=== PATIENT | female | born 1995 | race Hispanic/Latino ===

== ENCOUNTER → 2017-12-05 | Outpatient (CLI) | payer OTHER ==
[~2017-12-05] MED LIST: ACET1TAB43 PO; AMOXI; CEPH250T PO; CEPH500C PO; CLIN300C11 PO; FAMOTIDINE; FERR-47 PO; FERR-84 PO; HYOS0.3710 PO; IBP800T PO; IBUP-1773 PO; OMEP20CA12 PO; ONDA4TAB8 PO; ONDAN4ODT PO; PEDI1TAB36 PO; PREN-148 PO; PRM25T PO; RANI150T15 PO; RANI300T4 PO; SCR1T1 PO; SUCR1TAB36 PO; SULF1TAB35 PO; amoxicillin
--- NOTE | 2017-12-05 15:57 | Diagnostic Imaging Report ---
INDICATION: Dysmenorrhea. Transabdominal and transvaginal ultrasonography of the pelvis is performed. FINDINGS: The uterus measures 9.7 x 5.4 x 5.1 cm with an approximately 1.2 x 1.0 x 0.9 cm echogenic structure along the fundal aspect of the endometrium. This does appear to contain internal blood flow. Right ovary is unremarkable. Left ovary measures 4.1 x 3.8 x 4.7 cm and contains an approximately 3.1 x 3.0 x 2.4 cm cyst. No free fluid was documented although parametrial vessels are prominent, bilaterally. IMPRESSION: 1. 1.2 cm solid nodular focus in the fundal endometrium. This could represent polyp although other developing endometrial mass cannot be excluded. Clinical correlation would be of use. Consideration could be given to biopsy for assessment. 2. 3 cm cyst in the left ovary has a generally simple appearance without evidence of complicating feature. Dictated by: Dictated on workstation # [id number]
== END ==
LOC: RAD 12:42
PROVIDERS: ATTEND Nurse Practitioner Family
DX: N85.8 Other specified noninflammatory disorders of uterus (principal); N83.292 Other ovarian cyst, left side
CPT/HCPCS: 76830; 76856

== ENCOUNTER 2017-12-26 09:48 | Outpatient (CLI) | payer OTHER ==
[~2017-12-26] VITALS: Ht 154.9 cm; Wt 79.4 kg
[2017-12-26] MEDS ORDERED: OMEP20TA7 PO (10:01)
[2017-12-26] MEDS ORDERED: BUTA1TAB9 PO (10:01)
[2017-12-26 10:07] VITALS: BP 124/73
== END 2017-12-26 10:15 | disposition home or self-care (01) ==
LOC: PREOP 09:48
PROVIDERS: ATTEND Obstetrics & Gynecology
DX: Z01.818 Encounter for other preprocedural examination (principal); Z11.2 Encounter for screening for other bacterial diseases; R10.2 Pelvic and perineal pain
CPT/HCPCS: 87081

== ENCOUNTER → 2018-03-27 | Outpatient (CLI) | payer OTHER ==
[~2018-03-27] MED LIST changes: +ACHD5005 PO; +BUTA1TAB9 PO; +OMEP20TA7 PO; -RANI150T15 PO; +RANI150T46 PO
--- NOTE | 2018-03-27 15:54 | Diagnostic Imaging Report ---
INDICATION: Left pelvic pain. TECHNIQUE: Multiple real-time grayscale images were obtained of the pelvis in various projections endovaginally. FINDINGS: Uterus measures 8.7 x 5.3 x 4.8 cm. The endometrium is 4 mm in thickness. No uterine mass is identified. The right ovary is not visualized. The left ovary measures 3.7 x 1.8 x 1.4 cm. There is prominent vascularity in the left adnexa, perhaps owing to varices. No free fluid is seen. IMPRESSION: Essentially unremarkable pelvic ultrasound apart from moderate vascularity to the left adnexa. No discrete adnexal mass is identified. Dictated by: Dictated on workstation # [id number]
== END ==
LOC: RAD 14:36
PROVIDERS: ATTEND Nurse Practitioner Family
DX: R10.2 Pelvic and perineal pain (principal); R10.32 Left lower quadrant pain
CPT/HCPCS: 76830; 76856

== ENCOUNTER → 2018-07-24 | Outpatient (CLI) | payer OTHER ==
--- NOTE | 2018-07-24 13:56 | Diagnostic Imaging Report ---
INDICATION: Pelvic pain. TECHNIQUE: Multiple real time laughlin scale sonographic images were obtained of the pelvis transabdominally and transvaginally. CORRELATION STUDY: 03/27/2018 FINDINGS: UTERUS/ENDOMETRIUM: Uterus measures 10.2 x 6.1 x 4.8 cm. Endometrial thickness is 1.1 mm. The uterus and endometrium appearing unremarkable. A previously noted nodular foci within the endometrium is not demonstrated currently. RIGHT OVARY: 3.5 x 2.2 x 2.5. Unremarkable. No mass. Normal blood flow. LEFT OVARY: 1.9 x 2.1 x 2.2. Unremarkable. No mass. Normal blood flow. No significant free pelvic fluid. IMPRESSION: 1. Unremarkable appearing pelvic ultrasound examination. Dictated by: Dictated on workstation # [id number]
== END ==
LOC: RAD 11:53
PROVIDERS: ATTEND Obstetrics & Gynecology
DX: R10.2 Pelvic and perineal pain (principal)
CPT/HCPCS: 76830; 76856

== ENCOUNTER → 2018-09-07 | Outpatient (CLI) | payer OTHER ==
[~2018-09-07] MED LIST changes: +IOHEXOL 350 MG/ML 100 ML (OMNIPAQUE 350) VIAL IV ONE; +NS 250 ML (IVPB) BAG IV ONE
--- NOTE | 2018-09-07 17:37 | Diagnostic Imaging Report ---
PROCEDURE: CT head with and without contrast. TECHNIQUE: Multiple contiguous axial images were obtained through the brain before and after the administration of intravenous contrast. INDICATION: Intractable migraine without aura. FINDINGS: The ventricles are normal in size, shape and position. There is no acute parenchymal hemorrhage, edema, mass or abnormal parenchymal enhancement. There is no extra-axial mass or hemorrhage. IMPRESSION: Normal CT of the head. Dictated by: Dictated on workstation # [id number]
== END ==
LOC: RAD 16:21
PROVIDERS: ATTEND Nurse Practitioner Family
DX: G43.011 Migraine without aura, intractable, with status migrainosus (principal)
CPT/HCPCS: 70470

== ENCOUNTER 2018-11-09 11:53 | Outpatient (CLI) | payer OTHER ==
[~2018-11-09] VITALS: Ht 154.9 cm; Wt 85.7 kg
[~2018-11-09 11:53] MED LIST changes: -IOHEXOL 350 MG/ML 100 ML (OMNIPAQUE 350) VIAL IV ONE; -NS 250 ML (IVPB) BAG IV ONE
[2018-11-09 12:02] VITALS: BP 127/75
[2018-11-09 12:35] LABS: BASOPHILS % (AUTO) 1 % (0-10); EOSINOPHILS # (AUTO) 0.4 10^3/uL (0.0-0.3); EOSINOPHILS % (AUTO) 5 % (0-10); HEMATOCRIT 38 % (35-52); HEMOGLOBIN 12.5 G/DL (11.5-16.0); LYMPHOCYTES # (AUTO) 2.6 X 10^3 (1.0-4.0); LYMPHOCYTES % (AUTO) 37 % (12-44); MEAN CORPUSCULAR HEMOGLOBIN 27 PG (25-34); MEAN CORPUSCULAR HGB CONC 33 G/DL (32-36); MEAN CORPUSCULAR VOLUME 81 FL (80-99); MEAN PLATELET VOLUME 10.6 FL (7.4-10.4); MONOCYTES # (AUTO) 0.4 X 10^3 (0.0-1.0); MONOCYTES % (AUTO) 5 % (0-12); NEUTROPHILS # (AUTO) 3.7 X 10^3 (1.8-7.8); NEUTROPHILS % (AUTO) 53 % (42-75); PLATELET COUNT 291 10^3/uL (130-400); RED BLOOD COUNT 4.62 10^6/uL (4.35-5.85); RED CELL DISTRIBUTION WIDTH 13.3 % (10.0-14.5); WHITE BLOOD COUNT 7.1 10^3/uL (4.3-11.0)
== END 2018-11-09 12:20 | disposition home or self-care (01) ==
LOC: PREOP 11:53
PROVIDERS: ATTEND Obstetrics & Gynecology
DX: Z01.812 Encounter for preprocedural laboratory examination (principal); Z11.2 Encounter for screening for other bacterial diseases; R10.2 Pelvic and perineal pain; D64.9 Anemia, unspecified
CPT/HCPCS: 36415; 85025; 86850; 86900; 86901; 87081

== ENCOUNTER 2018-11-13 10:23 | Day surgery (SDC) | payer OTHER ==
[~2018-11-13] VITALS: Ht 154.9 cm; Wt 85.7 kg
[2018-11-13] MEDS ORDERED: ceFAZolin INJECTION 1,000 MG in NS (IVPB) 50 ML IV ONE (10:30)
--- OUTSIDE RECORDS SUMMARY | 2018-11-13 10:32 | XMS REPORT ---
Author Author JOSEPHINE GOODWIN Organization [facility] Address [address] [place] [address] Care Team Providers Care Director Of Accreditation Name Role Phone IMKE GOODWINTA Unavailable PROBLEMS Type Condition ICD9-CM Code [id number] Code Onset Dates Condition Status SNOMED Code Problem GERD without esophagitis K21.9 Active 907934066 Problem Primary insomnia F51.01 Active 1337463 Problem Moderate episode of recurrent major depressive disorder F33.1 Active 334006838 Problem Intractable migraine without aura and with status migrainosus G43.011 Active 542608848 Problem GERD with esophagitis K21.0 Active 400097754 Problem Acute bilateral low back pain without sciatica M54.5 Active 742006564 Problem Anxiety F41.9 Active 87198311 Problem Mild persistent asthma without complication J45.30 Active 505811975 Problem Asthma due to seasonal allergies J45.909 Active 758185534 Problem Migraine without aura and without status migrainosus, not intractable G43.009 Active 074560890 Problem Obesity (BMI 30.0-34.9) E66.9 Active 738389023830889 Problem Myopia of both eyes H52.13 Active 40776238 Problem Acanthosis nigricans L83 Active 674691439 Problem Seasonal allergic rhinitis, unspecified allergic rhinitis trigger J30.2 Active 354338004 Problem Dysmenorrhea N94.6 Active 985100560 ALLERGIES Substance Reaction Event Type Date Status Topamax numbness and tingling Drug Allergy Oct, Active Augmentin nausea and vomiting Drug Allergy Oct, Active ENCOUNTERS Encounter Location Date Diagnosis [facility] [address] [facility] [id number] [address] Oct, Anxiety F41.9 [facility] [address] [facility] [id number] [address] Oct, Strain of right shoulder, initial encounter S46.911A [place] [address] [place] [id number] [place] [address] Oct, [facility] [place] [address] [id number] [place] [address]385 Oct, Wheezing R06.2 [facility] [place] [address] [address] Sep, Wheezing R06.2 [place] [address] 6[address]398 Aug, [place] [address] [address] 26 Jul, 2018 Encounter for immunization Z23 [place] [address] [address] 4964 17 Jul, 2018 Bacterial conjunctivitis of left eye H10.9 [place] [address] [address]- [address] 13 Jul, 2018 Oral pain K13.79 [facility] [place] [address] [id number] [place] [address] 03833 -280[address] 07 Jul, 2018 Seasonal allergic rhinitis, unspecified allergic rhinitis trigger J30.2 ; Sore throat J02.9 ; Cough R05 and Acute otitis media, unspecified otitis media type H66.90 [place] [address] [id number] [place] [address] 27787- 3886 Jun, Intractable migraine without aura and with status migrainosus G43.011 [place] [address] [id number] [place] [address] 32547- 9300 May, Intractable migraine without aura and with status migrainosus G43.011 [place] [address] [id number] [place] [address] 34886- 4993 May, Intractable migraine without aura and with status migrainosus G43.011 [facility] [place] [address] [id number] [place] [address]9728 May, Migraine without aura and without status migrainosus, not intractable G43.009 [facility] [address] [id number] [place] [address] 98640- 0383 Apr, Vertigo R42 and Epigastric abdominal pain R10.13 [facility] [address] [address] Apr, Vertigo R42 [facility] [address] [address] Apr, Vertigo R42 [facility] [address] 8[address]- [address]16 Apr, Epigastric abdominal pain R10.13 and GERD with esophagitis K21.0 [place] [address] [address] Apr, Wheezing R06.2 [place] [address] 9[address]13- 7014 Apr, Mild persistent asthma without complication J45.30 and Wheezing R06.2 [place] [address] 8[address]- 1420 Apr, Migraine without aura and without status migrainosus, not intractable G43.009 [place] [address] 7[address]81- 6140 Apr, [place] [address] [address]74- [address] Apr, Cough R05 and Wheezing R06.2 [place] [address] 81271- 4483 05 Apr, 2018 Persistent cough for 3 weeks or longer R05 [place] [address] 0[address]51- 3[address] March, Asthma due to seasonal allergies J45.909 ; Cough R05 and Wheezing R06.2 [place] [address] [address]- 1706 March, Seasonal allergic rhinitis, unspecified allergic rhinitis trigger J30.2 and Asthma due to seasonal allergies J45.909 [place] [address] [address]63- 30[address] March, Cough R05 ; Chest congestion R09.89 and Sore throat J02.9 [place] [address] 02426- 9287 March, Moderate episode of recurrent major depressive disorder F33.1 ; Migraine without aura and without status migrainosus, not intractable G43.009 ; Primary insomnia F51.01 and Anxiety F41.9 [facility] [address] [address] March, Acute non-recurrent frontal sinusitis J01.10 [place] [address] 47946- 30[address] March, [place] [address] 85368- 6595 March, Right otitis media with effusion H65.91 ; Acute non- recurrent frontal sinusitis J01.10 and Migraine without aura and without status migrainosus, not intractable G43.009 [place] [address] 13466- 5645 Feb, Left lower quadrant pain R10.32 ; Migraine without aura and without status migrainosus, not intractable G43.009 and Anxiety F41.9 [place] [address] [address] Feb, Oral contraceptive pill surveillance Z30.41 [place] [address] 93851- 5383 Feb, Acute bilateral low back pain without sciatica M54.5 [place] [address] 59905- 2419 Feb, [place] [address] [address]19[address] 2624 12 Feb, [address] [facility] [address] [id number] 10 Feb, 2018 Dental examination Z01.20 [place] [address] 78876- 7016 10 Feb, 2018 Anxiety F41.9 [place] [address] 30793- 2326 Feb, Primary insomnia F51.01 and Moderate episode of recurrent major depressive disorder F33.1 [place] [address] [place] [id number] Jan, Acute suppurative otitis media of left ear without spontaneous rupture of tympanic membrane, recurrence not specified H66.002 [place] [address] 28432- 9[address] Jan, Migraine without aura and without status migrainosus, not intractable G43.009 ; Seasonal allergic rhinitis, unspecified allergic rhinitis trigger J30.2 ; GERD without esophagitis K21.9 ; Current mild episode of major depressive disorder without prior episode F32.0 and Human bite, initial encounter W50.3XXA [place] [address] 97739- 8063 Dec, Migraine without aura and without status migrainosus, not intractable G43.009 [place] [address] 05836- 0761 Dec, Nausea and vomiting after administration of anesthetic agent T88.59XA [place] [address] 31717- 8478 Dec, [place] [address] 56710- 8[address] 05 Dec, 2017 Acute tonsillitis, unspecified etiology J03.90 [place] [address] [place] [id number]- [address]46 Nov, Dysmenorrhea N94.6 ; Acute midline low back pain without sciatica M54.5 ; Obesity (BMI 30.0-34.9) E66.9 and High ankle sprain of right lower extremity, initial encounter S93.431A [facility] [address] [id number] [place] [address] 41387- 3812 Nov, [facility] [address] 29735- 2867 Nov, Migraine without aura and without status migrainosus, not intractable G43.009 [place] [address] [place] [address] 4112 Oct, Migraine without aura and without status migrainosus, not intractable G43.009 [facility] [address] [place] [id number] [place] [address] 20630 -9600 Oct, Migraine without aura and without status migrainosus, not intractable G43.009 [facility] [address] [place] [id number] [place] [address] 23333- 4826 Oct, [facility] [address] 94711- 2141 Oct, [facility] [address] [place] [id number] [place] [address] 96132- 8366 Oct, Acute non-recurrent maxillary sinusitis J01.00 [facility] [address] [id number] [place] [address] 33920- 5117 Sep, Left elbow tendonitis M77.8 and Other fatigue R53.83 [facility] [address] [place] [id number] [place] [address] [id number] Sep, Dental examination Z01.20 [facility] [address] [place] [id number] [place] [address] 72045- 8237 10 Sep, 2017 Sore throat J02.9 ; Other viral agents as the cause of diseases classified elsewhere B97.89 and Acute upper respiratory infection, unspecified J06.9 [facility] [address] [place] [id number] [place] [address] 20343- 6229 Aug, Encounter for immunization Z23 [facility] [address] 79198- 7097 Aug, Encounter for immunization Z23 [facility] [address] 67066- 7290 Aug, Migraine without aura and without status migrainosus, not intractable G43.009 [facility] [address] 34450- 5840 Jul, Acute midline low back pain without sciatica M54.5 and Obesity (BMI 30.0-34.9) E66.9 [facility] [address] 61774- 9438 Jul, Chronic seasonal allergic rhinitis due to pollen J30.1 [facility] [address] [id number] Jun, Dental examination Z01.20 [facility] [address] 032[address] -[address] Jun, Jaw pain R68.84 [facility] [address] 48290- 0674 Jun, Dental examination Z01.20 [facility] [address] [id number] Jun, Dental examination Z01.20 [facility] [address] 52252- 6897 Jun, [facility] [address] 12033- 5728 Jun, Allergic reaction, initial encounter T78.40XA [facility] [address] 42215- 4853 Jun, [facility] [address] [place] [address]- 6445 Jun, Migraine without aura and without status migrainosus, not intractable G43.009 [place] [address] 33255- 8597 May, [place] [address] [id number] [place] [address] 08039- 9104 May, Helicobacter pylori (H. pylori) infection A04.8 [place] [address] 97033- 6081 11 May, 2017 Encounter for routine adult health examination with abnormal findings Z00.01 ; Obesity (BMI 30.0-34.9) E66.9 ; Acanthosis nigricans L83 and Dietary counseling Z71.3 [place] [address] 97677- 3834 13 Apr, 2017 Acute seasonal allergic rhinitis due to pollen J30.1 and Sore throat J02.9 [place] [address] [id number] [place] [address] 83940- 4604 Apr, [place] [address] 33654- 0070 Apr, Migraine without aura and without status migrainosus, not intractable G43.009 [place] [address] [id number] [place] [address] 89261- 6111 March, Dental examination Z01.20 [facility] [address] [place] [id number] [place] [address] 86818 -6865 Feb, Seasonal allergic rhinitis, unspecified allergic rhinitis trigger J30.[address] [place] [address] [id number] [id number] Nov, [facility] [address] [place] [address] [id number] Oct, Dental examination Z01.20 [facility] [address] [place] [address] [id number] Oct, Dental examination Z01.20 [facility] [address] [id number] [place] [id number] Oct, 2015 Dental examination Z01.20 and Encounter for dental examination Z01.20 [facility] [address] [id number] [place] [address] 14 Feb, 2015 [facility] [address] [id number] [place] [address]- 8618 13 Feb, 2015 [facility] [address] [id number] [place] [address]- [address] Sep, [facility] [address] [id number] [place] [address]- 3707 Sep, [facility] [address] [id number] [place] [address]- 8295 Jul, [facility] [address] [id number] [place] [address]- 2730 Jul, [facility] [address] [id number] [place] [address]- 7368 Jul, [facility] [address] [id number] [place] [address]- 1916 Jun, [facility] [address] [facility] [id number] [place] [address]- 0030 Jun, [facility] [address] [id number] [place] [address]- 6381 Jun, [facility] [address] [id number] [place] [address]- 0516 Jun, [facility] [address] [id number] [place] [address]- 8437 Jul, [facility] [address] [id number] [place] [address]- 0310 Jun, [facility] [address] [facility] [id number] [place] [address] 5490 Feb, [facility] [address] [facility] [id number] [place] [address]- 7539 Sep, [facility] [address] [facility] [id number] [place] [address]- 42[address] Sep, [facility] [address] [facility] [id number] [place] [address]- 58[address] Oct, [facility] [address] [facility] [id number] [place] [address] Oct, IMMUNIZATIONS No Known Immunizations SOCIAL HISTORY Never Assessed REASON FOR VISIT see TE, pt had a strange feeling while lifting her son last night, now has weakness in the right hand and pain when she breaths- Lala Masters RN PLAN OF CARE Activity Details Follow Up if not improving or with pcp for regular fu. if not improving with PCP or reg follow up Reason:recheck or next [facility] VITAL SIGNS Height 62 in 2018-10-29 Weight 189 lbs 2018-10-29 Temperature 98.0 degrees Fahrenheit 2018-10-29 Heart Rate 78 bpm 2018-10-29 Respiratory Rate 18 2018-10-29 BMI 34.56 kg/m2 2018-10-29 Blood pressure systolic 122 mmHg 2018-10-29 Blood pressure diastolic 80 mmHg 2018-10-29 MEDICATIONS Medication Instructions Dosage Frequency Start Date End Date Duration Status Baclofen 10 mg Orally Three times a day 1 tablet with food or milk 8h Oct, 14 days Active Qvar 40 MCG/ACT Inhalation Twice a day 1 puff 12h Apr, Apr, 12 months Active E-Z Spacer 1 Oct, 30 days Active Ipratropium-Albuterol 0.5-2.5 (3) MG/3ML Inhalation every 6 hrs 3 ml 6h March, Active Naproxen 500 mg Orally every 12 hrs 1 tablet with food or milk as needed 12h Oct, 14 days Active Fioricet 50-300-40 MG Orally every 4 hrs 1 capsule as needed 4h Active ProAir HFA 108 (90 Base) MCG/ACT Inhalation every 4-6 hrs PRN 2 puffs as needed Oct, 5 days Active RESULTS No Results PROCEDURES No Known procedures INSTRUCTIONS MEDICATIONS ADMINISTERED No Known Medications MEDICAL (GENERAL) HISTORY Type Description Date Medical History Seasonal Allergies Surgical History uterine polyp removal- 12/2017 Hospitalization History Childbirth only
--- OUTSIDE RECORDS SUMMARY | 2018-11-13 10:33 | XMS REPORT ---
Author Author CORINA SCHUMACHER Organization [facility] Address [address] [place] [address] Care Team Providers Care Undercover Operator Name Role Phone CORINA SCHUMACHER Unavailable PROBLEMS Type Condition ICD9-CM Code CEB75-MK Code Onset Dates Condition Status SNOMED Code Problem GERD without esophagitis K21.9 Active 733402154 Problem Primary insomnia F51.01 Active 0517448 Problem Moderate episode of recurrent major depressive disorder F33.1 Active 911312074 Problem Intractable migraine without aura and with status migrainosus G43.011 Active 147627103 Problem GERD with esophagitis K21.0 Active 133978274 Problem Acute bilateral low back pain without sciatica M54.5 Active 463268708 Problem Anxiety F41.9 Active 12770531 Problem Mild persistent asthma without complication J45.30 Active 306666264 Problem Asthma due to seasonal allergies J45.909 Active 141438948 Problem Migraine without aura and without status migrainosus, not intractable G43.009 Active 044467121 Problem Obesity (BMI 30.0-34.9) E66.9 Active 638926261449000 Problem Myopia of both eyes H52.13 Active 13186573 Problem Acanthosis nigricans L83 Active 514826121 Problem Seasonal allergic rhinitis, unspecified allergic rhinitis trigger J30.2 Active 602790082 Problem Dysmenorrhea N94.6 Active 290102854 ALLERGIES No Information ENCOUNTERS Encounter Location Date Diagnosis [facility] [address] [id number] [address] Oct, Anxiety F41.9 [facility] [address] [id number], [place] [address] Oct, Strain of right shoulder, initial encounter S46.911A [facility] [address] [id number] [address] Oct, [facility] [id number] [place] [address] Oct, Wheezing R06.2 [facility] [id number] [place] [address]5173 Sep, Wheezing R06.2 [place] [id number] [place] [address] 18478- 7204 Aug, [place] [address] [address] 26 Jul, 2018 Encounter for immunization Z23 [place] [address] [address]- [address]7 17 Jul, 2018 Bacterial conjunctivitis of left eye H10.9 [place] [id number] [place] [address] 26145- 0881 13 Jul, 2018 Oral pain K13.79 [facility] [place] [id number] [place] [address] 61671 -4687 07 Jul, 2018 Seasonal allergic rhinitis, unspecified allergic rhinitis trigger J30.2 ; Sore throat J02.9 ; Cough R05 and Acute otitis media, unspecified otitis media type H66.90 [place] [id number] [place] [address] 00199- 0588 Jun, Intractable migraine without aura and with status migrainosus G43.011 [place] [id number] [place] [address] 14048- 2892 May, Intractable migraine without aura and with status migrainosus G43.011 [place] [id number] [place] [address] 27750- 3768 May, Intractable migraine without aura and with status migrainosus G43.011 [facility] [place] [id number] [place] [address]14 -5878 May, Migraine without aura and without status migrainosus, not intractable G43.009 [place] [address] [address]83- 6543 28 Apr, 2018 Vertigo R42 and Epigastric abdominal pain R10.13 [place] [address] [address]46- [address] Apr, Vertigo R42 [facility] [address] [address] Apr, Vertigo R42 [place] [address] [address]- 1308 Apr, Epigastric abdominal pain R10.13 and GERD with esophagitis K21.0 [place] [address] 60715- 0092 13 Apr, 2018 Wheezing R06.2 [place] [address] 87013- 2634 12 Apr, 2018 Mild persistent asthma without complication J45.30 and Wheezing R06.2 [place] [address] 70604- 0716 Apr, Migraine without aura and without status migrainosus, not intractable G43.009 [place] [address] 13920- 8575 Apr, [place] [address] [address]17- 0732 Apr, Cough R05 and Wheezing R06.2 [place] [address] 15264- 7384 05 Apr, 2018 Persistent cough for 3 weeks or longer R05 [place] [address] 13684- [address]30 March, Asthma due to seasonal allergies J45.909 ; Cough R05 and Wheezing R06.2 [place] [id number] [place] [address] 83354- 9208 March, Seasonal allergic rhinitis, unspecified allergic rhinitis trigger J30.2 and Asthma due to seasonal allergies J45.909 [place] [address] [address] March, Cough R05 ; Chest congestion R09.89 and Sore throat J02.9 [facility] [address] [address]95 March, Moderate episode of recurrent major depressive disorder F33.1 ; Migraine without aura and without status migrainosus, not intractable G43.009 ; Primary insomnia F51.01 and Anxiety F41.9 [facility] [address] [address] March, Acute non-recurrent frontal sinusitis J01.10 [place] [address] 25248- 5361 March, [place] [address] 64344- 5260 March, Right otitis media with effusion H65.91 ; Acute non- recurrent frontal sinusitis J01.10 and Migraine without aura and without status migrainosus, not intractable G43.009 [place] [address] 05707- 6507 Feb, Left lower quadrant pain R10.32 ; Migraine without aura and without status migrainosus, not intractable G43.009 and Anxiety F41.9 [place] [id number] [place] [address] 73004- 0305 Feb, Oral contraceptive pill surveillance Z30.41 [place] [address] 14258- 9645 Feb, Acute bilateral low back pain without sciatica M54.5 [place] [address] 38329- 8874 Feb, [place] [address] 19363- 1003 12 Apr, [address] [facility] [address] [place] [id number] 10 Feb, 2018 Dental examination Z01.20 [place] [address] 84149- [address] 10 Feb, 2018 Anxiety F41.9 [place] [address] 18644- 1402 Feb, Primary insomnia F51.01 and Moderate episode of recurrent major depressive disorder F33.1 [place] [address] 05995- 5431 Jan, Acute suppurative otitis media of left ear without spontaneous rupture of tympanic membrane, recurrence not specified H66.002 [place] [address] 23196- 7322 Jan, Migraine without aura and without status migrainosus, not intractable G43.009 ; Seasonal allergic rhinitis, unspecified allergic rhinitis trigger J30.2 ; GERD without esophagitis K21.9 ; Current mild episode of major depressive disorder without prior episode F32.0 and Human bite, initial encounter W50.3XXA [place] [address] 62119- 65[address] Dec, Migraine without aura and without status migrainosus, not intractable G43.009 [place] [id number] [place] [address] 26882- 0312 Dec, Nausea and vomiting after administration of anesthetic agent T88.59XA [place] [id number] [place] [address] 97408- 5287 Dec, [place] [address] 53013- [address]67 Dec, Acute tonsillitis, unspecified etiology J03.90 [place] [address] 47173- 2552 Nov, Dysmenorrhea N94.6 ; Acute midline low back pain without sciatica M54.5 ; Obesity (BMI 30.0-34.9) E66.9 and High ankle sprain of right lower extremity, initial encounter S93.431A [facility] [address] 89927- 5887 Nov, [facility] [address] 91086- 8119 Nov, Migraine without aura and without status migrainosus, not intractable G43.009 [facility] [address] 81509- 5244 Oct, Migraine without aura and without status migrainosus, not intractable G43.009 [facility] [address] 6[address] Oct, Migraine without aura and without status migrainosus, not intractable G43.009 [facility] [address] 82256- 1518 Oct, [facility] [address] 24088- 7081 Oct, [facility] [address] 33440- 1077 Oct, Acute non-recurrent maxillary sinusitis J01.00 [place] [address] 51730- 1083 Sep, Left elbow tendonitis M77.8 and Other fatigue R53.83 [facility] [id number] [place] [address] [id number] 17 Sep, 2017 Dental examination Z01.20 [facility] [address] 03728- 9028 Sep, Sore throat J02.9 ; Other viral agents as the cause of diseases classified elsewhere B97.89 and Acute upper respiratory infection, unspecified J06.9 [facility] [address] 53337- 9834 Aug, Encounter for immunization Z23 [facility] [id number] [place] [address] 15951- 2854 Aug, Encounter for immunization Z23 [facility] [address] 766232- 4743 Aug, Migraine without aura and without status migrainosus, not intractable G43.009 [facility] [address] 37396- 5514 Jul, Acute midline low back pain without sciatica M54.5 and Obesity (BMI 30.0-34.9) E66.9 [facility] [address] 76720- 9381 Jul, Chronic seasonal allergic rhinitis due to pollen J30.1 [facility] [address] [id number] Jun, Dental examination Z01.20 [facility] [address] 50682 [address]88 Jun, Jaw pain R68.84 [facility] [address] 05835- 6925 Jun, Dental examination Z01.20 [facility] [address] [id number] Jun, Dental examination Z01.20 [facility] [id number] [place] [address] 63280- 1792 Jun, [facility] [address] 29659- 8563 Jun, Allergic reaction, initial encounter T78.40XA [facility] [address] 02286- 4650 Jun, [facility] [address] 17268- 9170 Jun, Migraine without aura and without status migrainosus, not intractable G43.009 [facility] [address] [place] [address] 25795- 9055 May, [facility] [id number] [place] [address] 76620- 4560 May, Helicobacter pylori (H. pylori) infection A04.8 [place] [id number] [place] [address] 49352- 8360 11 May, 2017 Encounter for routine adult health examination with abnormal findings Z00.01 ; Obesity (BMI 30.0-34.9) E66.9 ; Acanthosis nigricans L83 and Dietary counseling Z71.3 [place] [address] 03548- 0147 13 Apr, 2017 Acute seasonal allergic rhinitis due to pollen J30.1 and Sore throat J02.9 [place] [id number] [place] [address] 52444- 5832 08 Apr, 2017 [place] [id number] [place] [address] 74266- 7143 Apr, Migraine without aura and without status migrainosus, not intractable G43.009 [place] [id number] [place] [address] 51443- 0555 March, Dental examination Z01.20 [facility] [address] [place] [address] 66246 -8149 Feb, Seasonal allergic rhinitis, unspecified allergic rhinitis trigger J30.2 [facility] [address] [id number] [id number] Nov, [facility] [address] [place] [address] [id number] Oct, Dental examination Z01.20 [facility] [id number] [place] [address] [id number] Oct, Dental examination Z01.20 [facility] [id number] [place] [address] [id number] Oct, Dental examination Z01.20 and Encounter for dental examination Z01.20 [facility] [address] [id number] [place] [address]- [address] 14 Feb, 2015 [facility] [address] [id number] [place] [address]- 0725 13 Feb, 2015 [facility] [address] [id number] [address] 0948 Sep, [facility] [address] [id number] [place] [address]- 3769 Sep, [facility] [address] [id number] [place] [address]- 4689 Jul, [facility] [address] [id number] [place] [address]- 7639 Jul, [facility] [address] [facility] [id number] [place] [address]- 1199 Jul, [facility] [address] [id number], [place] [address]- 9610 Jun, [facility] [address] [id number] [place] [address] Jun, [facility] [address] [facility] [id number], [place] [address] Jun, [facility] [address] [id number], [place] [address]- 2147 Jun, [facility] [address] [id number], [place] [address]- 1437 Jul, [facility] [address] [id number], [place] [address]- 7511 Jun, [facility] [address] [facility] [id number], [place] [address]- 5158 Feb, [facility] [address] [id number], [place] [address]- 9777 Sep, [facility] [address] [facility] [id number] [place] [address]- 4677 Sep, [facility] [address] [facility] [id number], [place] [address]- 1236 Oct, [facility] [address] [facility] [id number] [address]- 5834 Oct, IMMUNIZATIONS No Known Immunizations SOCIAL HISTORY Never Assessed REASON FOR VISIT PLAN OF CARE Activity Details Follow Up w/ PCP Reason:routine f/u VITAL SIGNS Height 62 in 2018-11-04 Weight 189.0 lbs 2018-11-04 Temperature 98.7 degrees Fahrenheit 2018-11-04 Heart Rate 99 bpm 2018-11-04 Respiratory Rate 18 2018-11-04 BMI 34.56 kg/m2 2018-11-04 Blood pressure systolic 102 mmHg 2018-11-04 Blood pressure diastolic 68 mmHg 2018-11-04 MEDICATIONS Medication Instructions Dosage Frequency Start Date End Date Duration Status Qvar 40 MCG/ACT Inhalation Twice a day 1 puff 12h Apr, Apr, 12 months Active Naproxen 500 mg Orally every 12 hrs 1 tablet with food or milk as needed 12h Oct, 14 days Active Baclofen 10 mg Orally Three times a day 1 tablet with food or milk 8h Oct, 14 days Active ProAir HFA 108 (90 Base) MCG/ACT Inhalation every 4-6 hrs PRN 2 puffs as needed Oct, 5 days Active Ipratropium-Albuterol 0.5-2.5 (3) MG/3ML Inhalation every 6 hrs 3 ml 6h March, Active Clonazepam 0.25 MG Orally 2 times a day 1 tablet on the tongue and allow to dissolve before bedtime 12h Oct, 10 days Active Fioricet 50-300-40 MG Orally every 4 hrs 1 capsule as needed 4h Active E-Z Spacer 1 Oct, 30 days Active RESULTS No Results PROCEDURES No Known procedures INSTRUCTIONS MEDICATIONS ADMINISTERED No Known Medications MEDICAL (GENERAL) HISTORY Type Description Date Medical History Seasonal Allergies Surgical History uterine polyp removal- 12/2017 Hospitalization History Childbirth only
--- OUTSIDE RECORDS SUMMARY | 2018-11-13 10:33 | XMS REPORT ---
Author Author GIOVANY MATHIAS [facility] Address [address] [place] [address] Care Team Providers Care Group Manager Name Role Phone GIOVANY MATHIAS Unavailable PROBLEMS Type Condition ICD9-CM Code [id number] Code Onset Dates Condition Status SNOMED Code Problem GERD without esophagitis K21.9 Active 013687867 Problem Primary insomnia F51.01 Active 1707769 Problem Moderate episode of recurrent major depressive disorder F33.1 Active 931047335 Problem Intractable migraine without aura and with status migrainosus G43.011 Active 065090892 Problem GERD with esophagitis K21.0 Active 720495102 Problem Acute bilateral low back pain without sciatica M54.5 Active 084127362 Problem Anxiety F41.9 Active 61770313 Problem Mild persistent asthma without complication J45.30 Active 206755929 Problem Asthma due to seasonal allergies J45.909 Active 575896235 Problem Migraine without aura and without status migrainosus, not intractable G43.009 Active 184774068 Problem Obesity (BMI 30.0-34.9) E66.9 Active 069955735453273 Problem Myopia of both eyes H52.13 Active 36274362 Problem Acanthosis nigricans L83 Active 065654372 Problem Seasonal allergic rhinitis, unspecified allergic rhinitis trigger J30.2 Active 907231705 Problem Dysmenorrhea N94.6 Active 614043960 ALLERGIES No Information ENCOUNTERS Encounter Location Date Diagnosis [facility] [id number] [address] Oct, Wheezing R06.2 [facility] [id number] [address] Sep, Wheezing R06.2 [facility] [id number] [address] Aug, [place] [id number] [place] [address] 26 Jul, 2018 Encounter for immunization Z23 [place] [address] [address] 17 Jul, 2018 Bacterial conjunctivitis of left eye H10.9 [place] [address] [address] 13 Jul, 2018 Oral pain K13.79 [facility] [place] [address] [address] 07 Jul, 2018 Seasonal allergic rhinitis, unspecified allergic rhinitis trigger J30.2 ; Sore throat J02.9 ; Cough R05 and Acute otitis media, unspecified otitis media type H66.90 [place] [address] [address] Jun, Intractable migraine without aura and with status migrainosus G43.011 [place] [address] [address] May, Intractable migraine without aura and with status migrainosus G43.011 [place] [address] [address] May, Intractable migraine without aura and with status migrainosus G43.011 [facility] [place] [id number] [place] [address] May, Migraine without aura and without status migrainosus, not intractable G43.009 [place] [id number] [place] [address]- 9471 Apr, Vertigo R42 and Epigastric abdominal pain R10.13 [place] [id number] [place] [address]78- 85[address] Apr, Vertigo R42 [facility] [id number] [place] [address] Apr, Vertigo R42 [place] [address] [address] 26 Apr, 2018 Epigastric abdominal pain R10.13 and GERD with esophagitis K21.0 [place] [address] [address] 13 Apr, 2018 [address] R06.[address] [address] 12 Apr, 2018 Mild persistent asthma without complication J45.30 and Wheezing R06.[address] [address]- [address] 11 Apr, 2018 Migraine without aura and without status migrainosus, not intractable G43.[address] [address] Apr, [address] [address] 07 Apr, 2018 Cough R05 and Wheezing R06.[address] [address]- [address] 05 Apr, 2018 Persistent cough for 3 weeks or longer R05 [place] [address] [address] March, Asthma due to seasonal allergies J45.909 ; Cough R05 and Wheezing R06.[address] [address] March, Seasonal allergic rhinitis, unspecified allergic rhinitis trigger J30.2 and Asthma due to seasonal allergies J45.[address] [address] March, Cough R05 ; Chest congestion R09.89 and Sore throat J02.[address] [address] March, Moderate episode of recurrent major depressive disorder F33.1 ; Migraine without aura and without status migrainosus, not intractable G43.009 ; Primary insomnia F51.01 and Anxiety F41.9 [facility] [address] [id number] March, Acute non-recurrent frontal sinusitis J01.10 [facility] [address] [address] March, [facility] [address] [id number]- [address] March, Right otitis media with effusion H65.91 ; Acute non- recurrent frontal sinusitis J01.10 and Migraine without aura and without status migrainosus, not intractable G43.009 [facility] [address] [address] Feb, Left lower quadrant pain R10.32 ; Migraine without aura and without status migrainosus, not intractable G43.009 and Anxiety F41.9 [facility] [address] [address] Feb, Oral contraceptive pill surveillance Z30.41 [place] [address] [address] Feb, Acute bilateral low back pain without sciatica M54.5 [facility] [address] [address] Feb, [facility] [address] [address] Feb, Dental examination Z01.20 [facility] [address] [id number] Feb, Dental examination Z01.20 [facility] [address] [address] Feb, Anxiety F41.9 [facility] [address] [address] Feb, Primary insomnia F51.01 and Moderate episode of recurrent major depressive disorder F33.1 [place] [address] [address] Jan, Acute suppurative otitis media of left ear without spontaneous rupture of tympanic membrane, recurrence not specified H66.002 [place] [address] [address] 2388 Jan, Migraine without aura and without status migrainosus, not intractable G43.009 ; Seasonal allergic rhinitis, unspecified allergic rhinitis trigger J30.2 ; GERD without esophagitis K21.9 ; Current mild episode of major depressive disorder without prior episode F32.0 and Human bite, initial encounter W50.3XXA [place] [address] [address] Dec, Migraine without aura and without status migrainosus, not intractable G43.009 [place] [address] [address] 8529 Dec, Nausea and vomiting after administration of anesthetic agent T88.59XA [place] [address] [address] Dec, [place] [address] [address] Dec, Acute tonsillitis, unspecified etiology J03.90 [place] [address] [address] Nov, Dysmenorrhea N94.6 ; Acute midline low back pain without sciatica M54.5 ; Obesity (BMI 30.0-34.9) E66.9 and High ankle sprain of right lower extremity, initial encounter S93.431A [place] [address] [address] Nov, [place] [address] [address] Nov, Migraine without aura and without status migrainosus, not intractable G43.009 [facility] [address] [place] [address]40[address] Oct, Migraine without aura and without status migrainosus, not intractable G43.009 [facility] [address] [place] [address] Oct, Migraine without aura and without status migrainosus, not intractable G43.009 [facility] [id number] [place] [address]11- 9068 Oct, [facility] [id number] [place] [address] 19864- 1781 Oct, [facility] [id number] [place] [address] 21136- 4496 Oct, Acute non-recurrent maxillary sinusitis J01.00 [facility] [id number] [place] [address] 05242- 7452 Sep, Left elbow tendonitis M77.8 and Other fatigue R53.83 [facility] [id number] [place] [id number] Sep, Dental examination Z01.20 [facility] [id number] [place] [address] 27897- 97[address] 10 Sep, 2017 Sore throat J02.9 ; Other viral agents as the cause of diseases classified elsewhere B97.89 and Acute upper respiratory infection, unspecified J06.9 [facility] [address] [place] [address] 31488- 6565 Aug, Encounter for immunization Z23 [facility] [address] [address] Aug, Encounter for immunization Z23 [facility] [id number] [place] [address] 73714[address] Aug, Migraine without aura and without status migrainosus, not intractable G43.009 [facility] [id number] [place] [address] 9[address]43- 9421 Jul, Acute midline low back pain without sciatica M54.5 and Obesity (BMI 30.0-34.9) E66.9 [facility] [id number] [place] [address] 0[address]59- 9106 Jul, Chronic seasonal allergic rhinitis due to pollen J30.1 [facility] [address] [id number] Jun, Dental examination Z01.20 [facility] [id number] [place] [address] Jun, Jaw pain R68.84 [facility] [address] [address]- [address]87 Jun, Dental examination Z01.20 [facility] [address] [id number] Jun, Dental examination Z01.20 [facility] [address] [address]- [address] Jun, [facility] [address] 64733- 4620 Jun, Allergic reaction, initial encounter T78.40XA [facility] [id number] [place] [address] 45929- 7[address] Jun, [facility] [id number] [place] [address] 26112- 8563 Jun, Migraine without aura and without status migrainosus, not intractable G43.009 [place] [address] 6[address]91- 6556 May, [facility] [address] [address]- [address]44 May, Helicobacter pylori (H. pylori) infection A04.8 [facility] [address] [address]798- 5115 May, Encounter for routine adult health examination with abnormal findings Z00.01 ; Obesity (BMI 30.0-34.9) E66.9 ; Acanthosis nigricans L83 and Dietary counseling Z71.3 [facility] [id number] [place] [address] 83375- 9007 13 Apr, 2017 Acute seasonal allergic rhinitis due to pollen J30.1 and Sore throat J02.9 [facility] [address] 92276- 1395 08 Apr, 2017 [facility] [address] 46194- 5003 Apr, Migraine without aura and without status migrainosus, not intractable G43.009 [facility] [id number] [place] [address] 16770- 8783 March, Dental examination Z01.20 [facility] [id number] [place] [address]23 [address]10 Feb, Seasonal allergic rhinitis, unspecified allergic rhinitis trigger J30.[address] [id number] [id number] Nov, [facility] [id number] [place] [id number] Oct, Dental examination Z01.20 [facility] [id number] [place] [address] [id number] Oct, Dental examination Z01.20 [facility] [id number] [place] [address] [id number] Oct, Dental examination Z01.20 and Encounter for dental examination Z01.20 [facility] [address] [address]- [address]557 14 Feb, 2015 [facility] [address] 6[address]67- 9949 13 Feb, 2015 [facility] [address] [address]- [address] Sep, [facility] [address] [id number] [place] [address] Sep, [facility] [address] [facility] [id number] [place] [address] Jul, [facility] [address] [facility] [id number] [place] [address] Jul, [facility] [address] [id number] [place] Jul, [facility] [address] [id number] [place] [address] 15[address] Jun, [facility] [address] [facility] [id number] [place] [address] 37[address] Jun, [facility] [address] [facility] [id number] [place] [address]- 0948 Jun, [facility] [address] [facility] [id number] [address] Jun, [facility] [address] [facility] [id number], [place] [address] Jul, [facility] [address] [facility] [id number] [address] Jun, [facility] [address] [facility] [id number], [place] [address] Feb, [facility] [address] [facility] [id number], [place] [address] Sep, [facility] [address] [facility] [id number], [place] [address] Sep, [facility] [address] [facility] [id number] Oct, [facility] [address] [facility] [id number], [place] [address] Oct, IMMUNIZATIONS No Known Immunizations SOCIAL HISTORY Never Assessed REASON FOR VISIT PLAN OF CARE VITAL SIGNS MEDICATIONS Medication Instructions Dosage Frequency Start Date End Date Duration Status E-Z Spacer 1 Oct, 30 days Active ProAir HFA 108 (90 Base) MCG/ACT Inhalation every 4-6 hrs PRN 2 puffs as needed Oct, 5 days Active RESULTS No Results PROCEDURES No Known procedures INSTRUCTIONS MEDICATIONS ADMINISTERED No Known Medications MEDICAL (GENERAL) HISTORY Type Description Date Medical History Seasonal Allergies Surgical History uterine polyp removal- 12/2017 Hospitalization History Childbirth only
--- OUTSIDE RECORDS SUMMARY | 2018-11-13 10:33 | XMS REPORT ---
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 Name Role Phone GIOVANY MATHIAS Unavailable PROBLEMS Type Condition ICD9-CM Code NWZ97-DL Code Onset Dates Condition Status SNOMED Code Problem GERD without esophagitis K21.9 Active 986604660 Problem Primary insomnia F51.01 Active 3297060 Problem Moderate episode of recurrent major depressive disorder F33.1 Active 523483219 Problem Intractable migraine without aura and with status migrainosus G43.011 Active 886297489 Problem GERD with esophagitis K21.0 Active 133362869 Problem Acute bilateral low back pain without sciatica M54.5 Active 681888326 Problem Anxiety F41.9 Active 63218464 Problem Mild persistent asthma without complication J45.30 Active 980119680 Problem Asthma due to seasonal allergies J45.909 Active 843868933 Problem Migraine without aura and without status migrainosus, not intractable G43.009 Active 648963828 Problem Obesity (BMI 30.0-34.9) E66.9 Active 814617432284540 Problem Myopia of both eyes H52.13 Active 18516373 Problem Acanthosis nigricans L83 Active 657665366 Problem Seasonal allergic rhinitis, unspecified allergic rhinitis trigger J30.2 Active 354854325 Problem Dysmenorrhea N94.6 Active 895173221 ALLERGIES No Information ENCOUNTERS Encounter Location Date Diagnosis [facility] [address] [id number], [place] [address] Sep, Wheezing R06.2 [facility], [place] [id number], [place] [address] Aug, [facility] [place] [address] [id number] [address] Jul, Encounter for immunization Z23 [place] [address] [address] 17 Jul, 2018 Bacterial conjunctivitis of left eye H10.9 [place] [address] [address] 13 Jul, 2018 Oral pain K13.79 [facility] [place] [address] [address] 07 Jul, 2018 Seasonal allergic rhinitis, unspecified allergic rhinitis trigger J30.2 ; Sore throat J02.9 ; Cough R05 and Acute otitis media, unspecified otitis media type H66.90 [place] [address] [address] Jun, Intractable migraine without aura and with status migrainosus G43.011 [place] [address] [address] May, Intractable migraine without aura and with status migrainosus G43.011 [place] [address] [address] May, Intractable migraine without aura and with status migrainosus G43.011 [facility] [place] [id number] [place] [address] May, Migraine without aura and without status migrainosus, not intractable G43.009 [place] [address] [address] Apr, Vertigo R42 and Epigastric abdominal pain R10.13 [place] [address] [address] Apr, Vertigo R42 [facility] [place] [address] [address] Apr, Vertigo R42 [place] [address] [address]- [address] 26 Terry, 2018 Epigastric abdominal pain R10.13 and GERD with esophagitis K21.0 [place] [address] [address] 13 Apr, 2018 Wheezing R06.2 [place] [address] [address] 12 Apr, 2018 Mild persistent asthma without complication J45.30 and Wheezing R06.2 [place] [address] [address] Apr, Migraine without aura and without status migrainosus, not intractable G43.009 [place] [address] [address] Apr, [place] [address] [address] 07 Apr, 2018 Cough R05 and Wheezing R06.2 [place] [address] [address] 05 Apr, 2018 Persistent cough for 3 weeks or longer R05 [place] [address] [address] March, Asthma due to seasonal allergies J45.909 ; Cough R05 and Wheezing R06.2 [place] [address] [address] March, Seasonal allergic rhinitis, unspecified allergic rhinitis trigger J30.2 and Asthma due to seasonal allergies J45.909 [place] [id number] [place] [address] March, Cough R05 ; Chest congestion R09.89 and Sore throat J02.9 [place] [address] [address] March, Moderate episode of recurrent major depressive disorder F33.1 ; Migraine without aura and without status migrainosus, not intractable G43.009 ; Primary insomnia F51.01 and Anxiety F41.9 [facility] [id number] [place] [address] March, Acute non-recurrent frontal sinusitis J01.10 [facility] [place] [id number] [place] [address]51[address] March, [facility] [place] [id number] [place] [address] 9[address] March, Right otitis media with effusion H65.91 ; Acute non- recurrent frontal sinusitis J01.10 and Migraine without aura and without status migrainosus, not intractable G43.009 [facility], [place] [id number] [place] [address] Feb, Left lower quadrant pain R10.32 ; Migraine without aura and without status migrainosus, not intractable G43.009 and Anxiety F41.9 [facility] [place] [address] 7[address] Feb, Oral contraceptive pill surveillance Z30.41 [facility] [place] [id number] [place] [address] 81165- 6865 Feb, Acute bilateral low back pain without sciatica M54.5 [facility] [place] [id number] [place] [address]36- 7955 Feb, [facility] [place] [id number] [place] [address]32- 9297 Feb, Dental examination Z01.20 [facility] [id number] [place] [id number] Feb, Dental examination Z01.20 [facility] [place] [id number] [place] [address] 16023[address] 8317 Feb, Anxiety F41.9 [facility] [place] [address] 06[address] 6368 Feb, Primary insomnia F51.01 and Moderate episode of recurrent major depressive disorder F33.1 [facility] [place] [address] [address] Jan, Acute suppurative otitis media of left ear without spontaneous rupture of tympanic membrane, recurrence not specified H66.002 [place] [address] [address] Jan, Migraine without aura and without status migrainosus, not intractable G43.009 ; Seasonal allergic rhinitis, unspecified allergic rhinitis trigger J30.2 ; GERD without esophagitis K21.9 ; Current mild episode of major depressive disorder without prior episode F32.0 and Human bite, initial encounter W50.3XXA [place] [address] [address] Dec, Migraine without aura and without status migrainosus, not intractable G43.009 [place] [address] [address] Dec, Nausea and vomiting after administration of anesthetic agent T88.59XA [place] [address] [address]- [address]3 Dec, [place] [address] [address] Dec, Acute tonsillitis, unspecified etiology J03.90 [place] [address] [address]- [address] Nov, Dysmenorrhea N94.6 ; Acute midline low back pain without sciatica M54.5 ; Obesity (BMI 30.0-34.9) E66.9 and High ankle sprain of right lower extremity, initial encounter S93.431A [place] [address] [address]- 8662 Nov, [place] [address] [address]80[address] Nov, Migraine without aura and without status migrainosus, not intractable G43.009 [place] [address] [address]51- [address] Oct, Migraine without aura and without status migrainosus, not intractable G43.009 [facility] [id number] [place] [address] Oct, Migraine without aura and without status migrainosus, not intractable G43.009 [facility] [place] [id number] [place] [address] 17884- 9318 Oct, [facility] [place] [id number] [place] [address] 83626- 4789 Oct, [facility] [place] [id number] [place] [address] 24592- 2246 Oct, Acute non-recurrent maxillary sinusitis J01.00 [facility] [place] [address] [address] Sep, Left elbow tendonitis M77.8 and Other fatigue R53.83 [facility] [address] [id number] Sep, Dental examination Z01.20 [place] [id number] [place] [address] 54943- [address]77 Sep, Sore throat J02.9 ; Other viral agents as the cause of diseases classified elsewhere B97.89 and Acute upper respiratory infection, unspecified J06.9 [facility] [place] [id number] [place] [address]2674- 7015 Aug, Encounter for immunization Z23 [facility] [place] [id number] [place] [address] 25808- 2267 Aug, Encounter for immunization Z23 [place] [address] 68[address]- [address] Aug, Migraine without aura and without status migrainosus, not intractable G43.009 [facility] [place] [id number] [place] [address] 97732- 8091 Jul, Acute midline low back pain without sciatica M54.5 and Obesity (BMI 30.0-34.9) E66.9 [facility] [place] [id number] [place] [address] 72224- 4584 Jul, Chronic seasonal allergic rhinitis due to pollen J30.1 [facility] [id number] [place] [address] [id number] Jun, Dental examination Z01.20 [facility] [address] [address] Jun, Jaw pain R68.84 [facility] [place] [id number] [place] [address] 72004- 0202 Jun, Dental examination Z01.20 [facility] [address] [id number] Jun, Dental examination Z01.20 [facility] [place] [id number] [place] [address] 39148- 3695 Jun, [facility] [place] [address] 35579- 8148 Jun, Allergic reaction, initial encounter T78.40XA [place] [address] 42265- 0196 Jun, [place] [address] 39535- 6089 Jun, Migraine without aura and without status migrainosus, not intractable G43.009 [place] [address] 24[address]- [address]00 May, [place] [id number] [place] [address] 07172- 2921 May, Helicobacter pylori (H. pylori) infection A04.8 [place] [id number] [place] [address] 52067- 7449 May, Encounter for routine adult health examination with abnormal findings Z00.01 ; Obesity (BMI 30.0-34.9) E66.9 ; Acanthosis nigricans L83 and Dietary counseling Z71.3 [facility], [place] [id number] [place] [address] 01457- 4911 Apr, Acute seasonal allergic rhinitis due to pollen J30.1 and Sore throat J02.9 [facility], [place] [id number] [place] [address] 86726- 4686 Apr, [facility] [place] [id number] [place] [address] 26871- 5346 Apr, Migraine without aura and without status migrainosus, not intractable G43.009 [facility] [place] [id number] [place] [address] 53274- 4893 March, Dental examination Z01.20 [facility] [id number] [place] [address] 41247 -0186 Feb, Seasonal allergic rhinitis, unspecified allergic rhinitis trigger J30.[address] [id number] [id number] Nov, [facility] [id number] [place] [id number] Oct, Dental examination Z01.20 [facility] [id number] [place] [address] [id number] Oct, Dental examination Z01.20 [facility] [id number] [place] [address] [id number] Oct, Dental examination Z01.20 and Encounter for dental examination Z01.20 [facility] [place] [id number] [place] [address] 28786- 4947 Feb, [facility] [place] [id number] [place] [address] 04994- 8677 Feb, [facility] [place] [id number] [place] [address] 07865- 0950 Sep, [facility] [place] [id number] [place] [address] 60654- 3634 Sep, [facility] [place] [id number], [place] [address] Jul, [facility] [place] [address] [facility] [id number] Jul, [facility] [place] [address] [facility] [id number] Jul, [facility] [place] [address] [facility] [id number] [address] Jun, [facility] [place] [address] [facility] [id number] [address] Jun, [facility] [place] [address] [facility] [id number] [address] Jun, [facility] [place] [address], [place] [address]266 Jun, [facility] [place] [address] [place] [address] Jul, [facility] [place] [address], [place] [address] Jun, [facility] [place] [address] [place] [address]605 Feb, [facility] [place] [address] [place] [address] 8081 Sep, [facility] [place] [id number] Sep, [facility] [place] [id number] Oct, [facility], [place] [id number] Oct, IMMUNIZATIONS No Known Immunizations SOCIAL HISTORY Never Assessed REASON FOR VISIT PLAN OF CARE VITAL SIGNS MEDICATIONS Medication Instructions Dosage Frequency Start Date End Date Duration Status Omeprazole 20 mg Orally twice a day 1 capsule 12h 14 May, 2017 90 days Active Albuterol Sulfate 108 (90 Base) MCG/ACT Inhalation every 6 hrs 2 puffs as needed 6h March, 30 days Active Amitriptyline HCl 25 MG Orally Once a day 1 tablet 24h May, 30 day(s) Active Fioricet 50-300-40 MG Orally every 4 hrs 1 capsule as needed 4h Active Qvar 40 MCG/ACT Inhalation Twice a day 1 puff 12h Apr, Apr, 12 months Active PredniSONE 20 MG Orally Once a day 3 tablets 24h Sep, 3 days Active Fluticasone Propionate 50 MCG/ACT Nasally twice a day 1 spray in each nostril 12h Jul, 30 day(s) Active Ipratropium-Albuterol 0.5-2.5 (3) MG/3ML Inhalation every 6 hrs 3 ml 6h March, Active Sertraline HCl 50 mg Orally Once a day 1 tablet 24h March, 30 day (s) Active Imitrex 100 mg Orally Once a day 1 tablet as needed 24h May, Active RESULTS No Results PROCEDURES No Known procedures INSTRUCTIONS MEDICATIONS ADMINISTERED No Known Medications MEDICAL (GENERAL) HISTORY Type Description Date Medical History Seasonal Allergies Surgical History uterine polyp removal- 12/2017 Hospitalization History Childbirth only
--- OUTSIDE RECORDS SUMMARY | 2018-11-13 10:33 | XMS REPORT ---
Author Author JOSEPHINE GOODWIN Organization [facility] Address [address] [place] [address] Care Team Providers Care Customer Sales Specialist Name Role Phone MIKE GOODWINTA Unavailable PROBLEMS Type Condition ICD9-CM Code SCI22-HC Code Onset Dates Condition Status SNOMED Code Problem GERD without esophagitis K21.9 Active 609247032 Problem Primary insomnia F51.01 Active 6283919 Problem Moderate episode of recurrent major depressive disorder F33.1 Active 958278627 Problem Intractable migraine without aura and with status migrainosus G43.011 Active 015308856 Problem GERD with esophagitis K21.0 Active 713326211 Problem Acute bilateral low back pain without sciatica M54.5 Active 346343044 Problem Anxiety F41.9 Active 04041027 Problem Mild persistent asthma without complication J45.30 Active 984058745 Problem Asthma due to seasonal allergies J45.909 Active 107469436 Problem Migraine without aura and without status migrainosus, not intractable G43.009 Active 357153601 Problem Obesity (BMI 30.0-34.9) E66.9 Active 406076196998100 Problem Myopia of both eyes H52.13 Active 81859905 Problem Acanthosis nigricans L83 Active 052156464 Problem Seasonal allergic rhinitis, unspecified allergic rhinitis trigger J30.2 Active 831968234 Problem Dysmenorrhea N94.6 Active 083191340 ALLERGIES No Information ENCOUNTERS Encounter Location Date Diagnosis [facility] [address] [id number] [address] Oct, Strain of right shoulder, initial encounter S46.911A [facility] [address] [id number] [address] Oct, [facility] [address] [id number] [address] Oct, Wheezing R06.2 [facility] [id number] [place] [address] Sep, Wheezing R06.2 [place] [address] [address] Aug, [place] [address] [address] 26 Jul, 2018 Encounter for immunization Z23 [place] [address] [address] 17 Jul, 2018 Bacterial conjunctivitis of left eye H10.9 [place] [address] [address] 13 Jul, 2018 Oral pain K13.79 [facility] [place] [address] [address] 07 Jul, 2018 Seasonal allergic rhinitis, unspecified allergic rhinitis trigger J30.2 ; Sore throat J02.9 ; Cough R05 and Acute otitis media, unspecified otitis media type H66.90 [place] [address] [address] Jun, Intractable migraine without aura and with status migrainosus G43.011 [place] [id number] [place] [address] May, Intractable migraine without aura and with status migrainosus G43.011 [place] [address] [address] May, Intractable migraine without aura and with status migrainosus G43.011 [facility] [id number] [place] [address] May, Migraine without aura and without status migrainosus, not intractable G43.009 [place] [address] [address] Apr, Vertigo R42 and Epigastric abdominal pain R10.13 [place] [id number] [place] [address] 28 Apr, 2018 Vertigo R42 [facility] [address] [address] 27 Apr, 2018 Vertigo R42 [facility] [address] [address] 26 Apr, 2018 Epigastric abdominal pain R10.13 and GERD with esophagitis K21.0 [place] [address] [address] 13 Apr, 2018 Wheezing R06.2 [place] [address] [address] 12 Apr, 2018 Mild persistent asthma without complication J45.30 and Wheezing R06.2 [place] [address] [address] 11 Apr, 2018 Migraine without aura and without status migrainosus, not intractable G43.009 [place] [address] [address] Apr, [place] [address] [address] 07 Apr, 2018 Cough R05 and Wheezing R06.2 [place] [address] [address] 05 Apr, 2018 Persistent cough for 3 weeks or longer R05 [place] [address] [address] March, Asthma due to seasonal allergies J45.909 ; Cough R05 and Wheezing R06.2 [place] [address] [address] March, Seasonal allergic rhinitis, unspecified allergic rhinitis trigger J30.2 and Asthma due to seasonal allergies J45.909 [place] [address] [address] March, Cough R05 ; Chest congestion R09.89 and Sore throat J02.9 [facility] [address] [address] March, Moderate episode of recurrent major depressive disorder F33.1 ; Migraine without aura and without status migrainosus, not intractable G43.009 ; Primary insomnia F51.01 and Anxiety F41.9 [facility] [address] [address] March, Acute non-recurrent frontal sinusitis J01.10 [facility] [address] [address] March, [facility] [address] [address] March, Right otitis media with effusion H65.91 ; Acute non- recurrent frontal sinusitis J01.10 and Migraine without aura and without status migrainosus, not intractable G43.009 [facility] [address] [address] Feb, Left lower quadrant pain R10.32 ; Migraine without aura and without status migrainosus, not intractable G43.009 and Anxiety F41.9 [facility] [address] [address] Feb, Oral contraceptive pill surveillance Z30.41 [facility] [address] [address] Feb, Acute bilateral low back pain without sciatica M54.5 [facility] [address] [address] Feb, [facility] [address] [address] Feb, Dental examination Z01.20 [facility] [address] [id number] Feb, Dental examination Z01.20 [place] [address] [address] 10 Feb, 2018 Anxiety F41.9 [place] [id number] Feb, Primary insomnia F51.01 and Moderate episode of recurrent major depressive disorder F33.[address] [address] Jan, Acute suppurative otitis media of left ear without spontaneous rupture of tympanic membrane, recurrence not specified H66.[address] [address] Jan, Migraine without aura and without status migrainosus, not intractable G43.009 ; Seasonal allergic rhinitis, unspecified allergic rhinitis trigger J30.2 ; GERD without esophagitis K21.9 ; Current mild episode of major depressive disorder without prior episode F32.0 and Human bite, initial encounter W50.3XXA [place] [address] [address] Dec, Migraine without aura and without status migrainosus, not intractable G43.[address] [address] Dec, Nausea and vomiting after administration of anesthetic agent T88.59XA [address] [address] Dec, [address] [address] Dec, Acute tonsillitis, unspecified etiology J03.90 [place] [id number] Nov, Dysmenorrhea N94.6 ; Acute midline low back pain without sciatica M54.5 ; Obesity (BMI 30.0-34.9) E66.9 and High ankle sprain of right lower extremity, initial encounter S93.431A [facility] [address] [place] [address] Nov, [facility] [address] [address] Nov, Migraine without aura and without status migrainosus, not intractable G43.009 [facility] [id number] [place] [address] Oct, Migraine without aura and without status migrainosus, not intractable G43.009 [facility] [id number] [place] [address] Oct, Migraine without aura and without status migrainosus, not intractable G43.009 [facility] [id number] [place] [address] Oct, [place] [address] [address] Oct, [place] [id number] [place] [address] Oct, Acute non-recurrent maxillary sinusitis J01.00 [place] [id number] [place] [address] Sep, Left elbow tendonitis M77.8 and Other fatigue R53.83 [facility] [id number] [place] [id number] Sep, Dental examination Z01.20 [place] [id number] [place] [address] Sep, Sore throat J02.9 ; Other viral agents as the cause of diseases classified elsewhere B97.89 and Acute upper respiratory infection, unspecified J06.9 [place] [address] [place] [address] Aug, Encounter for immunization Z23 [place] [address] [address] Aug, Encounter for immunization Z23 [facility] [id number] [place] [address] Aug, Migraine without aura and without status migrainosus, not intractable G43.009 [facility] [address] [address] Jul, Acute midline low back pain without sciatica M54.5 and Obesity (BMI 30.0-34.9) E66.9 [facility] [address] [address]- [address] Jul, Chronic seasonal allergic rhinitis due to pollen J30.1 [facility] [address] [id number] Jun, Dental examination Z01.20 [facility] [address] [address] Jun, Jaw pain R68.84 [facility] [address] [address]- [address]238 Jun, Dental examination Z01.20 [facility] [address] [id number] Jun, Dental examination Z01.20 [facility] [address] [address]- [address] Jun, [facility] [address] [address] Jun, Allergic reaction, initial encounter T78.40XA [facility] [address] [address] Jun, [facility] [address] [address] Jun, Migraine without aura and without status migrainosus, not intractable G43.009 [facility] [address] [address] May, [place] [id number] [place] [id number] [place] [address]- 7[address] 14 May, 2017 Helicobacter pylori (H. pylori) infection A04.8 [place] [id number] [place] [address]- 80[address] 11 May, 2017 Encounter for routine adult health examination with abnormal findings Z00.01 ; Obesity (BMI 30.0-34.9) E66.9 ; Acanthosis nigricans L83 and Dietary counseling Z71.3 [place] [id number] [place] [address]- 7870 13 Apr, 2017 Acute seasonal allergic rhinitis due to pollen J30.1 and Sore throat J02.9 [address] [place] [id number] [place] [address] 42187- 8[address] 08 Apr, 2017 [address] [place] [id number] [place] [address]- 8436 Apr, Migraine without aura and without status migrainosus, not intractable G43.009 [address] [place] [address]- 290[address] March, Dental examination Z01.20 [facility] [id number] [place] [address] Feb, Seasonal allergic rhinitis, unspecified allergic rhinitis trigger J30.[address] [id number] [id number] Nov, [facility] [address] [place] [id number] Oct, Dental examination Z01.20 [facility] [id number] [place] [id number] Oct, Dental examination Z01.20 [facility] [id number] [place] [address] [id number] Oct, Dental examination Z01.20 and Encounter for dental examination Z01.20 [facility] [id number] [place] [address]254- 9122 14 Feb, 2015 [facility] [place] [facility] [address] [id number] [place] [address] Feb, [facility] [place] [facility] [address] [id number] [place] [address]- [address] Sep, [facility] [place] [facility] [address] [id number] [place] [address] Sep, [facility] [place] [facility] [address] [id number] [place] [address] 05 Jul, 2014 [facility] [place] [facility] [address] [id number] [place] [address] Jul, [facility] [place] [facility] [address] [id number] [place] [address] Jul, [facility] [place] [facility] [address] [id number] [place] [address]- [address] Jun, [facility] [place] [facility] [address] [id number] [place] [address]- [address] Jun, [facility] [place] [facility] [address] [id number] [place] [address]- [address] Jun, [facility] [place] [facility] [address] [id number] [place] [address]- [address] Jun, [facility] [place] [facility] [address] [id number] [place] [address]- [address] Jul, [facility] [place] [facility] [address] [id number] [place] [address] Jun, [facility] [place] [facility] [address] [id number] [place] [address]- [address] Feb, [facility] [place] [facility] [address] [id number] [place] [address]- [address] Sep, [facility] [place] [facility] [address] [id number] [place] [address]- [address] Sep, [facility] [place] [facility] [address] [facility] [id number] [place] [address] Oct, [facility] [address] [facility] [id number] [place] [address] Oct, IMMUNIZATIONS No Known Immunizations SOCIAL HISTORY Never Assessed REASON FOR VISIT PLAN OF CARE VITAL SIGNS MEDICATIONS No Known Medications RESULTS No Results PROCEDURES No Known procedures INSTRUCTIONS MEDICATIONS ADMINISTERED No Known Medications MEDICAL (GENERAL) HISTORY Type Description Date Medical History Seasonal Allergies Surgical History uterine polyp removal- 12/2017 Hospitalization History Childbirth only
--- OUTSIDE RECORDS SUMMARY | 2018-11-13 10:34 | XMS REPORT ---
Author Author LAURA Baum [facility] Address [address] [place] [address] Care Team Providers Care Road Commissioner Name Role Phone LAURA Baum Unavailable PROBLEMS ALLERGIES No Information ENCOUNTERS IMMUNIZATIONS SOCIAL HISTORY No smoking Hx information available REASON FOR VISIT PLAN OF CARE VITAL SIGNS MEDICATIONS Unknown Medications RESULTS No Results PROCEDURES INSTRUCTIONS MEDICATIONS ADMINISTERED No Known Medications MEDICAL (GENERAL) HISTORY
--- OUTSIDE RECORDS SUMMARY | 2018-11-13 10:34 | XMS REPORT ---
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 Name Role Phone LAURA Baum Unavailable PROBLEMS Type Condition ICD9-CM Code YHL80-VD Code Onset Dates Condition Status SNOMED Code Problem GERD without esophagitis K21.9 Active 956274155 Problem Primary insomnia F51.01 Active 9044585 Problem Moderate episode of recurrent major depressive disorder F33.1 Active 467260798 Problem Intractable migraine without aura and with status migrainosus G43.011 Active 827047562 Problem GERD with esophagitis K21.0 Active 402492639 Problem Acute bilateral low back pain without sciatica M54.5 Active 994062115 Problem Anxiety F41.9 Active 72218453 Problem Mild persistent asthma without complication J45.30 Active 947725526 Problem Asthma due to seasonal allergies J45.909 Active 662909581 Problem Migraine without aura and without status migrainosus, not intractable G43.009 Active 783830068 Problem Obesity (BMI 30.0-34.9) E66.9 Active 952934230324471 Problem Myopia of both eyes H52.13 Active 85135459 Problem Acanthosis nigricans L83 Active 743831775 Problem Seasonal allergic rhinitis, unspecified allergic rhinitis trigger J30.2 Active 442695764 Problem Dysmenorrhea N94.6 Active 975608272 ALLERGIES No Information ENCOUNTERS Encounter Location Date Diagnosis [facility] [address] [facility] [id number] [address] Aug, [facility] [address], [place] [address] Jul, Encounter for immunization Z23 [facility] [address] [id number] [address] 17 Jul, 2018 Bacterial conjunctivitis of left eye H10.9 [place] [address] [place] [id number] [place] [address] 13 Jul, 2018 Oral pain K13.79 [facility] [place] [address] [address] 07 Jul, 2018 Seasonal allergic rhinitis, unspecified allergic rhinitis trigger J30.2 ; Sore throat J02.9 ; Cough R05 and Acute otitis media, unspecified otitis media type H66.90 [place] [address] [address] Jun, Intractable migraine without aura and with status migrainosus G43.011 [place] [address] [address] May, Intractable migraine without aura and with status migrainosus G43.011 [place] [address] [address] May, Intractable migraine without aura and with status migrainosus G43.011 [facility] [place] [address] [place] [id number] [place] [address] May, Migraine without aura and without status migrainosus, not intractable G43.009 [place] [address] [place] [id number] [place] [address]1833- 7095 Apr, Vertigo R42 and Epigastric abdominal pain R10.13 [place] [address] [place] [id number] [place] [address]- 7585 Apr, Vertigo R42 [facility] IN [facility] [address] [address] Apr, Vertigo R42 [place] [address] [address] Apr, Epigastric abdominal pain R10.13 and GERD with esophagitis K21.0 [place] [address] [address]- [address] Apr, Wheezing R06.2 [place] [address] [place] [id number] [place] [address]- [address] 12 Apr, 2018 Mild persistent asthma without complication J45.30 and Wheezing R06.2 [place] [address] [address] 11 Apr, 2018 Migraine without aura and without status migrainosus, not intractable G43.009 [place] [address] [address] Apr, [place] [address] [address] Apr, Cough R05 and Wheezing R06.2 [place] [address] [address] Apr, Persistent cough for 3 weeks or longer R05 [place] [address] [address] March, Asthma due to seasonal allergies J45.909 ; Cough R05 and Wheezing R06.2 [place] [address] [address] March, Seasonal allergic rhinitis, unspecified allergic rhinitis trigger J30.2 and Asthma due to seasonal allergies J45.909 [place] [address] [place] [id number] [place] [address]48- 54[address] March, Cough R05 ; Chest congestion R09.89 and Sore throat J02.9 [place] [address] [place] [id number] [place] [address] 61925- 4784 March, Moderate episode of recurrent major depressive disorder F33.1 ; Migraine without aura and without status migrainosus, not intractable G43.009 ; Primary insomnia F51.01 and Anxiety F41.9 [facility] IN [facility] [id number] [place] [address] March, Acute non-recurrent frontal sinusitis J01.10 [place] [address] [address] March, [facility] [address] [place] [id number] March, Right otitis media with effusion H65.91 ; Acute non- recurrent frontal sinusitis J01.10 and Migraine without aura and without status migrainosus, not intractable G43.009 [place] [address] [address] Feb, Left lower quadrant pain R10.32 ; Migraine without aura and without status migrainosus, not intractable G43.009 and Anxiety F41.9 [place] [address] [address]- 10[address] Feb, Oral contraceptive pill surveillance Z30.41 [place] [address] [address] Feb, Acute bilateral low back pain without sciatica M54.5 [place] [address] [address]- [address] Feb, [place] [address] [address] Feb, Dental examination Z01.20 [facility] [address] [id number] Feb, Dental examination Z01.20 [place] [address] [id number] [place] [address] 00397- 1765 Feb, Anxiety F41.9 [place] [address] [address]- 2656 Feb, Primary insomnia F51.01 and Moderate episode of recurrent major depressive disorder F33.1 [place] [address] [place] [id number] [place] [address] 71826- 74[address] Jan, Acute suppurative otitis media of left ear without spontaneous rupture of tympanic membrane, recurrence not specified H66.002 [place] [address] [address]- [address] Jan, Migraine without aura and without status migrainosus, not intractable G43.009 ; Seasonal allergic rhinitis, unspecified allergic rhinitis trigger J30.2 ; GERD without esophagitis K21.9 ; Current mild episode of major depressive disorder without prior episode F32.0 and Human bite, initial encounter W50.3XXA [place] [address] [address] Dec, Migraine without aura and without status migrainosus, not intractable G43.009 [place] [address] [address]- [address] Dec, Nausea and vomiting after administration of anesthetic agent T88.59XA [place] [address] [address]- 4344 Dec, [place] [address] [address] Dec, Acute tonsillitis, unspecified etiology J03.90 [place] [address] [address]- [address] Nov, Dysmenorrhea N94.6 ; Acute midline low back pain without sciatica M54.5 ; Obesity (BMI 30.0-34.9) E66.9 and High ankle sprain of right lower extremity, initial encounter S93.431A [place] [address] [address] Nov, [place] [address] [address]- 7[address] Nov, Migraine without aura and without status migrainosus, not intractable G43.009 [place] [address] [address]- [address] Oct, Migraine without aura and without status migrainosus, not intractable G43.009 [facility] [address] [address] Oct, Migraine without aura and without status migrainosus, not intractable G43.009 [facility] [address] [address] Oct, [facility] [address] [place] [id number] [place] [address]959- [address]62 Oct, [facility] [address] [address]696 Oct, Acute non-recurrent maxillary sinusitis J01.00 [place] [address] [address]- 4921 Sep, Left elbow tendonitis M77.8 and Other fatigue R53.83 [facility] [address] [id number] Sep, Dental examination Z01.20 [place] [address] [place] [id number] [place] [address]88- 8028 Sep, Sore throat J02.9 ; Other viral agents as the cause of diseases classified elsewhere B97.89 and Acute upper respiratory infection, unspecified J06.9 [place] [address] [place] [id number] [place] [address] 14242- 9790 Aug, Encounter for immunization Z23 [place] [address] [place] [id number] [place] [address]39- 4147 Aug, Encounter for immunization Z23 [place] [address] [address]- [address] Aug, Migraine without aura and without status migrainosus, not intractable G43.009 [place] [address] [place] [id number] [place] [address] 53227- 3498 Jul, Acute midline low back pain without sciatica M54.5 and Obesity (BMI 30.0-34.9) E66.9 [place] [address] 39[address]- 7341 Jul, Chronic seasonal allergic rhinitis due to pollen J30.1 [facility] [address] [place] [id number] Jun, Dental examination Z01.20 [facility] [address] [place] [address]99 Jun, Jaw pain R68.84 [facility] [id number] [place] [address] 15587- 8922 Jun, Dental examination Z01.20 [facility] [address] [place] [id number] [place] [address] [id number] Jun, Dental examination Z01.20 [facility] [address] [address]- [address] Jun, [facility] [address] 38360- 1408 Jun, Allergic reaction, initial encounter T78.40XA [facility] [address] [address] [id number] [place] [address] 89834- 9672 Jun, [facility] [address] 18557- 1732 Jun, Migraine without aura and without status migrainosus, not intractable G43.009 [place] [address] [place] [id number] [place] [address] 89394- 8207 May, [facility] [address] [place] [id number] [place] [address] 44888- 8239 May, Helicobacter pylori (H. pylori) infection A04.8 [facility] [address] [place] [id number] [place] [address] 48588- 9776 May, Encounter for routine adult health examination with abnormal findings Z00.01 ; Obesity (BMI 30.0-34.9) E66.9 ; Acanthosis nigricans L83 and Dietary counseling Z71.3 [facility] [address] [address]- 5923 Apr, Acute seasonal allergic rhinitis due to pollen J30.1 and Sore throat J02.9 [facility] [address] [address] Apr, [facility] [address] Apr, Migraine without aura and without status migrainosus, not intractable G43.009 [facility] [address], [place] [address] March, Dental examination Z01.20 [facility] IN [facility] [address], [place] [address] Feb, Seasonal allergic rhinitis, unspecified allergic rhinitis trigger J30.2 [facility] [address] [facility] [id number] [id number] Nov, [facility] [address] [place] [address] [id number] [place] [address] [id number] Oct, Dental examination Z01.20 [facility] [address] [place] [address] [id number] [place] [address] [id number] Oct, Dental examination Z01.20 [facility] [address] [place] [address] [id number] [place] [address] [id number] Oct, Dental examination Z01.20 and Encounter for dental examination Z01.20 [facility] [address], [place] [address]- [address] Feb, [facility] [address] [address]- [address] Feb, [facility] [address] [place] [address] 13582- 7036 Sep, [facility] [address] [place] [address] 48976- 1700 Sep, [facility] [address] [address] Jul, [facility] [address] [facility] [id number] [address] Jul, [facility] [id number] [address] Jul, [facility] [address] [facility] [id number], [place] [address] Jun, [facility] [address], [place] [address]- 3961 Jun, [facility] [address] [facility] [id number] [address] Jun, [facility] [address] [address] Jun, [facility] [address], [place] [address]- 0048 Jul, [facility] [address], [place] [address]- 5647 Jun, [facility] [address], [place] [address]- 2955 Feb, [facility] [address] [address]- 12[address] Sep, [facility] [id number] [address]- 74[address] Sep, [facility] [id number] [address]- [address] Oct, [facility] [id number] [address] Oct, IMMUNIZATIONS No Known Immunizations SOCIAL HISTORY Never Assessed REASON FOR VISIT eye exam PLAN OF CARE VITAL SIGNS MEDICATIONS Unknown Medications RESULTS No Results PROCEDURES No Known procedures INSTRUCTIONS MEDICATIONS ADMINISTERED No Known Medications MEDICAL (GENERAL) HISTORY Type Description Date Medical History Seasonal Allergies Surgical History uterine polyp removal- 12/2017 Hospitalization History Childbirth only
--- OUTSIDE RECORDS SUMMARY | 2018-11-13 10:34 | XMS REPORT ---
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 Name Role Phone CORINA SCHUMACHER Unavailable PROBLEMS Type Condition ICD9-CM Code CSH80-PN Code Onset Dates Condition Status SNOMED Code Problem GERD without esophagitis K21.9 Active 712088083 Problem Primary insomnia F51.01 Active 1586156 Problem Moderate episode of recurrent major depressive disorder F33.1 Active 080993396 Problem Intractable migraine without aura and with status migrainosus G43.011 Active 227635826 Problem GERD with esophagitis K21.0 Active 214961238 Problem Acute bilateral low back pain without sciatica M54.5 Active 371335720 Problem Anxiety F41.9 Active 97850880 Problem Mild persistent asthma without complication J45.30 Active 015791779 Problem Asthma due to seasonal allergies J45.909 Active 056981976 Problem Migraine without aura and without status migrainosus, not intractable G43.009 Active 958776633 Problem Obesity (BMI 30.0-34.9) E66.9 Active 529282872846630 Problem Myopia of both eyes H52.13 Active 36378515 Problem Acanthosis nigricans L83 Active 909965890 Problem Seasonal allergic rhinitis, unspecified allergic rhinitis trigger J30.2 Active 610872331 Problem Dysmenorrhea N94.6 Active 012385390 ALLERGIES No Information ENCOUNTERS Encounter Location Date Diagnosis [facility] [address] [facility] [id number] [address] Aug, [facility] [id number] [place] [address] Jul, Encounter for immunization Z23 [facility] [address] [place] [id number], [place] [address] 17 Jul, 2018 Bacterial conjunctivitis of left eye H10.9 [place] [address] [address] 13 Jul, 2018 Oral pain K13.79 [facility] [address] [address] 07 Jul, 2018 Seasonal allergic rhinitis, unspecified allergic rhinitis trigger J30.2 ; Sore throat J02.9 ; Cough R05 and Acute otitis media, unspecified otitis media type H66.90 [place] [address] [address] Jun, Intractable migraine without aura and with status migrainosus G43.011 [place] [address] [address] May, Intractable migraine without aura and with status migrainosus G43.011 [place] [address] [address] May, Intractable migraine without aura and with status migrainosus G43.011 [facility] [address] [address] May, Migraine without aura and without status migrainosus, not intractable G43.009 [place] [address] [address] Apr, Vertigo R42 and Epigastric abdominal pain R10.13 [place] [address] [address] Apr, Vertigo R42 [facility] [address] [address] Apr, Vertigo R42 [place] [address] [address] Apr, Epigastric abdominal pain R10.13 and GERD with esophagitis K21.0 [place] [address] [address] Apr, Wheezing R06.2 [place] [address] [place] [id number] [place] [address] 12 Apr, 2018 Mild persistent asthma without complication J45.30 and Wheezing R06.2 [place] [address] [id number] [place] [address] 65[address] 11 Apr, 2018 Migraine without aura and without status migrainosus, not intractable G43.009 [place] [address] [address]- [address] Apr, [place] [address] [address] Apr, Cough R05 and Wheezing R06.2 [place] [address] [address] Apr, Persistent cough for 3 weeks or longer R05 [place] [address] [address] March, Asthma due to seasonal allergies J45.909 ; Cough R05 and Wheezing R06.2 [place] [address] [address] March, Seasonal allergic rhinitis, unspecified allergic rhinitis trigger J30.2 and Asthma due to seasonal allergies J45.909 [place] [address] [place] [id number] [place] [address] March, Cough R05 ; Chest congestion R09.89 and Sore throat J02.9 [place] [address] [place] [id number] [place] [address]01[address] 3469 March, Moderate episode of recurrent major depressive disorder F33.1 ; Migraine without aura and without status migrainosus, not intractable G43.009 ; Primary insomnia F51.01 and Anxiety F41.9 [facility] [id number] [place] [address] March, Acute non-recurrent frontal sinusitis J01.10 [facility] [address] [id number] [place] [address] March, [place] [address] [address] March, Right otitis media with effusion H65.91 ; Acute non- recurrent frontal sinusitis J01.10 and Migraine without aura and without status migrainosus, not intractable G43.009 [place] [address] [address] Feb, Left lower quadrant pain R10.32 ; Migraine without aura and without status migrainosus, not intractable G43.009 and Anxiety F41.9 [place] [address] [address] Feb, Oral contraceptive pill surveillance Z30.41 [place] [address] 00[address]- 7820 Feb, Acute bilateral low back pain without sciatica M54.5 [place] [address] [place] [id number] [place] [address]- 8681 Feb, [place] [address] [address]47 Feb, Dental examination Z01.20 [facility] [id number] [place] [id number] Feb, Dental examination Z01.20 [place] [address] [place] [id number] [place] [address] 27174- 7810 Feb, Anxiety F41.9 [place] [address] [place] [address] [id number] [place] [address] 74[address]- 1490 Feb, Primary insomnia F51.01 and Moderate episode of recurrent major depressive disorder F33.1 [place] [address] [place] [id number] [place] [address] 15996- 5873 Jan, Acute suppurative otitis media of left ear without spontaneous rupture of tympanic membrane, recurrence not specified H66.002 [place] [address] [address] Jan, Migraine without aura and without status migrainosus, not intractable G43.009 ; Seasonal allergic rhinitis, unspecified allergic rhinitis trigger J30.2 ; GERD without esophagitis K21.9 ; Current mild episode of major depressive disorder without prior episode F32.0 and Human bite, initial encounter W50.3XXA [place] [address] [address]- [address] Dec, Migraine without aura and without status migrainosus, not intractable G43.009 [place] [address] [address]69- 7325 Dec, Nausea and vomiting after administration of anesthetic agent T88.59XA [place] [address] 48084- [address] Dec, [place] [address] 312[address]- [address]99 Dec, Acute tonsillitis, unspecified etiology J03.90 [place] [address] [address] Nov, Dysmenorrhea N94.6 ; Acute midline low back pain without sciatica M54.5 ; Obesity (BMI 30.0-34.9) E66.9 and High ankle sprain of right lower extremity, initial encounter S93.431A [place] [address] [address]- 1682 Nov, [place] [address] [address]- 9990 Nov, Migraine without aura and without status migrainosus, not intractable G43.009 [place] [address] [address]47- [address] Oct, Migraine without aura and without status migrainosus, not intractable G43.009 [facility] [address] [address] Oct, Migraine without aura and without status migrainosus, not intractable G43.009 [facility] [address] [place] [address] [id number] [place] [address] 20013[address] Oct, [facility] [address] [place] [id number] [place] [address]10- 6334 Oct, [facility] [address] 236[address]- [address] Oct, Acute non-recurrent maxillary sinusitis J01.00 [place] [address] [address]31- 0807 Sep, Left elbow tendonitis M77.8 and Other fatigue R53.83 [facility] [id number] [place] [phone] Sep, Dental examination Z01.20 [place] [address] 7[address]- 3608 Sep, Sore throat J02.9 ; Other viral agents as the cause of diseases classified elsewhere B97.89 and Acute upper respiratory infection, unspecified J06.9 [place] [address] [place] [address] [id number] [place] [address]66- 6366 Aug, Encounter for immunization Z23 [place] [address] [place] [address] [id number] [place] [address]80- 0723 Aug, Encounter for immunization Z23 [place] [address] [address]80 Aug, Migraine without aura and without status migrainosus, not intractable G43.009 [place] [address] [place] [address] [id number] [place] [address] 96437- 6761 Jul, Acute midline low back pain without sciatica M54.5 and Obesity (BMI 30.0-34.9) E66.9 [place] [address] 0[address]- 7162 Jul, Chronic seasonal allergic rhinitis due to pollen J30.1 [facility] [address] [place] [address] [id number] Jun, Dental examination Z01.20 [facility] [id number] [place] [address] 745[address] -9824 Jun, Jaw pain R68.84 [facility] [address] [id number] [place] [address]17- 6921 Jun, Dental examination Z01.20 [facility] [id number] [place] [address] [id number] Jun, Dental examination Z01.20 [facility] [address] [address] Jun, [facility] [address] [place] [address] [id number] [place] [address] 19086- 2735 Jun, Allergic reaction, initial encounter T78.40XA [facility] [id number] [place] [address] 08799- [address]110 Jun, [facility] [address] [id number] [place] [address] 12865- 3785 Jun, Migraine without aura and without status migrainosus, not intractable G43.009 [facility] [id number] [place] [address] 19887- 7239 May, [facility] [id number] [place] [address] 65524- 9120 May, Helicobacter pylori (H. pylori) infection A04.8 [facility] [id number] [place] [address] 52437- 5947 May, Encounter for routine adult health examination with abnormal findings Z00.01 ; Obesity (BMI 30.0-34.9) E66.9 ; Acanthosis nigricans L83 and Dietary counseling Z71.3 [facility] [address] [place] [id number] [place] [address] 78663- 7314 13 Apr, 2017 Acute seasonal allergic rhinitis due to pollen J30.1 [address]9 [facility] [address], [place] [address] Apr, [facility] [address] [address]- [address] Apr, Migraine without aura and without status migrainosus, not intractable G43.009 [facility] [address] [address] 79[address] March, Dental examination Z01.20 [facility] [address] [address] Feb, Seasonal allergic rhinitis, unspecified allergic rhinitis trigger J30.2 [place] [id number] [facility] [id number] [id number] Nov, [facility] [id number] [place] [address] [id number] Oct, Dental examination Z01.20 [facility] [id number] [place] [address] [id number] Oct, Dental examination Z01.20 [facility] [id number] [place] [address] [id number] Oct, Dental examination Z01.20 and Encounter for dental examination Z01.20 [facility] [address], [place] [address] Feb, [facility] [address] [address] Feb, [facility] [address] [address] Sep, [facility] [address] [address] Sep, [facility] [address] [address] Jul, [facility] [address] [address] Jul, [facility] [address] [address] Jul, [facility] [address] [address] Jun, [facility] [address] [address] Jun, [facility] [address] [address] Jun, [facility] [address] [place] [address] 07190- 3378 Jun, [facility] [address] [address] Jul, [facility] [address] [address]908 Jun, [facility] [address] [address] Feb, [facility] [address] [address] Sep, [facility] [address] [address] Sep, [facility] [id number] [address] Oct, [facility] [id number] [address] Oct, IMMUNIZATIONS No Known Immunizations SOCIAL HISTORY Never Assessed REASON FOR VISIT PLAN OF CARE VITAL SIGNS MEDICATIONS Medication Instructions Dosage Frequency Start Date End Date Duration Status Amoxicillin 875 MG Orally every 12 hrs 1 tablet 12h 30 Aug, 2018 6 Sep, 2018 7 days Active RESULTS No Results PROCEDURES No Known procedures INSTRUCTIONS MEDICATIONS ADMINISTERED No Known Medications MEDICAL (GENERAL) HISTORY Type Description Date Medical History Seasonal Allergies Surgical History uterine polyp removal- 12/2017 Hospitalization History Childbirth only
--- OUTSIDE RECORDS SUMMARY | 2018-11-13 10:35 | XMS REPORT ---
Author Author CORINA SCHUMACHER [facility] Address [address] [place] [address] Care Team Providers [facility] Attendant Name Role Phone CORINA SCHUMACHER Unavailable PROBLEMS Type Condition ICD9-CM Code LSB06-GS Code Onset Dates Condition Status SNOMED Code Problem GERD without esophagitis K21.9 Active 821797666 Problem Primary insomnia F51.01 Active 2929745 Problem Moderate episode of recurrent major depressive disorder F33.1 Active 980097726 Problem Intractable migraine without aura and with status migrainosus G43.011 Active 316439524 Problem GERD with esophagitis K21.0 Active 349067097 Problem Acute bilateral low back pain without sciatica M54.5 Active 878980463 Problem Anxiety F41.9 Active 93695263 Problem Mild persistent asthma without complication J45.30 Active 024061675 Problem Asthma due to seasonal allergies J45.909 Active 418594256 Problem Migraine without aura and without status migrainosus, not intractable G43.009 Active 935000883 Problem Obesity (BMI 30.0-34.9) E66.9 Active 258278325676034 Problem Acanthosis nigricans L83 Active 500147787 Problem Seasonal allergic rhinitis, unspecified allergic rhinitis trigger J30.2 Active 540332504 Problem Dysmenorrhea N94.6 Active 729527599 ALLERGIES Substance Reaction Event Type Date Status Topamax numbness and tingling Drug Allergy Jul, Active Augmentin nausea and vomiting Drug Allergy Jul, Active ENCOUNTERS Encounter Location Date Diagnosis [facility] [address] [address] Jul, Encounter for immunization Z23 [facility] [id number] [address] 17 Jul, 2018 Bacterial conjunctivitis of left eye H10.9 [facility] [address] [address] 13 Jul, 2018 Oral pain K13.79 [facility] [address] [address] 07 Jul, 2018 Seasonal allergic rhinitis, unspecified allergic rhinitis trigger J30.2 ; Sore throat J02.9 ; Cough R05 and Acute otitis media, unspecified otitis media type H66.90 [place] [address] [address] Jun, Intractable migraine without aura and with status migrainosus G43.011 [place] [address] [address] May, Intractable migraine without aura and with status migrainosus G43.011 [place] [address] [address] May, Intractable migraine without aura and with status migrainosus G43.011 [facility] [address] [address] May, Migraine without aura and without status migrainosus, not intractable G43.009 [place] [address] [address] Apr, Vertigo R42 and Epigastric abdominal pain R10.13 [place] [address] [address] Apr, Vertigo R42 [facility] [address] [address] Apr, Vertigo R42 [place] [address] [address] Apr, Epigastric abdominal pain R10.13 and GERD with esophagitis K21.0 [place] [address] [address] Apr, Wheezing R06.2 [place] [id number] [place] [address] 12 Apr, 2018 Mild persistent asthma without complication J45.30 and Wheezing R06.2 [place] [address] [address] Apr, Migraine without aura and without status migrainosus, not intractable G43.009 [place] [address] [address] Apr, [place] [address] [address] Apr, Cough R05 and Wheezing R06.2 [place] [address] [address] Apr, Persistent cough for 3 weeks or longer R05 [place] [address] [address] March, Asthma due to seasonal allergies J45.909 ; Cough R05 and Wheezing R06.2 [place] [address] [address] March, Seasonal allergic rhinitis, unspecified allergic rhinitis trigger J30.2 and Asthma due to seasonal allergies J45.909 [place] [id number] [place] [address] March, Cough R05 ; Chest congestion R09.89 and Sore throat J02.9 [place] [id number] [place] [address] March, Moderate episode of recurrent major depressive disorder F33.1 ; Migraine without aura and without status migrainosus, not intractable G43.009 ; Primary insomnia F51.01 and Anxiety F41.9 [facility] [id number] [place] [address] March, Acute non-recurrent frontal sinusitis J01.10 [place] [address] [address] March, [facility] [id number] [place] [address] March, Right otitis media with effusion H65.91 ; Acute non- recurrent frontal sinusitis J01.10 and Migraine without aura and without status migrainosus, not intractable G43.009 [facility] [address] [address] Feb, Left lower quadrant pain R10.32 ; Migraine without aura and without status migrainosus, not intractable G43.009 and Anxiety F41.9 [place] [address] [address] Feb, Oral contraceptive pill surveillance Z30.41 [place] [address] [address] Feb, Acute bilateral low back pain without sciatica M54.5 [facility] [address] [address] Feb, [facility] [address] [address] Feb, Dental examination Z01.20 [facility] [address] [id number] Feb, Dental examination Z01.20 [facility] [address] [address] Feb, Anxiety F41.9 [facility] [address] [address] Feb, Primary insomnia F51.01 and Moderate episode of recurrent major depressive disorder F33.1 [facility] [address] [address] Jan, Acute suppurative otitis media of left ear without spontaneous rupture of tympanic membrane, recurrence not specified H66.002 [facility] [address] [address] Jan, Migraine without aura and without status migrainosus, not intractable G43.009 ; Seasonal allergic rhinitis, unspecified allergic rhinitis trigger J30.2 ; GERD without esophagitis K21.9 ; Current mild episode of major depressive disorder without prior episode F32.0 and Human bite, initial encounter W50.3XXA [place] [address] [address] Dec, Migraine without aura and without status migrainosus, not intractable G43.009 [place] [address] [address] Dec, Nausea and vomiting after administration of anesthetic agent T88.59XA [place] [address] [address] Dec, [place] [address] [address] Dec, Acute tonsillitis, unspecified etiology J03.90 [place] [address] [address] Nov, Dysmenorrhea N94.6 ; Acute midline low back pain without sciatica M54.5 ; Obesity (BMI 30.0-34.9) E66.9 and High ankle sprain of right lower extremity, initial encounter S93.431A [place] [address] [address] Nov, [facility] [address] [address] Nov, Migraine without aura and without status migrainosus, not intractable G43.009 [place] [address] [address] Oct, Migraine without aura and without status migrainosus, not intractable G43.009 [facility] [address] [address] Oct, Migraine without aura and without status migrainosus, not intractable G43.009 [facility] [id number] [place] [address] Oct, [facility] [address] [address] Oct, [facility] [id number] [place] [address] Oct, Acute non-recurrent maxillary sinusitis J01.00 [facility] [id number] [place] [address] Sep, Left elbow tendonitis M77.8 and Other fatigue R53.83 [facility] [address] [id number] Sep, Dental examination Z01.20 [place] [address] [address] Sep, Sore throat J02.9 ; Other viral agents as the cause of diseases classified elsewhere B97.89 and Acute upper respiratory infection, unspecified J06.9 [place] [id number] [place] [address] Aug, Encounter for immunization Z23 [place] [address] [address] Aug, Encounter for immunization Z23 [place] [address] [address] Aug, Migraine without aura and without status migrainosus, not intractable G43.009 [facility] [id number] [place] [address] Jul, Acute midline low back pain without sciatica M54.5 and Obesity (BMI 30.0-34.9) E66.9 [facility] [address] [address] Jul, Chronic seasonal allergic rhinitis due to pollen J30.1 [facility] [address] [id number] Jun, Dental examination Z01.20 [facility] [id number] [place] [address] Jun, Jaw pain R68.84 [facility] [id number] [place] [address] Jun, Dental examination Z01.20 [facility] [id number] [place] [id number] Jun, Dental examination Z01.20 [facility] [address] [address] Jun, [facility] [id number] [place] [address] Jun, Allergic reaction, initial encounter T78.40XA [facility] [address] [address] Jun, [facility] [id number] [place] [address] Jun, Migraine without aura and without status migrainosus, not intractable G43.009 [facility] [id number] [place] [address]10- 9[address] May, [facility] [id number] [place] [address]- [address] May, Helicobacter pylori (H. pylori) infection A04.8 [facility] [id number] [place] [address] 11 May, 2017 Encounter for routine adult health examination with abnormal findings Z00.01 ; Obesity (BMI 30.0-34.9) E66.9 ; Acanthosis nigricans L83 and Dietary counseling Z71.3 [facility] [id number] [place] [address]- 23[address] 13 Apr, 2017 Acute seasonal allergic rhinitis due to pollen J30.1 and Sore throat J02.9 [facility] [address] [address] Apr, [facility] [id number] [place] [address] Apr, Migraine without aura and without status migrainosus, not intractable G43.009 [facility] [address] [address] March, Dental examination Z01.20 [facility] [address] [address] Feb, Seasonal allergic rhinitis, unspecified allergic rhinitis trigger J30.2 [address] [id number] [id number] Nov, [facility] [id number] [place] [id number] Oct, Dental examination Z01.20 [facility] [id number] [place] [id number] Oct, Dental examination Z01.20 [facility] [id number] [place] [id number] Oct, Dental examination Z01.20 and Encounter for dental examination Z01.20 [facility] [address] [place] [address] Feb, [facility] [address] [place] [address]- 1007 Feb, [facility] [address] [place] [address] 23866- 2[address] Sep, [facility] [id number] [place] [address] 39024- 1132 Sep, [facility] [address] [place] [address] Jul, [facility] [id number] [place] [address] 13433- 1136 Jul, [facility] [id number] [address] Jul, [facility] [address] [address] Jun, [facility] [address] [address] Jun, [facility] [address] [address] Jun, [facility] [id number] [address] Jun, [facility] [address] [address] Jul, [facility] [address] [address] Jun, [facility] [address] [address] Feb, [facility] [address] [address] Sep, [facility] [address] [address] Sep, [facility] [id number] [address] Oct, [facility] [id number] [address] Oct, IMMUNIZATIONS No Known Immunizations SOCIAL HISTORY Never Assessed REASON FOR VISIT Congestion, cough, left earache. started last noc. [email or web address] PLAN OF CARE Activity Details Follow Up prn Reason:if symptoms worsen VITAL SIGNS Height 62 in 2018-07-31 Weight 187.0 lbs 2018-07-31 Temperature 97.3 degrees Fahrenheit 2018-07-31 Heart Rate 80 bpm 2018-07-31 Respiratory Rate 20 2018-07-31 BMI 34.20 kg/m2 2018-07-31 Blood pressure systolic 126 mmHg 2018-07-31 Blood pressure diastolic 76 mmHg 2018-07-31 MEDICATIONS Medication Instructions Dosage Frequency Start Date End Date Duration Status Albuterol Sulfate 108 (90 Base) MCG/ACT Inhalation every 6 hrs 2 puffs as needed 6h March, 30 days Active Ipratropium-Albuterol 0.5-2.5 (3) MG/3ML Inhalation every 6 hrs 3 ml 6h March, Active Omeprazole 20 mg Orally twice a day 1 capsule 12h May, 90 days Active PredniSONE 20 mg Orally Once a day 2 tablets 24h Jul, Jul, 5 days Active Amoxicillin 875 MG Orally every 12 hrs 1 tablet 12h Jul, Jul, 10 day(s) Active Amitriptyline HCl 25 MG Orally Once a day 1 tablet 24h May, 30 day(s) Active Sertraline HCl 50 mg Orally Once a day 1 tablet 24h March, 30 day (s) Active Fluticasone Propionate 50 MCG/ACT Nasally twice a day 1 spray in each nostril 12h Jul, 30 day(s) Active Qvar 40 MCG/ACT Inhalation Twice a day 1 puff 12h Apr, Apr, 12 months Active Imitrex 100 mg Orally Once a day 1 tablet as needed 24h May, Active Fioricet 50-300-40 MG Orally every 4 hrs 1 capsule as needed 4h Active RESULTS Name Result Date Reference Range STREP A (IN HOUSE) 2018-07-31 STREP A Negativve Control + Lot # [id number] Exp date 2018-10-23 PROCEDURES Procedure Date Ordered Result Body Site STREP A ASSAY W/OPTIC Jul 31, 2018 INSTRUCTIONS MEDICATIONS ADMINISTERED No Known Medications MEDICAL (GENERAL) HISTORY Type Description Date Medical History Seasonal Allergies Surgical History uterine polyp removal- 12/2017 Hospitalization History Childbirth only
--- OUTSIDE RECORDS SUMMARY | 2018-11-13 10:35 | XMS REPORT ---
Author Author CUELLOLAURA Cunha Organization [facility] Address [address] [place] [address] Care Team Providers Care Front Desk Name Role Phone LAURA CUELLO Unavailable PROBLEMS Type Condition ICD9-CM Code ESP83-VZ Code Onset Dates Condition Status SNOMED Code Problem GERD without esophagitis K21.9 Active 213434606 Problem Primary insomnia F51.01 Active 4486076 Problem Moderate episode of recurrent major depressive disorder F33.1 Active 640668524 Problem Intractable migraine without aura and with status migrainosus G43.011 Active 000817429 Problem GERD with esophagitis K21.0 Active 203036033 Problem Acute bilateral low back pain without sciatica M54.5 Active 663247435 Problem Anxiety F41.9 Active 08319311 Problem Mild persistent asthma without complication J45.30 Active 027800861 Problem Asthma due to seasonal allergies J45.909 Active 096659836 Problem Migraine without aura and without status migrainosus, not intractable G43.009 Active 954428049 Problem Obesity (BMI 30.0-34.9) E66.9 Active 205023196980118 Problem Acanthosis nigricans L83 Active 917869024 Problem Seasonal allergic rhinitis, unspecified allergic rhinitis trigger J30.2 Active 791626790 Problem Dysmenorrhea N94.6 Active 229914836 ALLERGIES No Information ENCOUNTERS Encounter Location Date Diagnosis [facility] [address] [address] Aug, [facility] [id number] [place] [address] 26 Jul, 2018 Encounter for immunization Z23 [facility] [address] [address] 17 Jul, 2018 Bacterial conjunctivitis of left eye H10.9 [facility] [address] [address] 13 Jul, 2018 Oral pain K13.79 [facility] [address] [address] 07 Jul, 2018 Seasonal allergic rhinitis, unspecified allergic rhinitis trigger J30.2 ; Sore throat J02.9 ; Cough R05 and Acute otitis media, unspecified otitis media type H66.90 [place] [address] [address] Jun, Intractable migraine without aura and with status migrainosus G43.011 [place] [address] [address] May, Intractable migraine without aura and with status migrainosus G43.011 [place] [address] [address] May, Intractable migraine without aura and with status migrainosus G43.011 [facility] [address] [address] May, Migraine without aura and without status migrainosus, not intractable G43.009 [place] [address] [address] Apr, Vertigo R42 and Epigastric abdominal pain R10.13 [place] [address] [address] Apr, Vertigo R42 [facility] [address] [address] Apr, Vertigo R42 [place] [address] [address] Apr, Epigastric abdominal pain R10.13 and GERD with esophagitis K21.0 [place] [address] [address] Apr, Wheezing R06.2 [place] [id number] [place] [address] 12 Apr, 2018 Mild persistent asthma without complication J45.30 and Wheezing R06.2 [place] [address] [address] Apr, Migraine without aura and without status migrainosus, not intractable G43.009 [place] [address] [address] Apr, [place] [address] [address] Apr, Cough R05 and Wheezing R06.2 [place] [address] [address] Apr, Persistent cough for 3 weeks or longer R05 [place] [address] [address] March, Asthma due to seasonal allergies J45.909 ; Cough R05 and Wheezing R06.2 [place] [address] [address] March, Seasonal allergic rhinitis, unspecified allergic rhinitis trigger J30.2 and Asthma due to seasonal allergies J45.909 [place] [id number] [place] [address] March, Cough R05 ; Chest congestion R09.89 and Sore throat J02.9 [place] [id number] [place] [address]- [address] March, Moderate episode of recurrent major depressive disorder F33.1 ; Migraine without aura and without status migrainosus, not intractable G43.009 ; Primary insomnia F51.01 and Anxiety F41.9 [facility] [id number] [place] [address] March, Acute non-recurrent frontal sinusitis J01.10 [place] [address] [address] March, [facility] [address] [address] March, Right otitis media with effusion H65.91 ; Acute non- recurrent frontal sinusitis J01.10 and Migraine without aura and without status migrainosus, not intractable G43.009 [facility] [address] [address] Feb, Left lower quadrant pain R10.32 ; Migraine without aura and without status migrainosus, not intractable G43.009 and Anxiety F41.9 [place] [address] [address] Feb, Oral contraceptive pill surveillance Z30.41 [place] [address] [address] Feb, Acute bilateral low back pain without sciatica M54.5 [facility] [address] [address] Feb, [facility] [address] [address] Feb, Dental examination Z01.20 [facility] [address] [id number] Feb, Dental examination Z01.20 [facility] [address] [address] Feb, Anxiety F41.9 [facility] [address] [address] Feb, Primary insomnia F51.01 and Moderate episode of recurrent major depressive disorder F33.1 [place] [address] [place] [id number] Jan, Acute suppurative otitis media of left ear without spontaneous rupture of tympanic membrane, recurrence not specified H66.002 [facility] [address] [address] Jan, Migraine without aura and without status migrainosus, not intractable G43.009 ; Seasonal allergic rhinitis, unspecified allergic rhinitis trigger J30.2 ; GERD without esophagitis K21.9 ; Current mild episode of major depressive disorder without prior episode F32.0 and Human bite, initial encounter W50.3XXA [place] [address] [address] Dec, Migraine without aura and without status migrainosus, not intractable G43.009 [place] [address] [address] Dec, Nausea and vomiting after administration of anesthetic agent T88.59XA [place] [address] [address]- [address] Dec, [place] [address] [address] Dec, Acute tonsillitis, unspecified etiology J03.90 [place] [address] [address] Nov, Dysmenorrhea N94.6 ; Acute midline low back pain without sciatica M54.5 ; Obesity (BMI 30.0-34.9) E66.9 and High ankle sprain of right lower extremity, initial encounter S93.431A [place] [address] [address] Nov, [facility] [address] [address] Nov, Migraine without aura and without status migrainosus, not intractable G43.009 [place] [address] [address] Oct, Migraine without aura and without status migrainosus, not intractable G43.009 [facility] [id number] [place] [address] Oct, Migraine without aura and without status migrainosus, not intractable G43.009 [facility] [id number] [place] [address]- [address] 14 Oct, 2017 [facility] [address] [address] Oct, [facility] [address] [address] Oct, Acute non-recurrent maxillary sinusitis J01.00 [place] [address] [address] Sep, Left elbow tendonitis M77.8 and Other fatigue R53.83 [facility] [address] [id number] Sep, Dental examination Z01.20 [place] [address] [address] Sep, Sore throat J02.9 ; Other viral agents as the cause of diseases classified elsewhere B97.89 and Acute upper respiratory infection, unspecified J06.9 [place] [address] [address] Aug, Encounter for immunization Z23 [place] [address] [id number] [place] [address] Aug, Encounter for immunization Z23 [place] [address] [address] Aug, Migraine without aura and without status migrainosus, not intractable G43.009 [place] [id number] [place] [address]- 1723 Jul, Acute midline low back pain without sciatica M54.5 and Obesity (BMI 30.0-34.9) E66.9 [facility] [address] [address] Jul, Chronic seasonal allergic rhinitis due to pollen J30.1 [facility] [address] [id number] Jun, Dental examination Z01.20 [facility] [id number] [place] [address] Jun, Jaw pain R68.84 [facility] [id number] [place] [address]114- 0607 Jun, Dental examination Z01.20 [facility] [address] [id number] [place] [id number] Jun, Dental examination Z01.20 [facility] [id number] [place] [address]- 9527 Jun, [facility] [id number] [place] [address] 11566- 4463 Jun, Allergic reaction, initial encounter T78.40XA [facility] [id number] [place] [address] 60205- 8120 Jun, [facility] [id number] [place] [address]60- 1760 Jun, Migraine without aura and without status migrainosus, not intractable G43.009 [facility] [id number] [place] [address]375- 4135 May, [facility] [id number] [place] [address]- 4877 May, Helicobacter pylori (H. pylori) infection A04.8 [facility] [id number] [place] [address]- 9612 11 May, 2017 Encounter for routine adult health examination with abnormal findings Z00.01 ; Obesity (BMI 30.0-34.9) E66.9 ; Acanthosis nigricans L83 and Dietary counseling Z71.3 [facility] [id number] [place] [address]120- 8588 13 Apr, 2017 Acute seasonal allergic rhinitis due to pollen J30.1 and Sore throat J02.9 [facility] [address] [address] Apr, [facility] [address] [place] [address] 560131- 7287 Apr, Migraine without aura and without status migrainosus, not intractable G43.009 [facility] [address] [address] March, Dental examination Z01.20 [facility] [address] [address] Feb, Seasonal allergic rhinitis, unspecified allergic rhinitis trigger J30.[address] [id number] [id number] Nov, [facility] [id number] [place] [id number] Oct, Dental examination Z01.20 [facility] [id number] [place] [address] [phone] Oct, Dental examination Z01.20 [facility] [id number] [place] [address] [id number] Oct, Dental examination Z01.20 and Encounter for dental examination Z01.20 [facility] [address] [address] 6[address] Feb, [facility] [address] [address]- 9[address] Feb, [facility] [address] [place] [address]69- 2386 Sep, [facility] [id number] [place] [address] 13080- 5666 Sep, [facility] [address] [address]- [address] 05 Jul, 2014 [facility] [address] [place] [address] 24789- 3960 Jul, [facility] [id number] [address] Jul, [facility] [address] [address]- 3[address] Jun, [facility] [address] [address]- 6649 Jun, [facility] [address] [address]- 2672 Jun, [facility] [address] [address]- 5763 Jun, [facility] [id number] [place] [address]57- 1400 Jul, [facility] [address] [address]- 4[address] Jun, [facility] [address] [address]- 4801 Feb, [facility] [address] [address]- 0938 Sep, [facility] [address] [address]- 8973 Sep, [facility] [id number] [address] Oct, [facility] [id number] [address] Oct, IMMUNIZATIONS No Known Immunizations SOCIAL HISTORY Never Assessed REASON FOR VISIT PLAN OF CARE VITAL SIGNS MEDICATIONS Medication Instructions Dosage Frequency Start Date End Date Duration Status Erythromycin 5 MG/GM Ophthalmic 3 times a day apply 1/2 inch ribbon to left lower lid 8h Jul, Jul, 10 day(s) Active RESULTS No Results PROCEDURES No Known procedures INSTRUCTIONS MEDICATIONS ADMINISTERED No Known Medications MEDICAL (GENERAL) HISTORY Type Description Date Medical History Seasonal Allergies Surgical History uterine polyp removal- 12/2017 Hospitalization History Childbirth only
--- OUTSIDE RECORDS SUMMARY | 2018-11-13 10:35 | XMS REPORT ---
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 Name Role Phone CUELLOLAURA [place] Unavailable PROBLEMS Type Condition ICD9-CM Code AWI14-SX Code Onset Dates Condition Status SNOMED Code Problem GERD without esophagitis K21.9 Active 475153304 Problem Primary insomnia F51.01 Active 5722546 Problem Moderate episode of recurrent major depressive disorder F33.1 Active 350833200 Problem Intractable migraine without aura and with status migrainosus G43.011 Active 646105353 Problem GERD with esophagitis K21.0 Active 661990562 Problem Acute bilateral low back pain without sciatica M54.5 Active 045835127 Problem Anxiety F41.9 Active 93432994 Problem Mild persistent asthma without complication J45.30 Active 857215868 Problem Asthma due to seasonal allergies J45.909 Active 533876374 Problem Migraine without aura and without status migrainosus, not intractable G43.009 Active 082821800 Problem Obesity (BMI 30.0-34.9) E66.9 Active 749905677210307 Problem Acanthosis nigricans L83 Active 953048322 Problem Seasonal allergic rhinitis, unspecified allergic rhinitis trigger J30.2 Active 358708713 Problem Dysmenorrhea N94.6 Active 410106223 ALLERGIES Substance Reaction Event Type Date Status Topamax numbness and tingling Drug Allergy Jun, Active Augmentin nausea and vomiting Drug Allergy Jun, Active ENCOUNTERS Encounter Location Date Diagnosis [facility] [id number] [address] 17 Jul, 2018 Bacterial conjunctivitis of left eye H10.9 [facility] [id number] [address] 13 Jul, 2018 Oral pain K13.79 [facility] [address] [address] 07 Jul, 2018 Seasonal allergic rhinitis, unspecified allergic rhinitis trigger J30.2 ; Sore throat J02.9 ; Cough R05 and Acute otitis media, unspecified otitis media type H66.90 [facility] [address] [address] Jun, Intractable migraine without aura and with status migrainosus G43.011 [place] [address] [address] May, Intractable migraine without aura and with status migrainosus G43.011 [place] [address] [address] May, Intractable migraine without aura and with status migrainosus G43.011 [facility] [address] [address] May, Migraine without aura and without status migrainosus, not intractable G43.009 [place] [address] [address] Apr, Vertigo R42 and Epigastric abdominal pain R10.13 [place] [address] [address] Apr, Vertigo R42 [facility] [address] [address] Apr, Vertigo R42 [place] [address] [address] Apr, Epigastric abdominal pain R10.13 and GERD with esophagitis K21.0 [place] [address] [address] Apr, Wheezing R06.2 [place] [address] [address] 12 Apr, 2018 Mild persistent asthma without complication J45.30 and Wheezing R06.2 [place] [id number] [place] [address] 11 Apr, 2018 Migraine without aura and without status migrainosus, not intractable G43.009 [place] [id number] [place] [address] Apr, [place] [address] [address] Apr, Cough R05 and Wheezing R06.2 [place] [address] [address] Apr, Persistent cough for 3 weeks or longer R05 [place] [address] [address] March, Asthma due to seasonal allergies J45.909 ; Cough R05 and Wheezing R06.2 [place] [address] [address] March, Seasonal allergic rhinitis, unspecified allergic rhinitis trigger J30.2 and Asthma due to seasonal allergies J45.909 [place] [address] [address] March, Cough R05 ; Chest congestion R09.89 and Sore throat J02.9 [place] [id number] [place] [address] March, Moderate episode of recurrent major depressive disorder F33.1 ; Migraine without aura and without status migrainosus, not intractable G43.009 ; Primary insomnia F51.01 and Anxiety F41.9 [facility] [id number] [place] [address] March, Acute non-recurrent frontal sinusitis J01.10 [facility] [id number] [place] [address] March, [place] [address] [address] March, Right otitis media with effusion H65.91 ; Acute non- recurrent frontal sinusitis J01.10 and Migraine without aura and without status migrainosus, not intractable G43.009 [facility] [id number] [place] [address] Feb, Left lower quadrant pain R10.32 ; Migraine without aura and without status migrainosus, not intractable G43.009 and Anxiety F41.9 [place] [address] [address] Feb, Oral contraceptive pill surveillance Z30.41 [place] [address] [address] Feb, Acute bilateral low back pain without sciatica M54.5 [place] [address] [address] Feb, [place] [address] [address] Feb, Dental examination Z01.20 [facility] [address] [id number] Feb, Dental examination Z01.20 [facility] [address] [address] Feb, Anxiety F41.9 [place] [address] [address] Feb, Primary insomnia F51.01 and Moderate episode of recurrent major depressive disorder F33.1 [facility] [id number] [place] [address] Jan, Acute suppurative otitis media of left ear without spontaneous rupture of tympanic membrane, recurrence not specified H66.002 [facility] [id number] [place] [address] Jan, Migraine without aura and without status migrainosus, not intractable G43.009 ; Seasonal allergic rhinitis, unspecified allergic rhinitis trigger J30.2 ; GERD without esophagitis K21.9 ; Current mild episode of major depressive disorder without prior episode F32.0 and Human bite, initial encounter W50.3XXA [place] [address] [address] Dec, Migraine without aura and without status migrainosus, not intractable G43.009 [place] [address] [address] Dec, Nausea and vomiting after administration of anesthetic agent T88.59XA [place] [address] [address] Dec, [place] [address] [address] Dec, Acute tonsillitis, unspecified etiology J03.90 [place] [address] [address] Nov, Dysmenorrhea N94.6 ; Acute midline low back pain without sciatica M54.5 ; Obesity (BMI 30.0-34.9) E66.9 and High ankle sprain of right lower extremity, initial encounter S93.431A [place] [address] [address] Nov, [facility] [address] [address] Nov, Migraine without aura and without status migrainosus, not intractable G43.009 [place] [address] [address] Oct, Migraine without aura and without status migrainosus, not intractable G43.009 [facility] [address] [address] Oct, Migraine without aura and without status migrainosus, not intractable G43.009 [facility] [address] [address] Oct, [place] [id number] [place] [address] Oct, [place] [address] [address] Oct, Acute non-recurrent maxillary sinusitis J01.00 [place] [address] [address] Sep, Left elbow tendonitis M77.8 and Other fatigue R53.83 [facility] [address] [id number] Sep, Dental examination Z01.20 [place] [address] [address] Sep, Sore throat J02.9 ; Other viral agents as the cause of diseases classified elsewhere B97.89 and Acute upper respiratory infection, unspecified J06.9 [place] [address] [address] Aug, Encounter for immunization [address] [address] Aug, Encounter for immunization 23 [place] [address] [address] Aug, Migraine without aura and without status migrainosus, not intractable G43.009 [place] [id number] [place] [address] Jul, Acute midline low back pain without sciatica M54.5 and Obesity (BMI 30.0-34.9) E66.9 [place] [address] [address] Jul, Chronic seasonal allergic rhinitis due to pollen J30.1 [facility] [address] [place] [id number] Jun, Dental examination Z01.20 [facility] [address] [place] [address] Jun, Jaw pain R68.84 [facility] [id number] [place] [address] Jun, Dental examination Z01.20 [facility] [id number] [place] [id number] Jun, Dental examination Z01.20 [place] [address] [address] Jun, [place] [address] [address] Jun, Allergic reaction, initial encounter T78.40XA [place] [address] [address] Jun, [place] [address] [address] Jun, Migraine without aura and without status migrainosus, not intractable G43.009 [place] [id number] [place] [address]- [address] May, [place] [address] [address] May, Helicobacter pylori (H. pylori) infection A04.[address] [address] May, Encounter for routine adult health examination with abnormal findings Z00.01 ; Obesity (BMI 30.0-34.9) E66.9 ; Acanthosis nigricans L83 and Dietary counseling Z71.3 [place] [address] [address] 13 Apr, 2017 Acute seasonal allergic rhinitis due to pollen J30.1 and Sore throat J02.[address] [address]- [address] 08 Apr, 2017 [facility] [address] [address] Apr, Migraine without aura and without status migrainosus, not intractable G43.009 [facility] [address] [address] March, Dental examination Z01.20 [facility] [address] [address] Feb, Seasonal allergic rhinitis, unspecified allergic rhinitis trigger J30.[id number] [id number] Nov, [facility] [id number] [place] [id number] Oct, Dental examination Z01.20 [facility] [id number] [place] [id number] Oct, Dental examination Z01.20 [facility] [id number] [place] [id number] Oct, Dental examination Z01.20 and Encounter for dental examination Z01.20 [facility] [id number] [place] [address]- [address]562 Feb, [facility] [id number] [place] [address]- 2467 Feb, [facility] [address] [place] [address]- [address]797 Sep, [facility] [address] [place] [address]65- 3929 Sep, [facility] [id number] [place] [address]90- 1772 Jul, [facility] [address] [place] [address]- 8773 Jul, [facility] [id number] [place] [address] Jul, [facility] [id number] [address] Jun, [facility] [address] [address] Jun, [facility] [address] [address] Jun, [facility] [address] [address] Jun, [facility] [address] [address] Jul, [facility] [address] [address] Jun, [facility] [address] [address] Feb, [facility] [address] [address] Sep, [facility] [address] [address] Sep, [facility] [address] [address] Oct, [facility] [address] [address] Oct, IMMUNIZATIONS No Known Immunizations SOCIAL HISTORY Never Assessed REASON FOR VISIT Migraines fu -- moshe shields PLAN OF CARE Activity Details Follow Up 3 Months, prn Reason:chm VITAL SIGNS Height 62 in 2018-07-20 Weight 187.0 lbs 2018-07-20 Temperature 98.0 degrees Fahrenheit 2018-07-20 Heart Rate 78 bpm 2018-07-20 Respiratory Rate 20 2018-07-20 BMI 34.20 kg/m2 2018-07-20 Blood pressure systolic 136 mmHg 2018-07-20 Blood pressure diastolic 82 mmHg 2018-07-20 MEDICATIONS Medication Instructions Dosage Frequency Start Date End Date Duration Status Albuterol Sulfate 108 (90 Base) MCG/ACT Inhalation every 6 hrs 2 puffs as needed 6h March, 30 days Active Omeprazole 20 mg Orally twice a day 1 capsule 12h May, 90 days Active Sertraline HCl 50 mg Orally Once a day 1 tablet 24h March, 30 day (s) Active Ipratropium-Albuterol 0.5-2.5 (3) MG/3ML Inhalation every 6 hrs 3 ml 6h March, Active Fioricet 50-300-40 MG Orally every 4 hrs 1 capsule as needed 4h Active Imitrex 100 mg Orally Once a day 1 tablet as needed 24h May, Active Amitriptyline HCl 25 MG Orally Once a day 1 tablet 24h May, 30 day(s) Active Qvar 40 MCG/ACT Inhalation Twice a day 1 puff 12h Apr, Apr, 12 months Active RESULTS No Results PROCEDURES No Known procedures INSTRUCTIONS MEDICATIONS ADMINISTERED No Known Medications MEDICAL (GENERAL) HISTORY Type Description Date Medical History Seasonal Allergies Surgical History uterine polyp removal- 12/2017 Hospitalization History Childbirth only
--- OUTSIDE RECORDS SUMMARY | 2018-11-13 10:36 | XMS REPORT ---
Author Author CUELLOLAURA Cunha Organization [facility] Address [address] [place] [address] Care Team Providers Care Inspector Bullet Slugs Name Role Phone LAURA CUELLO Unavailable PROBLEMS Type Condition ICD9-CM Code [id number] Code Onset Dates Condition Status SNOMED Code Problem GERD without esophagitis K21.9 Active 105499862 Problem Primary insomnia F51.01 Active 9159521 Problem Moderate episode of recurrent major depressive disorder F33.1 Active 700868119 Problem Intractable migraine without aura and with status migrainosus G43.011 Active 784203275 Problem GERD with esophagitis K21.0 Active 331306952 Problem Acute bilateral low back pain without sciatica M54.5 Active 292907970 Problem Anxiety F41.9 Active 81612675 Problem Mild persistent asthma without complication J45.30 Active 559193074 Problem Asthma due to seasonal allergies J45.909 Active 437192216 Problem Migraine without aura and without status migrainosus, not intractable G43.009 Active 394234822 Problem Obesity (BMI 30.0-34.9) E66.9 Active 317089021682924 Problem Acanthosis nigricans L83 Active 013008640 Problem Seasonal allergic rhinitis, unspecified allergic rhinitis trigger J30.2 Active 006569091 Problem Dysmenorrhea N94.6 Active 767504763 ALLERGIES Substance Reaction Event Type Date Status Topamax numbness and tingling Drug Allergy May, Active Augmentin nausea and vomiting Drug Allergy May, Active ENCOUNTERS Encounter Location Date Diagnosis [facility] [address] [facility] [id number] [address] Jul, Seasonal allergic rhinitis, unspecified allergic rhinitis trigger J30.2 ; Sore throat J02.9 ; Cough R05 and Acute otitis media, unspecified otitis media type H66.90 [facility] [address] [facility] [id number] [place] [address] 18133- 5723 Jun, Intractable migraine without aura and with status migrainosus G43.011 [place] [address] [place] [id number] [place] [address] 518959- 3837 May, Intractable migraine without aura and with status migrainosus G43.011 [facility] [id number] [place] [address] 99154- 7113 May, Intractable migraine without aura and with status migrainosus G43.011 [facility] [id number] [place] [address]6026 -[address]21 May, Migraine without aura and without status migrainosus, not intractable G43.009 [place] [id number] [place] [address] 53031- 6496 Apr, Vertigo R42 and Epigastric abdominal pain R10.13 [place] [address] [place] [id number] [place] [address] 30353- 7590 Apr, Vertigo R42 [facility] [id number] [place] [address] 86021 -2942 Apr, Vertigo R42 [place] [id number] [place] [address] 09860- 0850 Apr, Epigastric abdominal pain R10.13 and GERD with esophagitis K21.0 [place] [address] [address]63- 1302 Apr, Wheezing R06.2 [place] [id number] [place] [address] 02791- 0204 12 Apr, 2018 Mild persistent asthma without complication J45.30 and Wheezing R06.2 [place] [id number] [place] [address] 33488- 2998 Apr, Migraine without aura and without status migrainosus, not intractable G43.009 [place] [address] [id number] [place] [address] 46634- 4645 Apr, [facility] [id number] [place] [address] 38707- 3451 Apr, Cough R05 and Wheezing R06.2 [place] [id number] [place] [address] 60462- 2512 Apr, Persistent cough for 3 weeks or longer R05 [place] [id number] [place] [address] 09326- 0192 March, Asthma due to seasonal allergies J45.909 ; Cough R05 and Wheezing R06.2 [place] [id number] [place] [address] 98456- 5193 March, Seasonal allergic rhinitis, unspecified allergic rhinitis trigger J30.2 and Asthma due to seasonal allergies J45.909 [place] [id number] [place] [address] 90114- 2366 March, Cough R05 ; Chest congestion R09.89 and Sore throat J02.9 [place] [id number] [place] [address] 69457- 9214 March, Moderate episode of recurrent major depressive disorder F33.1 ; Migraine without aura and without status migrainosus, not intractable G43.009 ; Primary insomnia F51.01 and Anxiety F41.9 [facility] [id number] [place] [address] 66498 -1717 March, Acute non-recurrent frontal sinusitis J01.10 [place] [id number] [place] [address] 53529- 7421 March, [facility] [id number] [place] [address] 97082- 4061 March, Right otitis media with effusion H65.91 ; Acute non- recurrent frontal sinusitis J01.10 and Migraine without aura and without status migrainosus, not intractable G43.009 [place] [id number] [place] [address] 78143- 0252 Feb, Left lower quadrant pain R10.32 ; Migraine without aura and without status migrainosus, not intractable G43.009 and Anxiety F41.9 [place] [address] 36703- 6829 Feb, Oral contraceptive pill surveillance Z30.41 [place] [address] 95554- 5479 Feb, Acute bilateral low back pain without sciatica M54.5 [place] [address] 51601- 1123 Feb, [place] [address] [address]647 272 Feb, Dental examination Z01.20 [facility] [address] [id number] Feb, Dental examination Z01.20 [place] [address] 14403- 4330 Feb, Anxiety F41.9 [place] [address] 88541- 9924 Feb, Primary insomnia F51.01 and Moderate episode of recurrent major depressive disorder F33.1 [place] [address] 76355- 5304 Jan, Acute suppurative otitis media of left ear without spontaneous rupture of tympanic membrane, recurrence not specified H66.002 [place] [address] 85102- 3076 Jan, Migraine without aura and without status migrainosus, not intractable G43.009 ; Seasonal allergic rhinitis, unspecified allergic rhinitis trigger J30.2 ; GERD without esophagitis K21.9 ; Current mild episode of major depressive disorder without prior episode F32.0 and Human bite, initial encounter W50.3XXA [place] [address] 92904- 1071 Dec, Migraine without aura and without status migrainosus, not intractable G43.009 [facility] [address] 52826- 5590 Dec, Nausea and vomiting after administration of anesthetic agent T88.59XA [facility] [address] 80045- 9657 Dec, [place] [address] 025073- 5591 Dec, Acute tonsillitis, unspecified etiology J03.90 [place] [address] 94394 4209 Nov, Dysmenorrhea N94.6 ; Acute midline low back pain without sciatica M54.5 ; Obesity (BMI 30.0-34.9) E66.9 and High ankle sprain of right lower extremity, initial encounter S93.431A [place] [address] 71536- 4026 Nov, [facility] [address] 15283- 2912 Nov, Migraine without aura and without status migrainosus, not intractable G43.009 [facility] [id number] [place] [address] 96827- 0296 Oct, Migraine without aura and without status migrainosus, not intractable G43.009 [facility] [id number] [place] [address] 91757 -8075 Oct, Migraine without aura and without status migrainosus, not intractable G43.009 [facility] [address] 96139- 0979 Oct, [facility] [address] 83132- 3251 Oct, [facility] [address] 45439- 8590 Oct, Acute non-recurrent maxillary sinusitis J01.00 [facility] [id number] [place] [address] 71536- 2338 17 Sep, 2017 Left elbow tendonitis M77.8 and Other fatigue R53.83 [facility] [id number] [place] [address] [id number] Sep, Dental examination Z01.20 [facility] [address] 23057- 3597 Sep, Sore throat J02.9 ; Other viral agents as the cause of diseases classified elsewhere B97.89 and Acute upper respiratory infection, unspecified J06.9 [place] [address] 93794- 4929 Aug, Encounter for immunization Z23 [place] [address] 07512- 1879 Aug, Encounter for immunization Z23 [place] [address] 64387- 8946 Aug, Migraine without aura and without status migrainosus, not intractable G43.009 [place] [address] 47554- 8531 Jul, Acute midline low back pain without sciatica M54.5 and Obesity (BMI 30.0-34.9) E66.9 [facility] [address] 90306- 5216 Jul, Chronic seasonal allergic rhinitis due to pollen J30.1 [facility] [address] [id number] Jun, Dental examination Z01.20 [facility] [address] 18695 -5635 Jun, Jaw pain R68.84 [facility] [address] 14028- 6572 Jun, Dental examination Z01.20 [facility] [address] [id number] [id number] Jun, Dental examination Z01.20 [place] [id number] [place] [address] 01017- 4524 Jun, [place] [address] [address] 9178 Jun, Allergic reaction, initial encounter T78.40XA [place] [id number] [place] [address] 50213- 7868 Jun, [place] [id number] [place] [address] 28756- 8208 Jun, Migraine without aura and without status migrainosus, not intractable G43.009 [place] [id number] [place] [address] 61743- 5520 May, [place] [id number] [place] [address] 48656- 3213 May, Helicobacter pylori (H. pylori) infection A04.8 [place] [id number] [place] [address] 71972- 1265 May, Encounter for routine adult health examination with abnormal findings Z00.01 ; Obesity (BMI 30.0-34.9) E66.9 ; Acanthosis nigricans L83 and Dietary counseling Z71.3 [place] [address] [place] [address] 72927- 6521 Apr, Acute seasonal allergic rhinitis due to pollen J30.1 and Sore throat J02.9 [place] [address] [address]- 4398 Apr, [place] [id number] [place] [address] 27804- 4479 Apr, Migraine without aura and without status migrainosus, not intractable G43.009 [place] [address] [place] [address] 77288- 8141 March, Dental examination Z01.20 [facility] [address] [id number] [place] [address] Feb, Seasonal allergic rhinitis, unspecified allergic rhinitis trigger J30.2 [facility] [address] [facility] [address] [id number] [place] [id number] Nov, [facility] [address] [id number] [place] [id number] Oct, Dental examination Z01.20 [facility] [address] [id number] [place] [id number] Oct, Dental examination Z01.20 [facility] [address] [id number] HOME[place] [id number] Oct, Dental examination Z01.20 and Encounter for dental examination Z01.20 [facility] [address] [id number] [place] [address] Feb, [facility] [address] [id number] [place] [address] 0698 Feb, [facility] [address] [id number] [place] [address]- 8160 Sep, [facility] [address] [id number] [place] [address]- 6380 Sep, [facility] [address] [id number] [place] [address]- 7[address] Jul, [facility] [address] [id number] [place] [address]6 Jul, [facility] [address] [id number] [place] [address]- 7[address] Jul, [facility] [address] [facility] [id number] [place] [address]- [address] Jun, [facility] [address] [id number] [place] [address]- 6[address] Jun, [facility] [address] [id number] [address] 5314 Jun, [facility] [address] [address]- 1630 Jun, [facility] [address] [address]- 5710 Jul, [facility] [address] [address] 0497 Jun, [facility] [address] [address]- 5343 Feb, [facility] [address] [place] [address] 78713- 1587 Sep, [facility] [address] [address]- 6467 Sep, [facility] [address] [address]- [address] Oct, [facility] [address] [id number] [address] Oct, IMMUNIZATIONS Vaccine Route Administration Date Status TORADOL (IM) 60 MG/2ML (UP TO 15 MG) IM Intramuscular June 23, 2018 Administered SOCIAL HISTORY Never Assessed REASON FOR VISIT headache fu -- moshe shields PLAN OF CARE Activity Details Follow Up 3 Months, prn Reason:chm VITAL SIGNS Height 62 in 2018-06-23 Weight 187.0 lbs 2018-06-23 Temperature 98.6 degrees Fahrenheit 2018-06-23 Heart Rate 80 bpm 2018-06-23 Respiratory Rate 20 2018-06-23 BMI 34.20 kg/m2 2018-06-23 Blood pressure systolic 120 mmHg 2018-06-23 Blood pressure diastolic 76 mmHg 2018-06-23 MEDICATIONS Medication Instructions Dosage Frequency Start Date End Date Duration Status Omeprazole 20 mg Orally twice a day 1 capsule 12h 14 May, 2017 90 days Active Sertraline HCl 50 mg Orally Once a day 1 tablet 24h March, 30 day (s) Active Qvar 40 MCG/ACT Inhalation Twice a day 1 puff 12h 12 Apr, 2018 Apr, 12 months Active Imitrex 100 mg Orally Once a day 1 tablet as needed 24h May, Active Amitriptyline HCl 25 MG Orally Once a day 1 tablet 24h May, 30 day(s) Active Cryselle-28 0.3-30 MG-MCG Orally Once a day 1 tablet 24h Feb, 28 day(s) Active Albuterol Sulfate 108 (90 Base) MCG/ACT Inhalation every 6 hrs 2 puffs as needed 6h March, 30 days Active Ipratropium-Albuterol 0.5-2.5 (3) MG/3ML Inhalation every 6 hrs 3 ml 6h March, Active Fioricet 50-300-40 MG Orally every 4 hrs 1 capsule as needed 4h Active RESULTS No Results PROCEDURES Procedure Date Ordered Result Body Site TORADOL (IM) 60 MG/2ML (UP TO 15 MG) June 23, 2018 THER/PROPH/DIAG INJ, SC/IM June 23, 2018 INSTRUCTIONS MEDICATIONS ADMINISTERED No Known Medications MEDICAL (GENERAL) HISTORY Type Description Date Medical History Seasonal Allergies Surgical History uterine polyp removal- 12/2017 Hospitalization History Childbirth only
--- OUTSIDE RECORDS SUMMARY | 2018-11-13 10:36 | XMS REPORT ---
Author Author SANTA DAWKINS Organization [facility] Address [address] [place] [address] Care Team Providers Care Manager Language Name Role Phone SANTA DAWKINS Unavailable PROBLEMS Type Condition ICD9-CM Code ZIB31-OD Code Onset Dates Condition Status SNOMED Code Problem GERD without esophagitis K21.9 Active 641576083 Problem Primary insomnia F51.01 Active 2028436 Problem Moderate episode of recurrent major depressive disorder F33.1 Active 774827495 Problem Intractable migraine without aura and with status migrainosus G43.011 Active 985120130 Problem GERD with esophagitis K21.0 Active 497390329 Problem Acute bilateral low back pain without sciatica M54.5 Active 419085478 Problem Anxiety F41.9 Active 85524556 Problem Mild persistent asthma without complication J45.30 Active 444504382 Problem Asthma due to seasonal allergies J45.909 Active 192818394 Problem Migraine without aura and without status migrainosus, not intractable G43.009 Active 361822351 Problem Obesity (BMI 30.0-34.9) E66.9 Active 364397344564674 Problem Acanthosis nigricans L83 Active 853619746 Problem Seasonal allergic rhinitis, unspecified allergic rhinitis trigger J30.2 Active 277168507 Problem Dysmenorrhea N94.6 Active 562015256 ALLERGIES Substance Reaction Event Type Date Status Topamax numbness and tingling Drug Allergy May, Active Augmentin nausea and vomiting Drug Allergy May, Active ENCOUNTERS Encounter Location Date Diagnosis [facility] [address] [id number] [address] Jul, Seasonal allergic rhinitis, unspecified allergic rhinitis trigger J30.2 ; Sore throat J02.9 ; Cough R05 and Acute otitis media, unspecified otitis media type H66.90 [facility] [address] [id number], [place] [address] Jun, Intractable migraine without aura and with status migrainosus G43.011 [facility] [id number] [place] [address]999[address] 2678 May, Intractable migraine without aura and with status migrainosus G43.011 [facility] [id number] [place] [address] 86951- 4369 May, Intractable migraine without aura and with status migrainosus G43.011 [facility] [id number] [place] [address] May, Migraine without aura and without status migrainosus, not intractable G43.009 [place] [address] [address] Apr, Vertigo R42 and Epigastric abdominal pain R10.13 [place] [address] [address]- 12[address] Apr, Vertigo R42 [facility] [id number] [place] [address] Apr, Vertigo R42 [place] [address] 5[address]20- 3049 Apr, Epigastric abdominal pain R10.13 and GERD with esophagitis K21.0 [place] [address] [address]43[address] 47[address] Apr, Wheezing R06.2 [place] [address] 65[address]- 3111 12 Apr, 2018 Mild persistent asthma without complication J45.30 and Wheezing R06.2 [place] [address] 31579- 2783 Apr, Migraine without aura and without status migrainosus, not intractable G43.009 [place] [id number] [place] [address] 06173- 3388 Apr, [facility] [id number] [place] [address] 86883- 9251 Apr, Cough R05 and Wheezing R06.2 [place] [id number] [place] [address] 97021- 9532 Apr, Persistent cough for 3 weeks or longer R05 [place] [id number] [place] [address] 45106- 3005 March, Asthma due to seasonal allergies J45.909 ; Cough R05 and Wheezing R06.2 [place] [id number] [place] [address] 37451- 5721 March, Seasonal allergic rhinitis, unspecified allergic rhinitis trigger J30.2 and Asthma due to seasonal allergies J45.909 [place] [id number] [place] [address] 47085- 1227 March, Cough R05 ; Chest congestion R09.89 and Sore throat J02.9 [place] [id number] [place] [address] 54239- 8842 March, Moderate episode of recurrent major depressive disorder F33.1 ; Migraine without aura and without status migrainosus, not intractable G43.009 ; Primary insomnia F51.01 and Anxiety F41.9 [facility] [id number] [place] [address] 86136 [address] March, Acute non-recurrent frontal sinusitis J01.10 [facility] [id number] [place] [address] 74867- 3245 March, [facility] [id number] [place] [address] 38719- 4542 March, Right otitis media with effusion H65.91 ; Acute non- recurrent frontal sinusitis J01.10 and Migraine without aura and without status migrainosus, not intractable G43.009 [facility] [address] [place] [address] 66326- 3704 Feb, Left lower quadrant pain R10.32 ; Migraine without aura and without status migrainosus, not intractable G43.009 and Anxiety F41.9 [place] [address] [id number]- 5645 Feb, Oral contraceptive pill surveillance Z30.41 [place] [address] 327933- 6836 Feb, Acute bilateral low back pain without sciatica M54.5 [place] [address] [address] 349552 2343 Feb, [place] [address] [id number] 728 Feb, Dental examination Z01.20 [facility] [address] [id number] Feb, Dental examination Z01.20 [place] [address] [address]57- 9490 Feb, Anxiety F41.9 [place] [address] 68957- 5154 Feb, Primary insomnia F51.01 and Moderate episode of recurrent major depressive disorder F33.1 [place] [address] [id number]- 4279 Jan, Acute suppurative otitis media of left ear without spontaneous rupture of tympanic membrane, recurrence not specified H66.002 [place] [address] 28448561- 8203 Jan, Migraine without aura and without status migrainosus, not intractable G43.009 ; Seasonal allergic rhinitis, unspecified allergic rhinitis trigger J30.2 ; GERD without esophagitis K21.9 ; Current mild episode of major depressive disorder without prior episode F32.0 and Human bite, initial encounter W50.3XXA [place] [address] 35563- 5439 Dec, Migraine without aura and without status migrainosus, not intractable G43.009 [facility] [id number] [place] [address] 77323- 3278 Dec, Nausea and vomiting after administration of anesthetic agent T88.59XA [facility] [address] [address]65- 5143 Dec, [place] [address] 63663- 1814 Dec, Acute tonsillitis, unspecified etiology J03.90 [place] [address] [address] 8703 Nov, Dysmenorrhea N94.6 ; Acute midline low back pain without sciatica M54.5 ; Obesity (BMI 30.0-34.9) E66.9 and High ankle sprain of right lower extremity, initial encounter S93.431A [place] [address] 06860- 3643 Nov, [place] [address] 24805- 6473 Nov, Migraine without aura and without status migrainosus, not intractable G43.009 [place] [address] 90546- 4454 Oct, Migraine without aura and without status migrainosus, not intractable G43.009 [facility] [id number] [place] [address] 13096 [address] Oct, Migraine without aura and without status migrainosus, not intractable G43.009 [facility] [id number] [place] [address] 55813- 8077 Oct, [facility] [address] 84772- 4761 Oct, [facility] [id number] [place] [address] 24419- 4337 Oct, Acute non-recurrent maxillary sinusitis J01.00 [facility] [id number] [place] [address] 64282- 2984 17 Sep, 2017 Left elbow tendonitis M77.8 and Other fatigue R53.83 [facility] [id number] [place] [address] [id number] Sep, Dental examination Z01.20 [facility] [address] 72262- 9074 Sep, Sore throat J02.9 ; Other viral agents as the cause of diseases classified elsewhere B97.89 and Acute upper respiratory infection, unspecified J06.9 [place] [address] 909845- 2882 Aug, Encounter for immunization Z23 [place] [address] 00190- 3622 Aug, Encounter for immunization Z23 [place] [address] 01977- 6194 Aug, Migraine without aura and without status migrainosus, not intractable G43.009 [place] [address] 86780- 0189 Jul, Acute midline low back pain without sciatica M54.5 and Obesity (BMI 30.0-34.9) E66.9 [facility] [id number] [place] [address] 31281- 9285 Jul, Chronic seasonal allergic rhinitis due to pollen J30.1 [facility] [id number] [place] [address] [id number] Jun, Dental examination Z01.20 [facility] [address] [address]59 [address] Jun, Jaw pain R68.84 [facility] [id number] [place] [address] 65688- 1187 Jun, Dental examination Z01.20 [facility] [address] [place] [id number] Jun, Dental examination Z01.20 [place] [id number] [place] [address] 02179- 5073 Jun, [place] [id number] [place] [address] 40335- 1714 Jun, Allergic reaction, initial encounter T78.40XA [place] [id number] [place] [address] 55256- 6178 Jun, [place] [id number] [place] [address] 91215- 8413 Jun, Migraine without aura and without status migrainosus, not intractable G43.009 [place] [id number] [place] [address] 78586- 9312 May, [place] [id number] [place] [address] 73824- 1372 May, Helicobacter pylori (H. pylori) infection A04.8 [place] [id number] [place] [address] 35419- 5580 May, Encounter for routine adult health examination with abnormal findings Z00.01 ; Obesity (BMI 30.0-34.9) E66.9 ; Acanthosis nigricans L83 and Dietary counseling Z71.3 [address] [place] [address] 05034- 0415 Apr, Acute seasonal allergic rhinitis due to pollen J30.1 and Sore throat J02.9 [place] [address] [place] [address] 15505- 8753 Apr, [place] [id number] [place] [address] 26953- 9654 Apr, Migraine without aura and without status migrainosus, not intractable G43.009 [place] [address] [place] [address] 94200- 0631 March, Dental examination Z01.20 [facility] [address] [id number], [place] [address] Feb, Seasonal allergic rhinitis, unspecified allergic rhinitis trigger J30.2 [facility] [address] [id number] [id number] Nov, [facility] [address] [id number] [id number] Oct, Dental examination Z01.20 [facility] [address] [id number] [id number] Oct, Dental examination Z01.20 [facility] [address] [place] [address] [id number] Oct, Dental examination Z01.20 and Encounter for dental examination Z01.20 [facility] [address] [id number] [address] Feb, [facility] [id number] [place] [address] 87223- 5903 Feb, [facility] [id number] [place] [address] 79483- 6076 Sep, [facility] [id number] [place] [address] 95385- 1150 Sep, [facility] [address] [id number], [place] [address] Jul, [facility] [address] [id number], [place] [address] Jul, [facility] [address] [id number], [place] [address] Jul, [facility] [address] [id number], [place] [address] Jun, [facility] [address] [id number], [place] [address] Jun, [facility] [id number] [place] [address] 77312- 8556 Jun, [facility] [address] [id number], [place] [address] 4[address] Jun, [facility] [address] [address] Jul, [facility] [address] [address] Jun, [facility] [address] [address] 0[address] Feb, [facility] [id number] [place] [address] 24345- 9320 Sep, [facility] [address] [address] 12[address] Sep, [facility] [address] [address] 8[address] Oct, [facility] [address] [id number], [place] [address] Oct, IMMUNIZATIONS No Known Immunizations SOCIAL HISTORY Never Assessed REASON FOR VISIT Headache- Migraine since last Friday, had a tordol shot 3 days ago, nothing is helping- Lala Masters RN PLAN OF CARE VITAL SIGNS Height 62 in 2018-06-15 Weight 187 lbs 2018-06-15 Temperature 98.2 degrees Fahrenheit 2018-06-15 Heart Rate 78 bpm 2018-06-15 Respiratory Rate 18 2018-06-15 BMI 34.20 kg/m2 2018-06-15 Blood pressure systolic 112 mmHg 2018-06-15 Blood pressure diastolic 78 mmHg 2018-06-15 MEDICATIONS Medication Instructions Dosage Frequency Start Date End Date Duration Status Omeprazole 20 mg Orally twice a day 1 capsule 12h May, 90 days Active Qvar 40 MCG/ACT Inhalation Twice a day 1 puff 12h Apr, Apr, 12 months Active Ipratropium-Albuterol 0.5-2.5 (3) MG/3ML Inhalation every 6 hrs 3 ml 6h March, Active Amitriptyline HCl 25 MG Orally Once a day 1 tablet 24h May, 30 day(s) Active Meclizine HCl 25 MG Orally every 8 hours 1 tablet as needed 8h Apr, 5 days Not-Taking Lunesta 2 MG Orally Once a day 1 tablet immediately before bedtime 24h Feb, Not-Taking Imitrex 100 mg Orally Once a day 1 tablet as needed 24h May, Active Albuterol Sulfate 108 (90 Base) MCG/ACT Inhalation every 6 hrs 2 puffs as needed 6h March, 30 days Active Cryselle-28 0.3-30 MG-MCG Orally Once a day 1 tablet 24h Feb, 28 day(s) Active Fioricet 50-300-40 MG Orally every 4 hrs 1 capsule as needed 4h Active Sertraline HCl 50 mg Orally Once a day 1 tablet 24h March, 30 day (s) Active Sucralfate 1 GM Orally 3 times a day 1 tablet 8h Apr, May, 30 day(s) Active Singulair 10 mg Orally Once a day 1 tablet in the evening 24h March, 90 days Not-Taking RESULTS No Results PROCEDURES No Known procedures INSTRUCTIONS MEDICATIONS ADMINISTERED No Known Medications MEDICAL (GENERAL) HISTORY Type Description Date Medical History Seasonal Allergies Surgical History uterine polyp removal- 12/2017 Hospitalization History Childbirth only
--- OUTSIDE RECORDS SUMMARY | 2018-11-13 10:36 | XMS REPORT ---
Author Author CUELLOLAURA Cunha Organization [facility] Address [address] [place] [address] Care Team Providers Care Textiles Sales Representative Name Role Phone LAURA CUELLO Unavailable PROBLEMS Type Condition ICD9-CM Code TVI03-AF Code Onset Dates Condition Status SNOMED Code Problem GERD without esophagitis K21.9 Active 409526163 Problem Primary insomnia F51.01 Active 1250265 Problem Moderate episode of recurrent major depressive disorder F33.1 Active 975144699 Problem Intractable migraine without aura and with status migrainosus G43.011 Active 174044579 Problem GERD with esophagitis K21.0 Active 627452813 Problem Acute bilateral low back pain without sciatica M54.5 Active 566121510 Problem Anxiety F41.9 Active 59869485 Problem Mild persistent asthma without complication J45.30 Active 289536835 Problem Asthma due to seasonal allergies J45.909 Active 037341291 Problem Migraine without aura and without status migrainosus, not intractable G43.009 Active 149454272 Problem Obesity (BMI 30.0-34.9) E66.9 Active 679591894688222 Problem Acanthosis nigricans L83 Active 922932917 Problem Seasonal allergic rhinitis, unspecified allergic rhinitis trigger J30.2 Active 079351359 Problem Dysmenorrhea N94.6 Active 531636138 ALLERGIES Substance Reaction Event Type Date Status Topamax numbness and tingling Drug Allergy Apr, Active Augmentin nausea and vomiting Drug Allergy Apr, Active ENCOUNTERS Encounter Location Date Diagnosis [facility] [address] [facility] [id number], [place] [address] Jun, Intractable migraine without aura and with status migrainosus G43.011 [facility] [address] [id number] [address] May, Intractable migraine without aura and with status migrainosus G43.011 [place] [id number] [place] [address]- [address]13 May, Intractable migraine without aura and with status migrainosus G43.011 [facility] [id number] [place] [address]14 May, Migraine without aura and without status migrainosus, not intractable G43.009 [place] [address] [place] [id number] Apr, Vertigo R42 and Epigastric abdominal pain R10.13 [place] [address] [address]779 Apr, Vertigo R42 [facility] [place] [address] [address] 27 Apr, 2018 Vertigo R42 [place] [address] [address]42- [address]69 Apr, Epigastric abdominal pain R10.13 and GERD with esophagitis K21.0 [place] [address] 15668- 4047 13 Apr, 2018 Wheezing R06.2 [place] [address] 44190- 3[address] 12 Apr, 2018 Mild persistent asthma without complication J45.30 and Wheezing R06.2 [place] [id number] [place] [address] 20306- 0812 11 Apr, 2018 Migraine without aura and without status migrainosus, not intractable G43.009 [place] [address] 37608- 7406 Apr, [place] [address] [place] [id number]- 57[address] 07 Apr, 2018 Cough R05 and Wheezing R06.2 [place] [address] 59[address]- 4591 Apr, Persistent cough for 3 weeks or longer R05 [place] [id number] [place] [address] 25136- 2813 March, Asthma due to seasonal allergies J45.909 ; Cough R05 and Wheezing R06.2 [place] [address] 78324- 6356 March, Seasonal allergic rhinitis, unspecified allergic rhinitis trigger J30.2 and Asthma due to seasonal allergies J45.909 [place] [address] [address]60- 3977 March, Cough R05 ; Chest congestion R09.89 and Sore throat J02.9 [place] [address] 89[address]- 3464 March, Moderate episode of recurrent major depressive disorder F33.1 ; Migraine without aura and without status migrainosus, not intractable G43.009 ; Primary insomnia F51.01 and Anxiety F41.9 [facility] [address] [address] March, Acute non-recurrent frontal sinusitis J01.10 [place] [address] 59564- 6361 March, [place] [address] 31035- 8860 March, Right otitis media with effusion H65.91 ; Acute non- recurrent frontal sinusitis J01.10 and Migraine without aura and without status migrainosus, not intractable G43.009 [place] [id number] [place] [address] 84270- 5280 Feb, Left lower quadrant pain R10.32 ; Migraine without aura and without status migrainosus, not intractable G43.009 and Anxiety F41.9 [place] [address] 50365- 0462 Feb, Oral contraceptive pill surveillance Z30.41 [place] [id number] [place] [address] 12412- 7359 Feb, Acute bilateral low back pain without sciatica M54.5 [place] [address] 43069- 4418 Feb, [place] [address] 91914- 2482 Feb, Dental examination Z01.20 [facility] [address] [id number] Feb, Dental examination Z01.20 [place] [address] 71644- 7951 Feb, Anxiety F41.9 [place] [address] 49256- 1958 Feb, Primary insomnia F51.01 and Moderate episode of recurrent major depressive disorder F33.1 [place] [address] 56518- 8893 Jan, Acute suppurative otitis media of left ear without spontaneous rupture of tympanic membrane, recurrence not specified H66.002 [place] [address] 60410- 0605 Jan, Migraine without aura and without status migrainosus, not intractable G43.009 ; Seasonal allergic rhinitis, unspecified allergic rhinitis trigger J30.2 ; GERD without esophagitis K21.9 ; Current mild episode of major depressive disorder without prior episode F32.0 and Human bite, initial encounter W50.3XXA [place] [id number] [place] [address] 46751- 2551 Dec, Migraine without aura and without status migrainosus, not intractable G43.009 [place] [address] 18899- 8329 Dec, Nausea and vomiting after administration of anesthetic agent T88.59XA [place] [address] 46923- 6581 Dec, [facility] [address] 7[address]08- [address] Dec, Acute tonsillitis, unspecified etiology J03.90 [facility] [id number] [place] [address] 17139- 5769 Nov, Dysmenorrhea N94.6 ; Acute midline low back pain without sciatica M54.5 ; Obesity (BMI 30.0-34.9) E66.9 and High ankle sprain of right lower extremity, initial encounter S93.431A [place] [address] 27407- 7471 Nov, [facility] [address] 47095- 4918 Nov, Migraine without aura and without status migrainosus, not intractable G43.009 [facility] [address] 34313- 7358 Oct, Migraine without aura and without status migrainosus, not intractable G43.009 [facility] [address] 0[address] Oct, Migraine without aura and without status migrainosus, not intractable G43.009 [facility] [id number] [place] [address] 51924- 2612 Oct, [facility] [address] 9[address]23- 2017 Oct, [facility] [address] 17798- 9026 Oct, Acute non-recurrent maxillary sinusitis J01.00 [facility] [id number] [place] [address] 71341- 2710 Sep, Left elbow tendonitis M77.8 and Other fatigue R53.83 [facility] [id number] [place] [id number] Sep, Dental examination Z01.20 [facility] [id number] [place] [address] 56927- 9053 Sep, Sore throat J02.9 ; Other viral agents as the cause of diseases classified elsewhere B97.89 and Acute upper respiratory infection, unspecified J06.9 [facility] [id number] [place] [address] 68791- 3959 Aug, Encounter for immunization Z23 [facility] [address] 46567- 9181 Aug, Encounter for immunization Z23 [place] [address] 89777- 4116 Aug, Migraine without aura and without status migrainosus, not intractable G43.009 [place] [id number] [place] [address] 54781- 9260 Jul, Acute midline low back pain without sciatica M54.5 and Obesity (BMI 30.0-34.9) E66.9 [facility] [id number] [place] [address] 11602- 9335 Jul, Chronic seasonal allergic rhinitis due to pollen J30.1 [facility] [address] [place] [address] [id number] Jun, Dental examination Z01.20 [facility] [id number] [place] [address] 16233 -2799 Jun, Jaw pain R68.84 [facility] [id number] [place] [address] 77737- 1697 Jun, Dental examination Z01.20 [facility] [id number] [place] [address] [id number] Jun, Dental examination Z01.20 [facility] [id number] [place] [address] 09024- 7363 Jun, [facility] [address] [place] [address] 59778- 0739 16 Jun, 2017 Allergic reaction, initial encounter T78.40XA [place] [address] 03608- 1371 Jun, [place] [id number] [place] [address] 85861- 6211 Jun, Migraine without aura and without status migrainosus, not intractable G43.009 [place] [address] 84034- 2748 May, [place] [address] 21465- 5256 May, Helicobacter pylori (H. pylori) infection A04.8 [place] [id number] [place] [address] 51764- 0769 11 May, 2017 Encounter for routine adult health examination with abnormal findings Z00.01 ; Obesity (BMI 30.0-34.9) E66.9 ; Acanthosis nigricans L83 and Dietary counseling Z71.3 [place] [id number] [place] [address] 68572- 2195 13 Apr, 2017 Acute seasonal allergic rhinitis due to pollen J30.1 and Sore throat J02.9 [place] [id number] [place] [address] 44843- 8829 08 Apr, 2017 [place] [id number] [place] [address] 26370- 7665 Apr, Migraine without aura and without status migrainosus, not intractable G43.009 [place] [id number] [place] [address] 33137- 1903 March, Dental examination Z01.20 [facility] [address] [place] [address] 07677 -6368 Feb, Seasonal allergic rhinitis, unspecified allergic rhinitis trigger J30.[address] [place] [place] [address] [id number] [id number] Nov, [facility] [address] [id number] [id number] Oct, Dental examination Z01.20 [facility] [address] [id number] [id number] Oct, Dental examination Z01.20 [facility] [address] [id number] [id number] Oct, Dental examination Z01.20 and Encounter for dental examination Z01.20 [facility] [address] [id number] [address] Feb, [facility] [address] [id number] [place] [address]- 5380 Feb, [facility] [address] [id number], [place] [address] Sep, [facility] [address] [id number], [place] [address]- 4[address] Sep, [facility] [address] [id number], [place] [address]- [address] Jul, [facility] [address] [id number], [place] [address]- 8682 Jul, [facility] [address] [id number], [place] [address]- 5853 Jul, [facility] [address] [id number], [place] [address] Jun, [facility] [address] [id number], [place] [address]- 9317 Jun, [facility] [address] [id number], [place] [address]- 9468 Jun, [facility] [address] [id number], [place] [address]- 1777 Jun, [facility] [address] [id number], [place] [address]- [address] Jul, [facility] [address] [facility] [id number], [place] [address] Jun, [facility] [address] [facility] [id number], [place] [address] Feb, [facility] [address] [facility] [id number], [place] [address]- 0966 Sep, [facility] [address] [facility] [id number], [place] [address]- 2166 Sep, [facility] [address] [facility] [id number], [place] [address] 8[address] Oct, [facility] [address] [facility] [id number], [place] [address] Oct, IMMUNIZATIONS No Known Immunizations SOCIAL HISTORY Never Assessed REASON FOR VISIT Pain (acute) PLAN OF CARE Activity Details Follow Up prn Reason: VITAL SIGNS Weight 187 lbs 2018-05-19 Heart Rate 86 bpm 2018-05-19 Respiratory Rate 18 2018-05-19 Blood pressure systolic 110 mmHg 2018-05-19 Blood pressure diastolic 66 mmHg 2018-05-19 MEDICATIONS Medication Instructions Dosage Frequency Start Date End Date Duration Status Eligio28 0.3-30 MG-MCG Orally Once a day 1 tablet 24h Feb, 28 day(s) Active Omeprazole 20 mg Orally twice a day 1 capsule 12h May, 90 days Active Lunesta 2 MG Orally Once a day 1 tablet immediately before bedtime 24h Feb, Active Singulair 10 mg Orally Once a day 1 tablet in the evening 24h March, 90 days Not-Taking Sertraline HCl 50 mg Orally Once a day 1 tablet 24h March, 30 day (s) Active Fioricet 50-300-40 MG Orally every 4 hrs 1 capsule as needed 4h Active Sucralfate 1 GM Orally 3 times a day 1 tablet 8h 26 Apr, 2018 May, 30 day(s) Active Ipratropium-Albuterol 0.5-2.5 (3) MG/3ML Inhalation every 6 hrs 3 ml 6h March, Active Qvar 40 MCG/ACT Inhalation Twice a day 1 puff 12h 12 Terry, 2018 12 Terry, 2023 12 months Active Albuterol Sulfate 108 (90 Base) MCG/ACT Inhalation every 6 hrs 2 puffs as needed 6h March, 30 days Active RESULTS No Results PROCEDURES No Known procedures INSTRUCTIONS MEDICATIONS ADMINISTERED No Known Medications MEDICAL (GENERAL) HISTORY Type Description Date Medical History Seasonal Allergies Surgical History uterine polyp removal- 12/2017 Hospitalization History Childbirth only
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
--- OUTSIDE RECORDS SUMMARY | 2018-11-13 10:37 | XMS REPORT ---
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 Name Role Phone LAURA CUELLO Unavailable PROBLEMS Type Condition ICD9-CM Code PDF96-AY Code Onset Dates Condition Status SNOMED Code Problem GERD without esophagitis K21.9 Active 400704124 Problem Primary insomnia F51.01 Active 9679202 Problem Moderate episode of recurrent major depressive disorder F33.1 Active 332811396 Problem Intractable migraine without aura and with status migrainosus G43.011 Active 414669332 Problem GERD with esophagitis K21.0 Active 848783266 Problem Acute bilateral low back pain without sciatica M54.5 Active 344620501 Problem Anxiety F41.9 Active 61856593 Problem Mild persistent asthma without complication J45.30 Active 730987770 Problem Asthma due to seasonal allergies J45.909 Active 989013674 Problem Migraine without aura and without status migrainosus, not intractable G43.009 Active 571006764 Problem Obesity (BMI 30.0-34.9) E66.9 Active 183802247126695 Problem Acanthosis nigricans L83 Active 426784040 Problem Seasonal allergic rhinitis, unspecified allergic rhinitis trigger J30.2 Active 629205936 Problem Dysmenorrhea N94.6 Active 359676040 ALLERGIES No Information ENCOUNTERS Encounter Location Date Diagnosis [facility] [id number] [address] Jun, Intractable migraine without aura and with status migrainosus G43.011 [facility] [id number] [place] [address] May, Intractable migraine without aura and with status migrainosus G43.011 [facility] [id number] [address] May, Intractable migraine without aura and with status migrainosus G43.011 [facility] [id number] [place] [address] May, Migraine without aura and without status migrainosus, not intractable G43.009 [facility] [id number] [place] [address] 28 Apr, 2018 Vertigo R42 and Epigastric abdominal pain R10.13 [facility] [address] [address] Apr, Vertigo R42 [facility] WALK IN [facility] [address] [address] Apr, Vertigo R42 [place] [address] [address] Apr, Epigastric abdominal pain R10.13 and GERD with esophagitis K21.0 [place] [address] [address] 13 Apr, 2018 Wheezing R06.2 [place] [address] [address] 12 Apr, 2018 Mild persistent asthma without complication J45.30 and Wheezing R06.2 [place] [id number] [place] [address]85[address]- [address]83 11 Apr, 2018 Migraine without aura and without status migrainosus, not intractable G43.009 [place] [id number] [place] [address]- [address] Apr, [place] [address] [address] 07 Apr, 2018 Cough R05 and Wheezing R06.2 [place] [address] [address] 05 Apr, 2018 Persistent cough for 3 weeks or longer R05 [place] [address] [address] March, Asthma due to seasonal allergies J45.909 ; Cough R05 and Wheezing R06.2 [facility] [address] [address] March, Seasonal allergic rhinitis, unspecified allergic rhinitis trigger J30.2 and Asthma due to seasonal allergies J45.909 [place] [address] [address] March, Cough R05 ; Chest congestion R09.89 and Sore throat J02.9 [place] [address] [address] March, Moderate episode of recurrent major depressive disorder F33.1 ; Migraine without aura and without status migrainosus, not intractable G43.009 ; Primary insomnia F51.01 and Anxiety F41.9 [facility] [address] [address] March, Acute non-recurrent frontal sinusitis J01.10 [place] [address] [address] March, [place] [address] [address] March, Right otitis media with effusion H65.91 ; Acute non- recurrent frontal sinusitis J01.10 and Migraine without aura and without status migrainosus, not intractable G43.009 [place] [address] [address] Feb, Left lower quadrant pain R10.32 ; Migraine without aura and without status migrainosus, not intractable G43.009 and Anxiety F41.9 [place] [address] [address] Feb, Oral contraceptive pill surveillance Z30.41 [place] [address] [address] Feb, Acute bilateral low back pain without sciatica M54.5 [facility] [id number] [place] [address]60 Feb, [facility] [address] [address] Feb, Dental examination Z01.20 [facility] [id number] [place] [id number] 10 Feb, 2018 Dental examination Z01.20 [facility] [address] [address] 10 Feb, 2018 Anxiety F41.9 [place] [address] [address]- [address] 02 Feb, 2018 Primary insomnia F51.01 and Moderate episode of recurrent major depressive disorder F33.1 [place] [address] [address] Jan, Acute suppurative otitis media of left ear without spontaneous rupture of tympanic membrane, recurrence not specified H66.002 [place] [address] [address] Jan, Migraine without aura and without status migrainosus, not intractable G43.009 ; Seasonal allergic rhinitis, unspecified allergic rhinitis trigger J30.2 ; GERD without esophagitis K21.9 ; Current mild episode of major depressive disorder without prior episode F32.0 and Human bite, initial encounter W50.3XXA [place] [id number] [place] [address] 6[address]- [address] Dec, Migraine without aura and without status migrainosus, not intractable G43.009 [place] [address] [address] Dec, Nausea and vomiting after administration of anesthetic agent T88.59XA [place] [address] [address] Dec, [place] [address] [address] Dec, Acute tonsillitis, unspecified etiology J03.90 [facility] [address] [address] Nov, Dysmenorrhea N94.6 ; Acute midline low back pain without sciatica M54.5 ; Obesity (BMI 30.0-34.9) E66.9 and High ankle sprain of right lower extremity, initial encounter S93.431A [place] [address] [address] Nov, [facility] [address] [address] Nov, Migraine without aura and without status migrainosus, not intractable G43.009 [facility] [address] [address]- [address] Oct, Migraine without aura and without status migrainosus, not intractable G43.009 [facility] WALK IN [facility] [address] [address] Oct, Migraine without aura and without status migrainosus, not intractable G43.009 [facility] [address] [address] Oct, [facility] [address] [address] Oct, [facility] [address] [address] Oct, Acute non-recurrent maxillary sinusitis J01.00 [place] [address] [address] Sep, Left elbow tendonitis M77.8 and Other fatigue R53.83 [facility] [address] [id number] Sep, Dental examination Z01.20 [place] [address] [place] [address] Sep, Sore throat J02.9 ; Other viral agents as the cause of diseases classified elsewhere B97.89 and Acute upper respiratory infection, unspecified J06.9 [facility] [address] [address] Aug, Encounter for immunization Z23 [place] [address] 956861- [address] Aug, Encounter for immunization Z23 [place] [address] [address] Aug, Migraine without aura and without status migrainosus, not intractable G43.009 [place] [address] [address]- [address] Jul, Acute midline low back pain without sciatica M54.5 and Obesity (BMI 30.0-34.9) E66.9 [facility] [address] [address] Jul, Chronic seasonal allergic rhinitis due to pollen J30.1 [facility] [address] [id number] Jun, Dental examination Z01.20 [facility] WALK IN [facility] [address] [address] Jun, Jaw pain R68.84 [facility] [address] [address] Jun, Dental examination Z01.20 [facility] [address] [id number] Jun, Dental examination Z01.20 [facility] [address] [address] Jun, [facility] [address] [address] Jun, Allergic reaction, initial encounter T78.40XA [place] [id number] [place] [address] Jun, [place] [address] [address] Jun, Migraine without aura and without status migrainosus, not intractable G43.009 [place] [address] [address] May, [place] [address] [address] May, Helicobacter pylori (H. pylori) infection A04.[address] [address] 11 May, 2017 Encounter for routine adult health examination with abnormal findings Z00.01 ; Obesity (BMI 30.0-34.9) E66.9 ; Acanthosis nigricans L83 and Dietary counseling Z71.3 [place] [address] [address]- [address] 13 Apr, 2017 Acute seasonal allergic rhinitis due to pollen J30.1 and Sore throat J02.[address] [address] Apr, [place] [address] [address]- [address] Apr, Migraine without aura and without status migrainosus, not intractable G43.009 [place] [id number] [place] [address] 8[address]66- 0107 March, Dental examination Z01.20 [facility] [id number] [place] [address] Feb, Seasonal allergic rhinitis, unspecified allergic rhinitis trigger J30.2 [facility] [id number] [id number] Nov, [facility] [address] [id number] Oct, Dental examination Z01.20 [facility] [address] [id number] [id number] Oct, Dental examination Z01.20 [facility] [address] [id number] [id number] Oct, Dental examination Z01.20 and Encounter for dental examination Z01.20 [facility] [id number] [place] [address]- [address] Feb, [facility] [address] [id number] [address] Feb, [facility] [id number] [place] [address] 89939- 1811 Sep, [facility] [address] [id number], [place] [address] Sep, [facility] [id number] [place] [address]50- 6559 Jul, [facility] [address] [id number], [place] [address] Jul, [facility] [address] [id number], [place] [address] Jul, [facility] [address] [id number], [place] [address] Jun, [facility] [address] [id number], [place] [address] Jun, [facility] [address] [id number], [place] [address] Jun, [facility] [address] [id number], [place] [address] Jun, [facility] [address] [id number] Jul, [facility] [address] [id number], [place] [address] Jun, [facility] [address] [facility] [id number], [place] [address] Feb, [facility] [address] [facility] [id number], [place] [address]- [address] Sep, [facility] [address] [facility] [id number], [place] [address]- [address] Sep, [facility] [address] [facility] [id number], [place] [address] Oct, [facility] [address] [facility] [id number], [place] [address] Oct, IMMUNIZATIONS No Known Immunizations SOCIAL HISTORY Never Assessed REASON FOR VISIT Lab (walk-in) PLAN OF CARE VITAL SIGNS MEDICATIONS No Known Medications RESULTS No Results PROCEDURES Procedure Date Ordered Result Body Site COMPREHEN METABOLIC PANEL May 21, 2018 ASSAY OF MAGNESIUM May 21, 2018 HPYLORI, STOOL, EIA May 21, 2018 COMPLETE CBC W/AUTO DIFF WBC May 21, 2018 INSTRUCTIONS MEDICATIONS ADMINISTERED No Known Medications MEDICAL (GENERAL) HISTORY Type Description Date Medical History Seasonal Allergies Surgical History uterine polyp removal- 12/2017 Hospitalization History Childbirth only
--- OUTSIDE RECORDS SUMMARY | 2018-11-13 10:37 | XMS REPORT ---
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 Role Phone GIOVANY MATHIAS Unavailable PROBLEMS Type Condition ICD9-CM Code AFE06-CM Code Onset Dates Condition Status SNOMED Code Problem GERD without esophagitis K21.9 Active 347299544 Problem Primary insomnia F51.01 Active 7546055 Problem Moderate episode of recurrent major depressive disorder F33.1 Active 046916726 Problem Intractable migraine without aura and with status migrainosus G43.011 Active 297621197 Problem GERD with esophagitis K21.0 Active 802164703 Problem Acute bilateral low back pain without sciatica M54.5 Active 403751468 Problem Anxiety F41.9 Active 53373514 Problem Mild persistent asthma without complication J45.30 Active 471134675 Problem Asthma due to seasonal allergies J45.909 Active 635005247 Problem Migraine without aura and without status migrainosus, not intractable G43.009 Active 535674163 Problem Obesity (BMI 30.0-34.9) E66.9 Active 491055489571822 Problem Acanthosis nigricans L83 Active 107509523 Problem Seasonal allergic rhinitis, unspecified allergic rhinitis trigger J30.2 Active 024581895 Problem Dysmenorrhea N94.6 Active 559968140 ALLERGIES Substance Reaction Event Type Date Status Topamax numbness and tingling Drug Allergy Apr, Active Augmentin nausea and vomiting Drug Allergy Apr, Active ENCOUNTERS Encounter Location Date Diagnosis [facility] [id number] [address] Jun, Intractable migraine without aura and with status migrainosus G43.011 [facility] [id number], [place] [address] May, Intractable migraine without aura and with status migrainosus G43.011 [facility] [id number] [place] [address]369- 5813 May, Intractable migraine without aura and with status migrainosus G43.011 [facility] [id number] [place] [address]97 -1062 May, Migraine without aura and without status migrainosus, not intractable G43.009 [place] [address] [address] Apr, Vertigo R42 and Epigastric abdominal pain R10.13 [place] [address] 060388- 58[address] Apr, Vertigo R42 [facility] [address] [address] Apr, Vertigo R42 [place] [address] [address]- [address] Apr, Epigastric abdominal pain R10.13 and GERD with esophagitis K21.0 [place] [address] [address]- [address] Apr, Wheezing R06.2 [place] [address] 6[address]- [address] 12 Apr, 2018 Mild persistent asthma without complication J45.30 and Wheezing R06.2 [place] [id number] [place] [address]1634- 8637 Apr, Migraine without aura and without status migrainosus, not intractable G43.009 [place] [address] 6[address]- 4565 Apr, [place] [address] 14[address]- [address]37 07 Apr, 2018 Cough R05 and Wheezing R06.2 [place] [address] [address]- 1774 Apr, Persistent cough for 3 weeks or longer R05 [facility] [id number] [place] [address] 90655- 3512 March, Asthma due to seasonal allergies J45.909 ; Cough R05 and Wheezing R06.2 [facility] [id number] [place] [address] 83347- 0100 March, Seasonal allergic rhinitis, unspecified allergic rhinitis trigger J30.2 and Asthma due to seasonal allergies J45.909 [place] [id number] [place] [address] 59810- 2934 March, Cough R05 ; Chest congestion R09.89 and Sore throat J02.9 [place] [id number] [place] [address] 98247- 8792 March, Moderate episode of recurrent major depressive disorder F33.1 ; Migraine without aura and without status migrainosus, not intractable G43.009 ; Primary insomnia F51.01 and Anxiety F41.9 [facility] [id number] [place] [address] March, Acute non-recurrent frontal sinusitis J01.10 [facility] [id number] [place] [address] 22407- 3435 March, [facility] [id number] [place] [address] 12742- 2082 March, Right otitis media with effusion H65.91 ; Acute non- recurrent frontal sinusitis J01.10 and Migraine without aura and without status migrainosus, not intractable G43.009 [place] [id number] [place] [address] 39743- 2250 Feb, Left lower quadrant pain R10.32 ; Migraine without aura and without status migrainosus, not intractable G43.009 and Anxiety F41.9 [facility] [id number] [place] [address] 81090- 0554 Feb, Oral contraceptive pill surveillance Z30.41 [place] [id number] [place] [address] 78908- 7043 Feb, Acute bilateral low back pain without sciatica M54.5 [place] [id number] [place] [address] 87410- 2271 Feb, [place] [address] [address]72- [address] Feb, Dental examination Z01.20 [facility] [address] [id number] Feb, Dental examination Z01.20 [place] [address] [address]- 2300 Feb, Anxiety F41.9 [place] [address] 36310- 4706 Feb, Primary insomnia F51.01 and Moderate episode of recurrent major depressive disorder F33.1 [place] [address] 84503- 8936 Jan, Acute suppurative otitis media of left ear without spontaneous rupture of tympanic membrane, recurrence not specified H66.002 [place] [id number] [place] [address] 99389- 1275 Jan, Migraine without aura and without status migrainosus, not intractable G43.009 ; Seasonal allergic rhinitis, unspecified allergic rhinitis trigger J30.2 ; GERD without esophagitis K21.9 ; Current mild episode of major depressive disorder without prior episode F32.0 and Human bite, initial encounter W50.3XXA [place] [id number] [place] [address] 29757- 4618 Dec, Migraine without aura and without status migrainosus, not intractable G43.009 [place] [id number] [place] [address] 26334- 2203 Dec, Nausea and vomiting after administration of anesthetic agent T88.59XA [place] [id number] [place] [address] 98073- 3803 Dec, [facility] [address] 14809- [address]99 Dec, Acute tonsillitis, unspecified etiology J03.90 [facility] [address] 12[address]- 5817 Nov, Dysmenorrhea N94.6 ; Acute midline low back pain without sciatica M54.5 ; Obesity (BMI 30.0-34.9) E66.9 and High ankle sprain of right lower extremity, initial encounter S93.431A [place] [address] 6[address]80- 4624 Nov, [facility] [address] 95973- 6010 Nov, Migraine without aura and without status migrainosus, not intractable G43.009 [facility] [address] 9[address]51- 3748 Oct, Migraine without aura and without status migrainosus, not intractable G43.009 [facility] [address] [address] Oct, Migraine without aura and without status migrainosus, not intractable G43.009 [facility] [id number] [place] [address] 03435- 8560 Oct, [facility] [address] 54537- 1877 Oct, [facility] [address] 00258- 1811 Oct, Acute non-recurrent maxillary sinusitis J01.00 [facility] [id number] [place] [address] 53985- 6825 Sep, Left elbow tendonitis M77.8 and Other fatigue R53.83 [facility] [id number] [place] [id number] Sep, Dental examination Z01.20 [facility] [address] 82338- 9707 Sep, Sore throat J02.9 ; Other viral agents as the cause of diseases classified elsewhere B97.89 and Acute upper respiratory infection, unspecified J06.9 [facility] [address] 53033- 2317 Aug, Encounter for immunization Z23 [place] [address] 70318- 7195 Aug, Encounter for immunization Z23 [place] [address] 07369- 7241 Aug, Migraine without aura and without status migrainosus, not intractable G43.009 [place] [address] 27912- 2195 Jul, Acute midline low back pain without sciatica M54.5 and Obesity (BMI 30.0-34.9) E66.9 [facility] [address] [address]- 6[address] Jul, Chronic seasonal allergic rhinitis due to pollen J30.1 [facility] [address] [id number] Jun, Dental examination Z01.20 [facility] [id number] [place] [address] 31793 -7785 Jun, Jaw pain R68.84 [facility] [address] 8[address]80- 5039 Jun, Dental examination Z01.20 [facility] [address] [id number] Jun, Dental examination Z01.20 [facility] [address] 63463- 1329 Jun, [place] [address] [place] [address] 75497- 2415 Jun, Allergic reaction, initial encounter T78.40XA [place] [id number] [place] [address] 20795- 7841 Jun, [place] [id number] [place] [address] 43389- 2671 Jun, Migraine without aura and without status migrainosus, not intractable G43.009 [place] [id number] [place] [address] 58850- 4398 May, [place] [address] 14675- 2843 May, Helicobacter pylori (H. pylori) infection A04.8 [id number] [place] [address] 47952- 0004 11 May, 2017 Encounter for routine adult health examination with abnormal findings Z00.01 ; Obesity (BMI 30.0-34.9) E66.9 ; Acanthosis nigricans L83 and Dietary counseling Z71.3 [id number] [place] [address] 28230- 3693 13 Apr, 2017 Acute seasonal allergic rhinitis due to pollen J30.1 and Sore throat J02.9 [id number] [place] [address] 36432- 4370 Apr, [place] [id number] [place] [address] 53465- 0505 Apr, Migraine without aura and without status migrainosus, not intractable G43.009 [place] [id number] [place] [address] 22354- 8972 March, Dental examination Z01.20 [facility] [address], [place] [address] Feb, Seasonal allergic rhinitis, unspecified allergic rhinitis trigger J30.2 [facility] [address] [id number] [id number] Nov, [facility] [address] [id number] [id number] Oct, Dental examination Z01.20 [facility] [address] [id number] [id number] Oct, Dental examination Z01.20 [facility] [address] [id number] [id number] Oct, Dental examination Z01.20 and Encounter for dental examination Z01.20 [facility] [address] [id number] [address] Feb, [facility] [address] [id number], [place] [address] 6851 Feb, [facility] [address] [id number], [place] [address] Sep, [facility] [address] [id number], [place] [address]- [address] Sep, [facility] [address] [id number], [place] [address] Jul, [facility] [address] [id number], [place] [address]- 8794 Jul, [facility] [address] [id number], [place] [address] Jul, [facility] [address] [id number], [place] [address]- 8843 Jun, [facility] [address] [id number], [place] [address]- 9707 Jun, [facility] [address] [id number], [place] [address] Jun, [facility] [address] [id number], [place] [address]- 5902 Jun, [facility] [address] [facility] [id number], [place] [address] Jul, [facility] [id number], [place] [address]78 Jun, [facility] [id number], [place] [address] 4283 Feb, [facility] [address], [place] [address]- 4[address] Sep, [facility] [address], [place] [address]- 2797 Sep, [facility] [address], [place] [address]- 9[address] Oct, [facility] [id number] Oct, IMMUNIZATIONS No Known Immunizations SOCIAL HISTORY Never Assessed REASON FOR VISIT Dizziness JStrasserRN PLAN OF CARE Activity Details Follow Up prn Reason: VITAL SIGNS Height 62 in 2018-05-20 Temperature temporal:98.3 degrees Fahrenheit 2018-05-20 Heart Rate 88 bpm 2018-05-20 Respiratory Rate 20 2018-05-20 Blood pressure systolic 110 mmHg 2018-05-20 Blood pressure diastolic 84 mmHg 2018-05-20 MEDICATIONS Medication Instructions Dosage Frequency Start Date End Date Duration Status Qvar 40 MCG/ACT Inhalation Twice a day 1 puff 12h 12 Apr, 2018 Apr, 12 months Active Ipratropium-Albuterol 0.5-2.5 (3) MG/3ML Inhalation every 6 hrs 3 ml 6h March, Active Sertraline HCl 50 mg Orally Once a day 1 tablet 24h March, 30 day (s) Active Singulair 10 mg Orally Once a day 1 tablet in the evening 24h March, 90 days Not-Taking Meclizine HCl 25 MG Orally every 8 hours 1 tablet as needed 8h Apr, 5 days Active Lunesta 2 MG Orally Once a day 1 tablet immediately before bedtime 24h Feb, Active Cryselle-28 0.3-30 MG-MCG Orally Once a day 1 tablet 24h Feb, 28 day(s) Active Sucralfate 1 GM Orally 3 times a day 1 tablet 8h Apr, May, 30 day(s) Active Omeprazole 20 mg Orally twice a day 1 capsule 12h May, 90 days Active Fioricet 50-300-40 MG Orally every 4 hrs 1 capsule as needed 4h Active Albuterol Sulfate 108 (90 Base) MCG/ACT Inhalation every 6 hrs 2 puffs as needed 6h March, 30 days Active RESULTS No Results PROCEDURES No Known procedures INSTRUCTIONS MEDICATIONS ADMINISTERED No Known Medications MEDICAL (GENERAL) HISTORY Type Description Date Medical History Seasonal Allergies Surgical History uterine polyp removal- 12/2017 Hospitalization History Childbirth only
--- OUTSIDE RECORDS SUMMARY | 2018-11-13 10:38 | XMS REPORT ---
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 Name Role Phone LAURA CUELLO Unavailable PROBLEMS Type Condition ICD9-CM Code RQS95-ND Code Onset Dates Condition Status SNOMED Code Problem GERD without esophagitis K21.9 Active 894012597 Problem Primary insomnia F51.01 Active 5765108 Problem Moderate episode of recurrent major depressive disorder F33.1 Active 764783868 Problem Intractable migraine without aura and with status migrainosus G43.011 Active 331709384 Problem GERD with esophagitis K21.0 Active 368146670 Problem Acute bilateral low back pain without sciatica M54.5 Active 318995271 Problem Anxiety F41.9 Active 73665980 Problem Mild persistent asthma without complication J45.30 Active 562790399 Problem Asthma due to seasonal allergies J45.909 Active 567886431 Problem Migraine without aura and without status migrainosus, not intractable G43.009 Active 881588314 Problem Obesity (BMI 30.0-34.9) E66.9 Active 254944890338376 Problem Acanthosis nigricans L83 Active 904516114 Problem Seasonal allergic rhinitis, unspecified allergic rhinitis trigger J30.2 Active 073924305 Problem Dysmenorrhea N94.6 Active 087637878 ALLERGIES No Information ENCOUNTERS Encounter Location Date Diagnosis [facility] [id number] [address] Jun, [facility] [id number] [place] [address]46- [address]26 May, Intractable migraine without aura and with status migrainosus G43.011 [facility] [id number] [address] May, Intractable migraine without aura and with status migrainosus G43.011 [facility] [id number] [place] [address] May, Migraine without aura and without status migrainosus, not intractable G43.009 [facility] [id number] [place] [address]5511- 6662 28 Apr, 2018 Vertigo R42 and Epigastric abdominal pain R10.13 [facility] [address] [address] Apr, Vertigo R42 [facility] [id number] [place] [address] Apr, Vertigo R42 [place] [id number] [place] [address] 96045- 0307 Apr, Epigastric abdominal pain R10.13 and GERD with esophagitis K21.0 [place] [address] [address]- [address]58 Apr, Wheezing R06.2 [place] [address] [address]- [address] 12 Apr, 2018 Mild persistent asthma without complication J45.30 and Wheezing R06.2 [place] [id number] [place] [address] 19994- 8634 Apr, Migraine without aura and without status migrainosus, not intractable G43.009 [place] [id number] [place] [address] 09655- 1480 Apr, [place] [id number] [place] [address] 88147- 1640 Apr, Cough R05 and Wheezing R06.2 [place] [address] [address]66- 9854 05 Apr, 2018 Persistent cough for 3 weeks or longer R05 [place] [id number] [place] [address] 82533- 7825 30 May, 2018 Asthma due to seasonal allergies J45.909 ; Cough R05 and Wheezing R06.2 [facility] [address] [address] March, Seasonal allergic rhinitis, unspecified allergic rhinitis trigger J30.2 and Asthma due to seasonal allergies J45.909 [place] [address] [address]- [address] March, Cough R05 ; Chest congestion R09.89 and Sore throat J02.9 [place] [address] 26[address]- 9595 March, Moderate episode of recurrent major depressive disorder F33.1 ; Migraine without aura and without status migrainosus, not intractable G43.009 ; Primary insomnia F51.01 and Anxiety F41.9 [facility] [address] [address] March, Acute non-recurrent frontal sinusitis J01.10 [place] [address] [address]- 7067 March, [place] [address] [address]- 2007 March, Right otitis media with effusion H65.91 ; Acute non- recurrent frontal sinusitis J01.10 and Migraine without aura and without status migrainosus, not intractable G43.009 [place] [address] 37635- 67[address] Feb, Left lower quadrant pain R10.32 ; Migraine without aura and without status migrainosus, not intractable G43.009 and Anxiety F41.9 [place] [address] 03[address]- 8829 Feb, Oral contraceptive pill surveillance Z30.41 [place] [address] [address]- 6178 Feb, Acute bilateral low back pain without sciatica M54.5 [place] [id number] [place] [address] 70731- 4460 Feb, [place] [address] 64253- 7379 Feb, Dental examination Z01.20 [facility] [address] [place] [id number] 10 Feb, 2018 Dental examination Z01.20 [place] [id number] [place] [address] 48904- 4795 Feb, Anxiety F41.9 [place] [address] 82825- 6536 Feb, Primary insomnia F51.01 and Moderate episode of recurrent major depressive disorder F33.1 [place] [id number] [place] [address] 36578- 5248 Jan, Acute suppurative otitis media of left ear without spontaneous rupture of tympanic membrane, recurrence not specified H66.002 [place] [id number] [place] [address] 76757- 8238 Jan, Migraine without aura and without status migrainosus, not intractable G43.009 ; Seasonal allergic rhinitis, unspecified allergic rhinitis trigger J30.2 ; GERD without esophagitis K21.9 ; Current mild episode of major depressive disorder without prior episode F32.0 and Human bite, initial encounter W50.3XXA [place] [id number] [place] [address] 88386- 1480 Dec, Migraine without aura and without status migrainosus, not intractable G43.009 [place] [address] 28839- 4962 Dec, Nausea and vomiting after administration of anesthetic agent T88.59XA [place] [id number] [place] [address] 78110- 6968 Dec, [place] [address] 90091- 3047 Dec, Acute tonsillitis, unspecified etiology J03.90 [facility] [address] [address]- [address] Nov, Dysmenorrhea N94.6 ; Acute midline low back pain without sciatica M54.5 ; Obesity (BMI 30.0-34.9) E66.9 and High ankle sprain of right lower extremity, initial encounter S93.431A [place] [address] 24277- 9940 Nov, [facility] [address] [address]- [address]29 Nov, Migraine without aura and without status migrainosus, not intractable G43.009 [facility] [address] 8[address]97- [address]45 Oct, Migraine without aura and without status migrainosus, not intractable G43.009 [facility] [address] 9[address] -[address]19 Oct, Migraine without aura and without status migrainosus, not intractable G43.009 [facility] [address] 07570- 0779 Oct, [facility] [address] 58648- 8493 Oct, [facility] [address] 36499- 4071 Oct, Acute non-recurrent maxillary sinusitis J01.00 [facility] [address] 53567- 1625 Sep, Left elbow tendonitis M77.8 and Other fatigue R53.83 [facility] [id number] [place] [address] [id number] Sep, Dental examination Z01.20 [place] [address] 37124- 0642 Sep, Sore throat J02.9 ; Other viral agents as the cause of diseases classified elsewhere B97.89 and Acute upper respiratory infection, unspecified J06.9 [facility] [address] [id number]- 1316 Aug, Encounter for immunization Z23 [place] [address] 36641- 8406 Aug, Encounter for immunization Z23 [place] [address] [address]33722- 4295 Aug, Migraine without aura and without status migrainosus, not intractable G43.[address] [address]- 3515 Jul, Acute midline low back pain without sciatica M54.5 and Obesity (BMI 30.0-34.9) E66.[address] [address]- 3516 Jul, Chronic seasonal allergic rhinitis due to pollen J30.1 [facility] [address] [id number] Jun, Dental examination Z01.20 [facility] [address] 33762 [address]30 Jun, Jaw pain R68.84 [facility] [address] [place] [address] 43823- 6851 Jun, Dental examination Z01.20 [facility] [address] [id number] Jun, Dental examination Z01.20 [facility] [address] [address]141- [address]114 Jun, [place] [address] 16396- 3371 Jun, Allergic reaction, initial encounter T78.40XA [facility] [address] [place] [address] [place] [address]- [address] Jun, [place] [id number] [place] [address] 08497- 5994 Jun, Migraine without aura and without status migrainosus, not intractable G43.009 [facility] [id number] [place] [address] 50206- 3345 May, [place] [address] 04245- 8256 May, Helicobacter pylori (H. pylori) infection A04.[address] 43684- 8958 11 May, 2017 Encounter for routine adult health examination with abnormal findings Z00.01 ; Obesity (BMI 30.0-34.9) E66.9 ; Acanthosis nigricans L83 and Dietary counseling Z71.3 [place] [address] 54351- 1340 13 Apr, 2017 Acute seasonal allergic rhinitis due to pollen J30.1 and Sore throat J02.9 [place] [id number] [place] [address] 24191- 6954 Apr, [facility] [id number] [place] [address] 06668- 1988 Apr, Migraine without aura and without status migrainosus, not intractable G43.009 [facility] [address] [place] [address] 05496- 7676 March, Dental examination Z01.20 [facility] [address] [address] Feb, Seasonal allergic rhinitis, unspecified allergic rhinitis trigger J30.[address] [facility] [address] [id number] [id number] Nov, [facility] [address] [id number] [id number] Oct, Dental examination Z01.20 [facility] [address] [id number] [address] Oct, Dental examination Z01.20 [facility] [id number] [id number] Oct, Dental examination Z01.20 and Encounter for dental examination Z01.20 [facility] [address] [id number] [place] [address] 14 Feb, 2015 [facility] [address] [id number] [address]- 9[address] Feb, [facility] [id number] [place] [address] 25812- 8910 Sep, [facility] [address] [id number] [address]- 0718 Sep, [facility] [address] [facility] [id number] [place] [address] 98033- 5604 Jul, [facility] [address] [id number] [place] [address]- 5627 Jul, [facility] [address] [id number] [place] [address]- 9073 Jul, [facility] [address] [facility] [id number] [place] [address]- 8943 Jun, [facility] [address] [id number] [place] [address]- 3850 Jun, [facility] [address] [id number] [address]- 3049 Jun, [facility] [address] [id number] [place] [address]- 5232 Jun, [facility] [address] [facility] [id number] [address]- 1560 Jul, [facility] [address] [id number] [address]- 6996 Jun, [facility] [address] [facility] [id number] [address]- 8829 Feb, [facility] [address] [facility] [id number] [place] [address]- 3296 Sep, [facility] [id number] [address]- 3681 Sep, [facility] [address] [facility] [id number] [address]- 3657 Oct, [facility] [address] [facility] [id number] [place] [address]83 Oct, IMMUNIZATIONS No Known Immunizations SOCIAL HISTORY Never Assessed REASON FOR VISIT Headache PLAN OF CARE VITAL SIGNS MEDICATIONS Unknown Medications RESULTS No Results PROCEDURES No Known procedures INSTRUCTIONS MEDICATIONS ADMINISTERED No Known Medications MEDICAL (GENERAL) HISTORY Type Description Date Medical History Seasonal Allergies Surgical History uterine polyp removal- 12/2017 Hospitalization History Childbirth only
--- OUTSIDE RECORDS SUMMARY | 2018-11-13 10:38 | XMS REPORT ---
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 Name Role Phone LAURA CUELLO Unavailable PROBLEMS Type Condition ICD9-CM Code NZX02-WC Code Onset Dates Condition Status SNOMED Code Problem GERD without esophagitis K21.9 Active 488397940 Problem Primary insomnia F51.01 Active 9714431 Problem Moderate episode of recurrent major depressive disorder F33.1 Active 443311666 Problem Intractable migraine without aura and with status migrainosus G43.011 Active 742604743 Problem GERD with esophagitis K21.0 Active 064082585 Problem Acute bilateral low back pain without sciatica M54.5 Active 690027889 Problem Anxiety F41.9 Active 31998364 Problem Mild persistent asthma without complication J45.30 Active 420041003 Problem Asthma due to seasonal allergies J45.909 Active 654868782 Problem Migraine without aura and without status migrainosus, not intractable G43.009 Active 039281961 Problem Obesity (BMI 30.0-34.9) E66.9 Active 690421365601562 Problem Acanthosis nigricans L83 Active 098711988 Problem Seasonal allergic rhinitis, unspecified allergic rhinitis trigger J30.2 Active 947592215 Problem Dysmenorrhea N94.6 Active 302992456 ALLERGIES Substance Reaction Event Type Date Status Topamax numbness and tingling Drug Allergy Apr, Active Augmentin nausea and vomiting Drug Allergy Apr, Active ENCOUNTERS Encounter Location Date Diagnosis [facility] [address] [facility] [id number] [address] Jun, [facility] [address] [id number] [address] May, Intractable migraine without aura and with status migrainosus G43.011 [facility] [id number] [place] [address] May, Intractable migraine without aura and with status migrainosus G43.011 [facility] [address] [address] May, Migraine without aura and without status migrainosus, not intractable G43.009 [facility] [id number] [place] [address] Apr, Epigastric abdominal pain R10.13 and Vertigo R42 [place] [address] [address] Apr, Vertigo R42 [facility] [address] [address] Apr, Vertigo R42 [place] [address] [address] Apr, Epigastric abdominal pain R10.13 and GERD with esophagitis K21.0 [place] [address] [address] 13 Apr, 2018 Wheezing R06.2 [place] [address] [address] 12 Apr, 2018 Mild persistent asthma without complication J45.30 and Wheezing R06.2 [place] [id number] [place] [address] Apr, Migraine without aura and without status migrainosus, not intractable G43.009 [place] [id number] [place] [address]53- 4865 Apr, [place] [address] [address] 07 Apr, 2018 Cough R05 and Wheezing R06.2 [place] [address] [address] 05 Apr, 2018 Persistent cough for 3 weeks or longer R05 [place] [id number] [place] [address]- [address] March, Asthma due to seasonal allergies J45.909 ; Cough R05 and Wheezing R06.2 [facility] [address] [address] March, Seasonal allergic rhinitis, unspecified allergic rhinitis trigger J30.2 and Asthma due to seasonal allergies J45.909 [place] [address] [address] March, Cough R05 ; Chest congestion R09.89 and Sore throat J02.9 [place] [address] [address] March, Moderate episode of recurrent major depressive disorder F33.1 ; Migraine without aura and without status migrainosus, not intractable G43.009 ; Primary insomnia F51.01 and Anxiety F41.9 [facility] [address] [address] March, Acute non-recurrent frontal sinusitis J01.10 [place] [address] [address] March, [place] [address] [address] March, Right otitis media with effusion H65.91 ; Acute non- recurrent frontal sinusitis J01.10 and Migraine without aura and without status migrainosus, not intractable G43.009 [place] [id number] [place] [address]- [address] Feb, Left lower quadrant pain R10.32 ; Migraine without aura and without status migrainosus, not intractable G43.009 and Anxiety F41.9 [facility] [id number] [place] [address]92- 6917 Feb, Oral contraceptive pill surveillance Z30.41 [place] [address] [address] [id number]- 2546 Feb, Acute bilateral low back pain without sciatica M54.5 [place] [address] [address] Feb, [place] [address] [address] Feb, Dental examination Z01.20 [facility] [address] [id number] Feb, Dental examination Z01.20 [place] [id number] [place] [address] Feb, Anxiety F41.9 [place] [address] [address]- [address]85 Feb, Primary insomnia F51.01 and Moderate episode of recurrent major depressive disorder F33.1 [place] [address] [address] Jan, Acute suppurative otitis media of left ear without spontaneous rupture of tympanic membrane, recurrence not specified H66.002 [place] [address] [address]- [address] Jan, Migraine without aura and without status migrainosus, not intractable G43.009 ; Seasonal allergic rhinitis, unspecified allergic rhinitis trigger J30.2 ; GERD without esophagitis K21.9 ; Current mild episode of major depressive disorder without prior episode F32.0 and Human bite, initial encounter W50.3XXA [place] [id number] [place] [address] 6[address]46- [address] Dec, Migraine without aura and without status migrainosus, not intractable G43.009 [place] [address] [place] [id number]- 6889 Dec, Nausea and vomiting after administration of anesthetic agent T88.59XA [place] [address] 7[address] Dec, [facility] [id number] [place] [address] 8[address]66- [address]255 Dec, Acute tonsillitis, unspecified etiology J03.90 [facility] [address] [address] Nov, Dysmenorrhea N94.6 ; Acute midline low back pain without sciatica M54.5 ; Obesity (BMI 30.0-34.9) E66.9 and High ankle sprain of right lower extremity, initial encounter S93.431A [place] [address] [address]- [address] Nov, [place] [address] [address]- [address] Nov, Migraine without aura and without status migrainosus, not intractable G43.009 [place] [address] [address]- [address] Oct, Migraine without aura and without status migrainosus, not intractable G43.009 [facility] [address] [address] Oct, Migraine without aura and without status migrainosus, not intractable G43.009 [facility] [address] [address] Oct, [place] [address] [address] Oct, [facility] [address] [address] Oct, Acute non-recurrent maxillary sinusitis J01.00 [place] [address] 8[address]- [address]897 Sep, Left elbow tendonitis M77.8 and Other fatigue R53.83 [facility] [id number] [place] [id number] Sep, Dental examination Z01.20 [facility] [id number] [place] [address] 31288- 6123 10 Sep, 2017 Sore throat J02.9 ; Other viral agents as the cause of diseases classified elsewhere B97.89 and Acute upper respiratory infection, unspecified J06.9 [facility] [id number] [place] [address] 27579- 9935 Aug, Encounter for immunization Z23 [facility] [address] [address] Aug, Encounter for immunization Z23 [place] [address] [address]42- [address] Aug, Migraine without aura and without status migrainosus, not intractable G43.009 [place] [address] 97014[address]267 Jul, Acute midline low back pain without sciatica M54.5 and Obesity (BMI 30.0-34.9) E66.9 [facility] [id number] [place] [address] 60577- 3407 Jul, Chronic seasonal allergic rhinitis due to pollen J30.1 [facility] [address] [id number] Jun, Dental examination Z01.20 [facility] [id number] [place] [address]80 Jun, Jaw pain R68.84 [facility] [id number] [place] [address]43- 2014 Jun, Dental examination Z01.20 [facility] [address] [id number] Jun, Dental examination Z01.20 [facility] [id number] [place] [address] 66026- 0414 Jun, [facility] [address] [address] Jun, Allergic reaction, initial encounter T78.40XA [place] [id number] [place] [address] 04814- 6535 Jun, [place] [address] 7[address]- 239[address] Jun, Migraine without aura and without status migrainosus, not intractable G43.009 [place] [address] 7[address]57- [address] May, [place] [address] [address]72- 1451 14 May, 2017 Helicobacter pylori (H. pylori) infection A04.8 [place] [address] 13192- 2368 11 May, 2017 Encounter for routine adult health examination with abnormal findings Z00.01 ; Obesity (BMI 30.0-34.9) E66.9 ; Acanthosis nigricans L83 and Dietary counseling Z71.3 [place] [id number] [place] [address] 04345- 8192 13 Apr, 2017 Acute seasonal allergic rhinitis due to pollen J30.1 and Sore throat J02.9 [place] [id number] [place] [address] 02114- 5014 08 Apr, 2017 [place] [id number] [place] [address] 59961- 7026 Apr, Migraine without aura and without status migrainosus, not intractable G43.009 [place] [id number] [place] [address] 61349- 4252 March, Dental examination Z01.20 [facility] [id number] [place] [address]82 [address] Feb, Seasonal allergic rhinitis, unspecified allergic rhinitis trigger J30.2 [facility] [address] [id number] [id number] Nov, [facility] [address] [id number] [id number] 28 Oct, 2016 Dental examination Z01.20 [facility] [address] [id number] [id number] Oct, Dental examination Z01.20 [facility] [address] [id number] [id number] 08 Oct, 2015 Dental examination Z01.20 and Encounter for dental examination Z01.20 [facility] [address] [id number] 14 Feb, 2015 [facility] [address] [id number] Feb, [facility] [address] [id number], [place] [address] Sep, [facility] [address] [id number], [place] [address] Sep, [facility] [address] [id number], [place] [address] Jul, [facility] [address] [id number] [place] [address] Jul, [facility] [address] [id number], [place] [address] Jul, [facility] [address] [id number], [place] [address] Jun, [facility] [address] [id number], [place] [address] Jun, [facility] [address] [id number], [place] [address] Jun, [facility] [place] [address] [id number], [place] [address] Jun, [facility] [place] [address] [id number], [place] [address]25 Jul, [facility] [address] [facility] [id number], [place] [address] Jun, [facility] [address] [id number] Feb, [facility] [address] Sep, [facility] [address] [id number] [address]12 Sep, [facility] [address] [facility] [id number] [address] Oct, [facility] [address] Oct, IMMUNIZATIONS No Known Immunizations SOCIAL HISTORY Never Assessed REASON FOR VISIT Wheezing-awoods PLAN OF CARE Activity Details Follow Up prn Reason: VITAL SIGNS Height 62 in 2018-05-05 Weight 187.3 lbs 2018-05-05 Temperature 98.4 degrees Fahrenheit 2018-05-05 Heart Rate 56 bpm 2018-05-05 Respiratory Rate 20 2018-05-05 Oximetry 98 % 2018-05-05 BMI 34.25 kg/m2 2018-05-05 Blood pressure systolic 108 mmHg 2018-05-05 Blood pressure diastolic 64 mmHg 2018-05-05 MEDICATIONS Medication Instructions Dosage Frequency Start Date End Date Duration Status Ipratropium-Albuterol 0.5-2.5 (3) MG/3ML Inhalation every 6 hrs 3 ml 6h March, Active Sertraline HCl 50 mg Orally Once a day 1 tablet 24h March, 30 day (s) Active Lunesta 2 MG Orally Once a day 1 tablet immediately before bedtime 24h Feb, Active Omeprazole 20 mg Orally twice a day 1 capsule 12h May, 90 days Active Albuterol Sulfate 108 (90 Base) MCG/ACT Inhalation every 6 hrs 2 puffs as needed 6h March, 30 days Active Singulair 10 mg Orally Once a day 1 tablet in the evening 24h March, 90 days Active Qvar 40 MCG/ACT Inhalation Twice a day 1 puff 12h 12 Apr, 2018 Apr, 12 months Active Cryselle-28 0.3-30 MG-MCG Orally Once a day 1 tablet 24h Feb, 28 day(s) Active RESULTS Name Result Date Reference Range Xray : Chest 2 View (IN HOUSE) 2018-05-05 PROCEDURES Procedure Date Ordered Result Body Site X-RAY EXAM CHEST 2 VIEWS May 05, 2018 INSTRUCTIONS MEDICATIONS ADMINISTERED No Known Medications MEDICAL (GENERAL) HISTORY Type Description Date Medical History Seasonal Allergies Surgical History uterine polyp removal- 12/2017 Hospitalization History Childbirth only
--- OUTSIDE RECORDS SUMMARY | 2018-11-13 10:38 | XMS REPORT ---
Author Author CUELLOLAURA Cunha Organization [facility] Address [address] [place] [address] Care Team Providers Care Mass Spectrometry Manager Name Role Phone LAURA CUELLO Unavailable PROBLEMS Type Condition ICD9-CM Code XPP29-NZ Code Onset Dates Condition Status SNOMED Code Problem GERD without esophagitis K21.9 Active 984166330 Problem Primary insomnia F51.01 Active 3463573 Problem Moderate episode of recurrent major depressive disorder F33.1 Active 417172859 Problem Intractable migraine without aura and with status migrainosus G43.011 Active 079423090 Problem GERD with esophagitis K21.0 Active 270829289 Problem Acute bilateral low back pain without sciatica M54.5 Active 091530772 Problem Anxiety F41.9 Active 38855439 Problem Mild persistent asthma without complication J45.30 Active 644974373 Problem Asthma due to seasonal allergies J45.909 Active 064537152 Problem Migraine without aura and without status migrainosus, not intractable G43.009 Active 542199669 Problem Obesity (BMI 30.0-34.9) E66.9 Active 166823154420901 Problem Acanthosis nigricans L83 Active 432394118 Problem Seasonal allergic rhinitis, unspecified allergic rhinitis trigger J30.2 Active 396138716 Problem Dysmenorrhea N94.6 Active 913035671 ALLERGIES No Information ENCOUNTERS Encounter Location Date Diagnosis [facility] [address] [id number], [place] [address] Jun, [facility] [id number] [place] [address] May, Intractable migraine without aura and with status migrainosus G43.011 [facility] [address] [id number], [place] [address] May, Intractable migraine without aura and with status migrainosus G43.011 [facility] [id number] [place] [address] May, Migraine without aura and without status migrainosus, not intractable G43.009 [facility] [id number] [place] [address]32- 99[address] 28 Apr, 2018 Vertigo R42 and Epigastric abdominal pain R10.13 [facility] [address] [address] Apr, Vertigo R42 [facility] [id number] [place] [address] Apr, Vertigo R42 [place] [id number] [place] [address]- 4469 Apr, Epigastric abdominal pain R10.13 and GERD with esophagitis K21.0 [place] [address] [address]- [address] Apr, Wheezing R06.2 [place] [address] 47[address]- [address]14 12 Apr, 2018 Mild persistent asthma without complication J45.30 and Wheezing R06.2 [place] [id number] [place] [address] 52459- 2508 Apr, Migraine without aura and without status migrainosus, not intractable G43.009 [place] [id number] [place] [address] 28743- 1023 Apr, [place] [id number] [place] [address] 68855- 3720 Apr, Cough R05 and Wheezing R06.2 [place] [address] [address]09- [address] 05 Apr, 2018 Persistent cough for 3 weeks or longer R05 [place] [id number] [place] [address] 71172- 1079 30 May, 2018 Asthma due to seasonal allergies J45.909 ; Cough R05 and Wheezing R06.2 [facility] [address] [address] March, Seasonal allergic rhinitis, unspecified allergic rhinitis trigger J30.2 and Asthma due to seasonal allergies J45.909 [place] [address] [address]- [address]9 March, Cough R05 ; Chest congestion R09.89 and Sore throat J02.9 [place] [address] 156[address]- [address]61 March, Moderate episode of recurrent major depressive disorder F33.1 ; Migraine without aura and without status migrainosus, not intractable G43.009 ; Primary insomnia F51.01 and Anxiety F41.9 [facility] [address] [address] March, Acute non-recurrent frontal sinusitis J01.10 [place] [address] 6[address]- [address] March, [place] [address] [address]- [address] March, Right otitis media with effusion H65.91 ; Acute non- recurrent frontal sinusitis J01.10 and Migraine without aura and without status migrainosus, not intractable G43.009 [place] [address] [address]76- 27[address] Feb, Left lower quadrant pain R10.32 ; Migraine without aura and without status migrainosus, not intractable G43.009 and Anxiety F41.9 [place] [address] 03131- 1549 Feb, Oral contraceptive pill surveillance Z30.41 [place] [address] [address]- 8646 Feb, Acute bilateral low back pain without sciatica M54.5 [place] [id number] [place] [address] 82619- 4229 Feb, [place] [address] 68765- [address]886 Feb, Dental examination Z01.20 [facility] [id number] [place] [id number] 10 Feb, 2018 Dental examination Z01.20 [place] [id number] [place] [address] 34728- 5640 Feb, Anxiety F41.9 [place] [address] 02262- 0627 Feb, Primary insomnia F51.01 and Moderate episode of recurrent major depressive disorder F33.1 [place] [id number] [place] [address] 52114- 0[address] Jan, Acute suppurative otitis media of left ear without spontaneous rupture of tympanic membrane, recurrence not specified H66.002 [place] [id number] [place] [address] 41558- 9104 Jan, Migraine without aura and without status migrainosus, not intractable G43.009 ; Seasonal allergic rhinitis, unspecified allergic rhinitis trigger J30.2 ; GERD without esophagitis K21.9 ; Current mild episode of major depressive disorder without prior episode F32.0 and Human bite, initial encounter W50.3XXA [place] [id number] [place] [address] 69590- 5657 Dec, Migraine without aura and without status migrainosus, not intractable G43.009 [place] [address] 82100- 5964 Dec, Nausea and vomiting after administration of anesthetic agent T88.59XA [place] [id number] [place] [address] 97565- 7031 Dec, [place] [address] 50[address]- 3590 Dec, Acute tonsillitis, unspecified etiology J03.90 [facility] [address] 466[address]- [address]98 Nov, Dysmenorrhea N94.6 ; Acute midline low back pain without sciatica M54.5 ; Obesity (BMI 30.0-34.9) E66.9 and High ankle sprain of right lower extremity, initial encounter S93.431A [place] [address] 28268- 3056 Nov, [facility] [address] 9[address]- [address]68 Nov, Migraine without aura and without status migrainosus, not intractable G43.009 [facility] [address] 63318- 8178 Oct, Migraine without aura and without status migrainosus, not intractable G43.009 [facility] [address] 92589 -[address] Oct, Migraine without aura and without status migrainosus, not intractable G43.009 [facility] [address] 01115- 8623 Oct, [facility] [address] 81832- 3877 Oct, [facility] [address] 88854- 9815 Oct, Acute non-recurrent maxillary sinusitis J01.00 [facility] [address] 70089- 7448 Sep, Left elbow tendonitis M77.8 and Other fatigue R53.83 [facility] [id number] [place] [id number] Sep, Dental examination Z01.20 [place] [address] 69194- 3918 Sep, Sore throat J02.9 ; Other viral agents as the cause of diseases classified elsewhere B97.89 and Acute upper respiratory infection, unspecified J06.9 [facility] [address] [id number]- [address]24 Aug, Encounter for immunization Z23 [place] [address] 90649- 4230 Aug, Encounter for immunization Z23 [place] [address] [id number]- 7932 Aug, Migraine without aura and without status migrainosus, not intractable G43.[address] [address]- [address]83 Jul, Acute midline low back pain without sciatica M54.5 and Obesity (BMI 30.0-34.9) E66.[address] [address]- 8521 Jul, Chronic seasonal allergic rhinitis due to pollen J30.1 [facility] [address] [id number] Jun, Dental examination Z01.20 [facility] [address] 71380 [address] Jun, Jaw pain R68.84 [facility] [address] [place] [address] 35687- 1256 Jun, Dental examination Z01.20 [facility] [address] [id number] Jun, Dental examination Z01.20 [facility] [address] 56888- 3501 Jun, [place] [address] 6[address]80- 2914 Jun, Allergic reaction, initial encounter T78.40XA [facility] [address] [place] [address] [place] [address]- [address] Jun, [place] [id number] [place] [address] 47037- 4618 Jun, Migraine without aura and without status migrainosus, not intractable G43.009 [facility] [id number] [place] [address] 89263- 6757 May, [place] [address] 02076- 9763 May, Helicobacter pylori (H. pylori) infection A04.[address] [address]- [address] 11 May, 2017 Encounter for routine adult health examination with abnormal findings Z00.01 ; Obesity (BMI 30.0-34.9) E66.9 ; Acanthosis nigricans L83 and Dietary counseling Z71.3 [place] [address] 61908- 3515 13 Apr, 2017 Acute seasonal allergic rhinitis due to pollen J30.1 and Sore throat J02.9 [address] [place] [id number] [place] [address] 86087- 7703 Apr, [facility] [id number] [place] [address] 47764- 9048 Apr, Migraine without aura and without status migrainosus, not intractable G43.009 [facility] [address] [place] [address] 79226- 8466 March, Dental examination Z01.20 [facility] [address], [place] [address] Feb, Seasonal allergic rhinitis, unspecified allergic rhinitis trigger J30.2 [facility] [address] [id number] [id number] Nov, [facility] [address] [id number] [id number] Oct, Dental examination Z01.20 [facility] [address] [id number] [id number] Oct, Dental examination Z01.20 [facility] [address] [id number] [id number] Oct, Dental examination Z01.20 and Encounter for dental examination Z01.20 [facility] [address] [id number] [place] [address] 14 Feb, 2015 [facility] [address] [id number], [place] [address] Feb, [facility] [id number] [place] [address] 99407- 4471 Sep, [facility] [address] [id number], [place] [address] Sep, [facility] [address] [facility] [id number] [place] [address] 01654- 0787 Jul, [facility] [address] [id number], [place] [address] Jul, [facility] [address] [id number], [place] [address] Jul, [facility] [address] [facility] [id number], [place] [address]30 Jun, [facility] [address] [id number], [place] [address]12 Jun, [facility] [address] [id number], [place] [address] Jun, [facility] [address] [id number], [place] [address]- 8646 Jun, [facility] [address] [facility] [id number], [place] [address] Jul, [facility] [address] [id number], [place] [address] Jun, [facility] [address] [facility] [id number], [place] [address]- 3856 Feb, [facility] [address] [facility] [id number], [place] [address]- [address]236 Sep, [facility] [address] [facility] [id number], [place] [address]- [address] Sep, [facility] [address] [facility] [id number], [place] [address]- [address] Oct, [facility] [address] 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
--- OUTSIDE RECORDS SUMMARY | 2018-11-13 10:38 | XMS REPORT ---
Author Author CUELLOLAURA Cunha Organization [facility] Address [address] [place] [address] Care Team Providers Care Furnace Brazer Name Role Phone LAURA CUELLO Unavailable PROBLEMS Type Condition ICD9-CM Code WGP42-FJ Code Onset Dates Condition Status SNOMED Code Problem GERD without esophagitis K21.9 Active 330429771 Problem Primary insomnia F51.01 Active 6710583 Problem Moderate episode of recurrent major depressive disorder F33.1 Active 693268837 Problem Intractable migraine without aura and with status migrainosus G43.011 Active 751651909 Problem GERD with esophagitis K21.0 Active 722684787 Problem Acute bilateral low back pain without sciatica M54.5 Active 745698320 Problem Anxiety F41.9 Active 09215620 Problem Mild persistent asthma without complication J45.30 Active 313610117 Problem Asthma due to seasonal allergies J45.909 Active 770955005 Problem Migraine without aura and without status migrainosus, not intractable G43.009 Active 472120074 Problem Obesity (BMI 30.0-34.9) E66.9 Active 126938518457790 Problem Acanthosis nigricans L83 Active 163994469 Problem Seasonal allergic rhinitis, unspecified allergic rhinitis trigger J30.2 Active 491591603 Problem Dysmenorrhea N94.6 Active 971577642 ALLERGIES No Information ENCOUNTERS Encounter Location Date Diagnosis [facility] [id number], [place] [address] Jun, [facility] [id number] [place] [address]776[address]478 May, Intractable migraine without aura and with status migrainosus G43.011 [facility] [id number], [place] [address] May, Intractable migraine without aura and with status migrainosus G43.011 [facility] [id number] [place] [address] May, Migraine without aura and without status migrainosus, not intractable G43.009 [facility] [id number] [place] [address]3434- 65[address] 28 Apr, 2018 Vertigo R42 and Epigastric abdominal pain R10.13 [facility] [address] [address] Apr, Vertigo R42 [facility] [id number] [place] [address]10 [address]8209 Apr, Vertigo R42 [place] [id number] [place] [address] 78771- 3686 Apr, Epigastric abdominal pain R10.13 and GERD with esophagitis K21.0 [place] [address] [address]- 3540 Apr, Wheezing R06.2 [place] [address] 9[address]27- [address]30 12 Apr, 2018 Mild persistent asthma without complication J45.30 and Wheezing R06.2 [place] [id number] [place] [address] 25150- 1090 Apr, Migraine without aura and without status migrainosus, not intractable G43.009 [place] [id number] [place] [address]22- 2862 Apr, [place] [id number] [place] [address] 96143- 5643 Apr, Cough R05 and Wheezing R06.2 [place] [address] [address]27- 6075 05 Apr, 2018 Persistent cough for 3 weeks or longer R05 [place] [id number] [place] [address] 21253- 9194 30 May, 2018 Asthma due to seasonal allergies J45.909 ; Cough R05 and Wheezing R06.2 [facility] [address] [address] March, Seasonal allergic rhinitis, unspecified allergic rhinitis trigger J30.2 and Asthma due to seasonal allergies J45.909 [place] [address] 4[address]- 9170 March, Cough R05 ; Chest congestion R09.89 and Sore throat J02.9 [place] [address] 22907- 6241 March, Moderate episode of recurrent major depressive disorder F33.1 ; Migraine without aura and without status migrainosus, not intractable G43.009 ; Primary insomnia F51.01 and Anxiety F41.9 [facility] [address] [address] March, Acute non-recurrent frontal sinusitis J01.10 [place] [address] 13111- 9337 March, [place] [address] 88092- 7245 March, Right otitis media with effusion H65.91 ; Acute non- recurrent frontal sinusitis J01.10 and Migraine without aura and without status migrainosus, not intractable G43.009 [place] [address] 98530- 5204 Feb, Left lower quadrant pain R10.32 ; Migraine without aura and without status migrainosus, not intractable G43.009 and Anxiety F41.9 [place] [address] 57379- 3406 Feb, Oral contraceptive pill surveillance Z30.41 [place] [address] 57008- 1379 Feb, Acute bilateral low back pain without sciatica M54.5 [place] [id number] [place] [address] 89571- 8983 Feb, [place] [address] 36210- 5506 Feb, Dental examination Z01.20 [facility] [address] [place] [id number] 10 Feb, 2018 Dental examination Z01.20 [place] [id number] [place] [address] 65417- 7026 Feb, Anxiety F41.9 [place] [address] 45501- 8366 Feb, Primary insomnia F51.01 and Moderate episode of recurrent major depressive disorder F33.1 [place] [id number] [place] [address] 94018- 8661 Jan, Acute suppurative otitis media of left ear without spontaneous rupture of tympanic membrane, recurrence not specified H66.002 [place] [id number] [place] [address] 64724- 1113 Jan, Migraine without aura and without status migrainosus, not intractable G43.009 ; Seasonal allergic rhinitis, unspecified allergic rhinitis trigger J30.2 ; GERD without esophagitis K21.9 ; Current mild episode of major depressive disorder without prior episode F32.0 and Human bite, initial encounter W50.3XXA [place] [id number] [place] [address] 39996- 9081 Dec, Migraine without aura and without status migrainosus, not intractable G43.009 [place] [address] 38331- 6602 Dec, Nausea and vomiting after administration of anesthetic agent T88.59XA [place] [id number] [place] [address] 94640- 3505 Dec, [place] [address] 90550- 1423 Dec, Acute tonsillitis, unspecified etiology J03.90 [facility] [address] 77989- 1461 Nov, Dysmenorrhea N94.6 ; Acute midline low back pain without sciatica M54.5 ; Obesity (BMI 30.0-34.9) E66.9 and High ankle sprain of right lower extremity, initial encounter S93.431A [place] [address] 81730- 5837 Nov, [facility] [address] 24[address]- [address]01 Nov, Migraine without aura and without status migrainosus, not intractable G43.009 [facility] [address] 62868- 6763 Oct, Migraine without aura and without status migrainosus, not intractable G43.009 [facility] [address] 24947 -[address] Oct, Migraine without aura and without status migrainosus, not intractable G43.009 [facility] [address] 16983- 0433 Oct, [facility] [address] 72262- 8304 Oct, [facility] [address] 46167- 5956 Oct, Acute non-recurrent maxillary sinusitis J01.00 [facility] [address] 55478- 7632 Sep, Left elbow tendonitis M77.8 and Other fatigue R53.83 [facility] [id number] [place] [address] [id number] Sep, Dental examination Z01.20 [place] [address] 43665- 9651 Sep, Sore throat J02.9 ; Other viral agents as the cause of diseases classified elsewhere B97.89 and Acute upper respiratory infection, unspecified J06.9 [facility] [address] [id number]- [address]846 Aug, Encounter for immunization Z23 [place] [address] 36266- 1216 Aug, Encounter for immunization Z23 [place] [address] [id number]- 2909 Aug, Migraine without aura and without status migrainosus, not intractable G43.[address] 94312- 5124 Jul, Acute midline low back pain without sciatica M54.5 and Obesity (BMI 30.0-34.9) E66.[address] [address]- 2163 Jul, Chronic seasonal allergic rhinitis due to pollen J30.1 [facility] [address] [id number] Jun, Dental examination Z01.20 [facility] [address] 0[address] -6502 Jun, Jaw pain R68.84 [facility] [address] [place] [address] 69281- 5192 Jun, Dental examination Z01.20 [facility] [address] [id number] Jun, Dental examination Z01.20 [facility] [address] 19196- 3491 Jun, [place] [address] 29316- 0903 Jun, Allergic reaction, initial encounter T78.40XA [facility] [address] [place] [address] [place] [address]- 2243 Jun, [place] [id number] [place] [address] 57809- 1567 Jun, Migraine without aura and without status migrainosus, not intractable G43.009 [facility] [id number] [place] [address] 74036- 5676 May, [place] [address] 36303- 6839 May, Helicobacter pylori (H. pylori) infection A04.[address] 34926- 8580 11 May, 2017 Encounter for routine adult health examination with abnormal findings Z00.01 ; Obesity (BMI 30.0-34.9) E66.9 ; Acanthosis nigricans L83 and Dietary counseling Z71.3 [place] [address] 77263- 6381 13 Apr, 2017 Acute seasonal allergic rhinitis due to pollen J30.1 and Sore throat J02.9 [address] [id number] [place] [address] 15542- 2741 Apr, [facility] [id number] [place] [address] 87469- 3805 Apr, Migraine without aura and without status migrainosus, not intractable G43.009 [facility] [address] [place] [address] 84559- 0712 March, Dental examination Z01.20 [facility] [address], [place] [address] Feb, Seasonal allergic rhinitis, unspecified allergic rhinitis trigger J30.2 [facility] [address] [id number] [id number] Nov, [facility] [address] [id number] [id number] Oct, Dental examination Z01.20 [facility] [address] [id number] [id number] Oct, Dental examination Z01.20 [facility] [id number] [id number] Oct, Dental examination Z01.20 and Encounter for dental examination Z01.20 [facility] [address] [id number] [place] [address] 14 Feb, 2015 [facility] [address] [id number], [place] [address]- [address] Feb, [facility] [id number] [place] [address] 69651- 5096 Sep, [facility] [address] [id number], [place] [address]- 6741 Sep, [facility] [address] [facility] [id number] [place] [address] 09882- 2795 Jul, [facility] [address] [id number], [place] [address]- 6[address] Jul, [facility] [address] [id number], [place] [address]- 5243 Jul, [facility] [address] [facility] [id number], [place] [address]- 4274 Jun, [facility] [address] [id number], [place] [address]- 3967 Jun, [facility] [address] [id number], [place] [address]- 0673 Jun, [facility] [address] [id number], [place] [address]- 5498 Jun, [facility] [address] [facility] [id number], [place] [address]- [address] Jul, [facility] [address] [id number], [place] [address]- 6156 Jun, [facility] [address] [facility] [id number], [place] [address]- 3756 Feb, [facility] [address] [facility] [id number], [place] [address]- 8016 Sep, [facility] [address] [id number], [place] [address]- 2546 Sep, [facility] [address] [facility] [id number], [place] [address]- 4757 Oct, [facility] [address] [facility] [id number], [place] [address]- [address]86 Oct, IMMUNIZATIONS Vaccine Route Administration Date Status TORADOL (IM) 60 MG/2ML (UP TO 15 MG) IM Intramuscular May 04, 2018 Administered SOCIAL HISTORY Never Assessed REASON FOR VISIT Injection, order in TE from on same [facility] OF CARE VITAL SIGNS MEDICATIONS Unknown Medications RESULTS No Results PROCEDURES Procedure Date Ordered Result Body Site TORADOL (IM) 60 MG/2ML (UP TO 15 MG) May 04, 2018 THER/PROPH/DIAG INJ, SC/IM May 04, 2018 INSTRUCTIONS MEDICATIONS ADMINISTERED No Known Medications MEDICAL (GENERAL) HISTORY Type Description Date Medical History Seasonal Allergies Surgical History uterine polyp removal- 12/2017 Hospitalization History Childbirth only
--- OUTSIDE RECORDS SUMMARY | 2018-11-13 10:39 | XMS REPORT ---
Author Author CUELLOLAURA Cunha Organization [facility] Address [address] [place] [address] Care Team Providers Care Box Cutter Name Role Phone LAURA CUELLO Unavailable PROBLEMS Type Condition ICD9-CM Code VOX01-BV Code Onset Dates Condition Status SNOMED Code Problem GERD without esophagitis K21.9 Active 390039642 Problem Primary insomnia F51.01 Active 9635578 Problem Moderate episode of recurrent major depressive disorder F33.1 Active 960662778 Problem Intractable migraine without aura and with status migrainosus G43.011 Active 110725347 Problem GERD with esophagitis K21.0 Active 763261682 Problem Acute bilateral low back pain without sciatica M54.5 Active 503850115 Problem Anxiety F41.9 Active 95528141 Problem Mild persistent asthma without complication J45.30 Active 606565623 Problem Asthma due to seasonal allergies J45.909 Active 797233161 Problem Migraine without aura and without status migrainosus, not intractable G43.009 Active 141981324 Problem Obesity (BMI 30.0-34.9) E66.9 Active 414393423705213 Problem Acanthosis nigricans L83 Active 942452759 Problem Seasonal allergic rhinitis, unspecified allergic rhinitis trigger J30.2 Active 856686617 Problem Dysmenorrhea N94.6 Active 284259361 ALLERGIES No Information ENCOUNTERS Encounter Location Date Diagnosis [facility] [address] [id number] [address] Jun, [facility] [id number] [place] [address] May, Intractable migraine without aura and with status migrainosus G43.011 [facility] [address] [id number], [place] [address] May, Intractable migraine without aura and with status migrainosus G43.011 [facility] [address] [place] [address] May, Migraine without aura and without status migrainosus, not intractable G43.009 [facility] [id number] [place] [address] 87039- 0[address] 28 Apr, 2018 Vertigo R42 and Epigastric abdominal pain R10.13 [facility] [address] [address] Apr, Vertigo R42 [facility] [id number] [place] [address] 24708 -6922 Apr, Vertigo R42 [place] [id number] [place] [address] 39746- 4173 Apr, Epigastric abdominal pain R10.13 and GERD with esophagitis K21.0 [place] [address] [address]57- 8[address] Apr, Wheezing R06.2 [place] [address] [address]883- [address]13 12 Apr, 2018 Mild persistent asthma without complication J45.30 and Wheezing R06.2 [place] [id number] [place] [address] 53462- 1681 Apr, Migraine without aura and without status migrainosus, not intractable G43.009 [place] [id number] [place] [address] 63726- 2538 Apr, [place] [id number] [place] [address] 51158- 0739 Apr, Cough R05 and Wheezing R06.2 [place] [address] [address]285- [address] 05 Apr, 2018 Persistent cough for 3 weeks or longer R05 [place] [id number] [place] [address] 91825- 5311 30 May, 2018 Asthma due to seasonal allergies J45.909 ; Cough R05 and Wheezing R06.2 [facility] [address] [address]- [address] March, Seasonal allergic rhinitis, unspecified allergic rhinitis trigger J30.2 and Asthma due to seasonal allergies J45.909 [place] [address] [address]- [address] March, Cough R05 ; Chest congestion R09.89 and Sore throat J02.9 [place] [address] [address]46- 9366 March, Moderate episode of recurrent major depressive disorder F33.1 ; Migraine without aura and without status migrainosus, not intractable G43.009 ; Primary insomnia F51.01 and Anxiety F41.9 [facility] [address] [address] March, Acute non-recurrent frontal sinusitis J01.10 [place] [address] 67[address]- [address] March, [place] [address] 78811- 7875 March, Right otitis media with effusion H65.91 ; Acute non- recurrent frontal sinusitis J01.10 and Migraine without aura and without status migrainosus, not intractable G43.009 [place] [address] 63080- [address]61 Feb, Left lower quadrant pain R10.32 ; Migraine without aura and without status migrainosus, not intractable G43.009 and Anxiety F41.9 [place] [address] [address]- [address] Feb, Oral contraceptive pill surveillance Z30.41 [place] [address] 76925- 3461 Feb, Acute bilateral low back pain without sciatica M54.5 [place] [id number] [place] [address] 87993- 0722 Feb, [place] [address] 20113- [address]85 Feb, Dental examination Z01.20 [facility] [place] [address] [place] [id number] 10 Feb, 2018 Dental examination Z01.20 [place] [id number] [place] [address] 96165- 1402 Feb, Anxiety F41.9 [place] [address] 72671- 1066 Feb, Primary insomnia F51.01 and Moderate episode of recurrent major depressive disorder F33.1 [place] [id number] [place] [address] 95676- 2905 Jan, Acute suppurative otitis media of left ear without spontaneous rupture of tympanic membrane, recurrence not specified H66.002 [place] [id number] [place] [address] 98696- 6795 Jan, Migraine without aura and without status migrainosus, not intractable G43.009 ; Seasonal allergic rhinitis, unspecified allergic rhinitis trigger J30.2 ; GERD without esophagitis K21.9 ; Current mild episode of major depressive disorder without prior episode F32.0 and Human bite, initial encounter W50.3XXA [place] [id number] [place] [address] 55126- 1868 Dec, Migraine without aura and without status migrainosus, not intractable G43.009 [place] [address] 47839- 1464 Dec, Nausea and vomiting after administration of anesthetic agent T88.59XA [place] [id number] [place] [address] 89287- 2730 Dec, [place] [address] 46185- [address]805 Dec, Acute tonsillitis, unspecified etiology J03.90 [facility] [address] 75397- 9548 Nov, Dysmenorrhea N94.6 ; Acute midline low back pain without sciatica M54.5 ; Obesity (BMI 30.0-34.9) E66.9 and High ankle sprain of right lower extremity, initial encounter S93.431A [place] [address] 96411- 6439 Nov, [facility] [address] 89898- 3585 Nov, Migraine without aura and without status migrainosus, not intractable G43.009 [facility] [address] 03032- 0366 Oct, Migraine without aura and without status migrainosus, not intractable G43.009 [facility] [address] 48[address] -[address] Oct, Migraine without aura and without status migrainosus, not intractable G43.009 [facility] [address] 20210- 7892 Oct, [facility] [address] 41246- 6502 Oct, [facility] [address] 87893- 9722 Oct, Acute non-recurrent maxillary sinusitis J01.00 [facility] [address] 29634- 1544 Sep, Left elbow tendonitis M77.8 and Other fatigue R53.83 [facility] [place] [id number] [place] [address] [id number] Sep, Dental examination Z01.20 [place] [address] 93512- 1308 Sep, Sore throat J02.9 ; Other viral agents as the cause of diseases classified elsewhere B97.89 and Acute upper respiratory infection, unspecified J06.9 [facility] [address] [id number]- 9648 Aug, Encounter for immunization Z23 [place] [address] 53856- 7776 Aug, Encounter for immunization Z23 [place] [address] 87986101- 9711 Aug, Migraine without aura and without status migrainosus, not intractable G43.[address] [address]- [address]99 Jul, Acute midline low back pain without sciatica M54.5 and Obesity (BMI 30.0-34.9) E66.[address] 52[address]- 5272 Jul, Chronic seasonal allergic rhinitis due to pollen J30.1 [facility] [place] [address] [id number] Jun, Dental examination Z01.20 [facility] [address] 73397 -8593 Jun, Jaw pain R68.84 [facility] [address] [place] [address] 53091- 8650 Jun, Dental examination Z01.20 [facility] [address] [id number] Jun, Dental examination Z01.20 [facility] [address] 36650- 4389 Jun, [place] [address] 65698- 3132 Jun, Allergic reaction, initial encounter T78.40XA [facility] [address] [place] [address] [place] [address]- [address] Jun, [place] [id number] [place] [address] 97722- 9352 Jun, Migraine without aura and without status migrainosus, not intractable G43.009 [facility] [id number] [place] [address] 19445- 7254 May, [place] [address] 41444- 1901 May, Helicobacter pylori (H. pylori) infection A04.[address] 92754- 0074 11 May, 2017 Encounter for routine adult health examination with abnormal findings Z00.01 ; Obesity (BMI 30.0-34.9) E66.9 ; Acanthosis nigricans L83 and Dietary counseling Z71.3 [place] [address] 04087- 8253 13 Apr, 2017 Acute seasonal allergic rhinitis due to pollen J30.1 and Sore throat J02.9 [place] [id number] [place] [address] 55949- 9908 Apr, [facility] [id number] [place] [address] 08916- 5254 Apr, Migraine without aura and without status migrainosus, not intractable G43.009 [facility] [address] [place] [address] 41766- 7579 March, Dental examination Z01.20 [facility] [address] [address] Feb, Seasonal allergic rhinitis, unspecified allergic rhinitis trigger J30.2 [facility] [address] [id number] [id number] Nov, [facility] [address] [id number] [id number] Oct, Dental examination Z01.20 [facility] [address] [id number] [id number] Oct, Dental examination Z01.20 [facility] [id number] [address] Oct, Dental examination Z01.20 and Encounter for dental examination Z01.20 [facility] [address] [id number] [place] [address] 14 Feb, 2015 [facility] [address] [id number], [place] [address] Feb, [facility] [id number] [place] [address] 55857- 4572 Sep, [facility] [address] [id number], [place] [address] Sep, [facility] [address] [facility] [id number] [place] [address] 42872- 8723 Jul, [facility] [address] [id number], [place] [address] Jul, [facility] [address] [id number], [place] [address] Jul, [facility] [address] [facility] [id number], [place] [address] Jun, [facility] [address] [id number], [place] [address] Jun, [facility] [address] [id number], [place] [address] Jun, [facility] [address] [id number], [place] [address]2 Jun, [facility] [address] [facility] [id number], [place] [address]- [address]3 Jul, [facility] [address] [id number], [place] [address] 6747 Jun, [facility] [address] [facility] [id number], [place] [address]- 6096 Feb, [facility] [address] [facility] [id number], [place] [address]- 8144 Sep, [facility] [address] [facility] [id number], [place] [address]- 4465 Sep, [facility] [address] [facility] [id number], [place] [address]- 7282 Oct, [facility] [address] [facility] [id number] [address] Oct, IMMUNIZATIONS No Known Immunizations SOCIAL HISTORY Never Assessed REASON FOR VISIT PFT PLAN OF CARE VITAL SIGNS MEDICATIONS Unknown Medications RESULTS No Results PROCEDURES No Known procedures INSTRUCTIONS MEDICATIONS ADMINISTERED No Known Medications MEDICAL (GENERAL) HISTORY Type Description Date Medical History Seasonal Allergies Surgical History uterine polyp removal- 12/2017 Hospitalization History Childbirth only
--- OUTSIDE RECORDS SUMMARY | 2018-11-13 10:39 | XMS REPORT ---
Author Author CORINA SCHUMACHER [facility] Address [address] [place] [address] Care Team Providers Care Chemistry Technical Officer Name Role Phone CORINA SCHUMACHER Unavailable PROBLEMS Type Condition ICD9-CM Code PAA44-SU Code Onset Dates Condition Status SNOMED Code Problem GERD without esophagitis K21.9 Active 549407546 Problem Primary insomnia F51.01 Active 7992630 Problem Moderate episode of recurrent major depressive disorder F33.1 Active 326457545 Problem Intractable migraine without aura and with status migrainosus G43.011 Active 070695300 Problem GERD with esophagitis K21.0 Active 939344590 Problem Acute bilateral low back pain without sciatica M54.5 Active 073612350 Problem Anxiety F41.9 Active 60007358 Problem Mild persistent asthma without complication J45.30 Active 539825405 Problem Asthma due to seasonal allergies J45.909 Active 905663277 Problem Migraine without aura and without status migrainosus, not intractable G43.009 Active 999916364 Problem Obesity (BMI 30.0-34.9) E66.9 Active 308293778161171 Problem Acanthosis nigricans L83 Active 514330666 Problem Seasonal allergic rhinitis, unspecified allergic rhinitis trigger J30.2 Active 941951465 Problem Dysmenorrhea N94.6 Active 945715917 ALLERGIES Substance Reaction Event Type Date Status Topamax numbness and tingling Drug Allergy March, Active Augmentin nausea and vomiting Drug Allergy March, Active ENCOUNTERS Encounter Location Date Diagnosis [facility] [address] [id number] [address] Jun, [facility] [address] [id number], [place] [address] May, Intractable migraine without aura and with status migrainosus G43.011 [facility] [id number] [place] [address] May, Intractable migraine without aura and with status migrainosus G43.011 [facility] [id number] [place] [address] May, Migraine without aura and without status migrainosus, not intractable G43.009 [facility] [address] [address] Apr, Vertigo R42 and Epigastric abdominal pain R10.13 [place] [id number] [place] [address] Apr, Vertigo R42 [facility] [address] [address] Apr, Vertigo R42 [place] [address] [address] Apr, Epigastric abdominal pain R10.13 and GERD with esophagitis K21.0 [place] [address] [address] 13 Apr, 2018 Wheezing R06.2 [place] [address] [address] 12 Apr, 2018 Mild persistent asthma without complication J45.30 and Wheezing R06.2 [place] [id number] [place] [address] Apr, Migraine without aura and without status migrainosus, not intractable G43.009 [place] [id number] [place] [address] Apr, [place] [address] [address] 07 Apr, 2018 Cough R05 and Wheezing R06.2 [place] [id number] [place] [address] 05 Apr, 2018 Persistent cough for 3 weeks or longer R05 [facility] [id number] [place] [address] March, Asthma due to seasonal allergies J45.909 ; Cough R05 and Wheezing R06.2 [facility] [address] [address] March, Seasonal allergic rhinitis, unspecified allergic rhinitis trigger J30.2 and Asthma due to seasonal allergies J45.909 [place] [address] [address] March, Cough R05 ; Chest congestion R09.89 and Sore throat J02.9 [place] [address] [address] March, Moderate episode of recurrent major depressive disorder F33.1 ; Migraine without aura and without status migrainosus, not intractable G43.009 ; Primary insomnia F51.01 and Anxiety F41.9 [facility] IN [facility] [address] [address] March, Acute non-recurrent frontal sinusitis J01.10 [place] [address] [address] March, [place] [address] [address] March, Right otitis media with effusion H65.91 ; Acute non- recurrent frontal sinusitis J01.10 and Migraine without aura and without status migrainosus, not intractable G43.009 [place] [address] [address] Feb, Left lower quadrant pain R10.32 ; Migraine without aura and without status migrainosus, not intractable G43.009 and Anxiety F41.9 [facility] [id number] [place] [address] Feb, Oral contraceptive pill surveillance Z30.41 [place] [address] [address] Feb, Acute bilateral low back pain without sciatica M54.5 [place] [address] [address] Feb, [facility] [address] [address] Feb, Dental examination Z01.20 [facility] [address] [id number] Feb, Dental examination Z01.20 [place] [address] [address] Feb, Anxiety F41.9 [place] [address] [address] Feb, Primary insomnia F51.01 and Moderate episode of recurrent major depressive disorder F33.1 [place] [address] [address] Jan, Acute suppurative otitis media of left ear without spontaneous rupture of tympanic membrane, recurrence not specified H66.002 [place] [address] [address] Jan, Migraine without aura and without status migrainosus, not intractable G43.009 ; Seasonal allergic rhinitis, unspecified allergic rhinitis trigger J30.2 ; GERD without esophagitis K21.9 ; Current mild episode of major depressive disorder without prior episode F32.0 and Human bite, initial encounter W50.3XXA [place] [id number] [place] [address] Dec, Migraine without aura and without status migrainosus, not intractable G43.009 [place] [address] [address] Dec, Nausea and vomiting after administration of anesthetic agent T88.59XA [place] [address] [address] Dec, [facility] [id number] [place] [address] Dec, Acute tonsillitis, unspecified etiology J03.90 [facility] [address] [address] Nov, Dysmenorrhea N94.6 ; Acute midline low back pain without sciatica M54.5 ; Obesity (BMI 30.0-34.9) E66.9 and High ankle sprain of right lower extremity, initial encounter S93.431A [place] [address] [address] Nov, [place] [address] [address] Nov, Migraine without aura and without status migrainosus, not intractable G43.009 [facility] [address] [address] Oct, Migraine without aura and without status migrainosus, not intractable G43.009 [facility] [address] [address] Oct, Migraine without aura and without status migrainosus, not intractable G43.009 [facility] [address] [address] Oct, [facility] [address] [address] Oct, [facility] [address] [address] Oct, Acute non-recurrent maxillary sinusitis J01.00 [place] [address] [address] Sep, Left elbow tendonitis M77.8 and Other fatigue R53.83 [facility] [id number] [place] [id number] Sep, Dental examination Z01.20 [facility] [id number] [place] [address]76- [address] Sep, Sore throat J02.9 ; Other viral agents as the cause of diseases classified elsewhere B97.89 and Acute upper respiratory infection, unspecified J06.9 [facility] [address] [address] Aug, Encounter for immunization Z23 [facility] [address] [address] Aug, Encounter for immunization Z23 [place] [address] [address] Aug, Migraine without aura and without status migrainosus, not intractable G43.009 [place] [address] [address] Jul, Acute midline low back pain without sciatica M54.5 and Obesity (BMI 30.0-34.9) E66.9 [facility] [address] [address] Jul, Chronic seasonal allergic rhinitis due to pollen J30.1 [facility] [address] [id number] Jun, Dental examination Z01.20 [facility] [id number] [place] [address] Jun, Jaw pain R68.84 [facility] [address] 9[address]- 9877 Jun, Dental examination Z01.20 [facility] [address] [id number] Jun, Dental examination Z01.20 [facility] [address] [address]- [address] Jun, [facility] [address] 57[address]- [address] Jun, Allergic reaction, initial encounter T78.40XA [place] [id number] [place] [address] 14086- 6579 Jun, [place] [id number] [place] [address] 30[address]- 0911 Jun, Migraine without aura and without status migrainosus, not intractable G43.009 [place] [address] [address]79- 49[address] May, [place] [id number] [place] [address]9988- [address]38 May, Helicobacter pylori (H. pylori) infection A04.8 [place] [id number] [place] [address] 40452- 5758 11 May, 2017 Encounter for routine adult health examination with abnormal findings Z00.01 ; Obesity (BMI 30.0-34.9) E66.9 ; Acanthosis nigricans L83 and Dietary counseling Z71.3 [place] [id number] [place] [address] 94724- 9915 13 Apr, 2017 Acute seasonal allergic rhinitis due to pollen J30.1 and Sore throat J02.9 [place] [id number] [place] [address] 39905- 3862 Apr, [place] [id number] [place] [address] 92856- 9590 Apr, Migraine without aura and without status migrainosus, not intractable G43.009 [place] [id number] [place] [address] 17093- 5663 March, Dental examination Z01.20 [facility] [id number] [place] [address] Feb, Seasonal allergic rhinitis, unspecified allergic rhinitis trigger J30.[address] [id number] [id number] Nov, [facility] [address] [id number] [id number] Oct, Dental examination Z01.20 [facility] [address] [id number] [place] [id number] Oct, Dental examination Z01.20 [facility] [address] [id number] [id number] 08 Oct, 2015 Dental examination Z01.20 and Encounter for dental examination Z01.20 [facility] [address] [id number] [place] 14 Feb, 2015 [facility] [address] [id number] [place] [address] Feb, [facility] [address] [id number] [place] [address]- 6[address] Sep, [facility] [address] [id number] [place] [address]- [address] Sep, [facility] [address] [id number] [place] [address]- [address] 05 Jul, 2014 [facility] [address] [id number] [place] [address] 98[address] Jul, [facility] [address] [id number] [place] [address]- 5[address] Jul, [facility] [address] [id number] [place] [address] Jun, [facility] [address] [id number], [place] [address] Jun, [facility] [address] [id number] [place] [address]- [address] Jun, [facility] [address] [id number] [place] [address]- [address]120 Jun, [facility] [address] [id number], [place] [address] 18 Jul, 2013 [facility] [address] [facility] [id number], [place] [address] Jun, [facility] [address], [place] [address] Feb, [facility] [address], [place] [address] Sep, [facility] [address], [place] [address] Sep, [facility] [address] [facility] [id number], [place] [address] Oct, [facility] [address], [place] [address] Oct, IMMUNIZATIONS Vaccine Route Administration Date Status SOLUMEDROL (UP TO 125 MG) IM Intramuscular April 22, 2018 Administered SOCIAL HISTORY Never Assessed REASON FOR VISIT Cough, wheezing x 2 weeks -- moshe shields PLAN OF CARE Activity Details Follow Up 1 Week, prn Reason:PFTs Future/Pending Procedure NEBULIZER TREATMENT VITAL SIGNS Height 62 in 2018-04-22 Weight 185.0 lbs 2018-04-22 Temperature 97.8 degrees Fahrenheit 2018-04-22 Heart Rate 70 bpm 2018-04-22 Respiratory Rate 18 2018-04-22 BMI 33.83 kg/m2 2018-04-22 MEDICATIONS Medication Instructions Dosage Frequency Start Date End Date Duration Status Sertraline HCl 50 mg Orally Once a day 1 tablet 24h March, 30 day (s) Active Lunesta 2 MG Orally Once a day 1 tablet immediately before bedtime 24h Feb, Active Giuraqbogu-MORR-Hgkcqumf 50-325-40 MG Orally every 4 hrs 1 capsule as needed 4h Apr, Apr, Active Ipratropium-Albuterol 0.5-2.5 (3) MG/3ML Inhalation every 6 hrs 3 ml 6h March, Active Singulair 10 mg Orally Once a day 1 tablet in the evening 24h March, 90 days Active Ibuprofen 800 MG Orally Three times a day 1 tablet with food or milk as needed 8h Oct, Jul, 90 days Not-Taking Propranolol HCl 10 mg Orally Twice a day 1 tablet 12h Dec, Active Albuterol Sulfate 108 (90 Base) MCG/ACT Inhalation every 6 hrs 2 puffs as needed 6h March, 30 days Active PredniSONE 20 mg Orally Once a day 2 tablets 24h March, March, 05 days Active Omeprazole 20 mg Orally twice a day 1 capsule 12h May, 90 days Active Cryselle-28 0.3-30 MG-MCG Orally Once a day 1 tablet 24h Feb, 28 day(s) Active Benzonatate 100 mg Orally Three times a day 1 capsule as needed 8h March, Apr, 14 days Not-Taking RESULTS No Results PROCEDURES Procedure Date Ordered Result Body Site SOLUMEDROL (UP TO 125 MG) April 22, 2018 NEB/MDI RX INITIAL April 22, 2018 THER/PROPH/DIAG INJ, SC/IM April 22, 2018 INSTRUCTIONS MEDICATIONS ADMINISTERED No Known Medications MEDICAL (GENERAL) HISTORY Type Description Date Medical History Seasonal Allergies Surgical History uterine polyp removal- 12/2017 Hospitalization History Childbirth only
--- OUTSIDE RECORDS SUMMARY | 2018-11-13 10:39 | XMS REPORT ---
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 Name Role Phone LAURA CUELLO Unavailable PROBLEMS Type Condition ICD9-CM Code RRL88-PM Code Onset Dates Condition Status SNOMED Code Problem GERD without esophagitis K21.9 Active 504386990 Problem Primary insomnia F51.01 Active 3257618 Problem Moderate episode of recurrent major depressive disorder F33.1 Active 904451168 Problem Intractable migraine without aura and with status migrainosus G43.011 Active 061784231 Problem GERD with esophagitis K21.0 Active 035570796 Problem Acute bilateral low back pain without sciatica M54.5 Active 177772222 Problem Anxiety F41.9 Active 04324066 Problem Mild persistent asthma without complication J45.30 Active 100647374 Problem Asthma due to seasonal allergies J45.909 Active 970527443 Problem Migraine without aura and without status migrainosus, not intractable G43.009 Active 178858698 Problem Obesity (BMI 30.0-34.9) E66.9 Active 650185245962980 Problem Acanthosis nigricans L83 Active 082337644 Problem Seasonal allergic rhinitis, unspecified allergic rhinitis trigger J30.2 Active 378018788 Problem Dysmenorrhea N94.6 Active 241719612 ALLERGIES Substance Reaction Event Type Date Status Topamax numbness and tingling Drug Allergy Apr, Active Augmentin nausea and vomiting Drug Allergy Apr, Active ENCOUNTERS Encounter Location Date Diagnosis [facility] [address] [facility] [place] [facility] [id number] [address] Jun, [facility] [address] [id number] [address] May, Intractable migraine without aura and with status migrainosus G43.011 [facility] [id number] [place] [address] May, Intractable migraine without aura and with status migrainosus G43.011 [facility] [address] [address] May, Migraine without aura and without status migrainosus, not intractable G43.009 [facility] [address] [address] Apr, Vertigo R42 and Epigastric abdominal pain R10.13 [place] [address] [address] Apr, Vertigo R42 [facility] [address] [address] Apr, Vertigo R42 [place] [address] [address] Apr, Epigastric abdominal pain R10.13 and GERD with esophagitis K21.0 [place] [address] [address] 13 Apr, 2018 Wheezing R06.2 [place] [address] [address] 12 Apr, 2018 Mild persistent asthma without complication J45.30 and Wheezing R06.2 [place] [id number] [place] [address] Apr, Migraine without aura and without status migrainosus, not intractable G43.009 [place] [id number] [place] [address]67- [address] Apr, [place] [address] [address] 07 Apr, 2018 Cough R05 and Wheezing R06.2 [place] [address] [address] 05 Apr, 2018 Persistent cough for 3 weeks or longer R05 [place] [id number] [place] [address] March, Asthma due to seasonal allergies J45.909 ; Cough R05 and Wheezing R06.2 [facility] [address] [address] March, Seasonal allergic rhinitis, unspecified allergic rhinitis trigger J30.2 and Asthma due to seasonal allergies J45.909 [place] [address] [address] March, Cough R05 ; Chest congestion R09.89 and Sore throat J02.9 [place] [address] [address] March, Moderate episode of recurrent major depressive disorder F33.1 ; Migraine without aura and without status migrainosus, not intractable G43.009 ; Primary insomnia F51.01 and Anxiety F41.9 [facility] [address] [address] March, Acute non-recurrent frontal sinusitis J01.10 [place] [address] [address] March, [place] [address] [address] March, Right otitis media with effusion H65.91 ; Acute non- recurrent frontal sinusitis J01.10 and Migraine without aura and without status migrainosus, not intractable G43.009 [place] [id number] [place] [address] Feb, Left lower quadrant pain R10.32 ; Migraine without aura and without status migrainosus, not intractable G43.009 and Anxiety F41.9 [facility] [id number] [place] [address] Feb, Oral contraceptive pill surveillance Z30.41 [place] [address] [place] [id number] [address] Feb, Acute bilateral low back pain without sciatica M54.5 [place] [address] [address]- [address] Feb, [place] [address] [address] Feb, Dental examination Z01.20 [facility] [address] [id number] Feb, Dental examination Z01.20 [place] [id number] [place] [address]- [address] Feb, Anxiety F41.9 [place] [address] [address] Feb, Primary insomnia F51.01 and Moderate episode of recurrent major depressive disorder F33.1 [place] [address] [address] Jan, Acute suppurative otitis media of left ear without spontaneous rupture of tympanic membrane, recurrence not specified H66.002 [place] [address] [address]- [address] Jan, Migraine without aura and without status migrainosus, not intractable G43.009 ; Seasonal allergic rhinitis, unspecified allergic rhinitis trigger J30.2 ; GERD without esophagitis K21.9 ; Current mild episode of major depressive disorder without prior episode F32.0 and Human bite, initial encounter W50.3XXA [place] [id number] [place] [address]- [address] Dec, Migraine without aura and without status migrainosus, not intractable G43.009 [place] [address] [place] [id number]- [address] Dec, Nausea and vomiting after administration of anesthetic agent T88.59XA [place] [address] [address] Dec, [facility] [id number] [place] [address]- [address] Dec, Acute tonsillitis, unspecified etiology J03.90 [facility] [address] [address] Nov, Dysmenorrhea N94.6 ; Acute midline low back pain without sciatica M54.5 ; Obesity (BMI 30.0-34.9) E66.9 and High ankle sprain of right lower extremity, initial encounter S93.431A [place] [address] [address] Nov, [place] [address] [address]- [address] Nov, Migraine without aura and without status migrainosus, not intractable G43.009 [place] [address] [address] Oct, Migraine without aura and without status migrainosus, not intractable G43.009 [facility] [address] [address] Oct, Migraine without aura and without status migrainosus, not intractable G43.009 [facility] [address] 8[address]- [address] Oct, [place] [address] [address] Oct, [facility] [address] [address] Oct, Acute non-recurrent maxillary sinusitis J01.00 [place] [address] [address]- [address] Sep, Left elbow tendonitis M77.8 and Other fatigue R53.83 [facility] [id number] [place] [id number] Sep, Dental examination Z01.20 [facility] [id number] [place] [address] 65017- [address] 10 Sep, 2017 Sore throat J02.9 ; Other viral agents as the cause of diseases classified elsewhere B97.89 and Acute upper respiratory infection, unspecified J06.9 [facility] [id number] [place] [address]242- [address] Aug, Encounter for immunization Z23 [facility] [address] [address]- [address] Aug, Encounter for immunization Z23 [place] [address] [address]- [address] Aug, Migraine without aura and without status migrainosus, not intractable G43.009 [place] [address] [address]- [address] Jul, Acute midline low back pain without sciatica M54.5 and Obesity (BMI 30.0-34.9) E66.9 [facility] [id number] [place] [address] 4[address] Jul, Chronic seasonal allergic rhinitis due to pollen J30.1 [facility] [address] [id number] Jun, Dental examination Z01.20 [facility] [id number] [place] [address] Jun, Jaw pain R68.84 [facility] [id number] [place] [address] 0[address]22- [address]37 Jun, Dental examination Z01.20 [facility] [address] [id number] Jun, Dental examination Z01.20 [facility] [id number] [place] [address]- [address] Jun, [facility] [address] [address] Jun, Allergic reaction, initial encounter T78.40XA [place] [id number] [place] [address] 01396- [address] Jun, [place] [address] [address] Jun, Migraine without aura and without status migrainosus, not intractable G43.009 [place] [address] [address]- [address] May, [place] [address] 9[address]- [address] 14 May, 2017 Helicobacter pylori (H. pylori) infection A04.8 [place] [address] [address]- [address] 11 May, 2017 Encounter for routine adult health examination with abnormal findings Z00.01 ; Obesity (BMI 30.0-34.9) E66.9 ; Acanthosis nigricans L83 and Dietary counseling Z71.3 [place] [id number] [place] [address] 15[address]- 2168 13 Apr, 2017 Acute seasonal allergic rhinitis due to pollen J30.1 and Sore throat J02.9 [place] [id number] [place] [address] 88516- 9138 08 Apr, 2017 [place] [id number] [place] [address] 71371- 0444 Apr, Migraine without aura and without status migrainosus, not intractable G43.009 [place] [id number] [place] [address]01- 3952 March, Dental examination Z01.20 [facility] [id number] [place] [address] Feb, Seasonal allergic rhinitis, unspecified allergic rhinitis trigger J30.2 [facility] [address] [id number] [id number] Nov, [facility] [address] [id number] [id number] 28 Oct, 2016 Dental examination Z01.20 [facility] [address] [id number] [id number] Oct, Dental examination Z01.20 [facility] [address] [id number] [id number] 08 Oct, 2015 Dental examination Z01.20 and Encounter for dental examination Z01.20 [facility] [address] [id number] 14 Feb, 2015 [facility] [address] [id number] Feb, [facility] [address] [id number], [place] [address] Sep, [facility] [address] [id number], [place] [address] Sep, [facility] [address] [id number], [place] [address] Jul, [facility] [address] [id number] [place] [address] Jul, [facility] [address] [id number], [place] [address] Jul, [facility] [address] [id number], [place] [address] Jun, [facility] [address] [id number], [place] [address] Jun, [facility] [address] [id number], [place] [address] Jun, [facility] [address] [id number], [place] [address] Jun, [facility] [address] [id number], [place] [address] Jul, [facility] [address] [facility] [place] [facility] [id number], [place] [address] Jun, [facility] [address] [id number] [address] Feb, [facility] [address] Sep, [facility] [address] Sep, [facility] [address] [facility] [id number] [address] Oct, [facility] [address] Oct, IMMUNIZATIONS No Known Immunizations SOCIAL HISTORY Never Assessed REASON FOR VISIT Cough-awoods PLAN OF CARE Activity Details Follow Up 3 Months, prn Reason: VITAL SIGNS Height 62 in 2018-04-28 Weight 185 lbs 2018-04-28 Temperature 98.6 degrees Fahrenheit 2018-04-28 Heart Rate 104 bpm 2018-04-28 Respiratory Rate 18 2018-04-28 BMI 33.83 kg/m2 2018-04-28 Blood pressure systolic 110 mmHg 2018-04-28 Blood pressure diastolic 82 mmHg 2018-04-28 MEDICATIONS Medication Instructions Dosage Frequency Start Date End Date Duration Status Byrgpknxbw-TXMQ-Wlnlslhx 50-325-40 MG Orally every 4 hrs 1 capsule as needed 4h Apr, Apr, Active Lunesta 2 MG Orally Once a day 1 tablet immediately before bedtime 24h Feb, Active Ipratropium-Albuterol 0.5-2.5 (3) MG/3ML Inhalation every 6 hrs 3 ml 6h March, Active Cryselle-28 0.3-30 MG-MCG Orally Once a day 1 tablet 24h Feb, 28 day(s) Active Sertraline HCl 50 mg Orally Once a day 1 tablet 24h March, 30 day (s) Active Omeprazole 20 mg Orally twice a day 1 capsule 12h 14 May, 2017 90 days Active Albuterol Sulfate 108 (90 Base) MCG/ACT Inhalation every 6 hrs 2 puffs as needed 6h March, 30 days Active Singulair 10 mg Orally Once a day 1 tablet in the evening 24h March, 90 days Active RESULTS Name Result Date Reference Range Xray : Chest 2 View (IN HOUSE) 2018-04-28 PROCEDURES Procedure Date Ordered Result Body Site X-RAY EXAM CHEST 2 VIEWS April 28, 2018 INSTRUCTIONS MEDICATIONS ADMINISTERED No Known Medications MEDICAL (GENERAL) HISTORY Type Description Date Medical History Seasonal Allergies Surgical History uterine polyp removal- 12/2017 Hospitalization History Childbirth only
[2018-11-13 10:40] VITALS: BP 116/77
[2018-11-13] MEDS: LACTATED RINGERS 1,000 ML IV PRN ×2 (10:40→14:55)
--- OUTSIDE RECORDS SUMMARY | 2018-11-13 10:40 | XMS REPORT ---
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 Name Role Phone LAURA CUELLO Unavailable PROBLEMS Type Condition ICD9-CM Code ODI60-JH Code Onset Dates Condition Status SNOMED Code Problem GERD without esophagitis K21.9 Active 243983366 Problem Primary insomnia F51.01 Active 6756747 Problem Moderate episode of recurrent major depressive disorder F33.1 Active 954333803 Problem Intractable migraine without aura and with status migrainosus G43.011 Active 221046470 Problem GERD with esophagitis K21.0 Active 338088669 Problem Acute bilateral low back pain without sciatica M54.5 Active 363444967 Problem Anxiety F41.9 Active 98349263 Problem Mild persistent asthma without complication J45.30 Active 580987295 Problem Asthma due to seasonal allergies J45.909 Active 828645137 Problem Migraine without aura and without status migrainosus, not intractable G43.009 Active 685880515 Problem Obesity (BMI 30.0-34.9) E66.9 Active 813237714168452 Problem Acanthosis nigricans L83 Active 040274332 Problem Seasonal allergic rhinitis, unspecified allergic rhinitis trigger J30.2 Active 199199203 Problem Dysmenorrhea N94.6 Active 764648810 ALLERGIES Substance Reaction Event Type Date Status Topamax numbness and tingling Drug Allergy March, Active Augmentin nausea and vomiting Drug Allergy March, Active ENCOUNTERS Encounter Location Date Diagnosis [facility] [address] [facility] [id number] [address] Jun, [facility] [address] [id number] [address] May, Intractable migraine without aura and with status migrainosus G43.011 [facility] [id number] [place] [address] May, Intractable migraine without aura and with status migrainosus G43.011 [facility] [address] [address] May, Migraine without aura and without status migrainosus, not intractable G43.009 [facility] [address] [address] Apr, Vertigo R42 and Epigastric abdominal pain R10.13 [place] [address] [address] Apr, Vertigo R42 [facility] [address] [address] Apr, Vertigo R42 [place] [address] [address] Apr, Epigastric abdominal pain R10.13 and GERD with esophagitis K21.0 [place] [address] [address] 13 Apr, 2018 Wheezing R06.2 [place] [address] [address] 12 Apr, 2018 Mild persistent asthma without complication J45.30 and Wheezing R06.2 [place] [id number] [place] [address] Apr, Migraine without aura and without status migrainosus, not intractable G43.009 [place] [id number] [place] [address] Apr, [place] [address] [address] 07 Apr, 2018 Cough R05 and Wheezing R06.2 [place] [address] [address] 05 Apr, 2018 Persistent cough for 3 weeks or longer R05 [place] [id number] [place] [address] March, Asthma due to seasonal allergies J45.909 ; Cough R05 and Wheezing R06.2 [facility] [address] [address] March, Seasonal allergic rhinitis, unspecified allergic rhinitis trigger J30.2 and Asthma due to seasonal allergies J45.909 [place] [address] [address] March, Cough R05 ; Chest congestion R09.89 and Sore throat J02.9 [place] [address] [address] March, Moderate episode of recurrent major depressive disorder F33.1 ; Migraine without aura and without status migrainosus, not intractable G43.009 ; Primary insomnia F51.01 and Anxiety F41.9 [facility] [address] [address] March, Acute non-recurrent frontal sinusitis J01.10 [place] [address] [address] March, [place] [address] [address] March, Right otitis media with effusion H65.91 ; Acute non- recurrent frontal sinusitis J01.10 and Migraine without aura and without status migrainosus, not intractable G43.009 [place] [id number] [place] [address] Feb, Left lower quadrant pain R10.32 ; Migraine without aura and without status migrainosus, not intractable G43.009 and Anxiety F41.9 [facility] [id number] [place] [address] Feb, Oral contraceptive pill surveillance Z30.41 [place] [address] [id number]- [address] Feb, Acute bilateral low back pain without sciatica M54.5 [place] [address] [address] Feb, [place] [address] [address] Feb, Dental examination Z01.20 [facility] [address] [id number] Feb, Dental examination Z01.20 [place] [id number] [place] [address]- [address] Feb, Anxiety F41.9 [place] [address] [address] Feb, Primary insomnia F51.01 and Moderate episode of recurrent major depressive disorder F33.1 [place] [address] [address] Jan, Acute suppurative otitis media of left ear without spontaneous rupture of tympanic membrane, recurrence not specified H66.002 [place] [address] [address] Jan, Migraine without aura and without status migrainosus, not intractable G43.009 ; Seasonal allergic rhinitis, unspecified allergic rhinitis trigger J30.2 ; GERD without esophagitis K21.9 ; Current mild episode of major depressive disorder without prior episode F32.0 and Human bite, initial encounter W50.3XXA [place] [id number] [place] [address] Dec, Migraine without aura and without status migrainosus, not intractable G43.009 [place] [address] [place] [id number]- [address] Dec, Nausea and vomiting after administration of anesthetic agent T88.59XA [place] [address] [address] Dec, [facility] [id number] [place] [address] Dec, Acute tonsillitis, unspecified etiology J03.90 [facility] [address] [address] Nov, Dysmenorrhea N94.6 ; Acute midline low back pain without sciatica M54.5 ; Obesity (BMI 30.0-34.9) E66.9 and High ankle sprain of right lower extremity, initial encounter S93.431A [place] [address] [address] Nov, [place] [address] [address] Nov, Migraine without aura and without status migrainosus, not intractable G43.009 [place] [address] [address] Oct, Migraine without aura and without status migrainosus, not intractable G43.009 [facility] [address] [address] Oct, Migraine without aura and without status migrainosus, not intractable G43.009 [facility] [address] [address] Oct, [place] [address] [address] Oct, [facility] [address] [address] Oct, Acute non-recurrent maxillary sinusitis J01.00 [place] [address] [address] Sep, Left elbow tendonitis M77.8 and Other fatigue R53.83 [facility] [id number] [place] [id number] Sep, Dental examination Z01.20 [facility] [id number] [place] [address]- [address] 10 Sep, 2017 Sore throat J02.9 ; Other viral agents as the cause of diseases classified elsewhere B97.89 and Acute upper respiratory infection, unspecified J06.9 [facility] [id number] [place] [address] Aug, Encounter for immunization Z23 [facility] [address] [address] Aug, Encounter for immunization Z23 [place] [address] [address] Aug, Migraine without aura and without status migrainosus, not intractable G43.009 [place] [address] [address] Jul, Acute midline low back pain without sciatica M54.5 and Obesity (BMI 30.0-34.9) E66.9 [facility] [id number] [place] [address]- [address] Jul, Chronic seasonal allergic rhinitis due to pollen J30.1 [facility] [address] [id number] Jun, Dental examination Z01.20 [facility] [id number] [place] [address] Jun, Jaw pain R68.84 [facility] [id number] [place] [address]- [address] Jun, Dental examination Z01.20 [facility] [address] [id number] Jun, Dental examination Z01.20 [facility] [id number] [place] [address]- [address] Jun, [facility] [address] [address] Jun, Allergic reaction, initial encounter T78.40XA [place] [id number] [place] [address]- [address] Jun, [place] [address] [address] Jun, Migraine without aura and without status migrainosus, not intractable G43.009 [place] [address] [address] May, [place] [address] [address] 14 May, 2017 Helicobacter pylori (H. pylori) infection A04.8 [place] [address] [address] 11 May, 2017 Encounter for routine adult health examination with abnormal findings Z00.01 ; Obesity (BMI 30.0-34.9) E66.9 ; Acanthosis nigricans L83 and Dietary counseling Z71.3 [place] [id number] [place] [address]- 6[address] 13 Apr, 2017 Acute seasonal allergic rhinitis due to pollen J30.1 and Sore throat J02.9 [place] [id number] [place] [address]- 0[address] 08 Apr, 2017 [place] [id number] [place] [address]- 27[address] Apr, Migraine without aura and without status migrainosus, not intractable G43.009 [place] [id number] [place] [address] March, Dental examination Z01.20 [facility] [id number] [place] [address] Feb, Seasonal allergic rhinitis, unspecified allergic rhinitis trigger J30.2 [facility] [address] [id number] [id number] Nov, [facility] [address] [id number] [id number] 28 Oct, 2016 Dental examination Z01.20 [facility] [address] [id number] [id number] Oct, Dental examination Z01.20 [facility] [address] [id number] [id number] 08 Oct, 2015 Dental examination Z01.20 and Encounter for dental examination Z01.20 [facility] [address] [id number]17[place] 14 Feb, 2015 [facility] [address] [id number] Feb, [facility] [address] [id number], [place] [address] Sep, [facility] [address] [id number] [address] Sep, [facility] [address] [id number], [place] [address] Jul, [facility] [address] [id number] [place] [address] Jul, [facility] [address] [id number], [place] [address] Jul, [facility] [address] [id number] [address] Jun, [facility] [address] [id number] [address] Jun, [facility] [address] [id number], [place] [address] Jun, [facility] [address] [id number] [address] Jun, [facility] [address] [id number] [address] Jul, [facility] [address] [facility] [id number] [address] Jun, [facility] [address] [facility] [id number] [address] [address] Feb, [facility] [address] [address] Sep, [facility] [address] [facility] [id number] [address] Sep, [facility] [address] [facility] [id number][place]01[place] Oct, [facility] [address] [facility] [id number] Oct, IMMUNIZATIONS No Known Immunizations SOCIAL HISTORY Never Assessed REASON FOR VISIT Pain PLAN OF CARE Activity Details Follow Up 3 Months, prn Reason:CHM/ VITAL SIGNS Height 62 in 2018-04-10 Weight 181 lbs 2018-04-10 Temperature 97.7 degrees Fahrenheit 2018-04-10 Heart Rate 92 bpm 2018-04-10 Respiratory Rate 20 2018-04-10 BMI 33.10 kg/m2 2018-04-10 Blood pressure systolic 112 mmHg 2018-04-10 Blood pressure diastolic 68 mmHg 2018-04-10 MEDICATIONS Medication Instructions Dosage Frequency Start Date End Date Duration Status Omeprazole 20 mg Orally twice a day 1 capsule 12h May, 90 days Active Propranolol HCl 10 mg Orally Twice a day 1 tablet 12h Dec, Active Sertraline HCl 50 mg Orally Once a day 1 tablet 24h March, 30 day (s) Active Kxrnqmvnrf-IHXB-Lakbjswc 50-325-40 MG Orally every 4 hrs 1 capsule as needed 4h Apr, Apr, Active Cryselle-28 0.3-30 MG-MCG Orally Once a day 1 tablet 24h Feb, 28 day(s) Active Lunesta 2 MG Orally Once a day 1 tablet immediately before bedtime 24h Feb, Active Ibuprofen 800 MG Orally Three times a day 1 tablet with food or milk as needed 8h Oct, Jul, 90 days Not-Taking RESULTS No Results PROCEDURES No Known procedures INSTRUCTIONS MEDICATIONS ADMINISTERED No Known Medications MEDICAL (GENERAL) HISTORY Type Description Date Medical History Seasonal Allergies Surgical History uterine polyp removal- 12/2017 Hospitalization History Childbirth only
--- OUTSIDE RECORDS SUMMARY | 2018-11-13 10:40 | XMS REPORT ---
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 Name Role Phone GIOVANY MATHIAS Unavailable PROBLEMS Type Condition ICD9-CM Code IBA42-ZU Code Onset Dates Condition Status SNOMED Code Problem GERD without esophagitis K21.9 Active 813179578 Problem Primary insomnia F51.01 Active 8978971 Problem Moderate episode of recurrent major depressive disorder F33.1 Active 819240711 Problem Intractable migraine without aura and with status migrainosus G43.011 Active 481439553 Problem GERD with esophagitis K21.0 Active 819417755 Problem Acute bilateral low back pain without sciatica M54.5 Active 903874119 Problem Anxiety F41.9 Active 74478923 Problem Mild persistent asthma without complication J45.30 Active 707519569 Problem Asthma due to seasonal allergies J45.909 Active 165470411 Problem Migraine without aura and without status migrainosus, not intractable G43.009 Active 932139121 Problem Obesity (BMI 30.0-34.9) E66.9 Active 086042747927996 Problem Acanthosis nigricans L83 Active 996710605 Problem Seasonal allergic rhinitis, unspecified allergic rhinitis trigger J30.2 Active 858280397 Problem Dysmenorrhea N94.6 Active 219546982 ALLERGIES Substance Reaction Event Type Date Status Topamax numbness and tingling Drug Allergy March, Active Augmentin nausea and vomiting Drug Allergy March, Active ENCOUNTERS Encounter Location Date Diagnosis [facility] [id number] [address] Jun, [facility] [id number] [address] May, Intractable migraine without aura and with status migrainosus G43.011 [facility] [id number] [place] [address] May, Intractable migraine without aura and with status migrainosus G43.011 [facility] [address] [address] May, Migraine without aura and without status migrainosus, not intractable G43.009 [place] [address] [address] Apr, Vertigo R42 and Epigastric abdominal pain R10.13 [place] [address] [address] Apr, Vertigo R42 [facility] IN [facility] [address] [address] Apr, Vertigo R42 [place] [address] [address] Apr, Epigastric abdominal pain R10.13 and GERD with esophagitis K21.0 [place] [address] [address] 13 Apr, 2018 Wheezing R06.2 [place] [address] [address] 12 Apr, 2018 Mild persistent asthma without complication J45.30 and Wheezing R06.2 [place] [address] [address] Apr, Migraine without aura and without status migrainosus, not intractable G43.009 [place] [address] [address] Apr, [place] [address] [address] 07 Apr, 2018 Cough R05 and Wheezing R06.2 [place] [address] [address] 05 Apr, 2018 Persistent cough for 3 weeks or longer R05 [place] [id number] [place] [address] March, Asthma due to seasonal allergies J45.909 ; Cough R05 and Wheezing R06.2 [facility] [id number] [place] [address] March, Seasonal allergic rhinitis, unspecified allergic rhinitis trigger J30.2 and Asthma due to seasonal allergies J45.909 [place] [id number] [place] [address] March, Cough R05 ; Chest congestion R09.89 and Sore throat J02.9 [place] [address] [address] March, Moderate episode of recurrent major depressive disorder F33.1 ; Migraine without aura and without status migrainosus, not intractable G43.009 ; Primary insomnia F51.01 and Anxiety F41.9 [facility] IN [facility] [id number] [place] [address] March, Acute non-recurrent frontal sinusitis J01.10 [place] [id number] [place] [address]- [address] March, [place] [id number] [place] [address] 4[address] March, Right otitis media with effusion H65.91 ; Acute non- recurrent frontal sinusitis J01.10 and Migraine without aura and without status migrainosus, not intractable G43.009 [place] [id number] [place] [address]- 2968 Feb, Left lower quadrant pain R10.32 ; Migraine without aura and without status migrainosus, not intractable G43.009 and Anxiety F41.9 [facility] [id number] [place] [address] 42583- 7[address] Feb, Oral contraceptive pill surveillance Z30.41 [place] [id number] [place] [address] Feb, Acute bilateral low back pain without sciatica M54.5 [place] [address] [address] Feb, [place] [address] [address] Feb, Dental examination Z01.20 [facility] [address] [id number] Feb, Dental examination Z01.20 [place] [address] [address] Feb, Anxiety F41.9 [place] [address] [address] Feb, Primary insomnia F51.01 and Moderate episode of recurrent major depressive disorder F33.1 [place] [address] [address] Jan, Acute suppurative otitis media of left ear without spontaneous rupture of tympanic membrane, recurrence not specified H66.002 [place] [address] [address] Jan, Migraine without aura and without status migrainosus, not intractable G43.009 ; Seasonal allergic rhinitis, unspecified allergic rhinitis trigger J30.2 ; GERD without esophagitis K21.9 ; Current mild episode of major depressive disorder without prior episode F32.0 and Human bite, initial encounter W50.3XXA [place] [address] [address] Dec, Migraine without aura and without status migrainosus, not intractable G43.009 [place] [address] [id number]- [address] Dec, Nausea and vomiting after administration of anesthetic agent T88.59XA [place] [address] [address] Dec, [facility] [address] [address] Dec, Acute tonsillitis, unspecified etiology J03.90 [facility] [address] [address] Nov, Dysmenorrhea N94.6 ; Acute midline low back pain without sciatica M54.5 ; Obesity (BMI 30.0-34.9) E66.9 and High ankle sprain of right lower extremity, initial encounter S93.431A [place] [address] [address] Nov, [place] [address] [address] Nov, Migraine without aura and without status migrainosus, not intractable G43.009 [facility] [address] [address] Oct, Migraine without aura and without status migrainosus, not intractable G43.009 [facility] IN [facility] [address] [address] Oct, Migraine without aura and without status migrainosus, not intractable G43.009 [facility] [address] [address] Oct, [facility] [address] [address] Oct, [facility] [address] [address] Oct, Acute non-recurrent maxillary sinusitis J01.00 [facility] [address] [address] Sep, Left elbow tendonitis M77.8 and Other fatigue R53.83 [facility] [address] [id number] Sep, Dental examination Z01.20 [facility] [id number] [place] [address]- [address] Sep, Sore throat J02.9 ; Other viral agents as the cause of diseases classified elsewhere B97.89 and Acute upper respiratory infection, unspecified J06.9 [facility] [id number] [place] [address]- [address] Aug, Encounter for immunization Z23 [facility] [address] [address] Aug, Encounter for immunization Z23 [place] [address] [address] Aug, Migraine without aura and without status migrainosus, not intractable G43.009 [place] [address] [address] Jul, Acute midline low back pain without sciatica M54.5 and Obesity (BMI 30.0-34.9) E66.9 [facility] [id number] [place] [address]- [address]656 Jul, Chronic seasonal allergic rhinitis due to pollen J30.1 [facility] [address] [id number] Jun, Dental examination Z01.20 [facility] [id number] [place] [address] Jun, Jaw pain R68.84 [facility] [id number] [place] [address]- [address] Jun, Dental examination Z01.20 [facility] [address] [id number] Jun, Dental examination Z01.20 [facility] [id number] [place] [address] 5[address]- [address] Jun, [facility] [address] [address]- [address] 16 Jun, 2017 Allergic reaction, initial encounter T78.40XA [place] [id number] [place] [address]- [address] Jun, [place] [id number] [place] [address] 10[address]- 8682 Jun, Migraine without aura and without status migrainosus, not intractable G43.009 [place] [id number] [place] [address]- 4207 May, [place] [id number] [place] [address] 19999- 6478 May, Helicobacter pylori (H. pylori) infection A04.8 [place] [id number] [place] [address]- 1795 11 May, 2017 Encounter for routine adult health examination with abnormal findings Z00.01 ; Obesity (BMI 30.0-34.9) E66.9 ; Acanthosis nigricans L83 and Dietary counseling Z71.3 [place] [id number] [place] [address]30- 5[address] 13 Apr, 2017 Acute seasonal allergic rhinitis due to pollen J30.1 and Sore throat J02.9 [place] [address] [place] [address] 31729- 3858 08 Apr, 2017 [place] [id number] [place] [address] 19529- 4321 Apr, Migraine without aura and without status migrainosus, not intractable G43.009 [place] [address] [place] [address]90- 4305 March, Dental examination Z01.20 [facility] [address] [place] [address] Feb, Seasonal allergic rhinitis, unspecified allergic rhinitis trigger J30.[address] [facility] [place] [place] [address] [id number] [id number] Nov, [facility] [address] [id number] [place] [id number] Oct, Dental examination Z01.20 [facility] [address] [id number] [place] [id number] Oct, Dental examination Z01.20 [facility] [address] [id number] [place] [id number] Oct, Dental examination Z01.20 and Encounter for dental examination Z01.20 [facility] [address] [id number] [place] Feb, [facility] [address] [id number] [place] Feb, [facility] [address] [id number] [place] [address] Sep, [facility] [address] [id number] [place] [address] Sep, [facility] [address] [id number] [place] [address]- [address] Jul, [facility] [address] [id number] [place] [address]- [address]99 Jul, [facility] [address] [id number] [place] [address]- 9157 Jul, [facility] [address] [id number] [place] [address]- 7[address] Jun, [facility] [address] [id number] [address] Jun, [facility] [address] [id number] [place] [address]- [address] Jun, [facility] [address] [id number] [place] [address]- 5378 Jun, [facility] [address] [id number] [place] [address]- 4817 Jul, [facility] [address] [facility] [id number] [address] Jun, [facility] [address] [facility] [id number], [place] [address] Feb, [facility] [address] [facility] [id number], [place] [address]- [address] Sep, [facility] [address] [facility] [id number], [place] [address] Sep, [facility] [address] [facility] [id number], [place] [address] Oct, [facility] [address] [facility] [id number] [address] Oct, IMMUNIZATIONS Vaccine Route Administration Date Status BICILLIN LA/PENICILLIN G BENZATHINE IM Intramuscular March 28, 2018 Administered SOCIAL HISTORY Never Assessed REASON FOR VISIT Sore throat, cough, loss of voice JStrasserRN PLAN OF CARE Activity Details Follow Up prn Reason: VITAL SIGNS Height 62 in 2018-03-28 Weight 181.2 lbs 2018-03-28 Temperature 98.2 degrees Fahrenheit 2018-03-28 Heart Rate 96 bpm 2018-03-28 Respiratory Rate 20 2018-03-28 BMI 33.14 kg/m2 2018-03-28 Blood pressure systolic 110 mmHg 2018-03-28 Blood pressure diastolic 72 mmHg 2018-03-28 MEDICATIONS Medication Instructions Dosage Frequency Start Date End Date Duration Status Lunesta 2 MG Orally Once a day 1 tablet immediately before bedtime 24h Feb, 28 days Active Ibuprofen 800 MG Orally Three times a day 1 tablet with food or milk as needed 8h Oct, Jul, 90 days Active Omeprazole 20 mg Orally twice a day 1 capsule 12h May, 90 days Active Albenza 200 mg Orally once 2 tablets March, Active Amoxicillin 500 mg Orally every 12 hrs 1 capsule 12h March, March, 10 day(s) Active Cryselle-28 0.3-30 MG-MCG Orally Once a day 1 tablet 24h Feb, 28 day(s) Active Qtwgkdkmos-CMDV-Epidffrd 50-325-40 MG Orally every 4 hrs 1 capsule as needed 4h Apr, Apr, Active Augmentin 875-125 MG Orally every 12 hrs 1 tablet 12h March,March 10 day(s) Not-Taking Paroxetine HCl 20 mg Orally Once a day 1 tablet in the morning 24h Jan, Active Cyclobenzaprine HCl 5 mg Orally at night 1 tablet as needed Feb, March, 30 days Not-Taking Propranolol HCl 10 mg Orally Twice a day 1 tablet 12h Dec, Active RESULTS No Results PROCEDURES Procedure Date Ordered Result Body Site BICILLIN LA/PENICILLIN G BENZATHINE March 28, 2018 THER/PROPH/DIAG INJ, SC/IM March 28, 2018 INSTRUCTIONS MEDICATIONS ADMINISTERED No Known Medications MEDICAL (GENERAL) HISTORY Type Description Date Medical History Seasonal Allergies Surgical History uterine polyp removal- 12/2017 Hospitalization History Childbirth only
--- OUTSIDE RECORDS SUMMARY | 2018-11-13 10:40 | XMS REPORT ---
Author Author LAURA CUELLO Organization [facility] Address [address] [place] [address] Care Team Providers Care Job Compositor Name Role Phone LAURA CUELLO Unavailable PROBLEMS Type Condition ICD9-CM Code [id number] Code Onset Dates Condition Status SNOMED Code Problem GERD without esophagitis K21.9 Active 598841266 Problem Primary insomnia F51.01 Active 3152821 Problem Moderate episode of recurrent major depressive disorder F33.1 Active 249559633 Problem Intractable migraine without aura and with status migrainosus G43.011 Active 050192100 Problem GERD with esophagitis K21.0 Active 055449305 Problem Acute bilateral low back pain without sciatica M54.5 Active 674197597 Problem Anxiety F41.9 Active 26116706 Problem Mild persistent asthma without complication J45.30 Active 337827151 Problem Asthma due to seasonal allergies J45.909 Active 646882996 Problem Migraine without aura and without status migrainosus, not intractable G43.009 Active 898572799 Problem Obesity (BMI 30.0-34.9) E66.9 Active 213275077121418 Problem Acanthosis nigricans L83 Active 059390234 Problem Seasonal allergic rhinitis, unspecified allergic rhinitis trigger J30.2 Active 338006867 Problem Dysmenorrhea N94.6 Active 962344726 ALLERGIES Substance Reaction Event Type Date Status Topamax numbness and tingling Drug Allergy March, Active Augmentin nausea and vomiting Drug Allergy March, Active ENCOUNTERS Encounter Location Date Diagnosis [facility] [address] [facility] [id number] [address] Jun, [facility] [id number] [address] May, Intractable migraine without aura and with status migrainosus G43.011 [facility] [address] [place] [id number] [place] [address] May, Intractable migraine without aura and with status migrainosus G43.011 [facility] [address] [address] May, Migraine without aura and without status migrainosus, not intractable G43.009 [facility] [address] [address] Apr, Vertigo R42 and Epigastric abdominal pain R10.13 [place] [address] [address] Apr, Vertigo R42 [facility] [address] [address] Apr, Vertigo R42 [place] [address] [address] Apr, Epigastric abdominal pain R10.13 and GERD with esophagitis K21.0 [place] [address] [address] 13 Apr, 2018 Wheezing R06.2 [place] [address] [address] 12 Apr, 2018 Mild persistent asthma without complication J45.30 and Wheezing R06.2 [place] [address] [id number] [place] [address] Apr, Migraine without aura and without status migrainosus, not intractable G43.009 [place] [address] [id number] [place] [address] Apr, [place] [address] [address] 07 Apr, 2018 Cough R05 and Wheezing R06.2 [place] [address] [address] 05 Apr, 2018 Persistent cough for 3 weeks or longer R05 [place] [address] [place] [id number] [place] [address] March, Asthma due to seasonal allergies J45.909 ; Cough R05 and Wheezing R06.2 [facility] [address] [address] March, Seasonal allergic rhinitis, unspecified allergic rhinitis trigger J30.2 and Asthma due to seasonal allergies J45.909 [place] [address] [address] March, Cough R05 ; Chest congestion R09.89 and Sore throat J02.9 [place] [address] [address] March, Moderate episode of recurrent major depressive disorder F33.1 ; Migraine without aura and without status migrainosus, not intractable G43.009 ; Primary insomnia F51.01 and Anxiety F41.9 [facility] [address] [address] March, Acute non-recurrent frontal sinusitis J01.10 [place] [address] [address] March, [place] [address] [address] March, Right otitis media with effusion H65.91 ; Acute non- recurrent frontal sinusitis J01.10 and Migraine without aura and without status migrainosus, not intractable G43.009 [place] [address] [id number] [place] [address] Feb, Left lower quadrant pain R10.32 ; Migraine without aura and without status migrainosus, not intractable G43.009 and Anxiety F41.9 [facility] [id number] [place] [address] Feb, Oral contraceptive pill surveillance Z30.41 [place] [address] [place] [id number] Feb, Acute bilateral low back pain without sciatica M54.5 [place] [address] [address] Feb, [place] [address] [address] Feb, Dental examination Z01.20 [facility] [address] [id number] Feb, Dental examination Z01.20 [place] [address] [id number] [place] [address] Feb, Anxiety F41.9 [place] [address] [address] Feb, Primary insomnia F51.01 and Moderate episode of recurrent major depressive disorder F33.1 [place] [address] [address] Jan, Acute suppurative otitis media of left ear without spontaneous rupture of tympanic membrane, recurrence not specified H66.002 [place] [address] [address] Jan, Migraine without aura and without status migrainosus, not intractable G43.009 ; Seasonal allergic rhinitis, unspecified allergic rhinitis trigger J30.2 ; GERD without esophagitis K21.9 ; Current mild episode of major depressive disorder without prior episode F32.0 and Human bite, initial encounter W50.3XXA [place] [address] [id number] [place] [address] Dec, Migraine without aura and without status migrainosus, not intractable G43.009 [place] [address] [place] [id number]- [address] Dec, Nausea and vomiting after administration of anesthetic agent T88.59XA [place] [address] [address] Dec, [facility] [id number] [place] [address] Dec, Acute tonsillitis, unspecified etiology J03.90 [facility] [address] [address] Nov, Dysmenorrhea N94.6 ; Acute midline low back pain without sciatica M54.5 ; Obesity (BMI 30.0-34.9) E66.9 and High ankle sprain of right lower extremity, initial encounter S93.431A [place] [address] [address] Nov, [place] [address] [address] Nov, Migraine without aura and without status migrainosus, not intractable G43.009 [place] [address] [address] Oct, Migraine without aura and without status migrainosus, not intractable G43.009 [facility] [address] [address] Oct, Migraine without aura and without status migrainosus, not intractable G43.009 [facility] [address] [address] Oct, [place] [address] [address] Oct, [facility] [address] [address] Oct, Acute non-recurrent maxillary sinusitis J01.00 [place] [address] [address]- [address] Sep, Left elbow tendonitis M77.8 and Other fatigue R53.83 [facility] [address] [id number] [place] [id number] Sep, Dental examination Z01.20 [facility] [address] [id number] [place] [address]64- 357[address] 10 Sep, 2017 Sore throat J02.9 ; Other viral agents as the cause of diseases classified elsewhere B97.89 and Acute upper respiratory infection, unspecified J06.9 [facility] [address] [id number] [place] [address]- [address] Aug, Encounter for immunization Z23 [facility] [address] [address] Aug, Encounter for immunization Z23 [place] [address] [address] Aug, Migraine without aura and without status migrainosus, not intractable G43.009 [place] [address] [address]- 2807 Jul, Acute midline low back pain without sciatica M54.5 and Obesity (BMI 30.0-34.9) E66.9 [facility] [address] [address] [id number] [place] [address]- 5647 Jul, Chronic seasonal allergic rhinitis due to pollen J30.1 [facility] [address] [id number] Jun, Dental examination Z01.20 [facility] [address] [id number] [place] [address] Jun, Jaw pain R68.84 [facility] [id number] [place] [address] 64298- 9198 Jun, Dental examination Z01.20 [facility] [address] [id number] Jun, Dental examination Z01.20 [facility] [id number] [place] [address] 47574- 6677 Jun, [facility] [address] [address] Jun, Allergic reaction, initial encounter T78.40XA [place] [address] [id number] [place] [address] 25590- 5[address] Jun, [place] [address] [address] Jun, Migraine without aura and without status migrainosus, not intractable G43.009 [place] [address] [address]- [address] May, [place] [address] [address] 14 May, 2017 Helicobacter pylori (H. pylori) infection A04.8 [place] [address] [address]- [address] 11 May, 2017 Encounter for routine adult health examination with abnormal findings Z00.01 ; Obesity (BMI 30.0-34.9) E66.9 ; Acanthosis nigricans L83 and Dietary counseling Z71.3 [place] [address] [place] [id number] [place] [address] 85608- 6269 13 Apr, 2017 Acute seasonal allergic rhinitis due to pollen J30.1 and Sore throat J02.9 [place] [address] [place] [id number] [place] [address]- [address] 08 Apr, 2017 [place] [address] [place] [id number] [place] [address] 26037- 8828 Apr, Migraine without aura and without status migrainosus, not intractable G43.009 [place] [address] [place] [id number] [place] [address]- 2504 March, Dental examination Z01.20 [facility] [address] [id number] [place] [address] Feb, Seasonal allergic rhinitis, unspecified allergic rhinitis trigger J30.[address] [facility] [address] [id number] [id number] Nov, [facility] [address] [id number] [id number] 28 Oct, 2016 Dental examination Z01.20 [facility] [address] [id number] [id number] Oct, Dental examination Z01.20 [facility] [address] [id number] [id number] 08 Oct, 2015 Dental examination Z01.20 and Encounter for dental examination Z01.20 [facility] [address] [id number] 14 Feb, 2015 [facility] [address] [id number] Feb, [facility] [address] [id number], [place] [address] Sep, [facility] [address] [id number], [place] [address] Sep, [facility] [address] [id number], [place] [address] Jul, [facility] [address] [id number] [place] [address] Jul, [facility] [address] [id number], [place] [address] Jul, [facility] [address] [id number], [place] [address] Jun, [facility] [address] [id number], [place] [address] Jun, [facility] [address] [id number], [place] [address] Jun, [facility] [address] [id number], [place] [address] Jun, [facility] [address] [id number], [place] [address] Jul, [facility] [address] [facility] [id number] [address] Jun, [facility] [address] [facility] [id number], [place] [address] Feb, [facility] [address], [place] [address] Sep, [facility] [address] [facility] [id number] Sep, [facility] [address] [facility] [id number], [place] [address]- [address] Oct, [facility] [address], [place] [address] Oct, IMMUNIZATIONS No Known Immunizations SOCIAL HISTORY Never Assessed REASON FOR VISIT cough, wheezing, productive with green sputum. [facility] PLAN OF CARE Activity Details Follow Up 3 Months, prn Reason:CHM/Migraines VITAL SIGNS Height 62 in 2018-04-21 Weight 185 lbs 2018-04-21 Temperature 98.2 degrees Fahrenheit 2018-04-21 Heart Rate 72 bpm 2018-04-21 Respiratory Rate 20 2018-04-21 Oximetry 98 % 2018-04-21 BMI 33.83 kg/m2 2018-04-21 Blood pressure systolic 96 mmHg 2018-04-21 Blood pressure diastolic 66 mmHg 2018-04-21 MEDICATIONS Medication Instructions Dosage Frequency Start Date End Date Duration Status Ibuprofen 800 MG Orally Three times a day 1 tablet with food or milk as needed 8h Oct, Jul, 90 days Not-Taking Singulair 10 mg Orally Once a day 1 tablet in the evening 24h March, 90 days Active Sertraline HCl 50 mg Orally Once a day 1 tablet 24h March, 30 day (s) Active Albuterol Sulfate 108 (90 Base) MCG/ACT Inhalation every 6 hrs 2 puffs as needed 6h March, 30 days Active PredniSONE 20 mg Orally Once a day 2 tablets 24h March, March, 05 days Active Benzonatate 100 mg Orally Three times a day 1 capsule as needed 8h March, Apr, 14 days Not-Taking Xhmqpiaiux-ODXX-Iqkyxbtp 50-325-40 MG Orally every 4 hrs 1 capsule as needed 4h 08 Apr, 2017 Apr, Active Propranolol HCl 10 mg Orally Twice a day 1 tablet 12h Dec, Active Lunesta 2 MG Orally Once a day 1 tablet immediately before bedtime 24h Feb, Active Omeprazole 20 mg Orally twice a day 1 capsule 12h May, 90 days Active Cryselle-28 0.3-30 MG-MCG Orally Once a day 1 tablet 24h Feb, 28 day(s) Active RESULTS No Results PROCEDURES No Known procedures INSTRUCTIONS MEDICATIONS ADMINISTERED No Known Medications MEDICAL (GENERAL) HISTORY Type Description Date Medical History Seasonal Allergies Surgical History uterine polyp removal- 12/2017 Hospitalization History Childbirth only
--- OUTSIDE RECORDS SUMMARY | 2018-11-13 10:40 | XMS REPORT ---
Author Author CORINA SCHUMACHER 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 Name Role Phone CORINA SCHUMACHER Unavailable PROBLEMS Type Condition ICD9-CM Code [id number] Code Onset Dates Condition Status SNOMED Code Problem GERD without esophagitis K21.9 Active 410715273 Problem Primary insomnia F51.01 Active 1076237 Problem Moderate episode of recurrent major depressive disorder F33.1 Active 328729676 Problem Intractable migraine without aura and with status migrainosus G43.011 Active 460717465 Problem GERD with esophagitis K21.0 Active 991042231 Problem Acute bilateral low back pain without sciatica M54.5 Active 939814486 Problem Anxiety F41.9 Active 02753655 Problem Mild persistent asthma without complication J45.30 Active 417718538 Problem Asthma due to seasonal allergies J45.909 Active 847058369 Problem Migraine without aura and without status migrainosus, not intractable G43.009 Active 731297618 Problem Obesity (BMI 30.0-34.9) E66.9 Active 666076450897098 Problem Acanthosis nigricans L83 Active 116863637 Problem Seasonal allergic rhinitis, unspecified allergic rhinitis trigger J30.2 Active 174642015 Problem Dysmenorrhea N94.6 Active 782181267 ALLERGIES Substance Reaction Event Type Date Status Topamax numbness and tingling Drug Allergy March, Active Augmentin nausea and vomiting Drug Allergy March, Active ENCOUNTERS Encounter Location Date Diagnosis [facility] [address] [id number] [address] Jun, [facility] [address] [id number], [place] [address] May, Intractable migraine without aura and with status migrainosus G43.011 [facility] [id number] [place] [address] May, Intractable migraine without aura and with status migrainosus G43.011 [facility] [id number] [place] [address] May, Migraine without aura and without status migrainosus, not intractable G43.009 [facility] [address] [address] Apr, Vertigo R42 and Epigastric abdominal pain R10.13 [place] [id number] [place] [address] Apr, Vertigo R42 [facility] [address] [address] Apr, Vertigo R42 [place] [address] [address] Apr, Epigastric abdominal pain R10.13 and GERD with esophagitis K21.0 [place] [address] [address] 13 Apr, 2018 Wheezing R06.2 [place] [address] [address] 12 Apr, 2018 Mild persistent asthma without complication J45.30 and Wheezing R06.2 [place] [id number] [place] [address] 26[address] Apr, Migraine without aura and without status migrainosus, not intractable G43.009 [place] [id number] [place] [address] 119[address] Apr, [place] [address] [address] 07 Apr, 2018 Cough R05 and Wheezing R06.2 [place] [id number] [place] [address]- [address] 05 Apr, 2018 Persistent cough for 3 weeks or longer R05 [facility] [id number] [place] [address] March, Asthma due to seasonal allergies J45.909 ; Cough R05 and Wheezing R06.2 [facility] [address] [address] March, Seasonal allergic rhinitis, unspecified allergic rhinitis trigger J30.2 and Asthma due to seasonal allergies J45.909 [place] [address] [address] March, Cough R05 ; Chest congestion R09.89 and Sore throat J02.9 [place] [address] [address] March, Moderate episode of recurrent major depressive disorder F33.1 ; Migraine without aura and without status migrainosus, not intractable G43.009 ; Primary insomnia F51.01 and Anxiety F41.9 [facility] [address] [address] March, Acute non-recurrent frontal sinusitis J01.10 [place] [address] [address] March, [place] [address] [address] March, Right otitis media with effusion H65.91 ; Acute non- recurrent frontal sinusitis J01.10 and Migraine without aura and without status migrainosus, not intractable G43.009 [place] [address] [address] Feb, Left lower quadrant pain R10.32 ; Migraine without aura and without status migrainosus, not intractable G43.009 and Anxiety F41.9 [facility] [id number] [place] [address] 6[address] Feb, Oral contraceptive pill surveillance Z30.41 [place] [address] [address] Feb, Acute bilateral low back pain without sciatica M54.5 [place] [address] [address] Feb, [facility] [address] [address] Feb, Dental examination Z01.20 [facility] [facility] [address] [id number] Feb, Dental examination Z01.20 [place] [address] [address] Feb, Anxiety F41.9 [place] [address] [address] Feb, Primary insomnia F51.01 and Moderate episode of recurrent major depressive disorder F33.1 [place] [address] [address] Jan, Acute suppurative otitis media of left ear without spontaneous rupture of tympanic membrane, recurrence not specified H66.002 [place] [address] [address] Jan, Migraine without aura and without status migrainosus, not intractable G43.009 ; Seasonal allergic rhinitis, unspecified allergic rhinitis trigger J30.2 ; GERD without esophagitis K21.9 ; Current mild episode of major depressive disorder without prior episode F32.0 and Human bite, initial encounter W50.3XXA [place] [id number] [place] [address] Dec, Migraine without aura and without status migrainosus, not intractable G43.009 [place] [address] [address] Dec, Nausea and vomiting after administration of anesthetic agent T88.59XA [place] [address] [address] Dec, [facility] [id number] [place] [address] Dec, Acute tonsillitis, unspecified etiology J03.90 [facility] [address] [address] Nov, Dysmenorrhea N94.6 ; Acute midline low back pain without sciatica M54.5 ; Obesity (BMI 30.0-34.9) E66.9 and High ankle sprain of right lower extremity, initial encounter S93.431A [place] [address] [address] Nov, [place] [address] [address] Nov, Migraine without aura and without status migrainosus, not intractable G43.009 [facility] [address] [address] Oct, Migraine without aura and without status migrainosus, not intractable G43.009 [facility] [address] [address] Oct, Migraine without aura and without status migrainosus, not intractable G43.009 [facility] [address] [address] Oct, [facility] [address] [address] Oct, [facility] [address] [address] Oct, Acute non-recurrent maxillary sinusitis J01.00 [place] [address] [address] Sep, Left elbow tendonitis M77.8 and Other fatigue R53.83 [facility] [id number] [place] [id number] Sep, Dental examination Z01.20 [facility] [id number] [place] [address] Sep, Sore throat J02.9 ; Other viral agents as the cause of diseases classified elsewhere B97.89 and Acute upper respiratory infection, unspecified J06.9 [facility] [address] [address] Aug, Encounter for immunization Z23 [facility] [address] [address] Aug, Encounter for immunization Z23 [place] [address] [address] Aug, Migraine without aura and without status migrainosus, not intractable G43.009 [place] [address] [address] Jul, Acute midline low back pain without sciatica M54.5 and Obesity (BMI 30.0-34.9) E66.9 [facility] [address] [address] Jul, Chronic seasonal allergic rhinitis due to pollen J30.1 [facility] [address] [id number] Jun, Dental examination Z01.20 [facility] [id number] [place] [address] Jun, Jaw pain R68.84 [facility] [address] [address] Jun, Dental examination Z01.20 [facility] [address] [id number] Jun, Dental examination Z01.20 [facility] [address] [address] Jun, [facility] [address] [address] Jun, Allergic reaction, initial encounter T78.40XA [place] [id number] [place] [address]- 78[address] Jun, [place] [id number] [place] [address] 9[address]- 9677 Jun, Migraine without aura and without status migrainosus, not intractable G43.009 [place] [address] [address]- [address] May, [place] [id number] [place] [address] 5[address] May, Helicobacter pylori (H. pylori) infection A04.8 [place] [id number] [place] [address]- 77[address] 11 May, 2017 Encounter for routine adult health examination with abnormal findings Z00.01 ; Obesity (BMI 30.0-34.9) E66.9 ; Acanthosis nigricans L83 and Dietary counseling Z71.3 [place] [id number] [place] [address] 59978- 5351 13 Apr, 2017 Acute seasonal allergic rhinitis due to pollen J30.1 and Sore throat J02.9 [place] [id number] [place] [address]- 37[address] Apr, [place] [id number] [place] [address] 00[address]- 9281 Apr, Migraine without aura and without status migrainosus, not intractable G43.009 [place] [id number] [place] [address]- 9689 March, Dental examination Z01.20 [facility] [id number] [place] [address]794 Feb, Seasonal allergic rhinitis, unspecified allergic rhinitis trigger J30.[address] [id number] [id number] Nov, [facility] [address] [id number] [id number] Oct, Dental examination Z01.20 [facility] [address] [id number] [place] [id number] Oct, Dental examination Z01.20 [facility] [address] [id number] [id number] 08 Oct, 2015 Dental examination Z01.20 and Encounter for dental examination Z01.20 [facility] [address] [id number] [place] [address] 14 Feb, 2015 [facility] [address] [id number] [place] [address]- [address] Feb, [facility] [address] [id number] [place] [address] Sep, [facility] [address] [id number] [place] [address]- 9[address] Sep, [facility] [address] [id number] [place] [address] 05 Jul, 2014 [facility] [address] [id number] [place] [address]- [address] Jul, [facility] [address] [id number] [place] [address] Jul, [facility] [address] [id number] [place] [address]- [address] Jun, [facility] [address] [id number], [place] [address] Jun, [facility] [facility] [address] [id number] [place] [address]- [address] Jun, [facility] [address] [id number] [place] [address]- [address] Jun, [facility] [address] [id number], [place] [address] 18 Jul, 2013 [facility] [address] [facility] [id number] [address] Jun, [facility] [address] [facility] [id number] [address] Feb, [facility] [address] [facility] [id number], [place] [address] Sep, [facility] [address] Sep, [facility] [address] [facility] [id number], [place] [address] Oct, [facility] [address] [address] Oct, IMMUNIZATIONS No Known Immunizations SOCIAL HISTORY Never Assessed REASON FOR VISIT Sore throat, wisdom teeth. [facility] PLAN OF CARE Activity Details Follow Up 1 Week, prn Reason:if symptoms worsen or not improving VITAL SIGNS Height 62 in 2018-04-17 Weight 185 lbs 2018-04-17 Temperature 97.1 degrees Fahrenheit 2018-04-17 Heart Rate 94 bpm 2018-04-17 Respiratory Rate 18 2018-04-17 BMI 33.83 kg/m2 2018-04-17 Blood pressure systolic 100 mmHg 2018-04-17 Blood pressure diastolic 64 mmHg 2018-04-17 MEDICATIONS Medication Instructions Dosage Frequency Start Date End Date Duration Status Ibuprofen 800 MG Orally Three times a day 1 tablet with food or milk as needed 8h Oct, Jul, 90 days Not-Taking Omeprazole 20 mg Orally twice a day [...] as needed 8h March, Apr, 14 days Active Bhxmgqdhtg-WTDO-Chaqyump 50-325-40 MG Orally every 4 hrs 1 capsule as needed 4h Apr, Apr, Active Propranolol HCl 10 mg Orally Twice a day 1 tablet 12h Dec, Active Lunesta 2 MG Orally Once a day 1 tablet immediately before bedtime 24h Feb, Active Sertraline HCl 50 mg Orally Once a day 1 tablet 24h March, 30 day (s) Active RESULTS Name Result Date Reference Range MONO TEST (IN HOUSE) 2018-04-17 RESULTS neg Control + Lot # [id number] Exp date 11/2018 STREP A (IN HOUSE) 2018-04-17 STREP A neg Control + Lot # [id number] Exp date 04/17/18 Xray : Chest 2 View (IN HOUSE) 2018-04-17 PROCEDURES Procedure Date Ordered Result Body Site NEBULIZER TREATMENT 2018-04-17 N/A X-RAY EXAM CHEST 2 VIEWS April 17, 2018 STREP A ASSAY W/OPTIC April 17, 2018 NEB/MDI RX INITIAL April 17, 2018 HETEROPHILE ANTIBODIES April 17, 2018 INSTRUCTIONS MEDICATIONS ADMINISTERED No Known Medications MEDICAL (GENERAL) HISTORY Type Description Date Medical History Seasonal Allergies Surgical History uterine polyp removal- 12/2017 Hospitalization History Childbirth only
--- OUTSIDE RECORDS SUMMARY | 2018-11-13 10:41 | XMS REPORT ---
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 Trucker Name Role Phone LAURA CUELLO Unavailable PROBLEMS Type Condition ICD9-CM Code QTC73-CA Code Onset Dates Condition Status SNOMED Code Problem GERD without esophagitis K21.9 Active 966613862 Problem Primary insomnia F51.01 Active 0783327 Problem Moderate episode of recurrent major depressive disorder F33.1 Active 956684678 Problem Intractable migraine without aura and with status migrainosus G43.011 Active 643856110 Problem GERD with esophagitis K21.0 Active 899319719 Problem Acute bilateral low back pain without sciatica M54.5 Active 937793876 Problem Anxiety F41.9 Active 75929754 Problem Mild persistent asthma without complication J45.30 Active 905468594 Problem Asthma due to seasonal allergies J45.909 Active 246512207 Problem Migraine without aura and without status migrainosus, not intractable G43.009 Active 542618014 Problem Obesity (BMI 30.0-34.9) E66.9 Active [id number] Problem Acanthosis nigricans L83 Active 145035534 Problem Seasonal allergic rhinitis, unspecified allergic rhinitis trigger J30.2 Active 004612882 Problem Dysmenorrhea N94.6 Active 270817168 ALLERGIES Substance Reaction Event Type Date Status Topamax numbness and tingling Drug Allergy March, Active Augmentin nausea and vomiting Drug Allergy March, Active ENCOUNTERS Encounter Location Date Diagnosis [facility] [address] [facility] [id number] [address] Jun, [facility] [address] [id number] [address] May, Intractable migraine without aura and with status migrainosus G43.011 [facility] [id number] [place] [address] May, Intractable migraine without aura and with status migrainosus G43.011 [facility] [address] [address] May, Migraine without aura and without status migrainosus, not intractable G43.009 [facility] [id number] [place] [address] Apr, Epigastric abdominal pain R10.13 and Vertigo R42 [place] [address] [address] Apr, Vertigo R42 [facility] [address] [address] Apr, Vertigo R42 [place] [address] [address] Apr, Epigastric abdominal pain R10.13 and GERD with esophagitis K21.0 [place] [address] [address] 13 Apr, 2018 Wheezing R06.2 [place] [address] [address] 12 Apr, 2018 Mild persistent asthma without complication J45.30 and Wheezing R06.2 [place] [id number] [place] [address]- [address] Apr, Migraine without aura and without status migrainosus, not intractable G43.009 [place] [id number] [place] [address]- [address] Apr, [place] [address] [address] 07 Apr, 2018 Cough R05 and Wheezing R06.2 [place] [address] [address] 05 Apr, 2018 Persistent cough for 3 weeks or longer R05 [place] [id number] [place] [address] March, Asthma due to seasonal allergies J45.909 ; Cough R05 and Wheezing R06.2 [facility] [address] [address] March, Seasonal allergic rhinitis, unspecified allergic rhinitis trigger J30.2 and Asthma due to seasonal allergies J45.909 [place] [address] [address] March, Cough R05 ; Chest congestion R09.89 and Sore throat J02.9 [place] [address] [address] March, Moderate episode of recurrent major depressive disorder F33.1 ; Migraine without aura and without status migrainosus, not intractable G43.009 ; Primary insomnia F51.01 and Anxiety F41.9 [facility] [address] [address] March, Acute non-recurrent frontal sinusitis J01.10 [place] [address] [address] March, [place] [address] [address] March, Right otitis media with effusion H65.91 ; Acute non- recurrent frontal sinusitis J01.10 and Migraine without aura and without status migrainosus, not intractable G43.009 [place] [id number] [place] [address] Feb, Left lower quadrant pain R10.32 ; Migraine without aura and without status migrainosus, not intractable G43.009 and Anxiety F41.9 [facility] [id number] [place] [address] Feb, Oral contraceptive pill surveillance Z30.41 [place] [address] [id number]- [address] Feb, Acute bilateral low back pain without sciatica M54.5 [place] [address] [address] Feb, [place] [address] [address] Feb, Dental examination Z01.20 [facility] [address] [id number] Feb, Dental examination Z01.20 [place] [id number] [place] [address] Feb, Anxiety F41.9 [place] [address] [address] Feb, Primary insomnia F51.01 and Moderate episode of recurrent major depressive disorder F33.1 [place] [address] [address] Jan, Acute suppurative otitis media of left ear without spontaneous rupture of tympanic membrane, recurrence not specified H66.002 [place] [address] [address] Jan, Migraine without aura and without status migrainosus, not intractable G43.009 ; Seasonal allergic rhinitis, unspecified allergic rhinitis trigger J30.2 ; GERD without esophagitis K21.9 ; Current mild episode of major depressive disorder without prior episode F32.0 and Human bite, initial encounter W50.3XXA [place] [id number] [place] [address] Dec, Migraine without aura and without status migrainosus, not intractable G43.009 [place] [address] [id number]- [address] Dec, Nausea and vomiting after administration of anesthetic agent T88.59XA [place] [address] [address] Dec, [facility] [id number] [place] [address]- [address] Dec, Acute tonsillitis, unspecified etiology J03.90 [facility] [address] [address] Nov, Dysmenorrhea N94.6 ; Acute midline low back pain without sciatica M54.5 ; Obesity (BMI 30.0-34.9) E66.9 and High ankle sprain of right lower extremity, initial encounter S93.431A [place] [address] [address] Nov, [place] [address] [address] Nov, Migraine without aura and without status migrainosus, not intractable G43.009 [place] [address] [address] Oct, Migraine without aura and without status migrainosus, not intractable G43.009 [facility] [address] [address] Oct, Migraine without aura and without status migrainosus, not intractable G43.009 [facility] [address] [address] Oct, [place] [address] [address] Oct, [facility] [address] [address] Oct, Acute non-recurrent maxillary sinusitis J01.00 [place] [address] [address] Sep, Left elbow tendonitis M77.8 and Other fatigue R53.83 [facility] [id number] [place] [id number] Sep, Dental examination Z01.20 [facility] [id number] [place] [address]63- [address] 10 Sep, 2017 Sore throat J02.9 ; Other viral agents as the cause of diseases classified elsewhere B97.89 and Acute upper respiratory infection, unspecified J06.9 [facility] [id number] [place] [address]- [address] Aug, Encounter for immunization Z23 [facility] [address] [address] Aug, Encounter for immunization Z23 [place] [address] [address] Aug, Migraine without aura and without status migrainosus, not intractable G43.009 [place] [address] [address] Jul, Acute midline low back pain without sciatica M54.5 and Obesity (BMI 30.0-34.9) E66.9 [facility] [id number] [place] [address] 58942- [address]40 Jul, Chronic seasonal allergic rhinitis due to pollen J30.1 [facility] [address] [id number] Jun, Dental examination Z01.20 [facility] [id number] [place] [address] Jun, Jaw pain R68.84 [facility] [id number] [place] [address]15- [address] Jun, Dental examination Z01.20 [facility] [address] [id number] Jun, Dental examination Z01.20 [facility] [id number] [place] [address]- 8[address] Jun, [facility] [address] [address]- [address] Jun, Allergic reaction, initial encounter T78.40XA [place] [id number] [place] [address]200- 0[address] Jun, [place] [address] [address] Jun, Migraine without aura and without status migrainosus, not intractable G43.009 [place] [address] [address]- [address] May, [place] [address] [address] 14 May, 2017 Helicobacter pylori (H. pylori) infection A04.8 [place] [address] [address] 11 May, 2017 Encounter for routine adult health examination with abnormal findings Z00.01 ; Obesity (BMI 30.0-34.9) E66.9 ; Acanthosis nigricans L83 and Dietary counseling Z71.3 [place] [id number] [place] [address]406- [address] 13 Apr, 2017 Acute seasonal allergic rhinitis due to pollen J30.1 and Sore throat J02.9 [place] [id number] [place] [address] 72865- 0135 08 Apr, 2017 [place] [id number] [place] [address] 73692- 2131 Apr, Migraine without aura and without status migrainosus, not intractable G43.009 [place] [id number] [place] [address] 0[address]33- 48[address] March, Dental examination Z01.20 [facility] [id number] [place] [address] Feb, Seasonal allergic rhinitis, unspecified allergic rhinitis trigger J30.2 [facility] [address] [id number] [id number] Nov, [facility] [address] [id number] [id number] 28 Oct, 2016 Dental examination Z01.20 [facility] [address] [id number] [id number] Oct, Dental examination Z01.20 [facility] [address] [id number] [id number] 08 Oct, 2015 Dental examination Z01.20 and Encounter for dental examination Z01.20 [facility] [address] [id number] 14 Feb, 2015 [facility] [address] [id number] Feb, [facility] [address] [id number], [place] [address] Sep, [facility] [address] [id number], [place] [address] Sep, [facility] [address] [id number], [place] [address] Jul, [facility] [address] [id number] [place] [address] Jul, [facility] [address] [id number], [place] [address] Jul, [facility] [address] [id number], [place] [address] Jun, [facility] [address] [id number], [place] [address] Jun, [facility] [address] [id number], [place] [address] Jun, [facility] [address] [id number], [place] [address] Jun, [facility] [address] [id number], [place] [address] Jul, [facility] [address] [facility] [id number], [place] [address] Jun, [facility] [address] [id number] [address] Feb, [facility] [address], [place] [address] Sep, [facility] [address], [place] [address] Sep, [facility] [address] [facility] [id number], [place] [address] Oct, [facility] [address] [facility] [id number], [place] [address] Oct, IMMUNIZATIONS Vaccine Route Administration Date Status TORADOL (IM) 60 MG/2ML (UP TO 15 MG) IM Intramuscular March 24, 2018 Administered SOCIAL HISTORY Never Assessed REASON FOR VISIT Cold symptoms, sore throat , cough, running nose (green) sionce yesterday -- moshe shields PLAN OF CARE Activity Details Follow Up prn Reason: VITAL SIGNS Height 62 in 2018-03-24 Weight 179.0 lbs 2018-03-24 Temperature 98.1 degrees Fahrenheit 2018-03-24 Heart Rate 90 bpm 2018-03-24 Respiratory Rate 20 2018-03-24 BMI 32.74 kg/m2 2018-03-24 Blood pressure systolic 110 mmHg 2018-03-24 Blood pressure diastolic 68 mmHg 2018-03-24 MEDICATIONS Medication Instructions Dosage Frequency Start Date End Date Duration Status Omeprazole 20 mg Orally twice a day 1 capsule 12h May, 90 days Active Paroxetine HCl 20 mg Orally Once a day 1 tablet in the morning 24h Jan, Active Lunesta 2 MG Orally Once a day 1 tablet immediately before bedtime 24h Feb, 28 days Active Cyclobenzaprine HCl 5 mg Orally at night 1 tablet as needed Feb, March, 30 days Not-Taking Ibuprofen 800 MG Orally Three times a day 1 tablet with food or milk as needed 8h 27 Oct, 2017 Jul, 90 days Active Augmentin 875-125 MG Orally every 12 hrs 1 tablet 12h March,March 10 day(s) Active Cryselle-28 0.3-30 MG-MCG Orally Once a day 1 tablet 24h Feb, 28 day(s) Active Amoxicillin 500 mg Orally every 12 hrs 1 capsule 12h March, March, 10 day(s) Active Qfdkhyrtma-UINO-Naqkhffd 50-325-40 MG Orally every 4 hrs 1 capsule as needed 4h Apr, Apr, Active Propranolol HCl 10 mg Orally Twice a day 1 tablet 12h Dec, Active RESULTS No Results PROCEDURES Procedure Date Ordered Result Body Site TORADOL (IM) 60 MG/2ML (UP TO 15 MG) March 24, 2018 THER/PROPH/DIAG INJ, SC/IM March 24, 2018 INSTRUCTIONS MEDICATIONS ADMINISTERED No Known Medications MEDICAL (GENERAL) HISTORY Type Description Date Medical History Seasonal Allergies Surgical History uterine polyp removal- 12/2017 Hospitalization History Childbirth only
--- OUTSIDE RECORDS SUMMARY | 2018-11-13 10:41 | XMS REPORT ---
Author Author CORINA SCHUMACHER [facility] Address [address] [place] [address] Care Team Providers Care Touch Up Painter Name Role Phone CORINA SCHUMACHER Unavailable PROBLEMS Type Condition ICD9-CM Code [id number] Code Onset Dates Condition Status SNOMED Code Problem GERD without esophagitis K21.9 Active 114838611 Problem Primary insomnia F51.01 Active 5141890 Problem Moderate episode of recurrent major depressive disorder F33.1 Active 569394734 Problem Intractable migraine without aura and with status migrainosus G43.011 Active 818953390 Problem GERD with esophagitis K21.0 Active 270465216 Problem Acute bilateral low back pain without sciatica M54.5 Active 174967129 Problem Anxiety F41.9 Active 30716226 Problem Mild persistent asthma without complication J45.30 Active 832278829 Problem Asthma due to seasonal allergies J45.909 Active 297189551 Problem Migraine without aura and without status migrainosus, not intractable G43.009 Active 505835458 Problem Obesity (BMI 30.0-34.9) E66.9 Active [id number] Problem Acanthosis nigricans L83 Active 664617786 Problem Seasonal allergic rhinitis, unspecified allergic rhinitis trigger J30.2 Active 059741322 Problem Dysmenorrhea N94.6 Active 639763364 ALLERGIES Substance Reaction Event Type Date Status Topamax numbness and tingling Drug Allergy Feb, Active ENCOUNTERS Encounter Location Date Diagnosis [facility] [id number] [address] Jun, [facility] [id number] [place] [address] May, Intractable migraine without aura and with status migrainosus G43.011 [facility] [id number] [address] May, Intractable migraine without aura and with status migrainosus G43.011 [facility] [id number] [place] [address] May, Migraine without aura and without status migrainosus, not intractable G43.009 [facility] [address] [address] Apr, Vertigo R42 and Epigastric abdominal pain R10.13 [facility] [id number] [place] [address]67- 8724 Apr, Vertigo R42 [facility] [address] [address] Apr, Vertigo R42 [place] [address] [address] Apr, Epigastric abdominal pain R10.13 and GERD with esophagitis K21.0 [facility] [id number] [place] [address]99- [address] 13 Apr, 2018 Wheezing R06.2 [place] [address] [address] 12 Apr, 2018 Mild persistent asthma without complication J45.30 and Wheezing R06.2 [facility] [id number] [place] [address] 64562- 8261 Apr, Migraine without aura and without status migrainosus, not intractable G43.009 [facility] [id number] [place] [address] 78348- 6692 Apr, [place] [address] [address] 07 Apr, 2018 Cough R05 and Wheezing R06.2 [address] [place] [address] [address]- [address] 05 Apr, 2018 Persistent cough for 3 weeks or longer R05 [place] [address] [address] March, Asthma due to seasonal allergies J45.909 ; Cough R05 and Wheezing R06.2 [place] [address] [address]- [address] March, Seasonal allergic rhinitis, unspecified allergic rhinitis trigger J30.2 and Asthma due to seasonal allergies J45.909 [place] [address] [address] March, Cough R05 ; Chest congestion R09.89 and Sore throat J02.9 [place] [address] [address] March, Moderate episode of recurrent major depressive disorder F33.1 ; Migraine without aura and without status migrainosus, not intractable G43.009 ; Primary insomnia F51.01 and Anxiety F41.9 [facility] [address] [address] March, Acute non-recurrent frontal sinusitis J01.10 [place] [address] [address] March, [place] [address] [address] March, Right otitis media with effusion H65.91 ; Acute non- recurrent frontal sinusitis J01.10 and Migraine without aura and without status migrainosus, not intractable G43.009 [place] [address] 6[address]- [address] Feb, Left lower quadrant pain R10.32 ; Migraine without aura and without status migrainosus, not intractable G43.009 and Anxiety F41.9 [place] [address] [address]47[address] Feb, Oral contraceptive pill surveillance Z30.41 [place] [address] 33040- 3[address] Feb, Acute bilateral low back pain without sciatica M54.5 [facility] [id number] [place] [address]51- 4527 Feb, [place] [facility] [id number] [place] [address] 95341- 1685 Feb, Dental examination Z01.20 [facility] [address] [place] [id number] Feb, Dental examination Z01.20 [place] [id number] [place] [address] 32741- 5897 Feb, Anxiety F41.9 [place] [address] 00[address]- [address]1 Feb, Primary insomnia F51.01 and Moderate episode of recurrent major depressive disorder F33.1 [place] [address] 23969- [address] Jan, Acute suppurative otitis media of left ear without spontaneous rupture of tympanic membrane, recurrence not specified H66.002 [facility] [facility] [id number] [place] [address] 84598- 6829 Jan, Migraine without aura and without status migrainosus, not intractable G43.009 ; Seasonal allergic rhinitis, unspecified allergic rhinitis trigger J30.2 ; GERD without esophagitis K21.9 ; Current mild episode of major depressive disorder without prior episode F32.0 and Human bite, initial encounter W50.3XXA [place] [id number] [place] [address] 44291- 8125 Dec, Migraine without aura and without status migrainosus, not intractable G43.009 [place] [address] 0[address]- 7823 Dec, Nausea and vomiting after administration of anesthetic agent T88.59XA [facility] [facility] [id number] [place] [address] 18537- 6629 Dec, [place] [facility] [id number] [place] [address] 61070- 3419 05 Dec, 2017 Acute tonsillitis, unspecified etiology J03.90 [facility] [address] [address] Nov, Dysmenorrhea N94.6 ; Acute midline low back pain without sciatica M54.5 ; Obesity (BMI 30.0-34.9) E66.9 and High ankle sprain of right lower extremity, initial encounter S93.431A [place] [address] [address]11- [address] Nov, [place] [address] [address]240- [address] Nov, Migraine without aura and without status migrainosus, not intractable G43.009 [place] [address] 78178- [address] Oct, Migraine without aura and without status migrainosus, not intractable G43.009 [facility] [address] [address] Oct, Migraine without aura and without status migrainosus, not intractable G43.009 [place] [id number] [place] [address] 16829- 6470 Oct, [facility] [id number] [place] [address]25- 0120 Oct, [facility] [id number] [place] [address] 70925- 9973 Oct, Acute non-recurrent maxillary sinusitis J01.00 [place] [address] 75[address]- 6233 Sep, Left elbow tendonitis M77.8 and Other fatigue R53.83 [facility] [id number] [place] [id number] Sep, Dental examination Z01.20 [place] [id number] [place] [address] 07936- 7539 10 Sep, 2017 Sore throat J02.9 ; Other viral agents as the cause of diseases classified elsewhere B97.89 and Acute upper respiratory infection, unspecified J06.9 [place] [id number] [place] [address] 18574- 2187 Aug, Encounter for immunization Z23 [place] [address] 6[address]97- [address]65 Aug, Encounter for immunization Z23 [place] [address] 24092- 6244 Aug, Migraine without aura and without status migrainosus, not intractable G43.009 [place] [address] 19732- 9957 Jul, Acute midline low back pain without sciatica M54.5 and Obesity (BMI 30.0-34.9) E66.9 [place] [id number] [place] [address] 55093- 1743 Jul, Chronic seasonal allergic rhinitis due to pollen J30.1 [facility] [address] [id number] Jun, Dental examination Z01.20 [facility] [id number] [place] [address] 93217 -2219 Jun, Jaw pain R68.84 [facility] [id number] [place] [address] 32035- 3359 Jun, Dental examination Z01.20 [facility] [address] [id number] Jun, Dental examination Z01.20 [facility] [address] 87905- [address]647 Jun, [place] [id number] [place] [address] 62205- 6282 Jun, Allergic reaction, initial encounter T78.40XA [place] [id number] [place] [address] 87361- 1245 Jun, [place] [address] 08[address]- 2703 Jun, Migraine without aura and without status migrainosus, not intractable G43.009 [place] [address] 33046- 5879 May, [place] [address] 25990- 0302 14 May, 2017 Helicobacter pylori (H. pylori) infection A04.[address] [address]- 8586 11 May, 2017 Encounter for routine adult health examination with abnormal findings Z00.01 ; Obesity (BMI 30.0-34.9) E66.9 ; Acanthosis nigricans L83 and Dietary counseling Z71.3 [place] [id number] [place] [address] 70332- 4323 13 Apr, 2017 Acute seasonal allergic rhinitis due to pollen J30.1 and Sore throat J02.9 [id number] [place] [address] 99446- 9822 08 Apr, 2017 [id number] [place] [address] 94368- 8163 Apr, Migraine without aura and without status migrainosus, not intractable G43.009 [place] [id number] [place] [address] 19681- 2609 March, Dental examination Z01.20 [facility] [id number] [place] [address] 14685 -0611 Feb, Seasonal allergic rhinitis, unspecified allergic rhinitis trigger J30.2 [facility] [id number] [place] [id number] Nov, [facility] [address] [id number] Oct, Dental examination Z01.20 [facility] [address] [id number] [id number] Oct, [facility]01.20 [facility] [address] [id number] [address] 08 Oct, 2015 Dental examination Z01.20 and Encounter for dental examination Z01.20 [facility] [address] [id number] Feb, [facility] [address] [id number], [place] [address] Feb, [facility] [address] [id number], [place] [address] Sep, [facility] [address] [id number] [address] Sep, [facility] [address] [id number], [place] [address] Jul, [facility] [address] [id number] [address] Jul, [facility] [address] [id number], [place] [address]- [address] Jul, [facility] [address] [id number], [place] [address] Jun, [facility] [address] [id number], [place] [address] Jun, [facility] [address] [id number] [address]- [address] Jun, [facility] [address] [id number] [address]- 7932 Jun, [facility] [address] [id number], [place] [address] Jul, [facility] [address] [facility] [id number] [place] [address] Jun, [facility] [address] [facility] [id number] [address] Feb, [facility] [address] [facility] [id number] [address] 2958 Sep, [facility] [address] [address] 97[address] Sep, [facility] [address] [id number] [address] Oct, [facility] [address] [facility] [id number] Oct, IMMUNIZATIONS Vaccine Route Administration Date Status DEPO MEDROL 80 MG/ML IM Intramuscular March 11, 2018 Administered SOCIAL HISTORY Never Assessed REASON FOR VISIT back pain , patient states she was lifting her baby and her back stated hurting -- moshe shields PLAN OF CARE Activity Details Follow Up prn Reason:back pain VITAL SIGNS Height 62 in 2018-03-11 Weight 181.0 lbs 2018-03-11 Temperature 98.0 degrees Fahrenheit 2018-03-11 Heart Rate 80 bpm 2018-03-11 Respiratory Rate 18 2018-03-11 BMI 33.10 kg/m2 2018-03-11 Blood pressure systolic 118 mmHg 2018-03-11 Blood pressure diastolic 72 mmHg 2018-03-11 MEDICATIONS Medication Instructions Dosage Frequency Start Date End Date Duration Status Lunesta 2 MG Orally Once a day 1 tablet immediately before bedtime 24h Feb, 28 days Active Dzxyejbjnw-XADQ-Gstbinju 50-325-40 MG Orally every 4 hrs 1 capsule as needed 4h 08 Apr, 2017 Apr, 07 days Not-Taking Ibuprofen 800 MG Orally Three times a day 1 tablet with food or milk as needed 8h Oct, Jul, 90 days Active Propranolol HCl 10 mg Orally Twice a day 1 tablet 12h Dec, Active Omeprazole 20 mg Orally twice a day 1 capsule 12h May, 90 days Active Cyclobenzaprine HCl 5 mg Orally at night 1 tablet as needed Feb, March, 30 days Active Medrol 4 MG Orally Once a day- take with food 24 mg day one, then decrease by 4 mg daily over 5 days Feb, Feb, 6 days Active Diazepam 5 mg Orally one time 1 tablet prior to dental procedure and may repeat x 1 if needed- MUST have a Course Instructor Feb, 1 days Active Paroxetine HCl 20 mg Orally Once a day 1 tablet in the morning 24h Jan, Active RESULTS No Results PROCEDURES Procedure Date Ordered Result Body Site DEPO MEDROL 80 MG/ML March 11, 2018 THER/PROPH/DIAG INJ, SC/IM March 11, 2018 INSTRUCTIONS MEDICATIONS ADMINISTERED No Known Medications MEDICAL (GENERAL) HISTORY Type Description Date Medical History Seasonal Allergies Surgical History uterine polyp removal- 12/2017 Hospitalization History Childbirth only
--- OUTSIDE RECORDS SUMMARY | 2018-11-13 10:41 | XMS REPORT ---
Author Author CAR KEITH Organization [facility] Address [address] [place] [address] Care Team Providers Care Termite Technician Name Role Phone OLIVERAMINA KAISERAN Unavailable PROBLEMS Type Condition ICD9-CM Code EYI06-FY Code Onset Dates Condition Status SNOMED Code Problem GERD without esophagitis K21.9 Active 376676700 Problem Primary insomnia F51.01 Active 7056006 Problem Moderate episode of recurrent major depressive disorder F33.1 Active 909005763 Problem Intractable migraine without aura and with status migrainosus G43.011 Active 754148499 Problem GERD with esophagitis K21.0 Active 005185479 Problem Acute bilateral low back pain without sciatica M54.5 Active 672495525 Problem Anxiety F41.9 Active 53274915 Problem Mild persistent asthma without complication J45.30 Active 059730379 Problem Asthma due to seasonal allergies J45.909 Active 011269062 Problem Migraine without aura and without status migrainosus, not intractable G43.009 Active 610788552 Problem Obesity (BMI 30.0-34.9) E66.9 Active 131079159705175 Problem Acanthosis nigricans L83 Active 726567264 Problem Seasonal allergic rhinitis, unspecified allergic rhinitis trigger J30.2 Active 754405710 Problem Dysmenorrhea N94.6 Active 832037942 ALLERGIES No Information ENCOUNTERS Encounter Location Date Diagnosis [facility] [id number], [place] [address] Jun, [facility] [id number] [place] [address] May, Intractable migraine without aura and with status migrainosus G43.011 [facility] [address] [id number], [place] [address] May, Intractable migraine without aura and with status migrainosus G43.011 [facility] [id number] [place] [address] May, Migraine without aura and without status migrainosus, not intractable G43.009 [facility] [id number] [place] [address]- [address] 28 Apr, 2018 Vertigo R42 and Epigastric abdominal pain R10.13 [facility] [address] [address] Apr, Vertigo R42 [facility] [id number] [place] [address] Apr, Vertigo R42 [place] [id number] [place] [address]44- 6652 Apr, Epigastric abdominal pain R10.13 and GERD with esophagitis K21.0 [place] [address] [address]- [address]1 Apr, Wheezing R06.2 [place] [address] [address]66- [address] 12 Apr, 2018 Mild persistent asthma without complication J45.30 and Wheezing R06.2 [place] [id number] [place] [address]606- 3911 Apr, Migraine without aura and without status migrainosus, not intractable G43.009 [facility] [id number] [place] [address] 32798- 2797 Apr, [place] [id number] [place] [address] 30391- 2891 Apr, Cough R05 and Wheezing R06.2 [place] [address] [address]88- [address] 05 Apr, 2018 Persistent cough for 3 weeks or longer R05 [place] [id number] [place] [address] 18735- 7328 30 May, 2018 Asthma due to seasonal allergies J45.909 ; Cough R05 and Wheezing R06.2 [facility] [address] [address]- [address] March, Seasonal allergic rhinitis, unspecified allergic rhinitis trigger J30.2 and Asthma due to seasonal allergies J45.909 [place] [address] 18[address]- [address] March, Cough R05 ; Chest congestion R09.89 and Sore throat J02.9 [place] [address] 7[address]- [address] March, Moderate episode of recurrent major depressive disorder F33.1 ; Migraine without aura and without status migrainosus, not intractable G43.009 ; Primary insomnia F51.01 and Anxiety F41.9 [facility] [address] [address] March, Acute non-recurrent frontal sinusitis J01.10 [place] [address] [address] March, [place] [address] [address]- 2167 March, Right otitis media with effusion H65.91 ; Acute non- recurrent frontal sinusitis J01.10 and Migraine without aura and without status migrainosus, not intractable G43.009 [place] [address] 7[address]81- 4954 Feb, Left lower quadrant pain R10.32 ; Migraine without aura and without status migrainosus, not intractable G43.009 and Anxiety F41.9 [place] [address] 24435- [address] Feb, Oral contraceptive pill surveillance Z30.41 [place] [address] 65567- 9420 Feb, Acute bilateral low back pain without sciatica M54.5 [place] [id number] [place] [address] 09190- 4910 Feb, [place] [address] 8[address]15- [address]23 Feb, Dental examination Z01.20 [facility] [id number] [place] [id number] 10 Feb, 2018 Dental examination Z01.20 [place] [id number] [place] [address] 98048- 2478 Feb, Anxiety F41.9 [place] [address] 88759- 0786 Feb, Primary insomnia F51.01 and Moderate episode of recurrent major depressive disorder F33.1 [place] [id number] [place] [address] 53171- [address]47 Jan, Acute suppurative otitis media of left ear without spontaneous rupture of tympanic membrane, recurrence not specified H66.002 [place] [id number] [place] [address] 95038- 9480 Jan, Migraine without aura and without status migrainosus, not intractable G43.009 ; Seasonal allergic rhinitis, unspecified allergic rhinitis trigger J30.2 ; GERD without esophagitis K21.9 ; Current mild episode of major depressive disorder without prior episode F32.0 and Human bite, initial encounter W50.3XXA [place] [id number] [place] [address] 74105- [address]26 Dec, Migraine without aura and without status migrainosus, not intractable G43.009 [place] [address] 17147- 7409 Dec, Nausea and vomiting after administration of anesthetic agent T88.59XA [place] [id number] [place] [address] 61726- 8427 Dec, [place] [address] 7[address]53- [address]24 Dec, Acute tonsillitis, unspecified etiology J03.90 [facility] [address] [address]- [address] Nov, Dysmenorrhea N94.6 ; Acute midline low back pain without sciatica M54.5 ; Obesity (BMI 30.0-34.9) E66.9 and High ankle sprain of right lower extremity, initial encounter S93.431A [place] [address] 28969- 8749 Nov, [facility] [address] 77719- [address]60 Nov, Migraine without aura and without status migrainosus, not intractable G43.009 [facility] [address] 23292- 4036 Oct, Migraine without aura and without status migrainosus, not intractable G43.009 [facility] [address] [address] Oct, Migraine without aura and without status migrainosus, not intractable G43.009 [facility] [address] 79542- 6077 Oct, [facility] [address] 17238- 3148 Oct, [facility] [address] 99386- 7654 Oct, Acute non-recurrent maxillary sinusitis J01.00 [facility] [address] 52578- 3804 Sep, Left elbow tendonitis M77.8 and Other fatigue R53.83 [facility] [id number] [place] [id number] Sep, Dental examination Z01.20 [place] [address] 85645- 7136 Sep, Sore throat J02.9 ; Other viral agents as the cause of diseases classified elsewhere B97.89 and Acute upper respiratory infection, unspecified J06.9 [facility] [address] [id number]- [address]150 Aug, Encounter for immunization Z23 [place] [address] 43691- 5158 Aug, Encounter for immunization Z23 [place] [address] [id number]- 6693 Aug, Migraine without aura and without status migrainosus, not intractable G43.[address] 01092- 9801 Jul, Acute midline low back pain without sciatica M54.5 and Obesity (BMI 30.0-34.9) E66.[address] 84161- 5528 Jul, Chronic seasonal allergic rhinitis due to pollen J30.1 [facility] [address] [id number] Jun, Dental examination Z01.20 [facility] [address] 12367 [address]707 Jun, Jaw pain R68.84 [facility] [address] [place] [address] 11990- 9668 Jun, Dental examination Z01.20 [facility] [address] [id number] Jun, Dental examination Z01.20 [facility] [address] 30771- 5857 Jun, [place] [address] 91203- 9740 Jun, Allergic reaction, initial encounter T78.40XA [facility] [address] [place] [address] [place] [address]- [address] Jun, [place] [id number] [place] [address] 19496- 1637 Jun, Migraine without aura and without status migrainosus, not intractable G43.009 [facility] [id number] [place] [address] 02214- 6860 May, [place] [address] 06050- [address]296 May, Helicobacter pylori (H. pylori) infection A04.[address] [address]10- 0253 11 May, 2017 Encounter for routine adult health examination with abnormal findings Z00.01 ; Obesity (BMI 30.0-34.9) E66.9 ; Acanthosis nigricans L83 and Dietary counseling Z71.3 [place] [address] [address]- [address]23 13 Apr, 2017 Acute seasonal allergic rhinitis due to pollen J30.1 and Sore throat J02.9 [id number] [place] [address] 35038- 9457 Apr, [facility] [id number] [place] [address] 33565- 3442 Apr, Migraine without aura and without status migrainosus, not intractable G43.009 [facility] [address] [place] [address] 34552- 7318 March, Dental examination Z01.20 [facility] [address] [address] Feb, Seasonal allergic rhinitis, unspecified allergic rhinitis trigger J30.2 [facility] [address] [id number] [id number] Nov, [facility] [address] [id number] [id number] Oct, Dental examination Z01.20 [facility] [address] [id number] [id number] Oct, Dental examination Z01.20 [facility] [address] [id number] [id number] Oct, Dental examination Z01.20 and Encounter for dental examination Z01.20 [facility] [address] [id number] [place] 14 Feb, 2015 [facility] [address] [id number], [place] [address] Feb, [facility] [id number] [place] [address] 67793- 0613 Sep, [facility] [address] [id number], [place] [address] Sep, [facility] [address] [facility] [id number] [place] [address] 14800- 8813 Jul, [facility] [address] [id number], [place] [address]- 9485 Jul, [facility] [address] [id number], [place] [address]- [address] Jul, [facility] [address] [facility] [id number], [place] [address]- 2458 Jun, [facility] [address] [id number], [place] [address] 2340 Jun, [facility] [address] [id number], [place] [address] 366[address] Jun, [facility] [address] [id number], [place] [address]- 5846 Jun, [facility] [address] [facility] [id number], [place] [address]- 80[address] Jul, [facility] [address] [id number], [place] [address] Jun, [facility] [address] [facility] [id number], [place] [address]- 9766 Feb, [facility] [address] [facility] [id number], [place] [address]- 9072 Sep, [facility] [address] [facility] [id number], [place] [address]- 7[address] Sep, [facility] [address] [facility] [id number], [place] [address] 69[address] Oct, [facility] [address] [facility] [id number], [place] [address]- 7472 Oct, IMMUNIZATIONS No Known Immunizations SOCIAL HISTORY Never Assessed REASON FOR VISIT possible pinworms PLAN OF CARE VITAL SIGNS MEDICATIONS Medication Instructions Dosage Frequency Start Date End Date Duration Status Albenza 200 mg Orally once 2 tablets March, Active RESULTS No Results PROCEDURES No Known procedures INSTRUCTIONS MEDICATIONS ADMINISTERED No Known Medications MEDICAL (GENERAL) HISTORY Type Description Date Medical History Seasonal Allergies Surgical History uterine polyp removal- 12/2017 Hospitalization History Childbirth only
--- OUTSIDE RECORDS SUMMARY | 2018-11-13 10:42 | XMS REPORT ---
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 Name Role Phone JOSE MIGUEL DEGROOT Unavailable PROBLEMS Type Condition ICD9-CM Code ZBB78-SB Code Onset Dates Condition Status SNOMED Code Problem GERD without esophagitis K21.9 Active 312009793 Problem Primary insomnia F51.01 Active 0696271 Problem Moderate episode of recurrent major depressive disorder F33.1 Active 087718405 Problem Intractable migraine without aura and with status migrainosus G43.011 Active 329022316 Problem GERD with esophagitis K21.0 Active 302914288 Problem Acute bilateral low back pain without sciatica M54.5 Active 313273393 Problem Anxiety F41.9 Active 75669754 Problem Mild persistent asthma without complication J45.30 Active 684233136 Problem Asthma due to seasonal allergies J45.909 Active 178838159 Problem Migraine without aura and without status migrainosus, not intractable G43.009 Active 409611915 Problem Obesity (BMI 30.0-34.9) E66.9 Active 140418037720556 Problem Acanthosis nigricans L83 Active 799727273 Problem Seasonal allergic rhinitis, unspecified allergic rhinitis trigger J30.2 Active 276075135 Problem Dysmenorrhea N94.6 Active 374428728 ALLERGIES Substance Reaction Event Type Date Status Topamax numbness and tingling Drug Allergy Feb, Active ENCOUNTERS Encounter Location Date Diagnosis [facility] [address] [facility] [id number] [address] Jun, [facility] [address] [id number], [place] [address] May, Intractable migraine without aura and with status migrainosus G43.011 [facility] [address] [id number], [place] [address] May, Intractable migraine without aura and with status migrainosus G43.011 [facility] [id number] [place] [address] May, Migraine without aura and without status migrainosus, not intractable G43.009 [facility] [id number] [place] [address]22- 4869 28 Apr, 2018 Epigastric abdominal pain R10.13 and Vertigo R42 [facility] [address] [address] Apr, Vertigo R42 [facility] [id number] [place] [address] Apr, Vertigo R42 [place] [id number] [place] [address]367- 3974 Apr, Epigastric abdominal pain R10.13 and GERD with esophagitis K21.0 [place] [address] [address] Apr, Wheezing R06.2 [place] [address] [address]- [address] 12 Apr, 2018 Mild persistent asthma without complication J45.30 and Wheezing R06.2 [place] [id number] [place] [address] 17554- 6358 11 Apr, 2018 Migraine without aura and without status migrainosus, not intractable G43.009 [place] [id number] [place] [address] 87128- 8901 Apr, [place] [id number] [place] [address] 65681- 3852 07 Apr, 2018 Cough R05 and Wheezing R06.2 [place] [id number] [place] [address] 79229- 6560 05 Apr, 2018 Persistent cough for 3 weeks or longer R05 [place] [address] [address] March, Asthma due to seasonal allergies J45.909 ; Cough R05 and Wheezing R06.2 [place] [address] [address] March, Seasonal allergic rhinitis, unspecified allergic rhinitis trigger J30.2 and Asthma due to seasonal allergies J45.909 [place] [address] [address]- [address] March, Cough R05 ; Chest congestion R09.89 and Sore throat J02.9 [place] [address] [address]- [address] March, Moderate episode of recurrent major depressive disorder F33.1 ; Migraine without aura and without status migrainosus, not intractable G43.009 ; Primary insomnia F51.01 and Anxiety F41.9 [facility] [address] [address] March, Acute non-recurrent frontal sinusitis J01.10 [place] [address] [address]16- [address] March, [place] [address] [address] March, Right otitis media with effusion H65.91 ; Acute non- recurrent frontal sinusitis J01.10 and Migraine without aura and without status migrainosus, not intractable G43.009 [place] [address] [address]489- 9406 Feb, Left lower quadrant pain R10.32 ; Migraine without aura and without status migrainosus, not intractable G43.009 and Anxiety F41.9 [place] [address] 10626- 7778 Feb, Oral contraceptive pill surveillance Z30.41 [place] [address] 9[address]69- 2976 Feb, Acute bilateral low back pain without sciatica M54.5 [place] [id number] [place] [address] 94233- 0149 Feb, [place] [address] 8[address]40- [address] Feb, Dental examination Z01.20 [facility] [id number] [place] [id number] 10 Feb, 2018 Dental examination Z01.20 [place] [address] 74[address]- 8841 Feb, Anxiety F41.9 [place] [address] 82739- 7408 Feb, Primary insomnia F51.01 and Moderate episode of recurrent major depressive disorder F33.1 [place] [address] [address]- [address]858 Jan, Acute suppurative otitis media of left ear without spontaneous rupture of tympanic membrane, recurrence not specified H66.002 [place] [address] 82187- 2697 Jan, Migraine without aura and without status migrainosus, not intractable G43.009 ; Seasonal allergic rhinitis, unspecified allergic rhinitis trigger J30.2 ; GERD without esophagitis K21.9 ; Current mild episode of major depressive disorder without prior episode F32.0 and Human bite, initial encounter W50.3XXA [place] [address] 23564[address] 7383 Dec, Migraine without aura and without status migrainosus, not intractable G43.009 [place] [address] [address]- [address]60 Dec, Nausea and vomiting after administration of anesthetic agent T88.59XA [place] [address] 8[address]34- 4750 Dec, [place] [address] [address] 79[address] Dec, Acute tonsillitis, unspecified etiology J03.90 [facility] [id number] [place] [address]60- 6969 Nov, Dysmenorrhea N94.6 ; Acute midline low back pain without sciatica M54.5 ; Obesity (BMI 30.0-34.9) E66.9 and High ankle sprain of right lower extremity, initial encounter S93.431A [place] [address] 62710- 9347 Nov, [facility] [address] [address] Nov, Migraine without aura and without status migrainosus, not intractable G43.009 [place] [address] 8[address]48- [address] Oct, Migraine without aura and without status migrainosus, not intractable G43.009 [facility] [address] [address] Oct, Migraine without aura and without status migrainosus, not intractable G43.009 [facility] [address] 8[address]- [address]6 Oct, [facility] [address] [address] Oct, [facility] [address] 26423- 9561 Oct, Acute non-recurrent maxillary sinusitis J01.00 [facility] [address] 87829- [address]11 Sep, Left elbow tendonitis M77.8 and Other fatigue R53.83 [facility] [id number] [place] [id number] Sep, Dental examination Z01.20 [place] [address] 01247- 6[address] Sep, Sore throat J02.9 ; Other viral agents as the cause of diseases classified elsewhere B97.89 and Acute upper respiratory infection, unspecified J06.9 [place] [id number] [place] [address] Aug, Encounter for immunization Z23 [place] [address] [address]- 7958 Aug, Encounter for immunization Z23 [place] [id number] Aug, Migraine without aura and without status migrainosus, not intractable G43.009 [place]24[place]- [address] Jul, Acute midline low back pain without sciatica M54.5 and Obesity (BMI 30.0-34.9) E66.[address] [address]- [address] Jul, Chronic seasonal allergic rhinitis due to pollen J30.1 [facility] [address] [id number] Jun, Dental examination Z01.20 [facility] [id number] [place] [address]2634 -5503 Jun, Jaw pain R68.[address] [address]884- 0140 Jun, Dental examination Z01.20 [facility] [address] [id number] Jun, Dental examination Z01.20 [facility] [address] 47[address]- [address]328 Jun, [place] [address] [address]- [address]86 Jun, Allergic reaction, initial encounter T78.40XA [place] [id number] [place] [address] 24074- 9619 Jun, [place] [address] [address]- 37[address] Jun, Migraine without aura and without status migrainosus, not intractable G43.009 [place] [address] 46678- 2138 May, [place] [address] [address]41- 1226 May, Helicobacter pylori (H. pylori) infection A04.[address] 19025- 2520 11 May, 2017 Encounter for routine adult health examination with abnormal findings Z00.01 ; Obesity (BMI 30.0-34.9) E66.9 ; Acanthosis nigricans L83 and Dietary counseling Z71.3 [place] [id number] [place] [address] 8[address]34- 9114 13 Apr, 2017 Acute seasonal allergic rhinitis due to pollen J30.1 and Sore throat J02.9 [place] [id number] [place] [address] 93998- 7919 Apr, [place] [id number] [place] [address] 55729- 7590 Apr, Migraine without aura and without status migrainosus, not intractable G43.009 [place] [id number] [place] [address] 73953- 4545 March, Dental examination Z01.20 [facility] [address] [place] [address]5510 -6562 Feb, Seasonal allergic rhinitis, unspecified allergic rhinitis trigger J30.2 [facility] [id number] [place] [id number] Nov, [facility] [id number] [place] [address] [id number] Oct, Dental examination Z01.20 [facility] [address] [id number] [id number] Oct, Dental examination Z01.20 [facility] [address] [id number] [id number] Oct, Dental examination Z01.20 and Encounter for dental examination Z01.20 [facility] [address] [id number] [place] [address] Feb, [facility] [address] [id number] [place] [address]- 2724 Feb, [facility] [id number] [place] [address], [place] [address]- 6517 Sep, [facility] [address] [id number], [place] [address] 9[address] Sep, [facility] [id number] [place] [address] 31005- 1235 Jul, [facility] [address] [id number], [place] [address] Jul, [facility] [address] [id number] [place] [address]- 2198 Jul, [facility] [address] [facility] [id number], [place] [address] Jun, [facility] [address] [id number], [place] [address] Jun, [facility] [address] [id number], [place] [address] Jun, [facility] [address] [id number] [place] [address]- [address] Jun, [facility] [address] [id number], [place] [address] Jul, [facility] [address] [id number], [place] [address]- 7679 Jun, [facility] [address] [facility] [id number], [place] [address] Feb, [facility] [address] [facility] [id number], [place] [address] Sep, [facility] [address] [facility] [id number], [place] [address]- [address] Sep, [facility] [address] [facility] [id number], [place] [address]- [address] Oct, [facility] [address] [facility] [id number], [place] [address] Oct, IMMUNIZATIONS No Known Immunizations SOCIAL HISTORY Never Assessed REASON FOR VISIT finish endo W/ NITROUS PLAN OF CARE Activity Details Follow Up prn Reason:Wyocena prep #12 VITAL SIGNS Blood pressure systolic 114 mmHg 2018-03-03 Blood pressure diastolic 68 mmHg 2018-03-03 MEDICATIONS Medication Instructions Dosage Frequency Start Date End Date Duration Status Omeprazole 20 mg Orally twice a day 1 capsule 12h May, 90 days Active Jdpynqlyri-PMCU-Gukqtiow 50-325-40 MG Orally every 4 hrs 1 capsule as needed 4h Apr, Apr, 07 days Not-Taking Diazepam 5 mg Orally one time 1 tablet prior to dental procedure and may repeat x 1 if needed- 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 have a Freight Claim 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 Feb, 1 days Active Ibuprofen 800 MG Orally Three times a day 1 tablet with food or milk as needed 8h Oct, Jul, 90 days Active Lunesta 2 MG Orally Once a day 1 tablet immediately before bedtime 24h Feb, 28 days Active Propranolol HCl 10 mg Orally Twice a day 1 tablet 12h Dec, Active Paroxetine HCl 20 mg Orally Once a day 1 tablet in the morning 24h Jan, Active RESULTS No Results PROCEDURES Procedure Date Ordered Result Body Site BICUSPID March 03, 2018 Billing Notes on claim March 03, 2018 INSTRUCTIONS MEDICATIONS ADMINISTERED No Known Medications MEDICAL (GENERAL) HISTORY Type Description Date Medical History Seasonal Allergies Surgical History uterine polyp removal- 12/2017 Hospitalization History Childbirth only
--- OUTSIDE RECORDS SUMMARY | 2018-11-13 10:42 | XMS REPORT ---
Author Author LOBITO MAGALLANES [facility] Address [address] [place] [address] Care Team Providers Care Neurology Director Name Role Phone LOBITO MAGALLANES Unavailable PROBLEMS Type Condition ICD9-CM Code MLS82-WC Code Onset Dates Condition Status SNOMED Code Problem GERD without esophagitis K21.9 Active 350971114 Problem Primary insomnia F51.01 Active 0950095 Problem Moderate episode of recurrent major depressive disorder F33.1 Active 468400406 Problem Intractable migraine without aura and with status migrainosus G43.011 Active 942748408 Problem GERD with esophagitis K21.0 Active 186117084 Problem Acute bilateral low back pain without sciatica M54.5 Active 361537166 Problem Anxiety F41.9 Active 61900155 Problem Mild persistent asthma without complication J45.30 Active 213107859 Problem Asthma due to seasonal allergies J45.909 Active 995343942 Problem Migraine without aura and without status migrainosus, not intractable G43.009 Active 746101423 Problem Obesity (BMI 30.0-34.9) E66.9 Active 235070657037755 Problem Acanthosis nigricans L83 Active 206970582 Problem Seasonal allergic rhinitis, unspecified allergic rhinitis trigger J30.2 Active 553728009 Problem Dysmenorrhea N94.6 Active 022585309 ALLERGIES No Information ENCOUNTERS Encounter Location Date Diagnosis [facility] [address] [facility] [id number] [address] Jun, [facility] [address], [place] [address] May, Intractable migraine without aura and with status migrainosus G43.011 [facility] [address] [id number] [address] May, Intractable migraine without aura and with status migrainosus G43.011 [facility] [id number] [place] [address] May, Migraine without aura and without status migrainosus, not intractable G43.009 [facility] [id number] [place] [address] 28 Apr, 2018 Vertigo R42 and Epigastric abdominal pain R10.13 [facility] [address] [address] Apr, Vertigo R42 [facility] [id number] [place] [address] Apr, Vertigo R42 [place] [address] [address] Apr, Epigastric abdominal pain R10.13 and GERD with esophagitis K21.0 [place] [address] [address] Apr, Wheezing R06.2 [place] [address] [address] 12 Apr, 2018 Mild persistent asthma without complication J45.30 and Wheezing R06.2 [place] [id number] [place] [address] Apr, Migraine without aura and without status migrainosus, not intractable G43.009 [place] [id number] [place] [address] Apr, [place] [id number] [place] [address] 07 Apr, 2018 Cough R05 and Wheezing R06.2 [place] [address] [address] 05 Apr, 2018 Persistent cough for 3 weeks or longer R05 [place] [address] [address] March, Asthma due to seasonal allergies J45.909 ; Cough R05 and Wheezing R06.2 [place] [address] [address] March, Seasonal allergic rhinitis, unspecified allergic rhinitis trigger J30.2 and Asthma due to seasonal allergies J45.909 [place] [address] [address] March, Cough R05 ; Chest congestion R09.89 and Sore throat J02.9 [place] [address] [address] March, Moderate episode of recurrent major depressive disorder F33.1 ; Migraine without aura and without status migrainosus, not intractable G43.009 ; Primary insomnia F51.01 and Anxiety F41.9 [facility] [address] [address] March, Acute non-recurrent frontal sinusitis J01.10 [place] [address] [address] March, [place] [address] [address] March, Right otitis media with effusion H65.91 ; Acute non- recurrent frontal sinusitis J01.10 and Migraine without aura and without status migrainosus, not intractable G43.009 [place] [address] [address] Feb, Left lower quadrant pain R10.32 ; Migraine without aura and without status migrainosus, not intractable G43.009 and Anxiety F41.9 [place] [address] [address] Feb, Oral contraceptive pill surveillance Z30.41 [place] [address] [address] Feb, Acute bilateral low back pain without sciatica M54.5 [place] [id number] [place] [address] Feb, [place] [address] [address] Feb, Dental examination Z01.20 [facility] [id number] [place] [id number] 10 Feb, 2018 Dental examination Z01.20 [place] [address] [address] 10 Feb, 2018 Anxiety F41.9 [place] [address] [address] Feb, Primary insomnia F51.01 and Moderate episode of recurrent major depressive disorder F33.1 [place] [address] [address] Jan, Acute suppurative otitis media of left ear without spontaneous rupture of tympanic membrane, recurrence not specified H66.002 [place] [id number] [place] [address]697 Jan, Migraine without aura and without status migrainosus, not intractable G43.009 ; Seasonal allergic rhinitis, unspecified allergic rhinitis trigger J30.2 ; GERD without esophagitis K21.9 ; Current mild episode of major depressive disorder without prior episode F32.0 and Human bite, initial encounter W50.3XXA [place] [address] [address] Dec, Migraine without aura and without status migrainosus, not intractable G43.009 [place] [address] [address] Dec, Nausea and vomiting after administration of anesthetic agent T88.59XA [place] [address] [address] Dec, [place] [address] [address] Dec, Acute tonsillitis, unspecified etiology J03.90 [facility] [id number] [place] [address] Nov, Dysmenorrhea N94.6 ; Acute midline low back pain without sciatica M54.5 ; Obesity (BMI 30.0-34.9) E66.9 and High ankle sprain of right lower extremity, initial encounter S93.431A [place] [address] [address] Nov, [facility] [address] [address] Nov, Migraine without aura and without status migrainosus, not intractable G43.009 [facility] [address] [address] Oct, Migraine without aura and without status migrainosus, not intractable G43.009 [facility] [address] [address] Oct, Migraine without aura and without status migrainosus, not intractable G43.009 [facility] [address] [address] Oct, [facility] [address] [address] Oct, [facility] [address] [address] Oct, Acute non-recurrent maxillary sinusitis J01.00 [facility] [address] [address] Sep, Left elbow tendonitis M77.8 and Other fatigue R53.83 [facility] [address] [id number] [place] [id number] Sep, Dental examination Z01.20 [place] [address] [address] Sep, Sore throat J02.9 ; Other viral agents as the cause of diseases classified elsewhere B97.89 and Acute upper respiratory infection, unspecified J06.9 [place] [id number] [place] [address] Aug, Encounter for immunization Z23 [address] [address] Aug, Encounter for immunization Z23 [place] [address] [place] [id number]24 Aug, Migraine without aura and without status migrainosus, not intractable G43.009 [place] [address]- [address] Jul, Acute midline low back pain without sciatica M54.5 and Obesity (BMI 30.0-34.9) E66.[address] [address] Jul, Chronic seasonal allergic rhinitis due to pollen J30.1 [facility] [address] [id number] Jun, Dental examination Z01.20 [facility] [address] [place] [id number] [place] [address] Jun, Jaw pain R68.[address] [address] Jun, Dental examination Z01.20 [facility] [address] [id number] Jun, Dental examination Z01.20 [facility] [address] [address] Jun, [place] [id number] [place] [address]81[address] Jun, Allergic reaction, initial encounter T78.40XA [place] [id number] [place] [address]- 77[address] Jun, [place] [id number] [place] [address] Jun, Migraine without aura and without status migrainosus, not intractable G43.009 [place] [id number] [place] [address]- [address] May, [place] [id number] [place] [address]650- [address] May, Helicobacter pylori (H. pylori) infection A04.[address] [address] 11 May, 2017 Encounter for routine adult health examination with abnormal findings Z00.01 ; Obesity (BMI 30.0-34.9) E66.9 ; Acanthosis nigricans L83 and Dietary counseling Z71.3 [place] [id number] [place] [address]- [address] 13 Apr, 2017 Acute seasonal allergic rhinitis due to pollen J30.1 and Sore throat J02.9 [place] [id number] [place] [address]- [address] Apr, [place] [id number] [place] [address] 87373- 4260 Apr, Migraine without aura and without status migrainosus, not intractable G43.009 [place] [address] [id number] [place] [address] 35478- 3218 March, Dental examination Z01.20 [facility] [address] [place] [address] Feb, Seasonal allergic rhinitis, unspecified allergic rhinitis trigger J30.2 [facility] [address] [id number] [id number] Nov, [facility] [address] [place] [id number] [place] [id number] Oct, Dental examination Z01.20 [facility] [address] [id number] [id number] Oct, Dental examination Z01.20 [facility] [address] [id number] [id number] Oct, Dental examination Z01.20 and Encounter for dental examination Z01.20 [facility] [address] [id number] Feb, [facility] [address] [id number], [place] [address] Feb, [facility] [id number] [place] [address], [place] [address] Sep, [facility] [address] [id number], [place] [address] Sep, [facility] [id number] [place] [address]- [address] Jul, [facility] [address] [id number], [place] [address] Jul, [facility] [address] [id number] [place] [address] Jul, [facility] [address] [id number], [place] [address] Jun, [facility] [address] [id number], [place] [address] Jun, [facility] [address] [id number], [place] [address] Jun, [facility] [address] [id number], [place] [address] Jun, [facility] [address] [id number], [place] [address] Jul, [facility] [address] [id number], [place] [address] Jun, [facility] [address] [facility] [id number], [place] [address] Feb, [facility] [address] [facility] [id number], [place] [address] Sep, [facility] [address] [facility] [id number], [place] [address] Sep, [facility] [address], [place] [address] Oct, [facility] [address] [facility] [id number], [place] [address] Oct, IMMUNIZATIONS No Known Immunizations SOCIAL HISTORY Never Assessed REASON FOR VISIT dental post - op x-ray PLAN OF CARE Activity Details Follow Up prn Reason: VITAL SIGNS MEDICATIONS Unknown Medications RESULTS No Results PROCEDURES Procedure Date Ordered Result Body Site INTRAORL-PERIAPICAL 1 FILM [id number] March 05, 2018 Billing Notes on claim March 05, 2018 [facility] Employee/Board adjustment March 05, 2018 INSTRUCTIONS MEDICATIONS ADMINISTERED No Known Medications MEDICAL (GENERAL) HISTORY Type Description Date Medical History Seasonal Allergies Surgical History uterine polyp removal- 12/2017 Hospitalization History Childbirth only
--- OUTSIDE RECORDS SUMMARY | 2018-11-13 10:42 | XMS REPORT ---
Author Author CUELLOLAURA Cunha Organization [facility] Address [address] [place] [address] Care Team Providers Care Automobile Racer Name Role Phone LAURA CUELLO Unavailable PROBLEMS Type Condition ICD9-CM Code MGO01-UO Code Onset Dates Condition Status SNOMED Code Problem GERD without esophagitis K21.9 Active 838833782 Problem Primary insomnia F51.01 Active 9742148 Problem Moderate episode of recurrent major depressive disorder F33.1 Active 799174171 Problem Intractable migraine without aura and with status migrainosus G43.011 Active 407405086 Problem GERD with esophagitis K21.0 Active 622416422 Problem Acute bilateral low back pain without sciatica M54.5 Active 237578147 Problem Anxiety F41.9 Active 14677681 Problem Mild persistent asthma without complication J45.30 Active 683669507 Problem Asthma due to seasonal allergies J45.909 Active 390570655 Problem Migraine without aura and without status migrainosus, not intractable G43.009 Active 444970767 Problem Obesity (BMI 30.0-34.9) E66.9 Active [id number] Problem Acanthosis nigricans L83 Active 955826611 Problem Seasonal allergic rhinitis, unspecified allergic rhinitis trigger J30.2 Active 390056050 Problem Dysmenorrhea N94.6 Active 189706397 ALLERGIES Substance Reaction Event Type Date Status Topamax numbness and tingling Drug Allergy Feb, Active ENCOUNTERS Encounter Location Date Diagnosis [facility] [address] [facility] [id number] [place] [address] Jun, [facility] [address] [id number] [address] May, Intractable migraine without aura and with status migrainosus G43.011 [facility] [address] [facility] [id number] [place] [address] May, Intractable migraine without aura and with status migrainosus G43.011 [facility] [id number] [place] [address] May, Migraine without aura and without status migrainosus, not intractable G43.009 [facility] [address] [address] Apr, Epigastric abdominal pain R10.13 and Vertigo R42 [place] [id number] [place] [address] Apr, Vertigo R42 [facility] IN [facility] [address] [address] Apr, Vertigo R42 [place] [address] [address] Apr, Epigastric abdominal pain R10.13 and GERD with esophagitis K21.0 [place] [address] [address] 13 Apr, 2018 Wheezing R06.2 [place] [address] [address] 12 Apr, 2018 Mild persistent asthma without complication J45.30 and Wheezing R06.2 [place] [id number] [place] [address] Apr, Migraine without aura and without status migrainosus, not intractable G43.009 [place] [id number] [place] [address] Apr, [place] [address] [address] 07 Apr, 2018 Cough R05 and Wheezing R06.2 [place] [id number] [place] [address] 05 Apr, 2018 Persistent cough for 3 weeks or longer R05 [place] [address] [address] March, Asthma due to seasonal allergies J45.909 ; Cough R05 and Wheezing R06.2 [place] [address] [address] March, Seasonal allergic rhinitis, unspecified allergic rhinitis trigger J30.2 and Asthma due to seasonal allergies J45.909 [place] [address] [address] March, Cough R05 ; Chest congestion R09.89 and Sore throat J02.9 [place] [address] [address] March, Moderate episode of recurrent major depressive disorder F33.1 ; Migraine without aura and without status migrainosus, not intractable G43.009 ; Primary insomnia F51.01 and Anxiety F41.9 [facility] IN [facility] [address] [address] March, Acute non-recurrent frontal sinusitis J01.10 [place] [address] [address] March, [place] [address] [address] March, Right otitis media with effusion H65.91 ; Acute non- recurrent frontal sinusitis J01.10 and Migraine without aura and without status migrainosus, not intractable G43.009 [place] [address] [address] Feb, Left lower quadrant pain R10.32 ; Migraine without aura and without status migrainosus, not intractable G43.009 and Anxiety F41.9 [place] [address] [address] Feb, Oral contraceptive pill surveillance Z30.41 [place] [address] [address] Feb, Acute bilateral low back pain without sciatica M54.5 [facility] [id number] [place] [address] Feb, [facility] [id number] [place] [address] Feb, Dental examination Z01.20 [facility] [address] [place] [id number] Feb, Dental examination Z01.20 [facility] [id number] [place] [address] Feb, Anxiety F41.9 [place] [address] [address] Feb, Primary insomnia F51.01 and Moderate episode of recurrent major depressive disorder F33.1 [place] [address] [address] Jan, Acute suppurative otitis media of left ear without spontaneous rupture of tympanic membrane, recurrence not specified H66.002 [place] [id number] [place] [address] Jan, Migraine without aura and without status migrainosus, not intractable G43.009 ; Seasonal allergic rhinitis, unspecified allergic rhinitis trigger J30.2 ; GERD without esophagitis K21.9 ; Current mild episode of major depressive disorder without prior episode F32.0 and Human bite, initial encounter W50.3XXA [place] [id number] [place] [address] Dec, Migraine without aura and without status migrainosus, not intractable G43.009 [place] [address] [address] Dec, Nausea and vomiting after administration of anesthetic agent T88.59XA [place] [address] [address] Dec, [place] [address] [address] 05 Dec, 2017 Acute tonsillitis, unspecified etiology J03.90 [facility] [address] [address] Nov, Dysmenorrhea N94.6 ; Acute midline low back pain without sciatica M54.5 ; Obesity (BMI 30.0-34.9) E66.9 and High ankle sprain of right lower extremity, initial encounter S93.431A [place] [address] [address]- [address] Nov, [place] [address] [address] Nov, Migraine without aura and without status migrainosus, not intractable G43.009 [place] [address] [address] Oct, Migraine without aura and without status migrainosus, not intractable G43.009 [facility] [address] [address] Oct, Migraine without aura and without status migrainosus, not intractable G43.009 [facility] [id number] [place] [address] Oct, [facility] [id number] [place] [address] Oct, [facility] [address] [address] Oct, Acute non-recurrent maxillary sinusitis J01.00 [place] [address] [address] Sep, Left elbow tendonitis M77.8 and Other fatigue R53.83 [facility] [id number] [place] [id number] Sep, Dental examination Z01.20 [place] [id number] [place] [address] 16514- [address] 10 Sep, 2017 Sore throat J02.9 ; Other viral agents as the cause of diseases classified elsewhere B97.89 and Acute upper respiratory infection, unspecified J06.9 [place] [address] [address]- [address] Aug, Encounter for immunization Z23 [place] [address] 012993- [address]33 Aug, Encounter for immunization Z23 [place] [address] [address] Aug, Migraine without aura and without status migrainosus, not intractable G43.009 [place] [address] [address]759 Jul, Acute midline low back pain without sciatica M54.5 and Obesity (BMI 30.0-34.9) E66.9 [place] [address] [address] Jul, Chronic seasonal allergic rhinitis due to pollen J30.1 [facility] [address] [id number] Jun, Dental examination Z01.20 [facility] [address] [address] Jun, Jaw pain R68.84 [facility] [address] [address] Jun, Dental examination Z01.20 [facility] [address] [id number] Jun, Dental examination Z01.20 [facility] [address] [address] Jun, [place] [address] [address] Jun, Allergic reaction, initial encounter T78.40XA [place] [id number] [place] [address]- [address] Jun, [place] [address] [address] Jun, Migraine without aura and without status migrainosus, not intractable G43.[address] [address] May, [place] [address] [address]- 240[address] May, Helicobacter pylori (H. pylori) infection A04.[address] [address]- [address] 11 May, 2017 Encounter for routine adult health examination with abnormal findings Z00.01 ; Obesity (BMI 30.0-34.9) E66.9 ; Acanthosis nigricans L83 and Dietary counseling Z71.3 [place] [address] [address]- [address] 13 Apr, 2017 Acute seasonal allergic rhinitis due to pollen J30.1 and Sore throat J02.9 [place] [id number] [place] [address]- 8[address] 08 Apr, [address] [address]- [address] Apr, Migraine without aura and without status migrainosus, not intractable G43.009 [place] [id number] [place] [address]- 1710 March, Dental examination Z01.20 [facility] [address] [address] Feb, Seasonal allergic rhinitis, unspecified allergic rhinitis trigger J30.2 [facility] [address] [id number] [id number] Nov, [facility] [id number] [place] [id number] Oct, [facility]01.20 [facility] [address] [id number] [place] [id number] Oct, [facility] examination Z01.20 [facility] [address] [id number] [place] [id number] 08 Oct, 2015 Dental examination Z01.20 and Encounter for dental examination Z01.20 [facility] [address] [id number] [place] Feb, [facility] [address] [id number] [place] Feb, [facility] [address] [id number] [place] Sep, [facility] [address] [id number] [place] [address] Sep, [facility] [address] [id number] [place] [address]- [address] Jul, [facility] [address] [id number] [place] [address] Jul, [facility] [address] [id number] [place] [address] Jul, [facility] [address] [id number] [place] [address] Jun, [facility] [address] [id number] [place] [address] Jun, [facility] [address] [id number] [place] [address]- [address] Jun, [facility] [address] [id number] [place] [address]- [address] Jun, [facility] [address] [id number] [place] Jul, [facility] [address] [id number] [place] [address]- [address] Jun, [facility] [address] [address] Feb, [facility] [address] [id number] [address] 43[address] Sep, [facility] [address] [address]- 9[address] Sep, [facility] [address] [address]- 9[address] Oct, [facility] [address] [address]- 17[address] Oct, IMMUNIZATIONS No Known Immunizations SOCIAL HISTORY Never Assessed REASON FOR VISIT Pain to Amairani HUMPHREY RN PLAN OF CARE Activity Details Follow Up 3 Months, prn Reason:CHM/Migraines VITAL SIGNS Height 62 in 2018-03-20 Weight 179 lbs 2018-03-20 Temperature 98.3 degrees Fahrenheit 2018-03-20 Heart Rate 94 bpm 2018-03-20 Respiratory Rate 20 2018-03-20 BMI 32.74 kg/m2 2018-03-20 Blood pressure systolic 96 mmHg 2018-03-20 Blood pressure diastolic 58 mmHg 2018-03-20 MEDICATIONS Medication Instructions Dosage Frequency Start Date End Date Duration Status Kqlvgobice-TELV-Aycuqbew 50-325-40 MG Orally every 4 hrs 1 capsule as needed 4h Apr, Apr, Active Propranolol HCl 10 mg Orally Twice a day 1 tablet 12h Dec, Active Omeprazole 20 mg Orally twice a day 1 capsule 12h May, 90 days Active Cryselle-28 0.3-30 MG-MCG Orally Once a day 1 tablet 24h Feb, 28 day(s) Active Ibuprofen 800 MG Orally Three times a day 1 tablet with food or milk as needed 8h Oct, Jul, 90 days Active Lunesta 2 MG Orally Once a day 1 tablet immediately before bedtime 24h Feb, 28 days Active Cyclobenzaprine HCl 5 mg Orally at night 1 tablet as needed Feb, March, 30 days Not-Taking Paroxetine HCl 20 mg Orally Once a day 1 tablet in the morning 24h 08 Mar, 2018 Active RESULTS Name Result Date Reference Range Ultrasound : Pelvic, COMPLETE (REFLEX CPT-41539) 2018-03-27 PROCEDURES No Known procedures INSTRUCTIONS MEDICATIONS ADMINISTERED No Known Medications MEDICAL (GENERAL) HISTORY Type Description Date Medical History Seasonal Allergies Surgical History uterine polyp removal- 12/2017 Hospitalization History Childbirth only
--- OUTSIDE RECORDS SUMMARY | 2018-11-13 10:43 | XMS REPORT ---
Author Author CUELLOLAURA Cunha Organization [facility] Address [address] [place] [address] Care Team Providers Care Stone Breaker Name Role Phone LAURA CUELLO Unavailable PROBLEMS Type Condition ICD9-CM Code PZP41-EM Code Onset Dates Condition Status SNOMED Code Problem GERD without esophagitis K21.9 Active 401381568 Problem Primary insomnia F51.01 Active 8652941 Problem Moderate episode of recurrent major depressive disorder F33.1 Active 216099139 Problem Intractable migraine without aura and with status migrainosus G43.011 Active 253774501 Problem GERD with esophagitis K21.0 Active 212312796 Problem Acute bilateral low back pain without sciatica M54.5 Active 622200475 Problem Anxiety F41.9 Active 39856855 Problem Mild persistent asthma without complication J45.30 Active 855900066 Problem Asthma due to seasonal allergies J45.909 Active 224050311 Problem Migraine without aura and without status migrainosus, not intractable G43.009 Active 485674666 Problem Obesity (BMI 30.0-34.9) E66.9 Active 493407012836130 Problem Acanthosis nigricans L83 Active 277401914 Problem Seasonal allergic rhinitis, unspecified allergic rhinitis trigger J30.2 Active 691303787 Problem Dysmenorrhea N94.6 Active 447533689 ALLERGIES Substance Reaction Event Type Date Status Topamax numbness and tingling Drug Allergy Feb, Active ENCOUNTERS Encounter Location Date Diagnosis [facility] [address] [id number] [address] May, Intractable migraine without aura and with status migrainosus G43.011 [facility] [address] [id number], [place] [address] May, Migraine without aura and without status migrainosus, not intractable G43.009 [facility] [address] [address] 28 Apr, 2018 Vertigo R42 and Epigastric abdominal pain R10.13 [place] [address] [address] Apr, Vertigo R42 [facility] [address] [address] Apr, Vertigo R42 [place] [address] [address] Apr, Epigastric abdominal pain R10.13 and GERD with esophagitis K21.0 [place] [address] [address] Apr, Wheezing R06.2 [place] [address] [address] 12 Apr, 2018 Mild persistent asthma without complication J45.30 and Wheezing R06.2 [place] [address] [address] Apr, Migraine without aura and without status migrainosus, not intractable G43.009 [place] [address] [address] Apr, [place] [address] [address] Apr, Cough R05 and Wheezing R06.2 [place] [address] [address] 05 Apr, 2018 Persistent cough for 3 weeks or longer R05 [place] [address] [address] March, Asthma due to seasonal allergies J45.909 ; Cough R05 and Wheezing R06.2 [place] [id number] [place] [address] March, Seasonal allergic rhinitis, unspecified allergic rhinitis trigger J30.2 and Asthma due to seasonal allergies J45.909 [place] [address] [address] March, Cough R05 ; Chest congestion R09.89 and Sore throat J02.9 [facility] [address] [address] March, Moderate episode of recurrent major depressive disorder F33.1 ; Migraine without aura and without status migrainosus, not intractable G43.009 ; Primary insomnia F51.01 and Anxiety F41.9 [facility] [address] [address] March, Acute non-recurrent frontal sinusitis J01.10 [place] [address] [address] March, [place] [address] [address] March, Right otitis media with effusion H65.91 ; Acute non- recurrent frontal sinusitis J01.10 and Migraine without aura and without status migrainosus, not intractable G43.009 [place] [address] [address] Feb, Left lower quadrant pain R10.32 ; Migraine without aura and without status migrainosus, not intractable G43.009 and Anxiety F41.9 [place] [id number] [place] [address] Feb, Oral contraceptive pill surveillance Z30.41 [place] [address] [address] Feb, Acute bilateral low back pain without sciatica M54.5 [place] [address] [address] Feb, [place] [address] [address] Feb, Dental examination Z01.20 [facility] [id number] [place] [id number] Feb, Dental examination Z01.20 [place] [address] [address] Feb, Anxiety F41.9 [place] [address] [address] Feb, Primary insomnia F51.01 and Moderate episode of recurrent major depressive disorder F33.1 [place] [address] [address] Jan, Acute suppurative otitis media of left ear without spontaneous rupture of tympanic membrane, recurrence not specified H66.002 [place] [address] [address] Jan, Migraine without aura and without status migrainosus, not intractable G43.009 ; Seasonal allergic rhinitis, unspecified allergic rhinitis trigger J30.2 ; GERD without esophagitis K21.9 ; Current mild episode of major depressive disorder without prior episode F32.0 and Human bite, initial encounter W50.3XXA [place] [address] [address] Dec, Migraine without aura and without status migrainosus, not intractable G43.009 [place] [id number] [place] [address] Dec, Nausea and vomiting after administration of anesthetic agent T88.59XA [place] [id number] [place] [address] Dec, [place] [address] [address] Dec, Acute tonsillitis, unspecified etiology J03.90 [place] [address] [address] Nov, Dysmenorrhea N94.6 ; Acute midline low back pain without sciatica M54.5 ; Obesity (BMI 30.0-34.9) E66.9 and High ankle sprain of right lower extremity, initial encounter S93.431A [facility] [address] [address] Nov, [facility] [address] [address] Nov, Migraine without aura and without status migrainosus, not intractable G43.009 [facility] [address] 5[address] Oct, Migraine without aura and without status migrainosus, not intractable G43.009 [facility] [id number] [place] [address] Oct, Migraine without aura and without status migrainosus, not intractable G43.009 [facility] [address] [address] Oct, [facility] [address] [address] Oct, [facility] [address] [address] Oct, Acute non-recurrent maxillary sinusitis J01.00 [facility] [address] [address] 17 Sep, 2017 Left elbow tendonitis M77.8 and Other fatigue R53.83 [facility] [id number] [place] [id number] 17 Sep, 2017 Dental examination Z01.20 [facility] [address] [address] Sep, Sore throat J02.9 ; Other viral agents as the cause of diseases classified elsewhere B97.89 and Acute upper respiratory infection, unspecified J06.9 [facility] [address] [address] Aug, Encounter for immunization Z23 [facility] [id number] [place] [address] Aug, Encounter for immunization Z23 [facility] [address] [address] Aug, Migraine without aura and without status migrainosus, not intractable G43.009 [facility] [address] [address] Jul, Acute midline low back pain without sciatica M54.5 and Obesity (BMI 30.0-34.9) E66.9 [facility] [address] [address] Jul, Chronic seasonal allergic rhinitis due to pollen J30.1 [facility] [address] [id number] Jun, Dental examination Z01.20 [facility] [id number] [place] [address] Jun, Jaw pain R68.84 [facility] [address] [address] Jun, Dental examination Z01.20 [facility] [address] [id number] Jun, Dental examination Z01.20 [facility] [address] [address] Jun, [facility] [address] [address] Jun, Allergic reaction, initial encounter T78.40XA [facility] [address] [address] Jun, [facility] [address] [address] Jun, Migraine without aura and without status migrainosus, not intractable G43.009 [facility] [address] [place] [address] May, [place] [id number] [place] [address] May, Helicobacter pylori (H. pylori) infection A04.8 [place] [id number] [place] [address] 11 May, 2017 Encounter for routine adult health examination with abnormal findings Z00.01 ; Obesity (BMI 30.0-34.9) E66.9 ; Acanthosis nigricans L83 and Dietary counseling Z71.3 [place] [address] [address] 13 Apr, 2017 Acute seasonal allergic rhinitis due to pollen J30.1 and Sore throat J02.9 [place] [id number] [place] [address]- [address] 08 Apr, 2017 [place] [id number] [place] [address] Apr, Migraine without aura and without status migrainosus, not intractable G43.009 [place] [id number] [place] [address] March, Dental examination Z01.20 [facility] [address] [place] [address] Feb, Seasonal allergic rhinitis, unspecified allergic rhinitis trigger J30.2 [facility] [id number] [id number] [id number] Nov, [facility] [address] [place] [id number] Oct, Dental examination Z01.20 [facility] [id number] [place] [address] [id number] Oct, Dental examination Z01.20 [facility] [id number] [place] [id number] 08 Oct, 2015 Dental examination Z01.20 and Encounter for dental examination Z01.20 [facility] [address] [id number] [address] 14 Feb, 2015 [facility] [address] [id number] 13 Feb, 2015 [facility] [address] [id number] Sep, [facility] [address] [id number], [place] [address] Sep, [facility] [id number] [place] [address], [place] [address] Jul, [facility] [address] [id number], [place] [address] Jul, [facility] [address] [facility] [id number], [place] [address] Jul, [facility] [address] [id number], [place] [address] Jun, [facility] [address] [id number], [place] [address] Jun, [facility] [address] [facility] [id number], [place] [address] Jun, [facility] [address] [id number], [place] [address] Jun, [facility] [address] [id number], [place] [address] Jul, [facility] [address] [id number] [id number] Jun, [facility] [address] [facility] [id number] [id number] Feb, [facility] [address] [id number] [id number] Sep, [facility] [address] [facility] [id number] [place] [address] Sep, [facility] [address] [facility] [id number] [place] [address] Oct, [facility] [address] [facility] [id number] [place] [address] Oct, IMMUNIZATIONS No Known Immunizations SOCIAL HISTORY Never Assessed REASON FOR VISIT PLAN OF CARE Activity Details Follow Up 3 Months, prn Reason:CHM VITAL SIGNS Height 62 in 2018-02-23 Weight 176.0 lbs 2018-02-23 Temperature 96.8 degrees Fahrenheit 2018-02-23 Heart Rate 82 bpm 2018-02-23 Respiratory Rate 20 2018-02-23 Oximetry 98 % 2018-02-23 BMI 32.19 kg/m2 2018-02-23 Blood pressure systolic 108 mmHg 2018-02-23 Blood pressure diastolic 72 mmHg 2018-02-23 MEDICATIONS Medication Instructions Dosage Frequency Start Date End Date Duration Status Omeprazole 20 mg Orally twice a day 1 capsule 12h May, 90 days Active Propranolol HCl 10 mg Orally Twice a day 1 tablet 12h Dec, Active Pgouwyqsew-GAMG-Pmmigznc 50-325-40 MG Orally every 4 hrs 1 capsule as needed 4h Apr, Apr, 07 days Not-Taking Lunesta 2 MG Orally Once a day 1 tablet immediately before bedtime 24h Feb, 28 days Active Ibuprofen 800 MG Orally Three times a day 1 tablet with food or milk as needed 8h 27 Oct, 2017 Jul, 90 days Active Paroxetine HCl 20 mg Orally Once a day 1 tablet in the morning 24h Jan, Active RESULTS No Results PROCEDURES No Known procedures INSTRUCTIONS MEDICATIONS ADMINISTERED No Known Medications MEDICAL (GENERAL) HISTORY Type Description Date Medical History Seasonal Allergies Surgical History uterine polyp removal- 12/2017 Hospitalization History Childbirth only
--- OUTSIDE RECORDS SUMMARY | 2018-11-13 10:43 | XMS REPORT ---
Author Author CUELLOLAURA Cunha Organization [facility] Address [address] [place] [address] Care Team Providers Care Pari Mutuel Clerk Name Role Phone LAURA CUELLO Unavailable PROBLEMS Type Condition ICD9-CM Code [id number] Code Onset Dates Condition Status SNOMED Code Problem GERD without esophagitis K21.9 Active 344710537 Problem Primary insomnia F51.01 Active 4614277 Problem Moderate episode of recurrent major depressive disorder F33.1 Active 870799978 Problem Intractable migraine without aura and with status migrainosus G43.011 Active 223304534 Problem GERD with esophagitis K21.0 Active 539816150 Problem Acute bilateral low back pain without sciatica M54.5 Active 371604309 Problem Anxiety F41.9 Active 85357010 Problem Mild persistent asthma without complication J45.30 Active 370272187 Problem Asthma due to seasonal allergies J45.909 Active 258944182 Problem Migraine without aura and without status migrainosus, not intractable G43.009 Active 038947781 Problem Obesity (BMI 30.0-34.9) E66.9 Active 347045866598197 Problem Acanthosis nigricans L83 Active 303666770 Problem Seasonal allergic rhinitis, unspecified allergic rhinitis trigger J30.2 Active 934505427 Problem Dysmenorrhea N94.6 Active 094776057 ALLERGIES No Information ENCOUNTERS Encounter Location Date Diagnosis [facility] [id number] [address] Jun, [facility] [id number] [place] [address]68- 4016 May, Intractable migraine without aura and with status migrainosus G43.011 [facility] [id number], [place] [address] May, Intractable migraine without aura and with status migrainosus G43.011 [facility] [id number] [place] [address] May, Migraine without aura and without status migrainosus, not intractable G43.009 [facility] [id number] [place] [address] 20989- 7819 28 Apr, 2018 Vertigo R42 and Epigastric abdominal pain R10.13 [facility] [address] [address] Apr, Vertigo R42 [facility] [id number] [place] [address]055 Apr, Vertigo R42 [place] [id number] [place] [address] 92948- 8106 Apr, Epigastric abdominal pain R10.13 and GERD with esophagitis K21.0 [place] [address] [address]98- 8[address] Apr, Wheezing R06.2 [place] [address] 6[address]31- [address] 12 Apr, 2018 Mild persistent asthma without complication J45.30 and Wheezing R06.2 [place] [id number] [place] [address] 24532- 4259 Apr, Migraine without aura and without status migrainosus, not intractable G43.009 [place] [id number] [place] [address] 65830- 2016 Apr, [place] [id number] [place] [address] 65252- 4402 Apr, Cough R05 and Wheezing R06.2 [place] [address] [address]- 5765 05 Apr, 2018 Persistent cough for 3 weeks or longer R05 [place] [id number] [place] [address] 26784- 2991 30 May, 2018 Asthma due to seasonal allergies J45.909 ; Cough R05 and Wheezing R06.2 [facility] [address] [address] March, Seasonal allergic rhinitis, unspecified allergic rhinitis trigger J30.2 and Asthma due to seasonal allergies J45.909 [place] [address] 06[address]- [address] March, Cough R05 ; Chest congestion R09.89 and Sore throat J02.9 [place] [address] 42835- [address] March, Moderate episode of recurrent major depressive disorder F33.1 ; Migraine without aura and without status migrainosus, not intractable G43.009 ; Primary insomnia F51.01 and Anxiety F41.9 [facility] [address] [address] March, Acute non-recurrent frontal sinusitis J01.10 [place] [address] 76428- 5930 March, [place] [address] 65[address]- 3[address] March, Right otitis media with effusion H65.91 ; Acute non- recurrent frontal sinusitis J01.10 and Migraine without aura and without status migrainosus, not intractable G43.009 [place] [address] 61499- 2984 Feb, Left lower quadrant pain R10.32 ; Migraine without aura and without status migrainosus, not intractable G43.009 and Anxiety F41.9 [place] [address] 67942- 8932 Feb, Oral contraceptive pill surveillance Z30.41 [place] [address] 55726- 7077 Feb, Acute bilateral low back pain without sciatica M54.5 [place] [id number] [place] [address] 34562- 3467 Feb, [place] [address] 17056- 8718 Feb, Dental examination Z01.[address] [facility] [address] [place] [id number] 10 Feb, 2018 Dental examination Z01.20 [place] [id number] [place] [address] 23278- 8712 Feb, Anxiety F41.9 [place] [address] 77619- 0459 Feb, Primary insomnia F51.01 and Moderate episode of recurrent major depressive disorder F33.1 [place] [id number] [place] [address] 62852- 4847 Jan, Acute suppurative otitis media of left ear without spontaneous rupture of tympanic membrane, recurrence not specified H66.002 [place] [id number] [place] [address] 00152- 3912 Jan, Migraine without aura and without status migrainosus, not intractable G43.009 ; Seasonal allergic rhinitis, unspecified allergic rhinitis trigger J30.2 ; GERD without esophagitis K21.9 ; Current mild episode of major depressive disorder without prior episode F32.0 and Human bite, initial encounter W50.3XXA [place] [id number] [place] [address] 97903- 3434 Dec, Migraine without aura and without status migrainosus, not intractable G43.009 [place] [address] 59007- 5549 Dec, Nausea and vomiting after administration of anesthetic agent T88.59XA [place] [id number] [place] [address] 05461- 0201 Dec, [place] [address] 81063- 9869 Dec, Acute tonsillitis, unspecified etiology J03.90 [facility] [address] 97498- [address] Nov, Dysmenorrhea N94.6 ; Acute midline low back pain without sciatica M54.5 ; Obesity (BMI 30.0-34.9) E66.9 and High ankle sprain of right lower extremity, initial encounter S93.431A [place] [address] 62944- 1237 Nov, [facility] [address] [address]17- [address] Nov, Migraine without aura and without status migrainosus, not intractable G43.009 [facility] [address] 19544- 1472 Oct, Migraine without aura and without status migrainosus, not intractable G43.009 [facility] [address] [address] Oct, Migraine without aura and without status migrainosus, not intractable G43.009 [facility] [address] 89643- 7916 Oct, [facility] [address] 24279- 6353 Oct, [facility] [address] 69930- 6642 Oct, Acute non-recurrent maxillary sinusitis J01.00 [facility] [address] 88666- 4043 Sep, Left elbow tendonitis M77.8 and Other fatigue R53.[address] [facility] [id number] [place] [id number] Sep, Dental examination Z01.20 [place] [address] 63634- 2850 Sep, Sore throat J02.9 ; Other viral agents as the cause of diseases classified elsewhere B97.89 and Acute upper respiratory infection, unspecified J06.9 [facility] [address] [id number]- [address] Aug, Encounter for immunization Z23 [place] [address] 24275- 4539 Aug, Encounter for immunization Z23 [place] [address] [id number]- 4762 Aug, Migraine without aura and without status migrainosus, not intractable G43.[address] 53524- 3505 Jul, Acute midline low back pain without sciatica M54.5 and Obesity (BMI 30.0-34.9) E66.[address] 52303- 5993 Jul, Chronic seasonal allergic rhinitis due to pollen J30.[address] [facility] [address] [id number] Jun, Dental examination Z01.20 [facility] [address] 067[address] -5797 Jun, Jaw pain R68.84 [facility] [address] [place] [address] 27484- 2176 Jun, Dental examination Z01.[address] [facility] [address] [id number] Jun, Dental examination Z01.20 [facility] [address] 34446- 5601 Jun, [place] [address] 76170- 5810 Jun, Allergic reaction, initial encounter T78.40XA [facility] [address] [place] [address] [place] [address] 280[address] Jun, [place] [id number] [place] [address] 08792- 1848 Jun, Migraine without aura and without status migrainosus, not intractable G43.009 [facility] [id number] [place] [address] 27877- 4740 May, [place] [address] 56051- 1646 May, Helicobacter pylori (H. pylori) infection A04.[address] 28483- 9968 11 May, 2017 Encounter for routine adult health examination with abnormal findings Z00.01 ; Obesity (BMI 30.0-34.9) E66.9 ; Acanthosis nigricans L83 and Dietary counseling Z71.3 [place] [address] 23630- 9162 13 Apr, 2017 Acute seasonal allergic rhinitis due to pollen J30.1 and Sore throat J02.9 [place] [id number] [place] [address] 66774- 4385 Apr, [facility] [id number] [place] [address] 56216- 5364 Apr, Migraine without aura and without status migrainosus, not intractable G43.009 [facility] [address] [place] [address] 33331- 8539 March, Dental examination Z01.20 [facility] [address], [place] [address] Feb, Seasonal allergic rhinitis, unspecified allergic rhinitis trigger J30.2 [facility] [address] [id number] [id number] Nov, [facility] [address] [id number] [id number] Oct, Dental examination Z01.[address] [facility] [address] [id number] [address] Oct, Dental examination Z01.[address] [facility] [id number] [id number] Oct, Dental examination Z01.20 and Encounter for dental examination Z01.20 [facility] [address] [id number] [place] [address] 14 Feb, 2015 [facility] [address] [id number], [place] [address] Feb, [facility] [id number] [place] [address] 57803- 0331 Sep, [facility] [address] [id number], [place] [address] Sep, [facility] [address] [facility] [id number] [place] [address] 30649- 4444 Jul, [facility] [address] [id number], [place] [address] Jul, [facility] [address] [id number], [place] [address] Jul, [facility] [address] [facility] [id number], [place] [address] Jun, [facility] [address] [id number], [place] [address] Jun, [facility] [address] [id number], [place] [address] [address] Jun, [facility] [address] [id number], [place] [address] Jun, [facility] [address] [facility] [id number], [place] [address]59 Jul, [facility] [address] [id number], [place] [address] Jun, [facility] [address] [facility] [id number], [place] [address] Feb, [facility] [address] [facility] [id number], [place] [address] 2546 Sep, [facility] [address] [facility] [id number], [place] [address]- 2546 Sep, [facility] [address] [facility] [id number], [place] [address] Oct, [facility] [address] [facility] [id number], [place] [address] Oct, IMMUNIZATIONS No Known Immunizations SOCIAL HISTORY Never Assessed REASON FOR VISIT Medication refill request PLAN OF CARE VITAL SIGNS MEDICATIONS Medication Instructions Dosage Frequency Start Date End Date Duration Status Traetishtila-28 0.3-30 MG-MCG Orally Once a day 1 tablet 24h Feb, 28 day(s) Active RESULTS No Results PROCEDURES No Known procedures INSTRUCTIONS MEDICATIONS ADMINISTERED No Known Medications MEDICAL (GENERAL) HISTORY Type Description Date Medical History Seasonal Allergies Surgical History uterine polyp removal- 12/2017 Hospitalization History Childbirth only
--- OUTSIDE RECORDS SUMMARY | 2018-11-13 10:43 | XMS REPORT ---
Author Author CUELLOLAURA Cunha Organization [facility] Address [address] [place] [address] Care Team Providers Care Inspector Barrel Name Role Phone LAURA CUELLO Unavailable PROBLEMS Type Condition ICD9-CM Code [id number] Code Onset Dates Condition Status SNOMED Code Problem GERD without esophagitis K21.9 Active 726797673 Problem Primary insomnia F51.01 Active 1433655 Problem Moderate episode of recurrent major depressive disorder F33.1 Active 057983410 Problem Intractable migraine without aura and with status migrainosus G43.011 Active 278820315 Problem GERD with esophagitis K21.0 Active 652359984 Problem Acute bilateral low back pain without sciatica M54.5 Active 365030303 Problem Anxiety F41.9 Active 54117051 Problem Mild persistent asthma without complication J45.30 Active 513425728 Problem Asthma due to seasonal allergies J45.909 Active 762255640 Problem Migraine without aura and without status migrainosus, not intractable G43.009 Active 666818323 Problem Obesity (BMI 30.0-34.9) E66.9 Active 075584363240158 Problem Acanthosis nigricans L83 Active 980805431 Problem Seasonal allergic rhinitis, unspecified allergic rhinitis trigger J30.2 Active 378408438 Problem Dysmenorrhea N94.6 Active 921992645 ALLERGIES No Information ENCOUNTERS Encounter Location Date Diagnosis [facility] [id number] [address] Jun, [facility] [id number] [place] [address] May, Intractable migraine without aura and with status migrainosus G43.011 [facility] [id number] [address] May, Migraine without aura and without status migrainosus, not intractable G43.009 [facility] [id number] [place] [address] 28 Apr, 2018 Vertigo R42 and Epigastric abdominal pain R10.13 [facility] [address] [address] 28 Apr, 2018 Vertigo R42 [facility] [address] [address] 27 Apr, 2018 Vertigo R42 [facility] [address] [address] 26 Apr, 2018 Epigastric abdominal pain R10.13 and GERD with esophagitis K21.0 [place] [address] [address] 13 Apr, 2018 Wheezing R06.2 [place] [address] [address] 12 Apr, 2018 Mild persistent asthma without complication J45.30 and Wheezing R06.2 [place] [address] [address] Apr, Migraine without aura and without status migrainosus, not intractable G43.009 [place] [id number] [place] [address]42- 36[address] 11 Apr, 2018 [place] [address] [address] 07 Apr, 2018 Cough R05 and Wheezing R06.2 [place] [id number] [place] [address] 19992- 0[address] 05 Apr, 2018 Persistent cough for 3 weeks or longer R05 [place] [address] [address] March, Asthma due to seasonal allergies J45.909 ; Cough R05 and Wheezing R06.2 [place] [address] [address] March, Seasonal allergic rhinitis, unspecified allergic rhinitis trigger J30.2 and Asthma due to seasonal allergies J45.909 [place] [address] [address] March, Cough R05 ; Chest congestion R09.89 and Sore throat J02.9 [facility] [address] [address] March, Moderate episode of recurrent major depressive disorder F33.1 ; Migraine without aura and without status migrainosus, not intractable G43.009 ; Primary insomnia F51.01 and Anxiety F41.9 [facility] [address] [address] March, Acute non-recurrent frontal sinusitis J01.10 [place] [address] [address] March, [place] [address] [address] March, Right otitis media with effusion H65.91 ; Acute non- recurrent frontal sinusitis J01.10 and Migraine without aura and without status migrainosus, not intractable G43.009 [place] [address] [address] Feb, Left lower quadrant pain R10.32 ; Migraine without aura and without status migrainosus, not intractable G43.009 and Anxiety F41.9 [place] [address] [address] Feb, Oral contraceptive pill surveillance Z30.41 [place] [address] [address] Feb, Acute bilateral low back pain without sciatica M54.5 [place] [address] [address] Feb, [place] [address] [address] 12 Feb, 2018 Dental examination Z01.20 [facility] [id number] [place] [id number] Feb, Dental examination Z01.20 [facility] [id number] [place] [address]- [address] 10 Feb, 2018 Anxiety F41.9 [place] [address] [address] Feb, Primary insomnia F51.01 and Moderate episode of recurrent major depressive disorder F33.1 [place] [address] [id number] Jan, Acute suppurative otitis media of left ear without spontaneous rupture of tympanic membrane, recurrence not specified H66.002 [place] [address] [address] Jan, Migraine without aura and without status migrainosus, not intractable G43.009 ; Seasonal allergic rhinitis, unspecified allergic rhinitis trigger J30.2 ; GERD without esophagitis K21.9 ; Current mild episode of major depressive disorder without prior episode F32.0 and Human bite, initial encounter W50.3XXA [place] [address] [address] Dec, Migraine without aura and without status migrainosus, not intractable G43.009 [place] [address] [address] Dec, Nausea and vomiting after administration of anesthetic agent T88.59XA [place] [address] [address] Dec, [place] [address] [id number]- [address] Dec, Acute tonsillitis, unspecified etiology J03.90 [place] [address] [address] Nov, Dysmenorrhea N94.6 ; Acute midline low back pain without sciatica M54.5 ; Obesity (BMI 30.0-34.9) E66.9 and High ankle sprain of right lower extremity, initial encounter S93.431A [facility] [id number] [place] [address] Nov, [facility] [id number] [place] [address] 8[address]- 12[address] Nov, Migraine without aura and without status migrainosus, not intractable G43.009 [facility] [id number] [place] [address]- [address] Oct, Migraine without aura and without status migrainosus, not intractable G43.009 [facility] IN [facility] [id number] [place] [address] Oct, Migraine without aura and without status migrainosus, not intractable G43.009 [facility] [id number] [place] [address] 82763- [address] Oct, [facility] [id number] [place] [address] 29044- [address] Oct, [facility] [id number] [place] [address]2914- [address] Oct, Acute non-recurrent maxillary sinusitis J01.00 [facility] [id number] [place] [address] 88939- 9[address] 17 Sep, 2017 Left elbow tendonitis M77.8 and Other fatigue R53.83 [facility] [id number] [place] [id number] Sep, Dental examination Z01.20 [facility] [address] [address] 10 Sep, 2017 Sore throat J02.9 ; Other viral agents as the cause of diseases classified elsewhere B97.89 and Acute upper respiratory infection, unspecified J06.9 [facility] [id number] [place] [address] Aug, Encounter for immunization Z23 [facility] [address] [address] Aug, Encounter for immunization Z23 [facility] [address] [address] Aug, Migraine without aura and without status migrainosus, not intractable G43.009 [facility] [address] [address] Jul, Acute midline low back pain without sciatica M54.5 and Obesity (BMI 30.0-34.9) E66.9 [facility] [address] [address] Jul, Chronic seasonal allergic rhinitis due to pollen J30.1 [facility] [address] [id number] Jun, Dental examination Z01.20 [facility] [address] [address] Jun, Jaw pain R68.84 [facility] [address] [address] Jun, Dental examination Z01.20 [facility] [address] [id number] Jun, Dental examination Z01.20 [facility] [address] [address] Jun, [facility] [address] [address] Jun, Allergic reaction, initial encounter T78.40XA [facility] [address] [address] Jun, [facility] [address] [address] Jun, Migraine without aura and without status migrainosus, not intractable G43.009 [facility] [id number] [place] [address] 71663- 9910 May, [facility] [id number] [place] [address]002- 9434 May, Helicobacter pylori (H. pylori) infection A04.8 [place] [address] [address]- [address] 11 May, 2017 Encounter for routine adult health examination with abnormal findings Z00.01 ; Obesity (BMI 30.0-34.9) E66.9 ; Acanthosis nigricans L83 and Dietary counseling Z71.3 [place] [id number] [place] [address] 84551- 6[address] 13 Apr, 2017 Acute seasonal allergic rhinitis due to pollen J30.1 and Sore throat J02.9 [place] [id number] [place] [address]- 5[address] Apr, [place] [id number] [place] [address] 97007- 0786 Apr, Migraine without aura and without status migrainosus, not intractable G43.009 [place] [id number] [place] [address]- 6[address] March, Dental examination Z01.20 [facility] [address] [place] [address] Feb, Seasonal allergic rhinitis, unspecified allergic rhinitis trigger J30.2 [facility] [address] [id number] [id number] Nov, [facility] [id number] [place] [id number] Oct, Dental examination Z01.20 [facility] [address] [id number] Oct, Dental examination Z01.20 [facility] [id number] [id number] 08 Oct, 2015 Dental examination Z01.20 and Encounter for dental examination Z01.20 [facility] [address] [id number] [place] [address] 14 Feb, 2015 [facility] [address] [id number], [place] [address] 13 Feb, 2015 [facility] [address] [id number], [place] [address] Sep, [facility] [address] [id number] [place] [address] Sep, [facility] [address] [id number] [place] [address] Jul, [facility] [address] [facility] [id number], [place] [address] Jul, [facility] [address] [id number], [place] [address] Jul, [facility] [address] [id number], [place] [address] Jun, [facility] [address] [facility] [id number], [place] [address] Jun, [facility] [address] [id number], [place] [address] Jun, [facility] [address] [id number], [place] [address] Jun, [facility] [address] [id number], [place] [address] Jul, [facility] [address] [id number], [place] [address] Jun, [facility] [address] [id number], [place] [address] Feb, [facility] [address] [id number], [place] [address] Sep, [facility] [address] [facility] [id number], [place] [address] Sep, [facility] [address] [facility] [id number], [place] [address] Oct, [facility] [address] [facility] [id number], [place] [address] Oct, IMMUNIZATIONS No Known Immunizations SOCIAL HISTORY Never Assessed REASON FOR VISIT PLAN OF CARE VITAL SIGNS MEDICATIONS Medication Instructions Dosage Frequency Start Date End Date Duration Status Diazepam 5 mg Orally one time 1 tablet prior to dental procedure and may repeat x 1 if needed- MUST have a Heel Dipper Feb, 1 days Active RESULTS No Results PROCEDURES No Known procedures INSTRUCTIONS MEDICATIONS ADMINISTERED No Known Medications MEDICAL (GENERAL) HISTORY Type Description Date Medical History Seasonal Allergies Surgical History uterine polyp removal- 12/2017 Hospitalization History Childbirth only
--- OUTSIDE RECORDS SUMMARY | 2018-11-13 10:43 | XMS REPORT ---
Author Author CUELLOLAURA Cunha Organization [facility] Address [address] [place] [address] Care Team Providers Care Glazing Department Supervisor Name Role Phone LAURA CUELLO Unavailable PROBLEMS Type Condition ICD9-CM Code LHY27-KH Code Onset Dates Condition Status SNOMED Code Problem GERD without esophagitis K21.9 Active 093559138 Problem Primary insomnia F51.01 Active 4716458 Problem Moderate episode of recurrent major depressive disorder F33.1 Active 968796791 Problem Intractable migraine without aura and with status migrainosus G43.011 Active 655905818 Problem GERD with esophagitis K21.0 Active 773367108 Problem Acute bilateral low back pain without sciatica M54.5 Active 686429635 Problem Anxiety F41.9 Active 47398367 Problem Mild persistent asthma without complication J45.30 Active 866320195 Problem Asthma due to seasonal allergies J45.909 Active 299825485 Problem Migraine without aura and without status migrainosus, not intractable G43.009 Active 870151498 Problem Obesity (BMI 30.0-34.9) E66.9 Active [id number] Problem Acanthosis nigricans L83 Active 210667796 Problem Seasonal allergic rhinitis, unspecified allergic rhinitis trigger J30.2 Active 144723949 Problem Dysmenorrhea N94.6 Active 484849530 ALLERGIES No Information ENCOUNTERS Encounter Location Date Diagnosis [facility] [id number] [address] Jun, [facility] [id number] [place] [address] May, Intractable migraine without aura and with status migrainosus G43.011 [facility] [id number] [address] May, Migraine without aura and without status migrainosus, not intractable G43.009 [facility] [id number] [place] [address] 28 Apr, 2018 Vertigo R42 and Epigastric abdominal pain R10.13 [facility] [address] [address] 28 Apr, 2018 Vertigo R42 [facility] [address] [address] 27 Apr, 2018 Vertigo R42 [facility] [address] [address] 26 Apr, 2018 Epigastric abdominal pain R10.13 and GERD with esophagitis K21.0 [place] [address] [address] 13 Apr, 2018 Wheezing R06.2 [place] [address] [address] 12 Apr, 2018 Mild persistent asthma without complication J45.30 and Wheezing R06.2 [place] [address] [address] Apr, Migraine without aura and without status migrainosus, not intractable G43.009 [place] [id number] [place] [address] 11 Apr, 2018 [place] [address] [address] 07 Apr, 2018 Cough R05 and Wheezing R06.2 [place] [id number] [place] [address]- [address] 05 Apr, 2018 Persistent cough for 3 weeks or longer R05 [place] [address] [address] March, Asthma due to seasonal allergies J45.909 ; Cough R05 and Wheezing R06.2 [place] [address] [address] March, Seasonal allergic rhinitis, unspecified allergic rhinitis trigger J30.2 and Asthma due to seasonal allergies J45.909 [place] [address] [address] March, Cough R05 ; Chest congestion R09.89 and Sore throat J02.9 [facility] [address] [address] March, Moderate episode of recurrent major depressive disorder F33.1 ; Migraine without aura and without status migrainosus, not intractable G43.009 ; Primary insomnia F51.01 and Anxiety F41.9 [facility] [address] [address] March, Acute non-recurrent frontal sinusitis J01.10 [place] [address] [address] March, [place] [address] [address] March, Right otitis media with effusion H65.91 ; Acute non- recurrent frontal sinusitis J01.10 and Migraine without aura and without status migrainosus, not intractable G43.009 [place] [address] [address] Feb, Left lower quadrant pain R10.32 ; Migraine without aura and without status migrainosus, not intractable G43.009 and Anxiety F41.9 [place] [address] [address] Feb, Oral contraceptive pill surveillance Z30.41 [place] [address] [address] Feb, Acute bilateral low back pain without sciatica M54.5 [place] [address] [address] Feb, [place] [address] [address] 12 Feb, 2018 Dental examination Z01.20 [facility] [id number] [place] [id number] Feb, Dental examination Z01.20 [facility] [id number] [place] [address]- [address] 10 Feb, 2018 Anxiety F41.9 [place] [address] [address] Feb, Primary insomnia F51.01 and Moderate episode of recurrent major depressive disorder F33.1 [place] [address] [id number]- [address] Jan, Acute suppurative otitis media of left ear without spontaneous rupture of tympanic membrane, recurrence not specified H66.002 [place] [address] [address] Jan, Migraine without aura and without status migrainosus, not intractable G43.009 ; Seasonal allergic rhinitis, unspecified allergic rhinitis trigger J30.2 ; GERD without esophagitis K21.9 ; Current mild episode of major depressive disorder without prior episode F32.0 and Human bite, initial encounter W50.3XXA [place] [address] [address] Dec, Migraine without aura and without status migrainosus, not intractable G43.009 [place] [address] [address] Dec, Nausea and vomiting after administration of anesthetic agent T88.59XA [place] [address] [address] Dec, [place] [address] [id number]- [address] Dec, Acute tonsillitis, unspecified etiology J03.90 [place] [address] [address] Nov, Dysmenorrhea N94.6 ; Acute midline low back pain without sciatica M54.5 ; Obesity (BMI 30.0-34.9) E66.9 and High ankle sprain of right lower extremity, initial encounter S93.431A [facility] [id number] [place] [address]- [address] Nov, [facility] [id number] [place] [address]- [address] Nov, Migraine without aura and without status migrainosus, not intractable G43.009 [facility] [id number] [place] [address]- [address] Oct, Migraine without aura and without status migrainosus, not intractable G43.009 [facility] [id number] [place] [address] Oct, Migraine without aura and without status migrainosus, not intractable G43.009 [facility] [id number] [place] [address] 76042- 4[address] Oct, [facility] [id number] [place] [address]- [address] Oct, [facility] [id number] [place] [address] 7[address]- 1406 Oct, Acute non-recurrent maxillary sinusitis J01.00 [facility] [id number] [place] [address]- [address] 17 Sep, 2017 Left elbow tendonitis M77.8 and Other fatigue R53.83 [facility] [id number] [place] [id number] Sep, Dental examination Z01.20 [facility] [address] [address] 10 Sep, 2017 Sore throat J02.9 ; Other viral agents as the cause of diseases classified elsewhere B97.89 and Acute upper respiratory infection, unspecified J06.9 [facility] [address] [place] [address] Aug, Encounter for immunization Z23 [facility] [address] [address] Aug, Encounter for immunization Z23 [facility] [address] [address] Aug, Migraine without aura and without status migrainosus, not intractable G43.009 [facility] [address] [address] Jul, Acute midline low back pain without sciatica M54.5 and Obesity (BMI 30.0-34.9) E66.9 [facility] [address] [address] Jul, Chronic seasonal allergic rhinitis due to pollen J30.1 [facility] [address] [id number] Jun, Dental examination Z01.20 [facility] [address] [address] Jun, Jaw pain R68.84 [facility] [address] [address]- [address] Jun, Dental examination Z01.20 [facility] [address] [id number] Jun, Dental examination Z01.20 [facility] [address] [address] Jun, [facility] [address] [address] Jun, Allergic reaction, initial encounter T78.40XA [facility] [address] [address] Jun, [facility] [address] 7[address] Jun, Migraine without aura and without status migrainosus, not intractable G43.009 [facility] [id number] [place] [address]- [address] May, [facility] [id number] [place] [address] 37[address]- 4[address] May, Helicobacter pylori (H. pylori) infection A04.8 [place] [address] [address] 11 May, 2017 Encounter for routine adult health examination with abnormal findings Z00.01 ; Obesity (BMI 30.0-34.9) E66.9 ; Acanthosis nigricans L83 and Dietary counseling Z71.3 [place] [id number] [place] [address]- [address] 13 Apr, 2017 Acute seasonal allergic rhinitis due to pollen J30.1 and Sore throat J02.9 [place] [id number] [place] [address]- [address] Apr, [place] [id number] [place] [address] 7[address]30- 1733 Apr, Migraine without aura and without status migrainosus, not intractable G43.009 [place] [id number] [place] [address] 432[address]- 49[address] March, Dental examination Z01.20 [facility] [address] [place] [address] Feb, Seasonal allergic rhinitis, unspecified allergic rhinitis trigger J30.2 [facility] [address] [id number] [id number] Nov, [facility] [id number] [place] [id number] Oct, Dental examination Z01.20 [facility] [address] [id number] Oct, Dental examination Z01.20 [facility] [address] [id number] [id number] 08 Oct, 2015 Dental examination Z01.20 and Encounter for dental examination Z01.20 [facility] [address] [id number] [place] [address] 14 Feb, 2015 [facility] [address] [id number], [place] [address] 13 Feb, 2015 [facility] [address] [id number], [place] [address] Sep, [facility] [address] [id number] [place] [address] Sep, [facility] [address] [id number] [place] [address]- [address] Jul, [facility] [address] [facility] [id number], [place] [address] Jul, [facility] [address] [id number], [place] [address]- [address] Jul, [facility] [address] [id number], [place] [address]- [address] Jun, [facility] [address] [facility] [id number], [place] [address] Jun, [facility] [address] [id number], [place] [address] Jun, [facility] [address] [id number], [place] [address]- [address] Jun, [facility] [address] [id number], [place] [address]- [address] Jul, [facility] [address] [id number], [place] [address] Jun, [facility] [address] [id number], [place] [address]- [address] Feb, [facility] [address] [id number], [place] [address] Sep, [facility] [address] [facility] [id number], [place] [address]- 25[address] Sep, [facility] [address] [facility] [id number], [place] [address]- [address] Oct, [facility] [address] [facility] [id number], [place] [address] Oct, IMMUNIZATIONS No Known Immunizations SOCIAL HISTORY Never Assessed REASON FOR VISIT Oral Swelling PLAN OF CARE VITAL SIGNS MEDICATIONS Medication Instructions Dosage Frequency Start Date End Date Duration Status Medrol 4 MG Orally Once a day- take with food 24 mg day one, then decrease by 4 mg daily over 5 days Feb, Feb, 6 days Active RESULTS No Results PROCEDURES No Known procedures INSTRUCTIONS MEDICATIONS ADMINISTERED No Known Medications MEDICAL (GENERAL) HISTORY Type Description Date Medical History Seasonal Allergies Surgical History uterine polyp removal- 12/2017 Hospitalization History Childbirth only
--- OUTSIDE RECORDS SUMMARY | 2018-11-13 10:44 | XMS REPORT ---
Author Author CUELLOLAURA Cunha [facility] Address [address] [place] [address] Care Team Providers Care Chorus Master Name Role Phone LAURA CUELLO Unavailable PROBLEMS Type Condition ICD9-CM Code FHT70-CD Code Onset Dates Condition Status SNOMED Code Problem Migraine without aura and without status migrainosus, not intractable G43.009 Active 994072453 Problem Acanthosis nigricans L83 Active 261962500 Problem Obesity (BMI 30.0-34.9) E66.9 Active 322294345796653 Problem Seasonal allergic rhinitis, unspecified allergic rhinitis trigger J30.2 Active 636620527 Problem Acute bilateral low back pain without sciatica M54.5 Active 114771177 Problem Anxiety F41.9 Active 71456946 Problem GERD without esophagitis K21.9 Active 602902731 Problem Dysmenorrhea N94.6 Active 769766256 Problem Primary insomnia F51.01 Active 1077508 Problem Moderate episode of recurrent major depressive disorder F33.1 Active 658525172 ALLERGIES No Information ENCOUNTERS Encounter Location Date Diagnosis [facility] [id number] [place] [address] March, Acute non-recurrent frontal sinusitis J01.10 [facility] [id number] [place] [address] 64213- 6495 March, [facility] [address] [place] [address] 97396- 3016 March, Right otitis media with effusion H65.91 ; Acute non- recurrent frontal sinusitis J01.10 and Migraine without aura and without status migrainosus, not intractable G43.009 [facility] [address] [place] [address] 30350- 6843 Feb, Left lower quadrant pain R10.32 ; Migraine without aura and without status migrainosus, not intractable G43.009 and Anxiety F41.9 [place] [address] [id number]- 5795 Feb, Oral contraceptive pill surveillance Z30.41 [place] [address] [address]- [address] Feb, Acute bilateral low back pain without sciatica M54.5 [place] [address] [address] 3227 Feb, [place] [address] [address] 9064 Feb, Dental examination Z01.20 [facility] [address] [id number] Feb, Dental examination Z01.20 [place] [address] 27298- 8593 Feb, Anxiety F41.9 [place] [address] [address] 0801 Feb, Primary insomnia F51.01 and Moderate episode of recurrent major depressive disorder F33.1 [place] [address] [place] [id number]- 3564 Jan, Acute suppurative otitis media of left ear without spontaneous rupture of tympanic membrane, recurrence not specified H66.002 [place] [address] [id number]- 0744 Jan, Migraine without aura and without status migrainosus, not intractable G43.009 ; Seasonal allergic rhinitis, unspecified allergic rhinitis trigger J30.2 ; GERD without esophagitis K21.9 ; Current mild episode of major depressive disorder without prior episode F32.0 and Human bite, initial encounter W50.3XXA [place] [address] 79[address]- [address]65 Dec, Migraine without aura and without status migrainosus, not intractable G43.009 [facility] [id number] [place] [address] 62299- 2756 Dec, Nausea and vomiting after administration of anesthetic agent T88.59XA [place] [address] 76091- 7327 Dec, [place] [address] [address] 8575 Dec, Acute tonsillitis, unspecified etiology J03.90 [place] [address] [address] 0917 Nov, Dysmenorrhea N94.6 ; Acute midline low back pain without sciatica M54.5 ; Obesity (BMI 30.0-34.9) E66.9 and High ankle sprain of right lower extremity, initial encounter S93.431A [place] [address] 95435- 8997 Nov, [place] [address] 18985- 9059 Nov, Migraine without aura and without status migrainosus, not intractable G43.009 [place] [address] 52254- 3151 Oct, Migraine without aura and without status migrainosus, not intractable G43.009 [facility] [id number] [place] [address] 07613 -3588 Oct, Migraine without aura and without status migrainosus, not intractable G43.009 [facility] [id number] [place] [address] 67616- 2062 Oct, [facility] [address] 36585- 4835 Oct, [place] [address] 60745- 6501 Oct, Acute non-recurrent maxillary sinusitis J01.00 [place] [id number] [place] [address] 63882- 3993 Sep, Left elbow tendonitis M77.8 and Other fatigue R53.83 [facility] [id number] [place] [address] [id number] Sep, Dental examination Z01.20 [facility] [address] 89271- 6451 Sep, Sore throat J02.9 ; Other viral agents as the cause of diseases classified elsewhere B97.89 and Acute upper respiratory infection, unspecified J06.9 [place] [address] 32712- 3727 Aug, Encounter for immunization 23 [place] [address] 02016- 2539 Aug, Encounter for immunization 23 [place] [address] 67018- 4731 Aug, Migraine without aura and without status migrainosus, not intractable G43.009 [place] [address] 25612- 7460 Jul, Acute midline low back pain without sciatica M54.5 and Obesity (BMI 30.0-34.9) E66.9 [place] [address] 09952- 4113 Jul, Chronic seasonal allergic rhinitis due to pollen J30.1 [facility] [id number] [place] [address] [id number] Jun, Dental examination Z01.20 [facility] [address] 08684 [address]92 Jun, Jaw pain R68.84 [facility] [address] 68986- 3230 Jun, Dental examination Z01.20 [facility] [address] [id number] Jun, Dental examination Z01.20 [place] [id number] [place] [address] 93260- 6567 Jun, [place] [id number] [place] [address] 09545- 9385 Jun, Allergic reaction, initial encounter T78.40XA [place] [address] 24670- 2888 Jun, [place] [id number] [place] [address] 57872- 4716 Jun, Migraine without aura and without status migrainosus, not intractable G43.009 [place] [id number] [place] [address] 23423- 3682 May, [place] [id number] [place] [address] 12479- 8596 May, Helicobacter pylori (H. pylori) infection A04.8 [place] [id number] [place] [address] 20544- 7542 May, Encounter for routine adult health examination with abnormal findings Z00.01 ; Obesity (BMI 30.0-34.9) E66.9 ; Acanthosis nigricans L83 and Dietary counseling Z71.3 [place] [id number] [place] [address] 29116- 6609 Apr, Acute seasonal allergic rhinitis due to pollen J30.1 and Sore throat J02.9 [place] [address] [place] [address] 10974- 4491 Apr, [place] [id number] [place] [address] 04172- 1933 Apr, Migraine without aura and without status migrainosus, not intractable G43.009 [place] [address] [place] [address] 09008- 9155 March, Dental examination Z01.20 [facility] [address] [id number] [address] Feb, Seasonal allergic rhinitis, unspecified allergic rhinitis trigger J30.2 [facility] Critical access hospital[facility] [id number] [id number] Nov, [facility] [address] [id number] Oct, Dental examination Z01.20 [facility] [id number] [place] [address] [id number] Oct, Dental examination Z01.20 [facility] [address] [place] [address] [id number] Oct, Dental examination Z01.20 and Encounter for dental examination Z01.20 [facility] [address] [address] 92[address] Feb, [facility] [id number] [place] [address] 06522- 0842 Feb, [facility] [id number] [address]- 5769 Sep, [facility] [id number] [place] [address] 67621- 6241 Sep, [facility] [address] [address] 0[address] Jul, [facility] [address] [facility] [id number] [address]- 9378 Jul, [facility] [id number] [address]- 4858 Jul, [facility] [address] [facility] [id number] [place] [address] 37868- 2972 Jun, [facility] [address] [facility] [id number] [address]- 7929 Jun, [facility] [id number] [place] [address] 62432- 2546 Jun, [facility] [id number] [address]- 1286 Jun, [facility] [id number] [address]- 2546 Jul, [facility] [id number] [address]- 2546 Jun, [facility] [address] [address]- 2546 Feb, [facility] [id number] [address]- 8886 Sep, [facility] [address] [address]- 2546 Sep, [facility] [address] [address]- 6[address] Oct, [facility] [id number] [address] 2546 Oct, IMMUNIZATIONS Vaccine Route Administration Date Status TORADOL (IM) 60 MG/2ML (UP TO 15 MG) IM Intramuscular Aug 28, 2017 Administered SOCIAL HISTORY Never Assessed REASON FOR VISIT migraine, per Jonathan Toradol 30mg IM x1---DBennettRN PLAN OF CARE VITAL SIGNS MEDICATIONS No Known Medications RESULTS No Results PROCEDURES Procedure Date Ordered Result Body Site TORADOL (IM) 60 MG/2ML (UP TO 15 MG) Aug 28, 2017 THER/PROPH/DIAG INJ, SC/IM Aug 28, 2017 INSTRUCTIONS MEDICATIONS ADMINISTERED No Known Medications MEDICAL (GENERAL) HISTORY Type Description Date Medical History Seasonal Allergies Surgical History uterine polyp removal- 12/2017 Hospitalization History Childbirth only
--- OUTSIDE RECORDS SUMMARY | 2018-11-13 10:44 | XMS REPORT ---
Author Author CUELLOLAURA Cunha Organization [facility] Address [address] [place] [address] Care Team Providers Care Financial Assistance Advisor Name Role Phone LAURA CUELLO Unavailable PROBLEMS Type Condition ICD9-CM Code NPX77-DC Code Onset Dates Condition Status SNOMED Code Problem Dysmenorrhea N94.6 Active 046153366 Problem Moderate episode of recurrent major depressive disorder F33.1 Active 247245973 Problem GERD without esophagitis K21.9 Active 363985007 Problem Seasonal allergic rhinitis, unspecified allergic rhinitis trigger J30.2 Active 650149665 Problem Migraine without aura and without status migrainosus, not intractable G43.009 Active 085650230 Problem Obesity (BMI 30.0-34.9) E66.9 Active 774223674712329 Problem Acanthosis nigricans L83 Active 916630260 Problem GERD with esophagitis K21.0 Active 994346038 Problem Mild persistent asthma without complication J45.30 Active 469924649 Problem Anxiety F41.9 Active 92923512 Problem Primary insomnia F51.01 Active 1809272 Problem Asthma due to seasonal allergies J45.909 Active 267368671 Problem Acute bilateral low back pain without sciatica M54.5 Active 781193278 ALLERGIES Substance Reaction Event Type Date Status Topamax numbness and tingling Drug Allergy Jan, Active ENCOUNTERS Encounter Location Date Diagnosis [facility] [id number] [address] Apr, Epigastric abdominal pain R10.13 and Vertigo R42 [facility] [address] [address] Apr, Vertigo R42 [facility] [id number] [address] Apr, Vertigo R42 [facility] [address] [address] 26 Apr, 2018 Epigastric abdominal pain R10.13 and GERD with esophagitis K21.0 [place] [address] [address] 13 Apr, 2018 Wheezing R06.2 [place] [address] [address] 12 Apr, 2018 Mild persistent asthma without complication J45.30 and Wheezing R06.[address] [address] 11 Apr, 2018 Migraine without aura and without status migrainosus, not intractable G43.009 [place] [address] [address] Apr, [address] [address] 07 Apr, 2018 Cough R05 and Wheezing R06.2 [place] [address] [address] 05 Apr, 2018 Persistent cough for 3 weeks or longer R05 [place] [address] [address] March, Asthma due to seasonal allergies J45.909 ; Cough R05 and Wheezing R06.2 [place] [address] [address] March, Seasonal allergic rhinitis, unspecified allergic rhinitis trigger J30.2 and Asthma due to seasonal allergies J45.909 [place] [address] [address] March, Cough R05 ; Chest congestion R09.89 and Sore throat J02.9 [place] [address] [address] March, Moderate episode of recurrent major depressive disorder F33.1 ; Migraine without aura and without status migrainosus, not intractable G43.009 ; Primary insomnia F51.01 and Anxiety F41.9 [facility] [id number] [place] [address] March, Acute non-recurrent frontal sinusitis J01.10 [facility] [id number] [place] [address] March, [facility] [address] [address] March, Right otitis media with effusion H65.91 ; Acute non- recurrent frontal sinusitis J01.10 and Migraine without aura and without status migrainosus, not intractable G43.009 [facility] [address] [address] Feb, Left lower quadrant pain R10.32 ; Migraine without aura and without status migrainosus, not intractable G43.009 and Anxiety F41.9 [facility] [address] [address] Feb, Oral contraceptive pill surveillance Z30.41 [place] [address] [address] Feb, Acute bilateral low back pain without sciatica M54.5 [facility] [address] [address] Feb, [facility] [address] [address] Feb, Dental examination Z01.20 [facility] [address] [id number] Feb, Dental examination Z01.20 [facility] [address] [address] Feb, Anxiety F41.9 [facility] [address] [address] Feb, Primary insomnia F51.01 and Moderate episode of recurrent major depressive disorder F33.1 [place] [address] [address] Jan, Acute suppurative otitis media of left ear without spontaneous rupture of tympanic membrane, recurrence not specified H66.002 [place] [address] [address] Jan, Migraine without aura and without status migrainosus, not intractable G43.009 ; Seasonal allergic rhinitis, unspecified allergic rhinitis trigger J30.2 ; GERD without esophagitis K21.9 ; Current mild episode of major depressive disorder without prior episode F32.0 and Human bite, initial encounter W50.3XXA [place] [address] [address] [address] [address] Dec, Migraine without aura and without status migrainosus, not intractable G43.009 [place] [address] Dec, Nausea and vomiting after administration of anesthetic agent T88.59XA [place] [address] [address] Dec, [place] [address] [address] Dec, Acute tonsillitis, unspecified etiology J03.90 [place] [address] [address] Nov, Dysmenorrhea N94.6 ; Acute midline low back pain without sciatica M54.5 ; Obesity (BMI 30.0-34.9) E66.9 and High ankle sprain of right lower extremity, initial encounter S93.431A [place] [address] [address] Nov, [place] [address] [address] Nov, Migraine without aura and without status migrainosus, not intractable G43.009 [facility] [id number] [place] [address] Oct, Migraine without aura and without status migrainosus, not intractable G43.009 [facility] [id number] [place] [address] Oct, Migraine without aura and without status migrainosus, not intractable G43.009 [facility] [id number] [place] [address] Oct, [facility] [address] [address] Oct, [facility] [id number] [place] [address] Oct, Acute non-recurrent maxillary sinusitis J01.00 [place] [address] [address] Sep, Left elbow tendonitis M77.8 and Other fatigue R53.83 [facility] [address] [id number] Sep, Dental examination Z01.20 [facility] [id number] [place] [address] Sep, Sore throat J02.9 ; Other viral agents as the cause of diseases classified elsewhere B97.89 and Acute upper respiratory infection, unspecified J06.9 [facility] [id number] [place] [address] Aug, Encounter for immunization Z23 [facility] [address] [address] Aug, Encounter for immunization Z23 [facility] [id number] [place] [address] Aug, Migraine without aura and without status migrainosus, not intractable G43.009 [facility] [id number] [place] [address] Jul, Acute midline low back pain without sciatica M54.5 and Obesity (BMI 30.0-34.9) E66.9 [facility] [id number] [place] [address] Jul, Chronic seasonal allergic rhinitis due to pollen J30.1 [facility] [id number] [place] [id number] Jun, Dental examination Z01.20 [facility] [id number] [place] [address] Jun, Jaw pain R68.84 [facility] [address] [address] Jun, Dental examination Z01.20 [facility] [id number] [place] [id number] Jun, Dental examination Z01.20 [facility] [id number] [place] [address] Jun, [facility] [id number] [place] [address] Jun, Allergic reaction, initial encounter T78.40XA [facility] [id number] [place] [address] Jun, [facility] [id number] [place] [address] Jun, Migraine without aura and without status migrainosus, not intractable G43.009 [facility] [id number] [place] [address] May, [place] [address] [address] May, Helicobacter pylori (H. pylori) infection A04.8 [place] [id number] [place] [address] May, Encounter for routine adult health examination with abnormal findings Z00.01 ; Obesity (BMI 30.0-34.9) E66.9 ; Acanthosis nigricans L83 and Dietary counseling Z71.3 [facility] [id number] [place] [address] 13 Apr, 2017 Acute seasonal allergic rhinitis due to pollen J30.1 and Sore throat J02.9 [facility] [id number] [place] [address]- [address] Apr, [facility] [id number] [place] [address] Apr, Migraine without aura and without status migrainosus, not intractable G43.009 [facility] [id number] [place] [address]- [address] March, Dental examination Z01.20 [facility] [id number] [place] [address] Feb, Seasonal allergic rhinitis, unspecified allergic rhinitis trigger J30.2 [place] [address] [facility] [address] [id number] [id number] Nov, [facility] [id number] [place] [id number] Oct, Dental examination Z01.20 [facility] [id number] [place] [id number] Oct, Dental examination Z01.20 [facility] [id number] [place] [id number] Oct, Dental examination Z01.20 and Encounter for dental examination Z01.20 [facility] [address] [address] 14 Feb, 2015 [facility] [id number] [place] [address]- [address] Feb, [facility] [address] [address] Sep, [facility] [address] [facility] [id number] [place] [address] Sep, [facility] [address] [facility] [id number] [place] [address] Jul, [facility] [address] [facility] [id number] [place] [address] Jul, [facility] [address] [facility] [id number] [place] [address] Jul, [facility] [address] [facility] [id number] [place] [address]- [address] Jun, [facility] [address] [facility] [id number] [place] [address] Jun, [facility] [id number] [place] [address] Jun, [facility] [id number] [place] [address] Jun, [facility] [id number] [place] [address] Jul, [facility] [id number] [address] Jun, [facility] [id number] [address] Feb, [facility] [id number] [address] Sep, [facility] [address] [facility] [id number] [address] Sep, [facility] [address] [address] Oct, [facility] [id number] [address] Oct, IMMUNIZATIONS Vaccine Route Administration Date Status DEXAMETHASONE 4MG/ML (PER 1 MG) IM Intramuscular January 29, 2018 Administered DEPO MEDROL 40 MG/ML IM Intramuscular January 29, 2018 Administered SOCIAL HISTORY Never Assessed REASON FOR VISIT Knee pain, anxiety and depression. CONCE[facility]ION Bales PLAN OF CARE Activity Details Follow Up 4 Weeks Reason:f/u depression VITAL SIGNS Height 62 in 2018-01-29 Weight 176 lbs 2018-01-29 Temperature 98.3 degrees Fahrenheit 2018-01-29 Heart Rate 86 bpm 2018-01-29 Respiratory Rate 18 2018-01-29 BMI 32.19 kg/m2 2018-01-29 Blood pressure systolic 106 mmHg 2018-01-29 Blood pressure diastolic 58 mmHg 2018-01-29 MEDICATIONS Medication Instructions Dosage Frequency Start Date End Date Duration Status Cetirizine HCl 10 mg Orally Once a day 1 tablet 24h Apr, Jan, 90 days Active Omeprazole 20 mg Orally twice a day 1 capsule 12h May, 90 days Active Ibuprofen 800 MG Orally Three times a day 1 tablet with food or milk as needed 8h Oct, Jul, 90 days Active Propranolol HCl 10 mg Orally Twice a day 1 tablet 12h Dec, 90 days Active Ondansetron 4 MG Orally every 8 hrs 1 tablet on the tongue and allow to dissolve 8h Dec, 10 days Not-Taking Bactrim DS 800-160 MG Orally Twice a day 1 tablet 12h Jan,Jan 07 days Active Paroxetine HCl 20 mg Orally Once a day 1 tablet in the morning 24h Jan, 30 day(s) Active Fluticasone Propionate 50 MCG/ACT Nasally Once a day 1 spray in each nostril 24h Apr, Not-Taking Zmyrenuosd-RJOG-Niohtjhu 50-325-40 MG Orally every 4 hrs 1 capsule as needed 4h Apr, Apr, 07 days Active RESULTS No Results PROCEDURES Procedure Date Ordered Result Body Site DEPO MEDROL 40 MG/ML January 29, 2018 INSTRUCTIONS MEDICATIONS ADMINISTERED No Known Medications MEDICAL (GENERAL) HISTORY Type Description Date Medical History Seasonal Allergies Surgical History uterine polyp removal- 12/2017 Hospitalization History Childbirth only
--- OUTSIDE RECORDS SUMMARY | 2018-11-13 10:44 | XMS REPORT ---
Author Author CUELLOLAURA Cunha Organization [facility] Address [address] [place] [address] Care Team Providers Care Emt Basic Name Role Phone LAURA CUELLO Unavailable PROBLEMS Type Condition ICD9-CM Code IKB19-MV Code Onset Dates Condition Status SNOMED Code Problem GERD without esophagitis K21.9 Active 135146008 Problem Primary insomnia F51.01 Active 7671596 Problem Moderate episode of recurrent major depressive disorder F33.1 Active 014721820 Problem Intractable migraine without aura and with status migrainosus G43.011 Active 566577618 Problem GERD with esophagitis K21.0 Active 398362612 Problem Acute bilateral low back pain without sciatica M54.5 Active 909733808 Problem Anxiety F41.9 Active 84831409 Problem Mild persistent asthma without complication J45.30 Active 168328505 Problem Asthma due to seasonal allergies J45.909 Active 931132477 Problem Migraine without aura and without status migrainosus, not intractable G43.009 Active 227960121 Problem Obesity (BMI 30.0-34.9) E66.9 Active 601190121866504 Problem Acanthosis nigricans L83 Active 479307124 Problem Seasonal allergic rhinitis, unspecified allergic rhinitis trigger J30.2 Active 021660689 Problem Dysmenorrhea N94.6 Active 291154047 ALLERGIES Substance Reaction Event Type Date Status Topamax numbness and tingling Drug Allergy Jan, Active ENCOUNTERS Encounter Location Date Diagnosis [facility] [id number] [address] May, Intractable migraine without aura and with status migrainosus G43.011 [facility] [id number] [address] May, Migraine without aura and without status migrainosus, not intractable G43.009 [facility] [address] [address] 28 Apr, 2018 Epigastric abdominal pain R10.13 and Vertigo R42 [place] [address] [address] Apr, Vertigo R42 [facility] [address] [address] Apr, Vertigo R42 [place] [address] [address] Apr, Epigastric abdominal pain R10.13 and GERD with esophagitis K21.0 [place] [address] [address] 13 Apr, 2018 Wheezing R06.2 [place] [address] [address] 12 Apr, 2018 Mild persistent asthma without complication J45.30 and Wheezing R06.2 [place] [address] [address] Apr, Migraine without aura and without status migrainosus, not intractable G43.009 [place] [address] [address] Apr, [place] [address] [address] Apr, Cough R05 and Wheezing R06.2 [place] [address] [address] 05 Apr, 2018 Persistent cough for 3 weeks or longer R05 [place] [address] [address] March, Asthma due to seasonal allergies J45.909 ; Cough R05 and Wheezing R06.2 [place] [id number] [place] [address] March, Seasonal allergic rhinitis, unspecified allergic rhinitis trigger J30.2 and Asthma due to seasonal allergies J45.909 [place] [address] [address] March, Cough R05 ; Chest congestion R09.89 and Sore throat J02.9 [facility] [address] [address] March, Moderate episode of recurrent major depressive disorder F33.1 ; Migraine without aura and without status migrainosus, not intractable G43.009 ; Primary insomnia F51.01 and Anxiety F41.9 [facility] [address] [address] March, Acute non-recurrent frontal sinusitis J01.10 [place] [address] [address] March, [place] [address] [address] March, Right otitis media with effusion H65.91 ; Acute non- recurrent frontal sinusitis J01.10 and Migraine without aura and without status migrainosus, not intractable G43.009 [place] [address] [address] Feb, Left lower quadrant pain R10.32 ; Migraine without aura and without status migrainosus, not intractable G43.009 and Anxiety F41.9 [place] [id number] [place] [address] Feb, Oral contraceptive pill surveillance Z30.41 [place] [address] [address] Feb, Acute bilateral low back pain without sciatica M54.5 [place] [address] [address] Feb, [place] [address] [address] Feb, Dental examination Z01.20 [facility] [id number] [place] [id number] Feb, Dental examination Z01.20 [place] [address] [address] Feb, Anxiety F41.9 [place] [address] [address] Feb, Primary insomnia F51.01 and Moderate episode of recurrent major depressive disorder F33.1 [place] [address] [address] Jan, Acute suppurative otitis media of left ear without spontaneous rupture of tympanic membrane, recurrence not specified H66.002 [place] [address] [address] Jan, Migraine without aura and without status migrainosus, not intractable G43.009 ; Seasonal allergic rhinitis, unspecified allergic rhinitis trigger J30.2 ; GERD without esophagitis K21.9 ; Current mild episode of major depressive disorder without prior episode F32.0 and Human bite, initial encounter W50.3XXA [place] [address] [address] Dec, Migraine without aura and without status migrainosus, not intractable G43.009 [place] [id number] [place] [address] Dec, Nausea and vomiting after administration of anesthetic agent T88.59XA [place] [id number] [place] [address] Dec, [place] [address] [address] Dec, Acute tonsillitis, unspecified etiology J03.90 [place] [address] [address] Nov, Dysmenorrhea N94.6 ; Acute midline low back pain without sciatica M54.5 ; Obesity (BMI 30.0-34.9) E66.9 and High ankle sprain of right lower extremity, initial encounter S93.431A [facility] [address] [address] Nov, [facility] [address] [address] Nov, Migraine without aura and without status migrainosus, not intractable G43.009 [facility] [address] [address] Oct, Migraine without aura and without status migrainosus, not intractable G43.009 [facility] [id number] [place] [address] Oct, Migraine without aura and without status migrainosus, not intractable G43.009 [facility] [address] [address] Oct, [facility] [address] [address] Oct, [facility] [address] [address] Oct, Acute non-recurrent maxillary sinusitis J01.00 [facility] [address] [address] 17 Sep, 2017 Left elbow tendonitis M77.8 and Other fatigue R53.83 [facility] [id number] [place] [id number] 17 Sep, 2017 Dental examination Z01.20 [facility] [address] [address] Sep, Sore throat J02.9 ; Other viral agents as the cause of diseases classified elsewhere B97.89 and Acute upper respiratory infection, unspecified J06.9 [facility] [address] [address] Aug, Encounter for immunization Z23 [facility] [id number] [place] [address] Aug, Encounter for immunization Z23 [facility] [address] [address] Aug, Migraine without aura and without status migrainosus, not intractable G43.009 [facility] [address] [address] Jul, Acute midline low back pain without sciatica M54.5 and Obesity (BMI 30.0-34.9) E66.9 [facility] [address] [address] Jul, Chronic seasonal allergic rhinitis due to pollen J30.1 [facility] [address] [id number] Jun, Dental examination Z01.20 [facility] [id number] [place] [address] Jun, Jaw pain R68.84 [facility] [address] [address] Jun, Dental examination Z01.20 [facility] [address] [id number] Jun, Dental examination Z01.20 [facility] [address] [address] Jun, [facility] [address] [address] Jun, Allergic reaction, initial encounter T78.40XA [facility] [address] [address] Jun, [facility] [address] [address] Jun, Migraine without aura and without status migrainosus, not intractable G43.009 [facility] [address] [place] [address] May, [place] [id number] [place] [address] May, Helicobacter pylori (H. pylori) infection A04.8 [place] [id number] [place] [address] 11 May, 2017 Encounter for routine adult health examination with abnormal findings Z00.01 ; Obesity (BMI 30.0-34.9) E66.9 ; Acanthosis nigricans L83 and Dietary counseling Z71.3 [place] [address] [address] 13 Apr, 2017 Acute seasonal allergic rhinitis due to pollen J30.1 and Sore throat J02.9 [place] [id number] [place] [address] 08 Apr, 2017 [place] [id number] [place] [address] Apr, Migraine without aura and without status migrainosus, not intractable G43.009 [place] [id number] [place] [address] March, Dental examination Z01.20 [facility] [address] [place] [address] Feb, Seasonal allergic rhinitis, unspecified allergic rhinitis trigger J30.2 [facility] [address] [id number] [id number] Nov, [facility] [address] [place] [id number] Oct, Dental examination Z01.20 [facility] [id number] [place] [phone] Oct, Dental examination Z01.20 [facility] [id number] [place] [phone] 08 Oct, 2015 Dental examination Z01.20 and Encounter for dental examination Z01.20 [facility] [address] [id number] [address] 14 Feb, 2015 [facility] [address] [id number] 13 Feb, 2015 [facility] [address] [id number] [address] Sep, [facility] [address] [id number] [place] [address] Sep, [facility] [id number] [place] [address], [place] [address] Jul, [facility] [address] [id number] [place] [address] Jul, [facility] [address] [facility] [id number] [place] [address] Jul, [facility] [address] [id number] [place] [address] Jun, [facility] [address] [id number] [place] [address] Jun, [facility] [address] [facility] [id number] [place] [address] Jun, [facility] [address] [id number] [place] [address] Jun, [facility] [address] [id number] [place] [address] Jul, [facility] [address] [id number] [place] [address] [address] Jun, [facility] [address] [facility] [id number] [place] [address] Feb, [facility] [address] [id number] [place] Sep, [facility] [address] [facility] [id number] [place] [address] Sep, [facility] [address] [facility] [id number] [place] [address] Oct, [facility] [address] [facility] [id number] [place] [address] Oct, IMMUNIZATIONS No Known Immunizations SOCIAL HISTORY Never Assessed REASON FOR VISIT earache x 2 days -- moshe shields PLAN OF CARE Activity Details Follow Up prn Reason: VITAL SIGNS Height 62 in 2018-02-20 Weight 176.0 lbs 2018-02-20 Temperature 98.0 degrees Fahrenheit 2018-02-20 Heart Rate 76 bpm 2018-02-20 Respiratory Rate 22 2018-02-20 BMI 32.19 kg/m2 2018-02-20 Blood pressure systolic 116 mmHg 2018-02-20 Blood pressure diastolic 76 mmHg 2018-02-20 MEDICATIONS Medication Instructions Dosage Frequency Start Date End Date Duration Status Propranolol HCl 10 mg Orally Twice a day 1 tablet 12h Dec, 90 days Active Hgvidsezaf-DSKB-Tsxidwcw 50-325-40 MG Orally every 4 hrs 1 capsule as needed 4h Apr, Apr, 07 days Active Omeprazole 20 mg Orally twice a day 1 capsule 12h May, 90 days Active Fluticasone Propionate 50 MCG/ACT Nasally Once a day 1 spray in each nostril 24h 13 Apr, 2017 Not-Taking Paroxetine HCl 20 mg Orally Once a day 1 tablet in the morning 24h Jan, 30 day(s) Active Ondansetron 4 MG Orally every 8 hrs 1 tablet on the tongue and allow to dissolve 8h Dec, 10 days Not-Taking Augmentin 875-125 MG Orally every 12 hrs 1 tablet 12h 30 Jan, 2018 Feb, 10 day(s) Active Ibuprofen 800 MG Orally Three times a day 1 tablet with food or milk as needed 8h Oct, Jul, 90 days Active RESULTS No Results PROCEDURES No Known procedures INSTRUCTIONS MEDICATIONS ADMINISTERED No Known Medications MEDICAL (GENERAL) HISTORY Type Description Date Medical History Seasonal Allergies Surgical History uterine polyp removal- 12/2017 Hospitalization History Childbirth only
--- OUTSIDE RECORDS SUMMARY | 2018-11-13 10:45 | XMS REPORT ---
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 Name Role Phone LAURA CUELLO Unavailable PROBLEMS Type Condition ICD9-CM Code JNR43-NI Code Onset Dates Condition Status SNOMED Code Problem Migraine without aura and without status migrainosus, not intractable G43.009 Active 099118463 Problem Acanthosis nigricans L83 Active 024618388 Problem Obesity (BMI 30.0-34.9) E66.9 Active 435200139209652 Problem Seasonal allergic rhinitis, unspecified allergic rhinitis trigger J30.2 Active 292102132 Problem Acute bilateral low back pain without sciatica M54.5 Active 516214463 Problem Anxiety F41.9 Active 96585835 Problem GERD without esophagitis K21.9 Active 963641935 Problem Dysmenorrhea N94.6 Active 287744304 Problem Primary insomnia F51.01 Active 3600545 Problem Moderate episode of recurrent major depressive disorder F33.1 Active 169311950 ALLERGIES No Information ENCOUNTERS Encounter Location Date Diagnosis [facility] [address] [place] [address]252 -1003 March, Acute non-recurrent frontal sinusitis J01.10 [facility] [id number] [place] [address] 22494- 2942 March, [facility] [address] [place] [address] 90587- 6863 March, Right otitis media with effusion H65.91 ; Acute non- recurrent frontal sinusitis J01.10 and Migraine without aura and without status migrainosus, not intractable G43.009 [facility] [address] [place] [address] 36680- 4894 Feb, Left lower quadrant pain R10.32 ; Migraine without aura and without status migrainosus, not intractable G43.009 and Anxiety F41.9 [place] [address] [id number]- 2439 Feb, Oral contraceptive pill surveillance Z30.41 [place] [address] 34423- 6549 Feb, Acute bilateral low back pain without sciatica M54.5 [place] [address] 17483 5651 Feb, [place] [address] 80662 2487 Feb, Dental examination Z01.20 [facility] [address] [id number] Feb, Dental examination Z01.20 [place] [address] 86208- 0939 Feb, Anxiety F41.9 [place] [address] 54991 9098 Feb, Primary insomnia F51.01 and Moderate episode of recurrent major depressive disorder F33.1 [place] [address] [id number]- 3609 Jan, Acute suppurative otitis media of left ear without spontaneous rupture of tympanic membrane, recurrence not specified H66.002 [place] [address] [id number]- 9718 Jan, Migraine without aura and without status migrainosus, not intractable G43.009 ; Seasonal allergic rhinitis, unspecified allergic rhinitis trigger J30.2 ; GERD without esophagitis K21.9 ; Current mild episode of major depressive disorder without prior episode F32.0 and Human bite, initial encounter W50.3XXA [place] [address] 27309- 0593 Dec, Migraine without aura and without status migrainosus, not intractable G43.009 [facility] [id number] [place] [address] 46851- 9814 Dec, Nausea and vomiting after administration of anesthetic agent T88.59XA [place] [address] 30557- 8644 Dec, [place] [address] 20804 7077 Dec, Acute tonsillitis, unspecified etiology J03.90 [place] [address] 01065 3959 Nov, Dysmenorrhea N94.6 ; Acute midline low back pain without sciatica M54.5 ; Obesity (BMI 30.0-34.9) E66.9 and High ankle sprain of right lower extremity, initial encounter S93.431A [place] [address] 72511- 2255 Nov, [place] [address] 63654- 7128 Nov, Migraine without aura and without status migrainosus, not intractable G43.009 [place] [address] 14575- 0784 Oct, Migraine without aura and without status migrainosus, not intractable G43.009 [facility] [id number] [place] [address] 39703 -6847 Oct, Migraine without aura and without status migrainosus, not intractable G43.009 [facility] [id number] [place] [address] 38097- 7460 Oct, [facility] [address] 27425- 2661 Oct, [place] [address] 70783- 9646 Oct, Acute non-recurrent maxillary sinusitis J01.00 [place] [id number] [place] [address] 90248- 7972 Sep, Left elbow tendonitis M77.8 and Other fatigue R53.83 [facility] [id number] [place] [address] [id number] Sep, Dental examination Z01.20 [facility] [address] 38781- 2893 Sep, Sore throat J02.9 ; Other viral agents as the cause of diseases classified elsewhere B97.89 and Acute upper respiratory infection, unspecified J06.9 [place] [address] 79739- 6950 Aug, Encounter for immunization 23 [place] [address] 50034- 4071 Aug, Encounter for immunization 23 [place] [address] 94467- 0417 Aug, Migraine without aura and without status migrainosus, not intractable G43.009 [place] [address] 36849- 3538 Jul, Acute midline low back pain without sciatica M54.5 and Obesity (BMI 30.0-34.9) E66.9 [place] [address] 66661- 2337 Jul, Chronic seasonal allergic rhinitis due to pollen J30.1 [facility] [id number] [place] [address] [id number] Jun, Dental examination Z01.[address] [facility] [address] 50526 -9344 Jun, Jaw pain R68.84 [facility] [address] 14021- 7446 Jun, Dental examination Z01.20 [facility] [address] [id number] Jun, Dental examination Z01.20 [place] [id number] [place] [address] 39671- 0586 Jun, [place] [id number] [place] [address] 96971- 6850 Jun, Allergic reaction, initial encounter T78.40XA [place] [address] 34983- 6949 Jun, [place] [id number] [place] [address] 39979- 1733 Jun, Migraine without aura and without status migrainosus, not intractable G43.009 [place] [id number] [place] [address] 30252- 5315 May, [place] [id number] [place] [address] 84247- 1102 May, Helicobacter pylori (H. pylori) infection A04.8 [place] [id number] [place] [address] 29415- 5620 May, Encounter for routine adult health examination with abnormal findings Z00.01 ; Obesity (BMI 30.0-34.9) E66.9 ; Acanthosis nigricans L83 and Dietary counseling Z71.3 [place] [id number] [place] [address] 51701- 4638 Apr, Acute seasonal allergic rhinitis due to pollen J30.1 and Sore throat J02.9 [place] [address] [place] [address] 79229- 0370 Apr, [place] [id number] [place] [address] 89388- 4264 Apr, Migraine without aura and without status migrainosus, not intractable G43.009 [place] [address] [place] [address] 83387- 4105 March, Dental examination Z01.20 [facility] [address] [id number] [address] Feb, Seasonal allergic rhinitis, unspecified allergic rhinitis trigger J30.[address] [facility] [id number] [id number] Nov, [facility] [address] [id number] Oct, Dental examination Z01.20 [facility] [id number] [place] [address] [id number] Oct, Dental examination Z01.20 [facility] [address] [place] [address] [id number] Oct, Dental examination Z01.20 and Encounter for dental examination Z01.20 [facility] [address], [place] [address]- 8611 Feb, [facility] [id number] [place] [address] 70729- 9115 Feb, [facility] [address] [id number], [place] [address]- 6015 Sep, [facility] [id number] [place] [address] 47676- 5902 Sep, [facility] [address], [place] [address]- 2314 Jul, [facility] [address] [facility] [id number], [place] [address]- 7031 Jul, [facility] [address] [id number], [place] [address]- 4807 Jul, [facility] [address] [facility] [id number] [place] [address] 67902- 8350 Jun, [facility] [address] [facility] [id number], [place] [address]- 2478 Jun, [facility] [id number] [place] [address] 92985- 2546 Jun, [facility] [address] [facility] [id number], [place] [address]- 8216 Jun, [facility] [address] [id number], [place] [address]- 4826 Jul, [facility] [address] [id number], [place] [address]- 9846 Jun, [facility] [address], [place] [address]- 8496 Feb, [facility] [address] [id number], [place] [address]- 4716 Sep, [facility] [address] [id number], [place] [address]- 1766 Sep, [facility] [id number], [place] [address]- 0986 Oct, [facility] [address] [id number], [place] [address]- 4128 Oct, IMMUNIZATIONS Vaccine Route Administration Date Status GARDASIL 9 IM Intramuscular Sep 17, 2017 Administered SOCIAL HISTORY Never Assessed REASON FOR VISIT Immunization(s)---DBennettRN PLAN OF CARE VITAL SIGNS MEDICATIONS No Known Medications RESULTS No Results PROCEDURES Procedure Date Ordered Result Body Site GARDISIL 9 Sep 17, 2017 SINGLE IMMUNIZATION ADMIN Sep 17, 2017 INSTRUCTIONS MEDICATIONS ADMINISTERED No Known Medications MEDICAL (GENERAL) HISTORY Type Description Date Medical History Seasonal Allergies Surgical History uterine polyp removal- 12/2017 Hospitalization History Childbirth only
--- OUTSIDE RECORDS SUMMARY | 2018-11-13 10:45 | XMS REPORT ---
Author Author SANTA DAWKINS Organization [facility] Address [address] [place] [address] Care Team Providers Care Tripper Name Role Phone SANTA DAWKINS Unavailable PROBLEMS Type Condition ICD9-CM Code PVQ19-DK Code Onset Dates Condition Status SNOMED Code Problem Seasonal allergic rhinitis, unspecified allergic rhinitis trigger J30.2 Active 308683124 Problem GERD without esophagitis K21.9 Active 773032471 Problem Current mild episode of major depressive disorder without prior episode F32.0 Active 02933310 Problem Obesity (BMI 30.0-34.9) E66.9 Active 657892654862515 Problem Migraine without aura and without status migrainosus, not intractable G43.009 Active 340251370 Problem Dysmenorrhea N94.6 Active 687201628 Problem Acanthosis nigricans L83 Active 384207772 ALLERGIES No Information ENCOUNTERS Encounter Location Date Diagnosis [place] [address] [address]- [address]179 March, [facility] [address] [id number] Feb, [facility] [address] [id number] Feb, [facility] [address] 09116- 6823 Jan, Migraine without aura and without status migrainosus, not intractable G43.009 ; Seasonal allergic rhinitis, unspecified allergic rhinitis trigger J30.2 ; GERD without esophagitis K21.9 ; Current mild episode of major depressive disorder without prior episode F32.0 and Human bite, initial encounter W50.3XXA [facility] [address] 49088- 2609 Dec, Migraine without aura and without status migrainosus, not intractable G43.009 [facility] [id number] [place] [address] 16628- 4897 Dec, Nausea and vomiting after administration of anesthetic agent T88.59XA [facility] [address] 68574- 1603 Dec, [place] [address] 387203- 3143 Dec, Acute tonsillitis, unspecified etiology J03.90 [place] [address] 40601 4638 Nov, Dysmenorrhea N94.6 ; Acute midline low back pain without sciatica M54.5 ; Obesity (BMI 30.0-34.9) E66.9 and High ankle sprain of right lower extremity, initial encounter S93.431A [place] [address] 52589- 1037 Nov, [facility] [address] 65696- 3871 Nov, Migraine without aura and without status migrainosus, not intractable G43.009 [facility] [id number] [place] [address] 63858- 2492 Oct, Migraine without aura and without status migrainosus, not intractable G43.009 [facility] [id number] [place] [address] 42584 -7432 Oct, Migraine without aura and without status migrainosus, not intractable G43.009 [facility] [address] 80174- 3357 Oct, [facility] [address] 00118- 1356 Oct, [facility] [address] 62590- 4203 Oct, Acute non-recurrent maxillary sinusitis J01.00 [facility] [id number] [place] [address] 39754- 9738 Sep, Left elbow tendonitis M77.8 and Other fatigue R53.83 [facility] [id number] [place] [address] [id number] Sep, Dental examination Z01.20 [facility] [address] 42887- 1473 Sep, Sore throat J02.9 ; Other viral agents as the cause of diseases classified elsewhere B97.89 and Acute upper respiratory infection, unspecified J06.9 [place] [address] 375641- 1695 Aug, Encounter for immunization Z23 [place] [address] 49071- 9496 Aug, Encounter for immunization Z23 [place] [address] 93072- 7703 Aug, Migraine without aura and without status migrainosus, not intractable G43.009 [place] [address] 93843- 4992 Jul, Acute midline low back pain without sciatica M54.5 and Obesity (BMI 30.0-34.9) E66.9 [facility] [address] 11132- 8688 Jul, Chronic seasonal allergic rhinitis due to pollen J30.1 [facility] [address] [id number] Jun, Dental examination Z01.20 [facility] [address] 32486 -7071 Jun, Jaw pain R68.84 [facility] [address] 51910- 6184 Jun, Dental examination Z01.20 [facility] [address] [id number] [id number] Jun, Dental examination Z01.20 [place] [id number] [place] [address] 10005- 7611 Jun, [facility] [address]005[address]100[place] [address]- 3435 Jun, Allergic reaction, initial encounter T78.40XA [place] [id number] [place] [address] 66351- 1818 Jun, [place] [id number] [place] [address] 78238- 1179 Jun, Migraine without aura and without status migrainosus, not intractable G43.009 [place] [id number] [place] [address] 35133- 6959 May, [place] [id number] [place] [address] 90204- 4919 May, Helicobacter pylori (H. pylori) infection A04.8 [place] [address] [place] [address] 80268- 3312 May, Encounter for routine adult health examination with abnormal findings Z00.01 ; Obesity (BMI 30.0-34.9) E66.9 ; Acanthosis nigricans L83 and Dietary counseling Z71.3 [place] [address] [place] [address] 33527- 3352 Apr, Acute seasonal allergic rhinitis due to pollen J30.1 and Sore throat J02.9 [place] [address] [address]- 5289 Apr, [place] [id number] [place] [address] 85933- 6542 Apr, Migraine without aura and without status migrainosus, not intractable G43.009 [place] [address]100[place] [address]- 3523 March, Dental examination Z01.20 [facility] [address] [id number] [address] Feb, Seasonal allergic rhinitis, unspecified allergic rhinitis trigger J30.2 [facility] [address] [facility] [address] [id number] [place] [id number] Nov, [facility] [address] [id number] [id number] Oct, Dental examination Z01.20 [facility] [address] [id number] [id number] Oct, Dental examination Z01.20 [facility] [address]005[address]100[place] [id number] Oct, Dental examination Z01.20 and Encounter for dental examination Z01.20 [facility] [address] [id number] [address]- 2363 Feb, [facility] [address] [id number] [address]- 0158 Feb, [facility] [address] [id number] [address]- 3921 Sep, [facility] [address] [facility] [id number] [place] [address]- 1807 Sep, [facility] [address] [id number] [place] [address]- 1744 Jul, [facility] [address] [facility] [id number] [place] [address]- 5842 Jul, [facility] [address] [facility] [id number] [place] [address]- 2645 Jul, [facility] [address] [facility] [id number] [place] [address]- 3685 Jun, [facility] [address] [facility] [id number] [place] [address]- 7569 Jun, [facility] [address] [id number] [address]- 4072 Jun, [facility] [address]100[place] [address]- 9709 Jun, [facility] [address]005[address]100[place] [address]- 1246 Jul, [facility] [address]005[address]100[place] [address]- 0882 Jun, [facility] [address]005[address]100[place] [address]- 4279 Feb, [facility] [address] [place] [address] 82165- 0295 Sep, [facility] [address]00565100[place] [address]- 3609 Sep, [facility] [address]100[place] [address]- 4853 Oct, [facility] [address] [id number] [address]- 8827 Oct, IMMUNIZATIONS No Known Immunizations SOCIAL HISTORY Never Assessed REASON FOR VISIT PLAN OF CARE VITAL SIGNS MEDICATIONS Medication Instructions Dosage Frequency Start Date End Date Duration Status Xvlnaftxyk-OKWK-Jjjecarl 50-325-40 MG Orally every 4 hrs 1 capsule as needed 4h Apr, Active RESULTS No Results PROCEDURES No Known procedures INSTRUCTIONS MEDICATIONS ADMINISTERED No Known Medications MEDICAL (GENERAL) HISTORY Type Description Date Medical History Seasonal Allergies Surgical History uterine polyp removal- 12/2017 Hospitalization History Childbirth only
--- OUTSIDE RECORDS SUMMARY | 2018-11-13 10:45 | XMS REPORT ---
Author Author CUELLOLAURA Cunha Organization [facility] Address [address] [place] [address] Care Team Providers Care Motor Man Name Role Phone LAURA CUELLO Unavailable PROBLEMS Type Condition ICD9-CM Code ZGW10-AL Code Onset Dates Condition Status SNOMED Code Problem Acanthosis nigricans L83 Active 536123559 Problem GERD without esophagitis K21.9 Active 850145819 Problem Dysmenorrhea N94.6 Active 171061142 Problem Seasonal allergic rhinitis, unspecified allergic rhinitis trigger J30.2 Active 994892321 Problem Migraine without aura and without status migrainosus, not intractable G43.009 Active 302295611 Problem Obesity (BMI 30.0-34.9) E66.9 Active 817338831418769 Problem Mild persistent asthma without complication J45.30 Active 817757404 Problem Asthma due to seasonal allergies J45.909 Active 149008601 Problem Primary insomnia F51.01 Active 4834655 Problem Moderate episode of recurrent major depressive disorder F33.1 Active 250845753 Problem Acute bilateral low back pain without sciatica M54.5 Active 285641729 Problem Anxiety F41.9 Active 22670972 ALLERGIES Substance Reaction Event Type Date Status Topamax numbness and tingling Drug Allergy Nov, Active ENCOUNTERS Encounter Location Date Diagnosis [facility] [id number] [place] [address] 46144- 3242 13 Apr, 2018 Wheezing R06.2 [facility] [id number] [place] [address] 77388- 9427 12 Apr, 2018 Mild persistent asthma without complication J45.30 and Wheezing R06.2 [facility] [address] [place] [address] 44717- 2498 11 Apr, 2018 Migraine without aura and without status migrainosus, not intractable G43.009 [place] [id number] [place] [address] 71798- 1725 Apr, [place] [address] 76698- 2686 Apr, Cough R05 and Wheezing R06.2 [place] [place] [id number] [place] [address] 30291- 1514 Apr, Persistent cough for 3 weeks or longer R05 [place] [id number] [place] [address] 47587- 5463 March, Asthma due to seasonal allergies J45.909 ; Cough R05 and Wheezing R06.2 [place] [address] 52963- 9499 March, Seasonal allergic rhinitis, unspecified allergic rhinitis trigger J30.2 and Asthma due to seasonal allergies J45.909 [place] [id number] [place] [address] 80606- 6672 March, Cough R05 ; Chest congestion R09.89 and Sore throat J02.9 [place] [id number] [place] [address] 06978- 6226 March, Moderate episode of recurrent major depressive disorder F33.1 ; Migraine without aura and without status migrainosus, not intractable G43.009 ; Primary insomnia F51.01 and Anxiety F41.9 [facility] [address] [place] [address] 59593 -1224 March, Acute non-recurrent frontal sinusitis J01.10 [place] [id number] [place] [address] 31852- 6490 March, [place] [address] 65522- 2471 March, Right otitis media with effusion H65.91 ; Acute non- recurrent frontal sinusitis J01.10 and Migraine without aura and without status migrainosus, not intractable G43.009 [place] [address] 59971- 0886 Feb, Left lower quadrant pain R10.32 ; Migraine without aura and without status migrainosus, not intractable G43.009 and Anxiety F41.9 [place] [address] 14065- 7290 Feb, Oral contraceptive pill surveillance Z30.41 [place] [address] 12367- 4125 Feb, Acute bilateral low back pain without sciatica M54.5 [place] [address] 39734- 0920 Feb, [place] [address] 93125- 9392 Feb, Dental examination Z01.20 [facility] [address] [id number] Feb, Dental examination Z01.20 [place] [address] 35393- 7333 Feb, Anxiety F41.9 [place] [address] 75384- 0407 Feb, Primary insomnia F51.01 and Moderate episode of recurrent major depressive disorder F33.1 [place] [address] 01797- 1044 Jan, Acute suppurative otitis media of left ear without spontaneous rupture of tympanic membrane, recurrence not specified H66.002 [place] [address] 96241- 3601 Jan, Migraine without aura and without status migrainosus, not intractable G43.009 ; Seasonal allergic rhinitis, unspecified allergic rhinitis trigger J30.2 ; GERD without esophagitis K21.9 ; Current mild episode of major depressive disorder without prior episode F32.0 and Human bite, initial encounter W50.3XXA [place] [address] [place] [id number]- 2546 Dec, Migraine without aura and without status migrainosus, not intractable G43.009 [facility] [address] 16033- 4402 Dec, Nausea and vomiting after administration of anesthetic agent T88.59XA [place] [address] 58276- 3116 Dec, [place] [address] 81929- 3560 Dec, Acute tonsillitis, unspecified etiology J03.90 [place] [address] 94103- 6214 Nov, Dysmenorrhea N94.6 ; Acute midline low back pain without sciatica M54.5 ; Obesity (BMI 30.0-34.9) E66.9 and High ankle sprain of right lower extremity, initial encounter S93.431A [place] [address] 88899- 2101 Nov, [place] [address] 27811- 2225 Nov, Migraine without aura and without status migrainosus, not intractable G43.009 [facility] [address] 55307- 8546 Oct, Migraine without aura and without status migrainosus, not intractable G43.009 [facility] [id number] [place] [address] 22299 -0582 Oct, Migraine without aura and without status migrainosus, not intractable G43.009 [facility] [address] 97682- 3707 Oct, [facility] [address] 24038- 2724 Oct, [place] [address] 65103- 1804 Oct, Acute non-recurrent maxillary sinusitis J01.00 [facility] [address] 51027- 3317 Sep, Left elbow tendonitis M77.8 and Other fatigue R53.83 [facility] [address] [id number] Sep, Dental examination Z01.20 [facility] [address] 35242- 1817 Sep, Sore throat J02.9 ; Other viral agents as the cause of diseases classified elsewhere B97.89 and Acute upper respiratory infection, unspecified J06.9 [place] [address] 91519- 5495 Aug, Encounter for immunization Z23 [place] [address] 71227- 1165 Aug, Encounter for immunization 23 [place] [address] 64235- 5593 Aug, Migraine without aura and without status migrainosus, not intractable G43.009 [place] [address] 31409- 6823 Jul, Acute midline low back pain without sciatica M54.5 and Obesity (BMI 30.0-34.9) E66.9 [facility] [address] 26099- 7547 Jul, Chronic seasonal allergic rhinitis due to pollen J30.1 [facility] [address] [id number] Jun, Dental examination Z01.20 [facility] [address] 60873 -5164 Jun, Jaw pain R68.84 [facility] [address] 93722- 1111 Jun, Dental examination Z01.20 [facility] [address] [place] [address] [id number] Jun, Dental examination Z01.20 [facility] [address] [place] [address] 33430- 3051 Jun, [facility] [id number] [place] [address] 07982- 6471 Jun, Allergic reaction, initial encounter T78.40XA [place] [id number] [place] [address] 11841- 5260 Jun, [place] [id number] [place] [address] 51728- 3542 Jun, Migraine without aura and without status migrainosus, not intractable G43.009 [place] [id number] [place] [address] 54250- 1632 May, [facility] [id number] [place] [address] 98047- 2594 May, Helicobacter pylori (H. pylori) infection A04.8 [place] [id number] [place] [address] 49977- 6431 May, Encounter for routine adult health examination with abnormal findings Z00.01 ; Obesity (BMI 30.0-34.9) E66.9 ; Acanthosis nigricans L83 and Dietary counseling Z71.3 [place] [id number] [place] [address] 12353- 3714 Apr, Acute seasonal allergic rhinitis due to pollen J30.1 and Sore throat J02.9 [place] [id number] [place] [address] 16892- 7052 Apr, [place] [id number] [place] [address] 10444- 7735 Apr, Migraine without aura and without status migrainosus, not intractable G43.009 [place] [address] [address]- 4109 March, Dental examination Z01.20 [facility] [address] [address] -[address]88 Feb, Seasonal allergic rhinitis, unspecified allergic rhinitis trigger J30.2 [facility] [address] [id number] [id number] Nov, [facility] [address] [id number] [id number] Oct, Dental examination Z01.20 [facility] [id number] [place] [address] [id number] Oct, Dental examination Z01.20 [facility] [id number] [place] [address] [id number] Oct, Dental examination Z01.20 and Encounter for dental examination Z01.20 [facility] [address] [place] [address] 71321- 1098 Feb, [facility] [address] [place] [address] 65374- 0571 Feb, [facility] [id number] [place] [address] 83654- 5314 Sep, [facility] [address] [address]- 0815 Sep, [facility] [address], [place] [address]- 9964 Jul, [facility] [id number] [address]- 4824 Jul, [facility] [id number] [place] [address] 32775- 7871 Jul, [facility] [id number] [address]- 9092 Jun, [facility] [address] [place] [address] 44911- 2546 Jun, [facility] [id number] [address]- 5944 Jun, [facility] [id number] [address]- 9946 Jun, [facility] [address], [place] [address]- 5967 Jul, [facility] [address], [place] [address]- 0696 Jun, [facility] [address], [place] [address]- 6172 Feb, [facility] [address], [place] [address]- 1460 Sep, [facility] [address], [place] [address]- 0436 Sep, [facility] [address], [place] [address]- 9986 Oct, [facility] [id number], [place] [address]- 7699 Oct, IMMUNIZATIONS No Known Immunizations SOCIAL HISTORY Never Assessed REASON FOR VISIT pain acute: pelvic pain x 3 weeks. Has had issues since September, after Mirena removed has had increased pain and bleeding jonatan rn PLAN OF CARE Activity Details Follow Up prn Reason: VITAL SIGNS Height 62 in 2017-12-02 Weight 176.2 lbs 2017-12-02 Temperature 98.2 degrees Fahrenheit 2017-12-02 Heart Rate 72 bpm 2017-12-02 Respiratory Rate 20 2017-12-02 BMI 32.22 kg/m2 2017-12-02 Blood pressure systolic 100 mmHg 2017-12-02 Blood pressure diastolic 60 mmHg 2017-12-02 MEDICATIONS Medication Instructions Dosage Frequency Start Date End Date Duration Status Zithromax 250 MG Orally Once a day 2 tablets on the first day, then 1 tablet daily for 4 days 24h 5 day(s) Not-Taking Ciprofloxacin-Dexamethasone 0.3-0.1 % Otic Twice a day 4 drops into affected ear 12h 05 Dec, 2017 7 days Not-Taking Cetirizine HCl 10 mg Orally Once a day 1 tablet 24h 13 Apr, 2017 Jan, Not-Taking Ibuprofen 800 MG Orally Three times a day 1 tablet with food or milk as needed 8h 27 Oct, 2017 Jul, 90 days Active Fluticasone Propionate 50 MCG/ACT Nasally Once a day 1 spray in each nostril 24h 13 Apr, 2017 Not-Taking Omeprazole 20 mg Orally twice a day 1 capsule 12h May, 30 day(s ) Active Iodelyhhhn-XJZE-Xijkwtbx 50-325-40 MG Orally every 4 hrs 1 capsule as needed 4h 08 Apr, 2017 Active Tizanidine HCl 4 MG Orally Three times a day 1 tablet as needed 8h Nov, Nov, 14 days Active Levonorgestrel-Ethinyl Estrad 0.1-20 MG-MCG Orally Once a day 1 tablet 24h Not-Taking RESULTS Name Result Date Reference Range CBC 2017-12-02 WHITE BLOOD CELL COUNT 9.3 3.8-10.8 RED BLOOD CELL COUNT 4.77 3.80-5.10 HEMOGLOBIN 12.0 11.7-15.5 HEMATOCRIT 38.2 35.0-45.0 MCV 80.1 80.0-100.0 MCH 25.2 27.0-33.0 MCHC 31.4 32.0-36.0 RDW 14.2 11.0-15.0 PLATELET COUNT 309 140-400 MPV 10.9 7.5-12.5 ABSOLUTE NEUTROPHILS 4957 0842-7130 ABSOLUTE LYMPHOCYTES 3460 850-3900 ABSOLUTE MONOCYTES 567 200-950 ABSOLUTE EOSINOPHILS 242 15-500 ABSOLUTE BASOPHILS 74 0-200 NEUTROPHILS 53.3 LYMPHOCYTES 37.2 MONOCYTES 6.1 EOSINOPHILS 2.6 BASOPHILS 0.8 Ultrasound : Pelvic, COMPLETE (REFLEX [id number]) 2017-12-05 PROCEDURES Procedure Date Ordered Result Body Site COMPLETE CBC W/AUTO DIFF WBC Dec 02, 2017 VENIPUNCT, ROUTINE* Dec 02, 2017 INSTRUCTIONS MEDICATIONS ADMINISTERED No Known Medications MEDICAL (GENERAL) HISTORY Type Description Date Medical History Seasonal Allergies Surgical History uterine polyp removal- 12/2017 Hospitalization History Childbirth only
--- OUTSIDE RECORDS SUMMARY | 2018-11-13 10:46 | XMS REPORT ---
Author Author LAMLAURA Cunha [facility] Address [address] [place] [address] Care Team Providers Care Contact Center Director Name Role Phone LAURA LAM Unavailable PROBLEMS Type Condition ICD9-CM Code IAU03-OP Code Onset Dates Condition Status SNOMED Code Problem Migraine without aura and without status migrainosus, not intractable G43.009 Active 564775074 Problem Seasonal allergic rhinitis, unspecified allergic rhinitis trigger J30.2 Active 266702471 Problem Primary insomnia F51.01 Active 6470991 Problem GERD without esophagitis K21.9 Active 976579659 Problem Acanthosis nigricans L83 Active 545926559 Problem Obesity (BMI 30.0-34.9) E66.9 Active 283440147224875 Problem Current mild episode of major depressive disorder without prior episode F32.0 Active 49184529 Problem Dysmenorrhea N94.6 Active 421136885 ALLERGIES No Information ENCOUNTERS Encounter Location Date Diagnosis [facility] [id number] [place] [address] 48287- 9812 March, [facility] [address] [id number] Feb, [facility] [address] [id number] Feb, [facility] [id number] [place] [address] 87413- 4072 Feb, Primary insomnia F51.01 [facility] [address] 10958- 6525 Jan, Acute suppurative otitis media of left ear without spontaneous rupture of tympanic membrane, recurrence not specified H66.002 [facility] [address] 57493- 0274 Jan, Migraine without aura and without status migrainosus, not intractable G43.009 ; Seasonal allergic rhinitis, unspecified allergic rhinitis trigger J30.2 ; GERD without esophagitis K21.9 ; Current mild episode of major depressive disorder without prior episode F32.0 and Human bite, initial encounter W50.3XXA [place] [address] 86507- 9653 Dec, Migraine without aura and without status migrainosus, not intractable G43.009 [place] [address] 63553- 6244 Dec, Nausea and vomiting after administration of anesthetic agent T88.59XA [place] [address] 23496- 8900 Dec, [place] [address] 67962- 5771 Dec, Acute tonsillitis, unspecified etiology J03.90 [place] [address] 94818- 8472 Nov, Dysmenorrhea N94.6 ; Acute midline low back pain without sciatica M54.5 ; Obesity (BMI 30.0-34.9) E66.9 and High ankle sprain of right lower extremity, initial encounter S93.431A [place] [address] 40186- 3362 Nov, [place] [address] 66254- 5328 Nov, Migraine without aura and without status migrainosus, not intractable G43.009 [place] [address] 56382- 3244 Oct, Migraine without aura and without status migrainosus, not intractable G43.009 [facility] [id number] [place] [address] 72133 -6615 Oct, Migraine without aura and without status migrainosus, not intractable G43.009 [facility] [address] [place] [address] 18947- 0255 Oct, [place] [address] 43082- 4731 Oct, [place] [address] 39819- 1099 Oct, Acute non-recurrent maxillary sinusitis J01.00 [place] [address] 50852- 1855 Sep, Left elbow tendonitis M77.8 and Other fatigue R53.83 [facility] [address] [id number] Sep, Dental examination Z01.[address] 37410- 6385 Sep, Sore throat J02.9 ; Other viral agents as the cause of diseases classified elsewhere B97.89 and Acute upper respiratory infection, unspecified J06.9 [place] [address] [id number] [place] [address] 88675- 1657 Aug, Encounter for immunization Z23 [place] [address] [place] [address] [id number] [place] [address] 05186- 3913 Aug, Encounter for immunization Z23 [place] [address] 31788- 4694 Aug, Migraine without aura and without status migrainosus, not intractable G43.009 [facility] [id number] [place] [address] 99556- 6887 Jul, Acute midline low back pain without sciatica M54.5 and Obesity (BMI 30.0-34.9) E66.9 [place] [address] [id number] [place] [address] 82321- 6840 Jul, Chronic seasonal allergic rhinitis due to pollen J30.1 [facility] [address] [place] [id number] Jun, Dental examination Z01.20 [facility] [id number] [place] [address] 92229 -7643 Jun, Jaw pain R68.84 [facility] [id number] [place] [address] 83035- 2630 Jun, Dental examination Z01.20 [facility] [address] [id number] Jun, Dental examination Z01.20 [facility] [address] 11409- 5782 Jun, [place] [address] 84918- 2104 Jun, Allergic reaction, initial encounter T78.40XA [place] [address] 60490- 2460 Jun, [facility] [address] 50763- 4934 Jun, Migraine without aura and without status migrainosus, not intractable G43.009 [place] [id number] [place] [address] 23335- 6608 May, [place] [address] [place] [id number] [place] [address] 11710- 1797 May, Helicobacter pylori (H. pylori) infection A04.8 [facility] [id number] [place] [address] 34210- 0914 May, Encounter for routine adult health examination with abnormal findings Z00.01 ; Obesity (BMI 30.0-34.9) E66.9 ; Acanthosis nigricans L83 and Dietary counseling Z71.3 [place] [id number] [place] [address] 06825- 2756 13 Apr, 2017 Acute seasonal allergic rhinitis due to pollen J30.1 and Sore throat J02.9 [place] [address], [place] [address]- 8137 Apr, [facility] [address] [place] [address] 511883- 9540 Apr, Migraine without aura and without status migrainosus, not intractable G43.009 [facility] [address], [place] [address]- 9666 March, Dental examination Z01.20 [facility] [address], [place] [address] -0278 Feb, Seasonal allergic rhinitis, unspecified allergic rhinitis trigger J30.2 [address] [id number] Nov, [facility] [id number] [place] [address] [id number] Oct, Dental examination Z01.20 [facility] [id number] [place] [address] [id number] Oct, Dental examination Z01.20 [facility] [id number] [place] [address] [id number] Oct, Dental examination Z01.20 and Encounter for dental examination Z01.20 [facility] [address], [place] [address]- 0933 Feb, [facility] [address], [place] [address]- 8016 Feb, [facility] [address], [place] [address]- 4347 Sep, [facility] [address] [place] [address] 42367- 4991 Sep, [facility] [address], [place] [address]- 0633 Jul, [facility] [address], [place] [address]- 2921 Jul, [facility] [address], [place] [address]- 7286 Jul, [facility] [address], [place] [address]- 1351 Jun, [facility] [address], [place] [address]- 9419 Jun, [facility] [id number] [place] [address] 15866- 9286 Jun, [facility] [address], [place] [address]- 2080 Jun, [facility] [id number] [place] [address] 01822- 3210 Jul, [facility] [address], [place] [address]- 0595 Jun, [facility] [address] [place] [address] 95512- 6955 Feb, [facility] [address], [place] [address]- 1254 Sep, [facility] [address], [place] [address]- 3494 Sep, [facility] [address], [place] [address]- 5616 Oct, [facility] [address], [place] [address]- 6546 Oct, IMMUNIZATIONS Vaccine Route Administration Date Status TORADOL (IM) 60 MG/2ML (UP TO 15 MG) IM Intramuscular Jun 30, 2017 Administered SOCIAL HISTORY Never Assessed REASON FOR VISIT Injection, toradol 60mg per M.Lam---DBennettRN PLAN OF CARE VITAL SIGNS MEDICATIONS Unknown Medications RESULTS No Results PROCEDURES Procedure Date Ordered Result Body Site TORADOL (IM) 60 MG/2ML (UP TO 15 MG) Jun 30, 2017 THER/PROPH/DIAG INJ, SC/IM Jun 30, 2017 INSTRUCTIONS MEDICATIONS ADMINISTERED No Known Medications MEDICAL (GENERAL) HISTORY Type Description Date Medical History Seasonal Allergies Surgical History uterine polyp removal- 12/2017 Hospitalization History Childbirth only
--- OUTSIDE RECORDS SUMMARY | 2018-11-13 10:46 | XMS REPORT ---
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 Name Role Phone LAURA CUELLO Unavailable PROBLEMS Type Condition ICD9-CM Code PIQ24-II Code Onset Dates Condition Status SNOMED Code Problem Migraine without aura and without status migrainosus, not intractable G43.009 Active 174425336 Problem Acanthosis nigricans L83 Active 182471319 Problem Obesity (BMI 30.0-34.9) E66.9 Active 205589085747239 Problem Seasonal allergic rhinitis, unspecified allergic rhinitis trigger J30.2 Active 705818919 Problem Acute bilateral low back pain without sciatica M54.5 Active 788002389 Problem Anxiety F41.9 Active 89499674 Problem GERD without esophagitis K21.9 Active 786635049 Problem Dysmenorrhea N94.6 Active 508066176 Problem Primary insomnia F51.01 Active 6349344 Problem Moderate episode of recurrent major depressive disorder F33.1 Active 435738982 ALLERGIES No Information ENCOUNTERS Encounter Location Date Diagnosis [facility] [id number] [place] [address] March, Acute non-recurrent frontal sinusitis J01.10 [facility] [id number] [place] [address]27- [address]6 March, [facility] [address] [place] [address]13- [address] March, Right otitis media with effusion H65.91 ; Acute non- recurrent frontal sinusitis J01.10 and Migraine without aura and without status migrainosus, not intractable G43.009 [facility] [address] [place] [address] Feb, Left lower quadrant pain R10.32 ; Migraine without aura and without status migrainosus, not intractable G43.009 and Anxiety F41.9 [place] [address] [id number]- [address] Feb, Oral contraceptive pill surveillance Z30.41 [place] [address] [address] Feb, Acute bilateral low back pain without sciatica M54.5 [place] [address] [address] Feb, [place] [address] [address] 9[address] Feb, Dental examination Z01.20 [facility] [address] [id number] Feb, Dental examination Z01.20 [place] [address] [address] Feb, Anxiety F41.9 [place] [address] [address] 9133 Feb, Primary insomnia F51.01 and Moderate episode of recurrent major depressive disorder F33.1 [place] [address] [place] 16828000- 5037 Jan, Acute suppurative otitis media of left ear without spontaneous rupture of tympanic membrane, recurrence not specified H66.002 [place] [address] [place] [id number]- 4682 Jan, Migraine without aura and without status migrainosus, not intractable G43.009 ; Seasonal allergic rhinitis, unspecified allergic rhinitis trigger J30.2 ; GERD without esophagitis K21.9 ; Current mild episode of major depressive disorder without prior episode F32.0 and Human bite, initial encounter W50.3XXA [place] [address] [address]- [address] Dec, Migraine without aura and without status migrainosus, not intractable G43.009 [facility] [id number] [place] [address]758- [address] Dec, Nausea and vomiting after administration of anesthetic agent T88.59XA [place] [address] [address]- [address] Dec, [place] [address] [address] 3[address] Dec, Acute tonsillitis, unspecified etiology J03.90 [place] [address] [address] 4657 Nov, Dysmenorrhea N94.6 ; Acute midline low back pain without sciatica M54.5 ; Obesity (BMI 30.0-34.9) E66.9 and High ankle sprain of right lower extremity, initial encounter S93.431A [place] [address] [address] Nov, [place] [address] [address]- [address]47 Nov, Migraine without aura and without status migrainosus, not intractable G43.009 [place] [address] 18[address]- [address]368 Oct, Migraine without aura and without status migrainosus, not intractable G43.009 [facility] [id number] [place] [address] Oct, Migraine without aura and without status migrainosus, not intractable G43.009 [facility] [id number] [place] [address] 21681- 3253 Oct, [facility] [address] [address] Oct, [place] [address] [address]78- [address]28 Oct, Acute non-recurrent maxillary sinusitis J01.00 [place] [id number] [place] [address]195- 5611 Sep, Left elbow tendonitis M77.8 and Other fatigue R53.83 [facility] [id number] [place] [id number] Sep, Dental examination Z01.20 [facility] [address] 6[address] Sep, Sore throat J02.9 ; Other viral agents as the cause of diseases classified elsewhere B97.89 and Acute upper respiratory infection, unspecified J06.9 [place] [address] 59555- 6734 Aug, Encounter for immunization 23 [place] [address] 91375- 2959 Aug, Encounter for immunization 23 [place] [address] 5[address]- 3836 Aug, Migraine without aura and without status migrainosus, not intractable G43.009 [place] [address] 75495- 6600 Jul, Acute midline low back pain without sciatica M54.5 and Obesity (BMI 30.0-34.9) E66.9 [place] [address] [address]- 7588 Jul, Chronic seasonal allergic rhinitis due to pollen J30.1 [facility] [id number] [place] [id number] Jun, Dental examination Z01.20 [facility] [address] 25[address] Jun, Jaw pain R68.84 [facility] [address] 41698- 1590 Jun, Dental examination Z01.20 [facility] [address] [id number] Jun, Dental examination Z01.20 [place] [id number] [place] [address] 88111- 5777 Jun, [place] [id number] [place] [address] 99498- 6450 Jun, Allergic reaction, initial encounter T78.40XA [place] [address] 04759- 2428 Jun, [place] [id number] [place] [address] 15272- 0829 Jun, Migraine without aura and without status migrainosus, not intractable G43.009 [place] [id number] [place] [address] 27038- 1669 May, [place] [id number] [place] [address]23- 0125 May, Helicobacter pylori (H. pylori) infection A04.8 [place] [id number] [place] [address] 82591- 1140 May, Encounter for routine adult health examination with abnormal findings Z00.01 ; Obesity (BMI 30.0-34.9) E66.9 ; Acanthosis nigricans L83 and Dietary counseling Z71.3 [place] [id number] [place] [address] 33483- 2654 Apr, Acute seasonal allergic rhinitis due to pollen J30.1 and Sore throat J02.9 [place] [address] [place] [address] 15439- 3570 Apr, [place] [id number] [place] [address] 16527- 1730 Apr, Migraine without aura and without status migrainosus, not intractable G43.009 [place] [address] [place] [address] 06429- 9694 March, Dental examination Z01.20 [facility] [address] [id number] [address] Feb, Seasonal allergic rhinitis, unspecified allergic rhinitis trigger J30.2 [facility] [address] [id number] [id number] Nov, [facility] [address] [id number] Oct, Dental examination Z01.20 [facility] [id number] [place] [address] [id number] Oct, Dental examination Z01.20 [facility] [address] [place] [id number] Oct, Dental examination Z01.20 and Encounter for dental examination Z01.20 [facility] [address] [address] Feb, [facility] [id number] [place] [address] 10109- 0160 Feb, [facility] [address] [id number] [address] Sep, [facility] [id number] [place] [address] 85248- 6279 Sep, [facility] [address] [address] Jul, [facility] [address] [facility] [id number] [address] Jul, [facility] [id number] [address] Jul, [facility] [address] [facility] [id number] [place] [address] 48895- 5172 Jun, [facility] [address] [facility] [id number] [address] Jun, [facility] [id number] [place] [address] 46822- 2546 Jun, [facility] [id number] [address] Jun, [facility] [id number] [address] 2546 Jul, [facility] [id number] [address] Jun, [facility] [address] [address] Feb, [facility] [id number] [address] Sep, [facility] [id number] [address] 2546 Sep, [facility] [id number] [address] Oct, [facility] [id number] [address] Oct, IMMUNIZATIONS Vaccine Route Administration Date Status FLUARIX QUAD (3 AND UP) 2016 IM Intramuscular Sep 01, 2017 Administered SOCIAL HISTORY Never Assessed REASON FOR VISIT Flu shot-AHarrymanRN PLAN OF CARE VITAL SIGNS MEDICATIONS No Known Medications RESULTS No Results PROCEDURES Procedure Date Ordered Result Body Site FLUARIX QUAD (3 & UP)-GSK-2014Sep 01, 2017 SINGLE IMMUNIZATION ADMIN Sep 01, 2017 INSTRUCTIONS MEDICATIONS ADMINISTERED No Known Medications MEDICAL (GENERAL) HISTORY Type Description Date Medical History Seasonal Allergies Surgical History uterine polyp removal- 12/2017 Hospitalization History Childbirth only
--- OUTSIDE RECORDS SUMMARY | 2018-11-13 10:46 | XMS REPORT ---
Author Author CUELLOLAURA Cunha Organization [facility] Address [address] [place] [address] Care Team Providers Care [employer] Glazer Name Role Phone LAURA CUELLO Unavailable PROBLEMS Type Condition ICD9-CM Code HKP11-EI Code Onset Dates Condition Status SNOMED Code Problem Dysmenorrhea N94.6 Active 318734529 Problem Moderate episode of recurrent major depressive disorder F33.1 Active 151119184 Problem GERD without esophagitis K21.9 Active 414574621 Problem Seasonal allergic rhinitis, unspecified allergic rhinitis trigger J30.2 Active 505110818 Problem Migraine without aura and without status migrainosus, not intractable G43.009 Active 596932814 Problem Obesity (BMI 30.0-34.9) E66.9 Active 097603357676455 Problem Acanthosis nigricans L83 Active 302079126 Problem GERD with esophagitis K21.0 Active 229751240 Problem Mild persistent asthma without complication J45.30 Active 175981773 Problem Anxiety F41.9 Active 90742071 Problem Primary insomnia F51.01 Active 6798954 Problem Asthma due to seasonal allergies J45.909 Active 125347233 Problem Acute bilateral low back pain without sciatica M54.5 Active 160330986 ALLERGIES No Information ENCOUNTERS Encounter Location Date Diagnosis [facility] [id number] [place] [address] 39270- 6723 Apr, Vertigo R42 and Epigastric abdominal pain R10.13 [facility] [id number] [place] [address] 98808- 0777 Apr, Vertigo R42 [facility] [id number] [place] [address] 13088 -5639 Apr, Vertigo R42 [facility] [id number] [place] [address] 93808- 2832 Apr, Epigastric abdominal pain R10.13 and GERD with esophagitis K21.0 [place] [address] 39355- 1395 13 Apr, 2018 Wheezing R06.2 [place] [address] 90263- 8451 12 Apr, 2018 Mild persistent asthma without complication J45.30 and Wheezing R06.2 [place] [address] 42720- 3036 Apr, Migraine without aura and without status migrainosus, not intractable G43.009 [place] [address] 17986- 3712 Apr, [place] [address] 40946- 4545 07 Apr, 2018 Cough R05 and Wheezing R06.2 [place] [address] 10193- 3659 05 Apr, 2018 Persistent cough for 3 weeks or longer R05 [place] [address] 02982- 4620 March, Asthma due to seasonal allergies J45.909 ; Cough R05 and Wheezing R06.2 [place] [address] 39916- 3029 March, Seasonal allergic rhinitis, unspecified allergic rhinitis trigger J30.2 and Asthma due to seasonal allergies J45.909 [place] [address] 59405- 3456 March, Cough R05 ; Chest congestion R09.89 and Sore throat J02.9 [place] [address] 67469- 1739 March, Moderate episode of recurrent major depressive disorder F33.1 ; Migraine without aura and without status migrainosus, not intractable G43.009 ; Primary insomnia F51.01 and Anxiety F41.9 [facility] [id number] [place] [address] 58997 -1276 March, Acute non-recurrent frontal sinusitis J01.10 [facility] [id number] [place] [address] March, [facility] [address] 90748- 8655 March, Right otitis media with effusion H65.91 ; Acute non- recurrent frontal sinusitis J01.10 and Migraine without aura and without status migrainosus, not intractable G43.009 [facility] [address] 04009- 2142 Feb, Left lower quadrant pain R10.32 ; Migraine without aura and without status migrainosus, not intractable G43.009 and Anxiety F41.9 [facility] [address] 64277- 8203 Feb, Oral contraceptive pill surveillance Z30.41 [facility] [address] 10133- 5561 Feb, Acute bilateral low back pain without sciatica M54.5 [facility] [id number] [place] [address] 03681- 0028 Feb, [facility] [id number] [place] [address] 58819- 7933 Feb, Dental examination Z01.20 [facility] [address] [id number] Feb, Dental examination Z01.20 [facility] [id number] [place] [address] 56573- 4204 Feb, Anxiety F41.9 [facility] [id number] [place] [address] 80444- 1110 Feb, Primary insomnia F51.01 and Moderate episode of recurrent major depressive disorder F33.1 [facility] [address] 91643- 1305 Jan, Acute suppurative otitis media of left ear without spontaneous rupture of tympanic membrane, recurrence not specified H66.002 [place] [address] [place] [id number] Jan, Migraine without aura and without status migrainosus, not intractable G43.009 ; Seasonal allergic rhinitis, unspecified allergic rhinitis trigger J30.2 ; GERD without esophagitis K21.9 ; Current mild episode of major depressive disorder without prior episode F32.0 and Human bite, initial encounter W50.3XXA [place] [address] 07880 8387 Dec, Migraine without aura and without status migrainosus, not intractable G43.009 [place] [address] 58274 2594 Dec, Nausea and vomiting after administration of anesthetic agent T88.59XA [place] [address] 08780- 0641 Dec, [place] [address] 13851- 3539 Dec, Acute tonsillitis, unspecified etiology J03.90 [place] [address] 25186 2215 Nov, Dysmenorrhea N94.6 ; Acute midline low back pain without sciatica M54.5 ; Obesity (BMI 30.0-34.9) E66.9 and High ankle sprain of right lower extremity, initial encounter S93.431A [place] [address] 15415- 2990 Nov, [place] [address] 75199- 2933 Nov, Migraine without aura and without status migrainosus, not intractable G43.009 [place] [address] [place] [address]- 7643 Oct, Migraine without aura and without status migrainosus, not intractable G43.009 [facility] [id number] [place] [address] 50855 -2537 Oct, Migraine without aura and without status migrainosus, not intractable G43.009 [facility] [id number] [place] [address] 63664- 0208 Oct, [facility] [address] 54358- 7773 Oct, [facility] [address] 25697- 7513 Oct, Acute non-recurrent maxillary sinusitis J01.00 [facility] [address] 88984- 1858 Sep, Left elbow tendonitis M77.8 and Other fatigue R53.83 [facility] [address] [id number] Sep, Dental examination Z01.20 [facility] [address] 81319- 4353 Sep, Sore throat J02.9 ; Other viral agents as the cause of diseases classified elsewhere B97.89 and Acute upper respiratory infection, unspecified J06.9 [facility] [id number] [place] [address] 79907- 6337 Aug, Encounter for immunization Z23 [facility] [id number] [place] [address] 80028- 1220 Aug, Encounter for immunization Z23 [place] [address] 96239- 4468 Aug, Migraine without aura and without status migrainosus, not intractable G43.009 [facility] [address] 15284- 9865 Jul, Acute midline low back pain without sciatica M54.5 and Obesity (BMI 30.0-34.9) E66.9 [facility] [id number] [place] [address] 40125- 9071 Jul, Chronic seasonal allergic rhinitis due to pollen J30.1 [facility] [id number] [place] [address] [id number] Jun, Dental examination Z01.20 [facility] [id number] [place] [address] 37172 -0789 Jun, Jaw pain R68.84 [facility] [address] 39819- 0163 Jun, Dental examination Z01.20 [facility] [id number] [place] [address] [id number] Jun, Dental examination Z01.20 [facility] [address] 29304- 7758 Jun, [facility] [id number] [place] [address] 33960- 9970 Jun, Allergic reaction, initial encounter T78.40XA [place] [id number] [place] [address] 25017- 5566 Jun, [place] [id number] [place] [address] 07965- 0983 Jun, Migraine without aura and without status migrainosus, not intractable G43.009 [facility] [id number] [place] [address] 53149- 8564 May, [place] [address] 11471- 7088 May, Helicobacter pylori (H. pylori) infection A04.8 [place] [id number] [place] [address] 13227- 8352 May, Encounter for routine adult health examination with abnormal findings Z00.01 ; Obesity (BMI 30.0-34.9) E66.9 ; Acanthosis nigricans L83 and Dietary counseling Z71.3 [facility] [address] [place] [address] 94708- 0914 Apr, Acute seasonal allergic rhinitis due to pollen J30.1 and Sore throat J02.9 [facility] [id number] [place] [address] 89829- 6692 Apr, [facility] [id number] [place] [address] 16123- 0024 Apr, Migraine without aura and without status migrainosus, not intractable G43.009 [facility] [id number] [place] [address] 78458- 0334 March, Dental examination Z01.20 [facility] [address] [place] [address] 24389 -4559 Feb, Seasonal allergic rhinitis, unspecified allergic rhinitis trigger J30.[address] [id number] [id number] Nov, [facility] [id number] [place] [address] [id number] Oct, Dental examination Z01.20 [facility] [id number] [place] [address] [id number] Oct, Dental examination Z01.20 [facility] [id number] [place] [address] [id number] Oct, Dental examination Z01.20 and Encounter for dental examination Z01.20 [facility] [address] [place] [address] 91006- 9334 Feb, [facility] [id number] [place] [address] 11354- 1890 Feb, [facility] [id number] [place] [address] 75821- 3053 Sep, [facility] [id number] [place] [address] 88610- 9422 Sep, [facility] [id number] [address]- 8798 Jul, [facility] [address] [facility] [id number] 9919 Jul, [facility] [address] [address]- 6800 Jul, [facility] [id number] [address]- 9876 Jun, [facility] [id number] [address]- 4165 Jun, [facility] [address] [address]- 5659 Jun, [facility] [address] [address]- 5290 Jun, [facility] [address] [address]- 7456 Jul, [facility] [address] [address]- 5290 Jun, [facility] [address] [address]- 1079 Feb, [facility] [id number] [address]- 1657 Sep, [facility] [id number] [address]- 9986 Sep, [facility] [address] 8722 Oct, [facility] [address] [address]- 0941 Oct, IMMUNIZATIONS No Known Immunizations SOCIAL HISTORY Never Assessed REASON FOR VISIT PLAN OF CARE VITAL SIGNS MEDICATIONS Medication Instructions Dosage Frequency Start Date End Date Duration Status Propranolol HCl 10 mg Orally Twice a day 1 tablet 12h Dec, 30 day(s) Active RESULTS No Results PROCEDURES No Known procedures INSTRUCTIONS MEDICATIONS ADMINISTERED No Known Medications MEDICAL (GENERAL) HISTORY Type Description Date Medical History Seasonal Allergies Surgical History uterine polyp removal- 12/2017 Hospitalization History Childbirth only
--- OUTSIDE RECORDS SUMMARY | 2018-11-13 10:46 | XMS REPORT ---
Author Author CUELLOLAURA Cunha [facility] Address [address] [place] [address] Care Team Providers Care Proj Engineer Name Role Phone LAURA CUELLO Unavailable PROBLEMS Type Condition ICD9-CM Code HOB49-TT Code Onset Dates Condition Status SNOMED Code Problem Migraine without aura and without status migrainosus, not intractable G43.009 Active 435743842 Problem Acanthosis nigricans L83 Active 792796723 Problem Obesity (BMI 30.0-34.9) E66.9 Active 086594180914657 Problem Seasonal allergic rhinitis, unspecified allergic rhinitis trigger J30.2 Active 115587297 Problem Anxiety F41.9 Active 35791602 Problem Primary insomnia F51.01 Active 8236144 Problem Current mild episode of major depressive disorder without prior episode F32.0 Active 50362557 Problem Dysmenorrhea N94.6 Active 207251897 Problem Moderate episode of recurrent major depressive disorder F33.1 Active 188168646 Problem GERD without esophagitis K21.9 Active 647428856 ALLERGIES No Information ENCOUNTERS Encounter Location Date Diagnosis [facility] [id number] [place] [address] 60607- 6176 March, [facility] [id number] [place] [address] 06372- 5923 Feb, [facility] [id number] [place] [address] 17874- 1563 12 Feb, 2018 Dental examination Z01.20 [facility] [address] [id number] Feb, Dental examination Z01.20 [facility] [id number] [place] [address] 17514- 0028 Feb, Anxiety F41.9 [facility] [address] [place] [address]- 4561 Feb, Primary insomnia F51.01 and Moderate episode of recurrent major depressive disorder F33.1 [place] [address] 10120- 9323 Jan, Acute suppurative otitis media of left ear without spontaneous rupture of tympanic membrane, recurrence not specified H66.002 [place] [address] 28983- 8356 Jan, Migraine without aura and without status migrainosus, not intractable G43.009 ; Seasonal allergic rhinitis, unspecified allergic rhinitis trigger J30.2 ; GERD without esophagitis K21.9 ; Current mild episode of major depressive disorder without prior episode F32.0 and Human bite, initial encounter W50.3XXA [place] [address] 53772- 0154 Dec, Migraine without aura and without status migrainosus, not intractable G43.009 [place] [address] 28347- 7466 Dec, Nausea and vomiting after administration of anesthetic agent T88.59XA [place] [address] 20103- 9277 Dec, [place] [address] 16485- 2740 Dec, Acute tonsillitis, unspecified etiology J03.90 [place] [address] 37083- 3170 Nov, Dysmenorrhea N94.6 ; Acute midline low back pain without sciatica M54.5 ; Obesity (BMI 30.0-34.9) E66.9 and High ankle sprain of right lower extremity, initial encounter S93.431A [place] [address] 51581- 7922 Nov, [place] [address] [place] [id number]- 2546 Nov, Migraine without aura and without status migrainosus, not intractable G43.009 [facility] [address] [place] [address] 54567- 7991 Oct, Migraine without aura and without status migrainosus, not intractable G43.009 [facility] [address] [place] [address] 63536 -3896 Oct, Migraine without aura and without status migrainosus, not intractable G43.009 [facility] [id number] [place] [address] 91717- 0717 Oct, [facility] [id number] [place] [address] 02126- 1307 Oct, [facility] [id number] [place] [address] 99520- 4550 Oct, Acute non-recurrent maxillary sinusitis J01.00 [facility] [id number] [place] [address] 50751- 2086 Sep, Left elbow tendonitis M77.8 and Other fatigue R53.83 [facility] [id number] [place] [address] [id number] Sep, Dental examination Z01.20 [facility] [id number] [place] [address] 64822- 4298 Sep, Sore throat J02.9 ; Other viral agents as the cause of diseases classified elsewhere B97.89 and Acute upper respiratory infection, unspecified J06.9 [facility] [address] [place] [address] 92913- 0613 Aug, Encounter for immunization Z23 [place] [id number] [place] [address] 95234- 7340 Aug, Encounter for immunization Z23 [facility] [id number] [place] [address] 69308- 2730 Aug, Migraine without aura and without status migrainosus, not intractable G43.009 [facility] [address] [place] [address] 72266- 3156 Jul, Acute midline low back pain without sciatica M54.5 and Obesity (BMI 30.0-34.9) E66.9 [facility] [id number] [place] [address] 82420- 0269 Jul, Chronic seasonal allergic rhinitis due to pollen J30.1 [facility] [address] [id number] Jun, Dental examination Z01.20 [facility] [id number] [place] [address] 25725 -9928 Jun, Jaw pain R68.84 [facility] [id number] [place] [address] 67898- 8603 Jun, Dental examination Z01.20 [facility] [address] [id number] Jun, Dental examination Z01.20 [facility] [id number] [place] [address] 16114- 9232 Jun, [facility] [id number] [place] [address] 60276- 0802 Jun, Allergic reaction, initial encounter T78.40XA [facility] [id number] [place] [address] 36954- 7029 Jun, [facility] [id number] [place] [address] 20152- 2654 Jun, Migraine without aura and without status migrainosus, not intractable G43.009 [facility] [id number] [place] [address] 16057- 2479 May, [facility] [id number] [place] [address] 83022- 7591 May, Helicobacter pylori (H. pylori) infection A04.8 [facility] [id number] [place] [address] 28015- 0104 11 May, 2017 Encounter for routine adult health examination with abnormal findings Z00.01 ; Obesity (BMI 30.0-34.9) E66.9 ; Acanthosis nigricans L83 and Dietary counseling Z71.3 [facility] [address] [place] [address] 84953- 3773 13 Apr, 2017 Acute seasonal allergic rhinitis due to pollen J30.1 and Sore throat J02.9 [place] [id number] [place] [address] 60662- 2084 Apr, [address] 97898- 6941 Apr, Migraine without aura and without status migrainosus, not intractable G43.009 [place] [id number] [place] [address] 73465- 5869 March, Dental examination Z01.20 [facility] [id number] [place] [address] 95579 -4375 Feb, Seasonal allergic rhinitis, unspecified allergic rhinitis trigger J30.[address] [id number] [id number] Nov, [facility] [address] [place] [address] [id number] Oct, Dental examination Z01.20 [facility] [id number] [place] [address] [id number] Oct, Dental examination Z01.20 [facility] [id number] [place] [address] [id number] Oct, Dental examination Z01.20 and Encounter for dental examination Z01.20 [facility] [id number] [place] [address] 74868- 2037 14 Feb, 2015 [facility] [id number] [place] [address] 95479- 2323 Feb, [facility] [address] [facility] [id number] [place] [address]- 0929 Sep, [facility] [place] [facility] [address] [id number] [place] [address]- 6953 Sep, [facility] [place] [facility] [address] [id number] [place] [address]- 8556 Jul, [facility] [place] [facility] [address] [id number] [place] [address]- 1123 Jul, [facility] [place] [facility] [address] [id number] [place] [address]- 1665 Jul, [facility] [place] [facility] [address] [id number] [place] [address]- 0032 Jun, [facility] [place] [facility] [address] [id number] [place] [address]- 5469 Jun, [facility] [place] [facility] [address] [id number] [place] [address]- 0134 Jun, [facility] [place] [facility] [address] [id number] [place] [address]- 0415 Jun, [facility] [place] [facility] [address] [id number] [place] [address]- 2007 Jul, [facility] [place] [facility] [address] [id number] [place] [address]- 2809 Jun, [facility] [place] [facility] [address] [id number] [place] [id number] Feb, [facility] [place] [facility] [address] [id number] [place] [id number] Sep, [facility] [place] [facility] [address] [id number] [place] [id number] Sep, [facility] [place] [facility] [address] [id number] [place] [id number] Oct, [facility] [place] [facility] [address] [id number] [place] [id number] Oct, IMMUNIZATIONS No Known Immunizations SOCIAL HISTORY Never Assessed REASON FOR VISIT med order PLAN OF CARE VITAL SIGNS MEDICATIONS Medication Instructions Dosage Frequency Start Date End Date Duration Status Valium 5 mg Orally one time 1 tablet prior to dental appointment Jun, 1 dose Active RESULTS No Results PROCEDURES No Known procedures INSTRUCTIONS MEDICATIONS ADMINISTERED No Known Medications MEDICAL (GENERAL) HISTORY Type Description Date Medical History Seasonal Allergies Surgical History uterine polyp removal- 12/2017 Hospitalization History Childbirth only
--- OUTSIDE RECORDS SUMMARY | 2018-11-13 10:47 | XMS REPORT ---
Author Author SANTA DAWKINS Organization [facility] Address [address] [place] [address] Care Team Providers Care Dental Tech Name Role Phone SANTA DAWKINS Unavailable PROBLEMS Type Condition ICD9-CM Code HIR81-UZ Code Onset Dates Condition Status SNOMED Code Problem Obesity (BMI 30.0-34.9) E66.9 Active 833645242824127 Problem Dysmenorrhea N94.6 Active 987152396 Problem Acanthosis nigricans L83 Active 955726115 Problem Seasonal allergic rhinitis, unspecified allergic rhinitis trigger J30.2 Active 666782677 Problem Migraine without aura and without status migrainosus, not intractable G43.009 Active 908734636 Problem Acute bilateral low back pain without sciatica M54.5 Active 581120849 Problem Anxiety F41.9 Active 26577441 Problem GERD without esophagitis K21.9 Active 774779605 Problem Current mild episode of major depressive disorder without prior episode F32.0 Active 19142047 Problem Primary insomnia F51.01 Active 1116338 Problem Moderate episode of recurrent major depressive disorder F33.1 Active 229195318 ALLERGIES No Known Allergies ENCOUNTERS Encounter Location Date Diagnosis [facility] [address] [place] [address] 81594- 2955 March, [facility] [id number] [place] [address] 26271- 3697 Feb, [facility] [id number] [place] [address] 50422- 9953 Feb, Acute bilateral low back pain without sciatica M54.5 [facility] [id number] [place] [address] 63845- 4228 Feb, [facility] [id number] [place] [address] 93941- 8438 12 Apr, 2018 Dental examination Z01.20 [facility] [address] [place] [address] [id number] 10 Feb, 2018 Dental examination Z01.20 [place] [address] 86394- 3817 10 Feb, 2018 Anxiety F41.9 [place] [address] 77245- 5533 Feb, Primary insomnia F51.01 and Moderate episode of recurrent major depressive disorder F33.1 [place] [address] 24108- 5657 Jan, Acute suppurative otitis media of left ear without spontaneous rupture of tympanic membrane, recurrence not specified H66.002 [place] [address] 11291- 8249 Jan, Migraine without aura and without status migrainosus, not intractable G43.009 ; Seasonal allergic rhinitis, unspecified allergic rhinitis trigger J30.2 ; GERD without esophagitis K21.9 ; Current mild episode of major depressive disorder without prior episode F32.0 and Human bite, initial encounter W50.3XXA [place] [address] 25264- 7269 Dec, Migraine without aura and without status migrainosus, not intractable G43.009 [place] [id number] [place] [address] 85423- 8831 Dec, Nausea and vomiting after administration of anesthetic agent T88.59XA [place] [id number] [place] [address] 79899- 6199 Dec, [place] [address] 93312- 1706 Dec, Acute tonsillitis, unspecified etiology J03.90 [place] [address] 27902- 8540 Nov, Dysmenorrhea N94.6 ; Acute midline low back pain without sciatica M54.5 ; Obesity (BMI 30.0-34.9) E66.9 and High ankle sprain of right lower extremity, initial encounter S93.431A [facility] [address] 88689- 4590 Nov, [facility] [address] 50109- 2566 Nov, Migraine without aura and without status migrainosus, not intractable G43.009 [facility] [address] 16345- 3855 Oct, Migraine without aura and without status migrainosus, not intractable G43.009 [facility] [address] 83591 -6355 Oct, Migraine without aura and without status migrainosus, not intractable G43.009 [facility] [address] 92789- 4231 Oct, [facility] [address] 89732- 1922 Oct, [facility] [address] 82405- 1690 Oct, Acute non-recurrent maxillary sinusitis J01.00 [place] [address] 09137- 8015 Sep, Left elbow tendonitis M77.8 and Other fatigue R53.83 [facility] [id number] [place] [address] [id number] 17 Sep, 2017 Dental examination Z01.20 [facility] [address] 32189- 3224 Sep, Sore throat J02.9 ; Other viral agents as the cause of diseases classified elsewhere B97.89 and Acute upper respiratory infection, unspecified J06.9 [facility] [address] 04346- 2929 Aug, Encounter for immunization Z23 [facility] [id number] [place] [address] 09004- 3485 Aug, Encounter for immunization Z23 [facility] [address] 147975- 7905 Aug, Migraine without aura and without status migrainosus, not intractable G43.009 [facility] [address] 37636- 5171 Jul, Acute midline low back pain without sciatica M54.5 and Obesity (BMI 30.0-34.9) E66.9 [facility] [address] 53214- 9454 Jul, Chronic seasonal allergic rhinitis due to pollen J30.1 [facility] [address] [place] [id number] Jun, Dental examination Z01.20 [facility] [address] 82777 -8408 Jun, Jaw pain R68.84 [facility] [address] 71857- 0810 Jun, Dental examination Z01.20 [facility] [address] [id number] Jun, Dental examination Z01.20 [facility] [id number] [place] [address] 36213- 6126 Jun, [facility] [address] 95873- 4691 Jun, Allergic reaction, initial encounter T78.40XA [facility] [address] 34096- 3752 Jun, [facility] [address] 14544- 7903 Jun, Migraine without aura and without status migrainosus, not intractable G43.009 [facility] [address] [place] [address] 53236- 0827 May, [facility] [id number] [place] [address] 77314- 9661 May, Helicobacter pylori (H. pylori) infection A04.8 [place] [id number] [place] [address] 93566- 3503 11 May, 2017 Encounter for routine adult health examination with abnormal findings Z00.01 ; Obesity (BMI 30.0-34.9) E66.9 ; Acanthosis nigricans L83 and Dietary counseling Z71.3 [place] [address] 47316- 3367 13 Apr, 2017 Acute seasonal allergic rhinitis due to pollen J30.1 and Sore throat J02.9 [place] [id number] [place] [address] 67655- 7595 08 Apr, 2017 [place] [id number] [place] [address] 77581- 4369 Apr, Migraine without aura and without status migrainosus, not intractable G43.009 [place] [id number] [place] [address] 58521- 8113 March, Dental examination Z01.20 [facility] [address] [place] [address] 46193 -6399 Feb, Seasonal allergic rhinitis, unspecified allergic rhinitis trigger J30.2 [facility] [address] [id number] [id number] Nov, [facility] [address] [place] [address] [id number] Oct, Dental examination Z01.20 [facility] [id number] [place] [address] [id number] Oct, Dental examination Z01.20 [facility] [id number] [place] [address] [id number] Oct, Dental examination Z01.20 and Encounter for dental examination Z01.20 [facility] [address] [id number] [place] [address]- 2582 14 Feb, 2015 [facility] [address] [id number] [place] [address]- 5292 13 Feb, 2015 [facility] [address] [id number] [address]- 1467 Sep, [facility] [address] [id number] [place] [address]- 0904 Sep, [facility] [address] [id number] [place] [address]- 6374 Jul, [facility] [address] [id number] [place] [address]- 0892 Jul, [facility] [address] [facility] [id number] [place] [address]- 7109 Jul, [facility] [address] [id number] [address]- 0928 Jun, [facility] [address] [id number] [place] [address]- 0587 Jun, [facility] [address] [facility] [id number] [address]- 8743 Jun, [facility] [address] [id number] [address]- 4541 Jun, [facility] [address] [id number] [address]- 7284 Jul, [facility] [address] [id number] [address]- 5530 Jun, [facility] [address] [facility] [id number] [address]- 9813 Feb, [facility] [address] [id number] [address]- 2992 Sep, [facility] [address] [facility] [id number] [place] [address]- 1786 Sep, [facility] [address] [facility] [id number] [address]- 5813 Oct, [facility] [address] [facility] [id number] [place] [address]- 0929 Oct, IMMUNIZATIONS No Known Immunizations SOCIAL HISTORY Never Assessed REASON FOR VISIT facial swelling left upper front. pt had a root cannal...partial one...2 days ago. reports pain in that area. [email or web address] PLAN OF CARE VITAL SIGNS Height 62 in 2017-07-23 Weight 179.6 lbs 2017-07-23 Temperature 98.2 degrees Fahrenheit 2017-07-23 Heart Rate 84 bpm 2017-07-23 Respiratory Rate 20 2017-07-23 BMI 32.85 kg/m2 2017-07-23 Blood pressure systolic 112 mmHg 2017-07-23 Blood pressure diastolic 70 mmHg 2017-07-23 MEDICATIONS Medication Instructions Dosage Frequency Start Date End Date Duration Status Amoxicillin 500 MG Orally every 8 hrs 1 capsule 8h 7 days Active Augmentin 875-125 MG Orally every 12 hrs 1 tablet 12h 30 Jun, 2017 Jul, 10 day(s) Active RESULTS No Results PROCEDURES No Known procedures INSTRUCTIONS MEDICATIONS ADMINISTERED No Known Medications MEDICAL (GENERAL) HISTORY Type Description Date Medical History Seasonal Allergies Surgical History uterine polyp removal- 12/2017 Hospitalization History Childbirth only
--- OUTSIDE RECORDS SUMMARY | 2018-11-13 10:47 | XMS REPORT ---
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 Name Role Phone LAURA CUELLO Unavailable PROBLEMS Type Condition ICD9-CM Code GBF03-MG Code Onset Dates Condition Status SNOMED Code Problem Acanthosis nigricans L83 Active 823995097 Problem GERD without esophagitis K21.9 Active 783439018 Problem Dysmenorrhea N94.6 Active 404931834 Problem Seasonal allergic rhinitis, unspecified allergic rhinitis trigger J30.2 Active 000857381 Problem Migraine without aura and without status migrainosus, not intractable G43.009 Active 663341039 Problem Obesity (BMI 30.0-34.9) E66.9 Active 177012852851084 Problem Mild persistent asthma without complication J45.30 Active 764097039 Problem Asthma due to seasonal allergies J45.909 Active 194086387 Problem Primary insomnia F51.01 Active 7802545 Problem Moderate episode of recurrent major depressive disorder F33.1 Active 643666487 Problem Acute bilateral low back pain without sciatica M54.5 Active 991464659 Problem Anxiety F41.9 Active 98375859 ALLERGIES No Information ENCOUNTERS Encounter Location Date Diagnosis [place] [address] [place] [address] 75811- 3993 13 Apr, 2018 Wheezing R06.2 [place] [address] [id number] [place] [address] 12603- 3795 12 Apr, 2018 Mild persistent asthma without complication J45.30 and Wheezing R06.2 [place] [id number] [place] [address] 98120- 7112 11 Apr, 2018 Migraine without aura and without status migrainosus, not intractable G43.009 [place] [id number] [place] [address] 55724- 9266 Apr, [facility] [id number] [place] [address] 87964- 5982 Apr, Cough R05 and Wheezing R06.2 [place] [id number] [place] [address] 52110- 0587 Apr, Persistent cough for 3 weeks or longer R05 [place] [id number] [place] [address] 35297- 0946 March, Asthma due to seasonal allergies J45.909 ; Cough R05 and Wheezing R06.2 [place] [id number] [place] [address] 34701- 8256 March, Seasonal allergic rhinitis, unspecified allergic rhinitis trigger J30.2 and Asthma due to seasonal allergies J45.909 [place] [address] [id number] [place] [address] 63960- 5110 March, Cough R05 ; Chest congestion R09.89 and Sore throat J02.9 [place] [address] [id number] [place] [address] 81381- 2513 March, Moderate episode of recurrent major depressive disorder F33.1 ; Migraine without aura and without status migrainosus, not intractable G43.009 ; Primary insomnia F51.01 and Anxiety F41.9 [facility] [id number] [place] [address] 61653 -9655 March, Acute non-recurrent frontal sinusitis J01.10 [place] [address] [id number] [place] [address] 41679- 2059 March, [place] [address] [id number] [place] [address] 25180- 7528 March, Right otitis media with effusion H65.91 ; Acute non- recurrent frontal sinusitis J01.10 and Migraine without aura and without status migrainosus, not intractable G43.009 [place] [address] [id number] [place] [address] 16259- 9228 Feb, Left lower quadrant pain R10.32 ; Migraine without aura and without status migrainosus, not intractable G43.009 and Anxiety F41.9 [place] [address] [place] [id number]- 7496 Feb, Oral contraceptive pill surveillance Z30.41 [place] [address] 04109- 1031 Feb, Acute bilateral low back pain without sciatica M54.5 [place] [address] 39081- 1397 Feb, [place] [address] [place] [id number] Feb, Dental examination Z01.20 [facility] [address] [id number] Feb, Dental examination Z01.20 [place] [address] 22117- 4635 Feb, Anxiety F41.9 [place] [address] 54626- 2205 Feb, Primary insomnia F51.01 and Moderate episode of recurrent major depressive disorder F33.1 [place] [address] 00913- 6226 Jan, Acute suppurative otitis media of left ear without spontaneous rupture of tympanic membrane, recurrence not specified H66.002 [place] [address] 03270- 1720 Jan, Migraine without aura and without status migrainosus, not intractable G43.009 ; Seasonal allergic rhinitis, unspecified allergic rhinitis trigger J30.2 ; GERD without esophagitis K21.9 ; Current mild episode of major depressive disorder without prior episode F32.0 and Human bite, initial encounter W50.3XXA [place] [address] 60192- 0857 Dec, Migraine without aura and without status migrainosus, not intractable G43.009 [facility] [id number] [place] [address] 93395- 5177 Dec, Nausea and vomiting after administration of anesthetic agent T88.59XA [facility] [id number] [place] [address] 17465- 4028 Dec, [place] [address] 10757- 6255 Dec, Acute tonsillitis, unspecified etiology J03.90 [place] [address] 21240- 9221 Nov, Dysmenorrhea N94.6 ; Acute midline low back pain without sciatica M54.5 ; Obesity (BMI 30.0-34.9) E66.9 and High ankle sprain of right lower extremity, initial encounter S93.431A [place] [address] 13731- 2685 Nov, [facility] [address] 83427- 0282 Nov, Migraine without aura and without status migrainosus, not intractable G43.009 [facility] [address] [id number] [place] [address] 99559- 7906 Oct, Migraine without aura and without status migrainosus, not intractable G43.009 [facility] [id number] [place] [address] 58282 -4403 Oct, Migraine without aura and without status migrainosus, not intractable G43.009 [facility] [id number] [place] [address] 55093- 0451 Oct, [facility] [id number] [place] [address] 07834- 2275 Oct, [facility] [id number] [place] [address] 03000- 4017 Oct, Acute non-recurrent maxillary sinusitis J01.00 [facility] [address] 94909- 3562 17 Sep, 2017 Left elbow tendonitis M77.8 and Other fatigue R53.83 [facility] [id number] [place] [address] [id number] Sep, Dental examination Z01.20 [facility] [address] 59352- 0876 Sep, Sore throat J02.9 ; Other viral agents as the cause of diseases classified elsewhere B97.89 and Acute upper respiratory infection, unspecified J06.9 [place] [address] 98965- 1652 Aug, Encounter for immunization Z23 [place] [address] 80435- 8554 Aug, Encounter for immunization Z23 [place] [address] 07825- 9620 Aug, Migraine without aura and without status migrainosus, not intractable G43.009 [place] [address] 07518- 0369 Jul, Acute midline low back pain without sciatica M54.5 and Obesity (BMI 30.0-34.9) E66.9 [facility] [address] 62311- 3647 Jul, Chronic seasonal allergic rhinitis due to pollen J30.1 [facility] [id number] [place] [address] [id number] Jun, Dental examination Z01.20 [facility] [address] 05694 -8643 Jun, Jaw pain R68.84 [facility] [address] 50244- 3028 Jun, Dental examination Z01.20 [facility] [address] [place] [id number] [id number] Jun, Dental examination Z01.20 [place] [id number] [place] [address] 73416- 6974 Jun, [place] [id number] [place] [address] 80725- 2268 Jun, Allergic reaction, initial encounter T78.40XA [place] [id number] [place] [address] 97786- 1170 Jun, [place] [id number] [place] [address] 62468- 9810 Jun, Migraine without aura and without status migrainosus, not intractable G43.009 [place] [id number] [place] [address] 75662- 0439 May, [place] [id number] [place] [address] 15358- 9378 May, Helicobacter pylori (H. pylori) infection A04.8 [place] [address] [id number] [place] [address] 93758- 8626 May, Encounter for routine adult health examination with abnormal findings Z00.01 ; Obesity (BMI 30.0-34.9) E66.9 ; Acanthosis nigricans L83 and Dietary counseling Z71.3 [place] [id number] [place] [address] 25291- 7639 Apr, Acute seasonal allergic rhinitis due to pollen J30.1 and Sore throat J02.9 [place] [address] [address]- 5889 Apr, [place] [id number] [place] [address] 18374- 0642 Apr, Migraine without aura and without status migrainosus, not intractable G43.009 [place] [address] [id number] [place] [address] 51646- 5794 March, Dental examination Z01.20 [facility] [address] [id number] [address] -[address] Feb, Seasonal allergic rhinitis, unspecified allergic rhinitis trigger J30.2 [facility] [address] [id number] [id number] Nov, [facility] [address] [id number] [id number] Oct, Dental examination Z01.20 [facility] [address] [id number][place] [id number] Oct, Dental examination Z01.20 [facility] [address] [place] [address] [id number] [id number] Oct, Dental examination Z01.20 and Encounter for dental examination Z01.20 [facility] [address] [id number][place] [address]- 1491 Feb, [facility] [address] [id number][place] [address]- 3666 Feb, [facility] [address] [id number][place] [address]- 5283 Sep, [facility] [address] [id number], [place] [address]- 4572 Sep, [facility] [address] [id number][place] [address]- 7749 Jul, [facility] [address] [id number][place] [address]- 5000 Jul, [facility] [address] [id number][place] [address]- 7706 Jul, [facility] [address] [facility] [id number][place] [address]- 4052 Jun, [facility] [address] [id number][place] [address]- 2458 Jun, [facility] [address] [id number] [address]- 4256 Jun, [facility] [address] [id number] [address]- 9796 Jun, [facility] [address], [place] [address]- 7186 Jul, [facility] [address] [address]- 6266 Jun, [facility] [address] [address]- 3375 Feb, [facility] [address], [place] [address]- 2986 Sep, [facility] [address] [address]- 6876 Sep, [facility] [address] [address]- 0266 Oct, [facility] [address] [id number] [address]- 3606 Oct, IMMUNIZATIONS Vaccine Route Administration Date Status TORADOL (IM) 60 MG/2ML (UP TO 15 MG) IM Intramuscular Nov 28, 2017 Administered SOCIAL HISTORY Never Assessed REASON FOR VISIT Injection-V/O from Laura Carole 60mg Toradol IM [id number] PLAN OF CARE VITAL SIGNS MEDICATIONS Unknown Medications RESULTS No Results PROCEDURES Procedure Date Ordered Result Body Site TORADOL (IM) 60 MG/2ML (UP TO 15 MG) Nov 28, 2017 THER/PROPH/DIAG INJ, SC/IM Nov 28, 2017 INSTRUCTIONS MEDICATIONS ADMINISTERED No Known Medications MEDICAL (GENERAL) HISTORY Type Description Date Medical History Seasonal Allergies Surgical History uterine polyp removal- 12/2017 Hospitalization History Childbirth only
--- OUTSIDE RECORDS SUMMARY | 2018-11-13 10:47 | XMS REPORT ---
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 Name Role Phone JOSE MIGUEL DEGROOT Unavailable PROBLEMS Type Condition ICD9-CM Code TJP05-GV Code Onset Dates Condition Status SNOMED Code Problem Obesity (BMI 30.0-34.9) E66.9 Active 633739994771312 Problem Dysmenorrhea N94.6 Active 255028755 Problem Acanthosis nigricans L83 Active 737755343 Problem Seasonal allergic rhinitis, unspecified allergic rhinitis trigger J30.2 Active 949316997 Problem Migraine without aura and without status migrainosus, not intractable G43.009 Active 594728614 Problem Acute bilateral low back pain without sciatica M54.5 Active 715576375 Problem Anxiety F41.9 Active 93364185 Problem GERD without esophagitis K21.9 Active 051561555 Problem Current mild episode of major depressive disorder without prior episode F32.0 Active 14158215 Problem Primary insomnia F51.01 Active 0072637 Problem Moderate episode of recurrent major depressive disorder F33.1 Active 985345834 ALLERGIES No Known Allergies ENCOUNTERS Encounter Location Date Diagnosis [place] [address] [place] [address] 89976- 0443 March, [place] [address] [place] [id number] [place] [address] 51137- 7347 Feb, [place] [address] [place] [id number] [place] [address] 59085- 0379 Feb, Oral contraceptive pill surveillance Z30.41 [place] [address] [place] [id number] [place] [address] 23021- 8930 Feb, Acute bilateral low back pain without sciatica M54.5 [place] [address] [place] [id number] [place] [address] 96618- 0633 Feb, [place] [address] 07475- 0851 12 Feb, 2018 Dental examination Z01.20 [facility] [address] [id number] 10 Feb, 2018 Dental examination Z01.20 [place] [address] 33362- 3454 10 Feb, 2018 Anxiety F41.9 [place] [address] [place] [id number] 9623 Feb, Primary insomnia F51.01 and Moderate episode of recurrent major depressive disorder F33.1 [place] [address] 879 Jan, Acute suppurative otitis media of left ear without spontaneous rupture of tympanic membrane, recurrence not specified H66.002 [place] [address] [address] 1456 Jan, Migraine without aura and without status migrainosus, not intractable G43.009 ; Seasonal allergic rhinitis, unspecified allergic rhinitis trigger J30.2 ; GERD without esophagitis K21.9 ; Current mild episode of major depressive disorder without prior episode F32.0 and Human bite, initial encounter W50.3XXA [place] [address] 56312- 0377 Dec, Migraine without aura and without status migrainosus, not intractable G43.009 [place] [address] 12030- 4487 Dec, Nausea and vomiting after administration of anesthetic agent T88.59XA [place] [address] 23146- 1053 Dec, [place] [address] 19343 4998 Dec, Acute tonsillitis, unspecified etiology J03.90 [place] [address] [place] [address]- 1836 Nov, Dysmenorrhea N94.6 ; Acute midline low back pain without sciatica M54.5 ; Obesity (BMI 30.0-34.9) E66.9 and High ankle sprain of right lower extremity, initial encounter S93.431A [facility] [address] 52300- 6998 Nov, [facility] [address] 67749- 3634 Nov, Migraine without aura and without status migrainosus, not intractable G43.009 [place] [address] 3228 Oct, Migraine without aura and without status migrainosus, not intractable G43.009 [facility] [address] 20927 -7165 Oct, Migraine without aura and without status migrainosus, not intractable G43.009 [facility] [address] 96195- 7050 Oct, [place] [address] 97298- 8990 Oct, [facility] [address] 69453- 5596 Oct, Acute non-recurrent maxillary sinusitis J01.00 [place] [address] 73690- 4149 Sep, Left elbow tendonitis M77.8 and Other fatigue R53.83 [facility] [address] [id number] Sep, Dental examination Z01.20 [facility] [address] 25613- 9635 Sep, Sore throat J02.9 ; Other viral agents as the cause of diseases classified elsewhere B97.89 and Acute upper respiratory infection, unspecified J06.9 [facility] [address] [place] [address] 10686- 8149 Aug, Encounter for immunization Z23 [facility] [address] 31112- 8778 Aug, Encounter for immunization Z23 [facility] [address] [place] [id number] [place] [address] 16368- 7230 Aug, Migraine without aura and without status migrainosus, not intractable G43.009 [facility] [address] 33217- 5218 Jul, Acute midline low back pain without sciatica M54.5 and Obesity (BMI 30.0-34.9) E66.9 [facility] [address] [place] [id number] [place] [address] 50486- 0531 Jul, Chronic seasonal allergic rhinitis due to pollen J30.1 [facility] [address] [id number] Jun, Dental examination Z01.20 [facility] [address] 09901 -8937 Jun, Jaw pain R68.84 [facility] [address] [place] [id number] [place] [address] 81484- 5023 Jun, Dental examination Z01.20 [facility] [address] [id number] Jun, Dental examination Z01.20 [facility] [address] [place] [id number] [place] [address] 67825- 1999 Jun, [facility] [address] 24187- 0799 Jun, Allergic reaction, initial encounter T78.40XA [facility] [address] 28907- 6666 Jun, [facility] [address] [place] [address]- 1483 07 Jun, 2017 Migraine without aura and without status migrainosus, not intractable G43.009 [facility] [address] [place] [id number] [place] [address] 82014- 8964 May, [place] [address] [place] [id number] [place] [address] 63177- 4397 14 May, 2017 Helicobacter pylori (H. pylori) infection A04.8 [place] [address] [place] [id number] [place] [address] 27899- 6130 11 May, 2017 Encounter for routine adult health examination with abnormal findings Z00.01 ; Obesity (BMI 30.0-34.9) E66.9 ; Acanthosis nigricans L83 and Dietary counseling Z71.3 [place] [address] [place] [id number] [place] [address] 98995- 4757 13 Apr, 2017 Acute seasonal allergic rhinitis due to pollen J30.1 and Sore throat J02.9 [place] [address] [place] [id number] [place] [address] 71442- 0330 Apr, [place] [address] 56818- 5328 Apr, Migraine without aura and without status migrainosus, not intractable G43.009 [place] [address] [place] [id number] [place] [address] 90755- 5748 March, Dental examination Z01.20 [facility] [address] [place] [address] 31780 -2340 Feb, Seasonal allergic rhinitis, unspecified allergic rhinitis trigger J30.[address] [facility] [address] [id number] [id number] Nov, [facility] [address] [place] [address] [id number] Oct, Dental examination Z01.20 [facility] [address] [place] [id number] [place] [address] [id number] 27 Dec, 2016 Dental examination Z01.20 [facility] [address] [id number] [id number] 08 Oct, 2015 Dental examination Z01.20 and Encounter for dental examination Z01.20 [facility] [address] [id number] [place] [address]- 3035 14 Feb, 2015 [facility] [address] [id number] [place] [address]- 8346 Feb, [facility] [address] [id number] [place] [address]- 6411 Sep, [facility] [address] [id number] [place] [address]- 2172 Sep, [facility] [address] [id number] [place] [address]- 5636 Jul, [facility] [address] [id number] [place] [address]- 9651 Jul, [facility] [address] [id number] [place] [address]- 7125 Jul, [facility] [address] [id number] [place] [address]- 9311 Jun, [facility] [address] [id number] [place] [address]- 1947 Jun, [facility] [address] [id number] [place] [address]- 4244 Jun, [facility] [address] [id number], [place] [address]- 6701 Jun, [facility] [address] [id number] [place] [address]- 0366 Jul, [facility] [address] [id number] [place] [address]- 9365 Jun, [facility] [address] [id number], [place] [address]- 3645 Feb, [facility] [address] [facility] [id number], [place] [address]- 9628 Sep, [facility] [address] [facility] [id number], [place] [address]- 2185 Sep, [facility] [address] [facility] [id number][place] [address]- 4240 Oct, [facility] [address] [facility] [id number], [place] [address]- 9352 Oct, IMMUNIZATIONS No Known Immunizations SOCIAL HISTORY Never Assessed REASON FOR VISIT endo PLAN OF CARE Activity Details Follow Up 1 Week Reason:finish endo VITAL SIGNS Blood pressure systolic 122 mmHg 2017-07-21 Blood pressure diastolic 77 mmHg 2017-07-21 MEDICATIONS Medication Instructions Dosage Frequency Start Date End Date Duration Status [place] 5-325 MG Orally every 6 hrs 1 tablet as needed 6h 4 days Active Valium 5 mg Orally one time 1 tablet prior to dental appointment Jun, 1 dose Active Tcmedcusmt-GJLK-Dmnkolul 50-325-40 MG Orally every 4 hrs 1 capsule as needed 4h 08 Apr, 2017 Active DiphenhydrAMINE HCl 25 MG Orally every 8 hrs 1 capsule as needed 8h 16 Jun Active Omeprazole 20 mg Orally twice a day 1 capsule 12h May, 30 day(s ) Active Amoxicillin 500 MG Orally every 8 hrs 1 capsule 8h 7 days Active RESULTS No Results PROCEDURES Procedure Date Ordered Result Body Site PULPAL DEBRID PRIMARY Jul 21, 2017 Billing Notes on claim Jul 21, 2017 INSTRUCTIONS MEDICATIONS ADMINISTERED No Known Medications MEDICAL (GENERAL) HISTORY Type Description Date Medical History Seasonal Allergies Surgical History uterine polyp removal- 12/2017 Hospitalization History Childbirth only
--- OUTSIDE RECORDS SUMMARY | 2018-11-13 10:48 | XMS REPORT ---
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 Name Role Phone JOSE MIGUEL DEGROOT Unavailable PROBLEMS Type Condition ICD9-CM Code ALU13-TK Code Onset Dates Condition Status SNOMED Code Problem Obesity (BMI 30.0-34.9) E66.9 Active 368440388023737 Problem Dysmenorrhea N94.6 Active 632634922 Problem Acanthosis nigricans L83 Active 467853674 Problem Seasonal allergic rhinitis, unspecified allergic rhinitis trigger J30.2 Active 720818456 Problem Migraine without aura and without status migrainosus, not intractable G43.009 Active 462258349 Problem Acute bilateral low back pain without sciatica M54.5 Active 455202822 Problem Anxiety F41.9 Active 23284506 Problem GERD without esophagitis K21.9 Active 310893888 Problem Current mild episode of major depressive disorder without prior episode F32.0 Active 28261080 Problem Primary insomnia F51.01 Active 2712382 Problem Moderate episode of recurrent major depressive disorder F33.1 Active 391202444 ALLERGIES No Known Allergies ENCOUNTERS Encounter Location Date Diagnosis [place] [address] [place] [address] 02960- 4035 March, [place] [address] [place] [id number] [place] [address] 56693- 9454 Feb, [place] [address] [place] [id number] [place] [address] 01372- 3640 Feb, Oral contraceptive pill surveillance Z30.41 [place] [address] [place] [id number] [place] [address] 73314- 9082 Feb, Acute bilateral low back pain without sciatica M54.5 [place] [address] [place] [id number] [place] [address] 36581- 7599 Feb, [place] [address] 30908- 1776 12 Feb, 2018 Dental examination Z01.20 [facility] [address] [id number] 10 Feb, 2018 Dental examination Z01.20 [place] [address] 88207- 2092 10 Feb, 2018 Anxiety F41.9 [place] [address] [place] [id number] 3523 Feb, Primary insomnia F51.01 and Moderate episode of recurrent major depressive disorder F33.1 [place] [address] 766 Jan, Acute suppurative otitis media of left ear without spontaneous rupture of tympanic membrane, recurrence not specified H66.002 [place] [address] [address] 1426 Jan, Migraine without aura and without status migrainosus, not intractable G43.009 ; Seasonal allergic rhinitis, unspecified allergic rhinitis trigger J30.2 ; GERD without esophagitis K21.9 ; Current mild episode of major depressive disorder without prior episode F32.0 and Human bite, initial encounter W50.3XXA [place] [address] 57664- 0084 Dec, Migraine without aura and without status migrainosus, not intractable G43.009 [place] [address] 82119- 2092 Dec, Nausea and vomiting after administration of anesthetic agent T88.59XA [place] [address] 29755- 5579 Dec, [place] [address] 01967 7633 Dec, Acute tonsillitis, unspecified etiology J03.90 [place] [address] [place] [address]- 9416 Nov, Dysmenorrhea N94.6 ; Acute midline low back pain without sciatica M54.5 ; Obesity (BMI 30.0-34.9) E66.9 and High ankle sprain of right lower extremity, initial encounter S93.431A [facility] [address] 95512- 0841 Nov, [facility] [address] 41920- 0138 Nov, Migraine without aura and without status migrainosus, not intractable G43.009 [place] [address] 3540 Oct, Migraine without aura and without status migrainosus, not intractable G43.009 [facility] [address] 11249 -5405 Oct, Migraine without aura and without status migrainosus, not intractable G43.009 [facility] [address] 26028- 2346 Oct, [place] [address] 97781- 0192 Oct, [facility] [address] 01877- 4053 Oct, Acute non-recurrent maxillary sinusitis J01.00 [place] [address] 80877- 7358 Sep, Left elbow tendonitis M77.8 and Other fatigue R53.83 [facility] [address] [id number] Sep, Dental examination Z01.20 [facility] [address] 43303- 5406 Sep, Sore throat J02.9 ; Other viral agents as the cause of diseases classified elsewhere B97.89 and Acute upper respiratory infection, unspecified J06.9 [facility] [address] [place] [address] 73704- 3498 Aug, Encounter for immunization Z23 [facility] [address] 27871- 6929 Aug, Encounter for immunization Z23 [facility] [address] [place] [id number] [place] [address] 66526- 5037 Aug, Migraine without aura and without status migrainosus, not intractable G43.009 [facility] [address] 55565- 4068 Jul, Acute midline low back pain without sciatica M54.5 and Obesity (BMI 30.0-34.9) E66.9 [facility] [address] [place] [id number] [place] [address] 77022- 3203 Jul, Chronic seasonal allergic rhinitis due to pollen J30.1 [facility] [address] [id number] Jun, Dental examination Z01.20 [facility] [address] 10659 -5335 Jun, Jaw pain R68.84 [facility] [address] [place] [id number] [place] [address] 73029- 9659 Jun, Dental examination Z01.20 [facility] [address] [id number] Jun, Dental examination Z01.20 [facility] [address] [place] [id number] [place] [address] 18187- 5314 Jun, [facility] [address] 16893- 9227 Jun, Allergic reaction, initial encounter T78.40XA [facility] [address] 17463- 4381 Jun, [facility] [address] [place] [address]- 5579 07 Jun, 2017 Migraine without aura and without status migrainosus, not intractable G43.009 [facility] [address] [place] [id number] [place] [address] 71149- 6140 May, [place] [address] [place] [id number] [place] [address] 47934- 7518 14 May, 2017 Helicobacter pylori (H. pylori) infection A04.8 [place] [address] [place] [id number] [place] [address] 75532- 6416 11 May, 2017 Encounter for routine adult health examination with abnormal findings Z00.01 ; Obesity (BMI 30.0-34.9) E66.9 ; Acanthosis nigricans L83 and Dietary counseling Z71.3 [place] [address] [place] [id number] [place] [address] 09380- 0860 13 Apr, 2017 Acute seasonal allergic rhinitis due to pollen J30.1 and Sore throat J02.9 [place] [address] [place] [id number] [place] [address] 08472- 3220 Apr, [place] [address] 37726- 6577 Apr, Migraine without aura and without status migrainosus, not intractable G43.009 [place] [address] [place] [id number] [place] [address] 77699- 7956 March, Dental examination Z01.20 [facility] [address] [place] [address] 08781 -3801 Feb, Seasonal allergic rhinitis, unspecified allergic rhinitis trigger J30.2 [facility] [address] [id number] [id number] Nov, [facility] [address] [place] [address] [id number] Oct, Dental examination Z01.20 [facility] [address] [place] [id number] [place] [address] [id number] 27 Dec, 2016 Dental examination Z01.20 [facility] [address] [id number] [id number] 08 Oct, 2015 Dental examination Z01.20 and Encounter for dental examination Z01.20 [facility] [address] [id number] [place] [address]- 0802 14 Feb, 2015 [facility] [address] [id number] [place] [address]- 6248 Feb, [facility] [address] [id number] [place] [address]- 7499 Sep, [facility] [address] [id number] [place] [address]- 7857 Sep, [facility] [address] [id number] [place] [address]- 2688 Jul, [facility] [address] [id number] [place] [address]- 8875 Jul, [facility] [address] [id number] [place] [address]- 4132 Jul, [facility] [address] [id number] [place] [address]- 7556 Jun, [facility] [address] [id number] [place] [address]- 7722 Jun, [facility] [address] [id number] [place] [address]- 8454 Jun, [facility] [address] [id number], [place] [address]- 7309 Jun, [facility] [address] [id number] [place] [address]- 3982 Jul, [facility] [address] [id number] [place] [address]- 7049 Jun, [facility] [address] [id number], [place] [address]- 5098 Feb, [facility] [address] [facility] [id number], [place] [address]- 6071 Sep, [facility] [address] [facility] [id number][place]- 5740 Sep, [facility] [address] [facility] [id number], [place] [address]- 6122 Oct, [facility] [address] [facility] [id number], [place] [address]- 9776 Oct, IMMUNIZATIONS No Known Immunizations SOCIAL HISTORY Never Assessed REASON FOR VISIT pain after rct PLAN OF CARE Activity Details Follow Up prn Reason:finish endo VITAL SIGNS MEDICATIONS Medication Instructions Dosage Frequency Start Date End Date Duration Status Clindamycin HCl 150 MG Orally every 6 hrs 2 capsules 6h 7 days Active RESULTS No Results PROCEDURES Procedure Date Ordered Result Body Site Dental no charge Jul 24, 2017 INSTRUCTIONS MEDICATIONS ADMINISTERED No Known Medications MEDICAL (GENERAL) HISTORY Type Description Date Medical History Seasonal Allergies Surgical History uterine polyp removal- 12/2017 Hospitalization History Childbirth only
--- OUTSIDE RECORDS SUMMARY | 2018-11-13 10:48 | XMS REPORT ---
Author Author CUELLOLAURA Cunha Organization [facility] Address [address] [place] [address] Care Team Providers Care Director [employer] Name Role Phone LAURA CUELLO Unavailable PROBLEMS Type Condition ICD9-CM Code VIO04-LY Code Onset Dates Condition Status SNOMED Code Problem Acanthosis nigricans L83 Active 829071776 Problem GERD without esophagitis K21.9 Active 846964572 Problem Dysmenorrhea N94.6 Active 183878327 Problem Seasonal allergic rhinitis, unspecified allergic rhinitis trigger J30.2 Active 772205458 Problem Migraine without aura and without status migrainosus, not intractable G43.009 Active 977449379 Problem Obesity (BMI 30.0-34.9) E66.9 Active 923375466814276 Problem Mild persistent asthma without complication J45.30 Active 651469359 Problem Asthma due to seasonal allergies J45.909 Active 715929250 Problem Primary insomnia F51.01 Active 6743215 Problem Moderate episode of recurrent major depressive disorder F33.1 Active 534818527 Problem Acute bilateral low back pain without sciatica M54.5 Active 009811322 Problem Anxiety F41.9 Active 07131482 ALLERGIES No Information ENCOUNTERS Encounter Location Date Diagnosis [place] [id number] [place] [address] 08689- 1542 13 Apr, 2018 Wheezing R06.2 [place] [address] [place] [id number] [place] [address] 21449- 9555 12 Apr, 2018 Mild persistent asthma without complication J45.30 and Wheezing R06.2 [place] [address] [place] [id number] [place] [address] 49794- 6070 11 Apr, 2018 Migraine without aura and without status migrainosus, not intractable G43.009 [place] [address] [place] [id number] [place] [address] 81701- 4024 Apr, [facility] [address] [place] [id number] [place] [address] 33357- 6040 Apr, Cough R05 and Wheezing R06.2 [place] [address] [place] [id number] [place] [address] 09354- 6006 Apr, Persistent cough for 3 weeks or longer R05 [place] [address] [place] [id number] [place] [address] 24975- 0737 March, Asthma due to seasonal allergies J45.909 ; Cough R05 and Wheezing R06.2 [place] [address] [place] [id number] [place] [address] 61309- 6348 March, Seasonal allergic rhinitis, unspecified allergic rhinitis trigger J30.2 and Asthma due to seasonal allergies J45.909 [place] [address] [place] [id number] [place] [address] 38615- 3647 March, Cough R05 ; Chest congestion R09.89 and Sore throat J02.9 [place] [address] [place] [id number] [place] [address] 96920- 9242 March, Moderate episode of recurrent major depressive disorder F33.1 ; Migraine without aura and without status migrainosus, not intractable G43.009 ; Primary insomnia F51.01 and Anxiety F41.9 [facility] [address] [id number] [place] [address] 10383 -1146 March, Acute non-recurrent frontal sinusitis J01.10 [place] [address] [place] [id number] [place] [address] 80034- 6234 March, [place] [address] [place] [id number] [place] [address] 03477- 6253 March, Right otitis media with effusion H65.91 ; Acute non- recurrent frontal sinusitis J01.10 and Migraine without aura and without status migrainosus, not intractable G43.009 [place] [address] [place] [id number] [place] [address] 00211- 8474 Feb, Left lower quadrant pain R10.32 ; Migraine without aura and without status migrainosus, not intractable G43.009 and Anxiety F41.9 [place] [address] [place] [id number]- 0588 Feb, Oral contraceptive pill surveillance Z30.41 [place] [address] 87509- 7596 Feb, Acute bilateral low back pain without sciatica M54.5 [place] [address] 12304- 4525 Feb, [place] [address] [place] [id number] Feb, Dental examination Z01.20 [facility] [address] [place] [id number] Feb, Dental examination Z01.20 [place] [address] 58443- 6331 Feb, Anxiety F41.9 [place] [address] 88267- 8502 Feb, Primary insomnia F51.01 and Moderate episode of recurrent major depressive disorder F33.1 [place] [address] 55251- 4729 Jan, Acute suppurative otitis media of left ear without spontaneous rupture of tympanic membrane, recurrence not specified H66.002 [place] [address] 39511- 2077 Jan, Migraine without aura and without status migrainosus, not intractable G43.009 ; Seasonal allergic rhinitis, unspecified allergic rhinitis trigger J30.2 ; GERD without esophagitis K21.9 ; Current mild episode of major depressive disorder without prior episode F32.0 and Human bite, initial encounter W50.3XXA [place] [address] 71082- 5594 Dec, Migraine without aura and without status migrainosus, not intractable G43.009 [facility] [address] [id number] [place] [address] 66844- 7584 Dec, Nausea and vomiting after administration of anesthetic agent T88.59XA [facility] [address] [place] [id number] [place] [address] 53509- 6494 Dec, [place] [address] 53416- 6139 Dec, Acute tonsillitis, unspecified etiology J03.90 [place] [address] 64279- 9808 Nov, Dysmenorrhea N94.6 ; Acute midline low back pain without sciatica M54.5 ; Obesity (BMI 30.0-34.9) E66.9 and High ankle sprain of right lower extremity, initial encounter S93.431A [place] [address] 95199- 5114 Nov, [facility] [address] 64682- 8614 Nov, Migraine without aura and without status migrainosus, not intractable G43.009 [facility] [address] [place] [id number] [place] [address] 12918- 7136 Oct, Migraine without aura and without status migrainosus, not intractable G43.009 [facility] [address] [address] [id number] [place] [address] 02220 -6322 Oct, Migraine without aura and without status migrainosus, not intractable G43.009 [facility] [address] [address] [id number] [place] [address] 04393- 9816 Oct, [facility] [address] [place] [id number] [place] [address] 96372- 3104 Oct, [facility] [address] [place] [id number] [place] [address] 76391- 2841 Oct, Acute non-recurrent maxillary sinusitis J01.00 [facility] [address] 05011- 2842 17 Sep, 2017 Left elbow tendonitis M77.8 and Other fatigue R53.83 [facility] [address] [id number] [place] [address] [id number] Sep, Dental examination Z01.20 [facility] [address] 54255- 7375 Sep, Sore throat J02.9 ; Other viral agents as the cause of diseases classified elsewhere B97.89 and Acute upper respiratory infection, unspecified J06.9 [place] [address] 76800- 1439 Aug, Encounter for immunization Z23 [place] [address] 83976- 4752 Aug, Encounter for immunization Z23 [place] [address] 88856- 0777 Aug, Migraine without aura and without status migrainosus, not intractable G43.009 [place] [address] 37610- 8401 Jul, Acute midline low back pain without sciatica M54.5 and Obesity (BMI 30.0-34.9) E66.9 [facility] [address] 24734- 5460 Jul, Chronic seasonal allergic rhinitis due to pollen J30.1 [facility] [address] [place] [address] [id number] [place] [address] [id number] Jun, Dental examination Z01.20 [facility] [address] 31477 -9452 Jun, Jaw pain R68.84 [facility] [address] 80887- 0487 Jun, Dental examination Z01.20 [facility] [address] [id number] [id number] Jun, Dental examination Z01.20 [place] [address] [place] [id number] [place] [address] 15827- 1186 Jun, [place] [address] [place] [id number] [place] [address] 62563- 7824 Jun, Allergic reaction, initial encounter T78.40XA [place] [address] [place] [id number] [place] [address] 35472- 2415 Jun, [place] [address] [place] [id number] [place] [address] 93235- 4663 Jun, Migraine without aura and without status migrainosus, not intractable G43.009 [place] [address] [place] [id number] [place] [address] 01028- 9420 May, [place] [address] [place] [id number] [place] [address] 48097- 9346 May, Helicobacter pylori (H. pylori) infection A04.8 [place] [address] [place] [id number] [place] [address] 60232- 6538 May, Encounter for routine adult health examination with abnormal findings Z00.01 ; Obesity (BMI 30.0-34.9) E66.9 ; Acanthosis nigricans L83 and Dietary counseling Z71.3 [place] [address] [place] [id number] [place] [address] 67180- 6987 Apr, Acute seasonal allergic rhinitis due to pollen J30.1 and Sore throat J02.9 [place] [address] [address]- 8636 Apr, [place] [id number] [place] [address] 36879- 9732 Apr, Migraine without aura and without status migrainosus, not intractable G43.009 [place] [address] [place] [id number] [place] [address] 35477- 2109 March, Dental examination Z01.20 [facility] [address] [id number], [place] [address] Feb, Seasonal allergic rhinitis, unspecified allergic rhinitis trigger J30.2 [facility] [address] [id number] [id number] Nov, [facility] [address] [id number] [id number] Oct, Dental examination Z01.20 [facility] [address] [id number] [id number] Oct, Dental examination Z01.20 [facility] [address] [place] [id number] [id number] Oct, Dental examination Z01.20 and Encounter for dental examination Z01.20 [facility] [address] [id number], [place] [address]- 6238 Feb, [facility] [address] [id number], [place] [address]- 9132 Feb, [facility] [address] [id number], [place] [address]- 6009 Sep, [facility] [address] [id number], [place] [address]- 2122 Sep, [facility] [address] [id number], [place] [address]- 8318 Jul, [facility] [address] [id number], [place] [address]- 9392 Jul, [facility] [address] [id number], [place] [address]- 5647 Jul, [facility] [address] [facility] [id number], [place] [address]- 7417 Jun, [facility] [address] [id number], [place] [address]- 4450 Jun, [facility] [address] [id number] [address]- 6980 Jun, [facility] [address] [place] [id number], [place] [address]- 6109 Jun, [facility] [address], [place] [address]- 0180 Jul, [facility] [address], [place] [address]- 8850 Jun, [facility] [address], [place] [address]- 7794 Feb, [facility] [address], [place] [address]- 6130 Sep, [facility] [address], [place] [address]- 0347 Sep, [facility] [address], [place] [address]- 3435 Oct, [facility] [address] [id number], [place] [address]- 2119 Oct, IMMUNIZATIONS No Known Immunizations SOCIAL HISTORY Never Assessed REASON FOR VISIT blood pressure check-[facility] PLAN OF CARE VITAL SIGNS Height 62 in 2017-12-02 Blood pressure systolic 104 mmHg 2017-12-02 Blood pressure diastolic 70 mmHg 2017-12-02 MEDICATIONS Unknown Medications RESULTS No Results PROCEDURES No Known procedures INSTRUCTIONS MEDICATIONS ADMINISTERED No Known Medications MEDICAL (GENERAL) HISTORY Type Description Date Medical History Seasonal Allergies Surgical History uterine polyp removal- 12/2017 Hospitalization History Childbirth only
--- OUTSIDE RECORDS SUMMARY | 2018-11-13 10:48 | XMS REPORT ---
Author Author CUELLOLAURA Cunha Organization [facility] Address [address] [place] [address] Care Team Providers Care [place] Attendant Name Role Phone LAURA CUELLO Unavailable PROBLEMS Type Condition ICD9-CM Code SMR51-PL Code Onset Dates Condition Status SNOMED Code Problem Dysmenorrhea N94.6 Active 635715889 Problem Moderate episode of recurrent major depressive disorder F33.1 Active 768255743 Problem GERD without esophagitis K21.9 Active 808467011 Problem Seasonal allergic rhinitis, unspecified allergic rhinitis trigger J30.2 Active 062446376 Problem Migraine without aura and without status migrainosus, not intractable G43.009 Active 603665095 Problem Obesity (BMI 30.0-34.9) E66.9 Active 083170536129882 Problem Acanthosis nigricans L83 Active 040969614 Problem GERD with esophagitis K21.0 Active 113277483 Problem Mild persistent asthma without complication J45.30 Active 534474098 Problem Anxiety F41.9 Active 55274966 Problem Primary insomnia F51.01 Active 4322531 Problem Asthma due to seasonal allergies J45.909 Active 063887137 Problem Acute bilateral low back pain without sciatica M54.5 Active 687962629 ALLERGIES Substance Reaction Event Type Date Status Topamax numbness and tingling Drug Allergy Dec, Active ENCOUNTERS Encounter Location Date Diagnosis [facility] [address] [id number] [address] Apr, Epigastric abdominal pain R10.13 and Vertigo R42 [facility] [id number] [place] [address] Apr, Vertigo R42 [facility] [address] [id number] [address] Apr, Vertigo R42 [place] [address] [address] 26 Apr, 2018 Epigastric abdominal pain R10.13 and GERD with esophagitis K21.0 [place] [address] [address] 13 Apr, 2018 Wheezing R06.2 [place] [address] [address] 12 Apr, 2018 Mild persistent asthma without complication J45.30 and Wheezing R06.2 [place] [address] [address] 11 Apr, 2018 Migraine without aura and without status migrainosus, not intractable G43.009 [place] [address] [address] Apr, [address] [address] 07 Apr, 2018 Cough R05 and Wheezing R06.2 [place] [address] [address] 05 Apr, 2018 Persistent cough for 3 weeks or longer R05 [place] [address] [address] March, Asthma due to seasonal allergies J45.909 ; Cough R05 and Wheezing R06.2 [place] [address] [address] March, Seasonal allergic rhinitis, unspecified allergic rhinitis trigger J30.2 and Asthma due to seasonal allergies J45.909 [place] [address] [address] March, Cough R05 ; Chest congestion R09.89 and Sore throat J02.9 [place] [address] [address] March, Moderate episode of recurrent major depressive disorder F33.1 ; Migraine without aura and without status migrainosus, not intractable G43.009 ; Primary insomnia F51.01 and Anxiety F41.9 [facility] [address] [id number] March, Acute non-recurrent frontal sinusitis J01.10 [facility] [address] [address] March, [facility] [address] [address] March, Right otitis media with effusion H65.91 ; Acute non- recurrent frontal sinusitis J01.10 and Migraine without aura and without status migrainosus, not intractable G43.009 [facility] [address] [id number] Feb, Left lower quadrant pain R10.32 ; Migraine without aura and without status migrainosus, not intractable G43.009 and Anxiety F41.9 [facility] [address] [address] Feb, Oral contraceptive pill surveillance Z30.41 [facility] [address] [address] Feb, Acute bilateral low back pain without sciatica M54.5 [facility] [address] [address] Feb, [facility] [address] [address] Feb, Dental examination Z01.20 [facility] [address] [id number] Feb, Dental examination Z01.20 [facility] [address] [address] Feb, Anxiety F41.9 [facility] [address] [address] Feb, Primary insomnia F51.01 and Moderate episode of recurrent major depressive disorder F33.1 [place] [address] [address] Jan, Acute suppurative otitis media of left ear without spontaneous rupture of tympanic membrane, recurrence not specified H66.002 [place] [address] [id number] Jan, Migraine without aura and without status migrainosus, not intractable G43.009 ; Seasonal allergic rhinitis, unspecified allergic rhinitis trigger J30.2 ; GERD without esophagitis K21.9 ; Current mild episode of major depressive disorder without prior episode F32.0 and Human bite, initial encounter W50.3XXA [place] [address] 632 Dec, Migraine without aura and without status migrainosus, not intractable G43.009 [place] [address] [id number] Dec, Nausea and vomiting after administration of anesthetic agent T88.59XA [place] [address] [address] 86[address] Dec, [place] [address] [address] Dec, Acute tonsillitis, unspecified etiology J03.90 [place] [address] [address] 6745 Nov, Dysmenorrhea N94.6 ; Acute midline low back pain without sciatica M54.5 ; Obesity (BMI 30.0-34.9) E66.9 and High ankle sprain of right lower extremity, initial encounter S93.431A [place] [address] [address] Nov, [place] [address] [address] Nov, Migraine without aura and without status migrainosus, not intractable G43.009 [facility] [address] [place] [address] Oct, Migraine without aura and without status migrainosus, not intractable G43.009 [facility] [address] [place] [address] Oct, Migraine without aura and without status migrainosus, not intractable G43.009 [facility] [id number] [place] [address] Oct, [facility] [id number] [place] [address]- [address] Oct, [facility] [id number] [place] [address]- [address] Oct, Acute non-recurrent maxillary sinusitis J01.00 [place] [address] [address] Sep, Left elbow tendonitis M77.8 and Other fatigue R53.83 [facility] [id number] [place] [id number] Sep, Dental examination Z01.20 [facility] [id number] [place] [address]- [address] Sep, Sore throat J02.9 ; Other viral agents as the cause of diseases classified elsewhere B97.89 and Acute upper respiratory infection, unspecified J06.9 [facility] [address] [place] [address] Aug, Encounter for immunization Z23 [facility] [address] [address] Aug, Encounter for immunization Z23 [facility] [id number] [place] [address]- [address] Aug, Migraine without aura and without status migrainosus, not intractable G43.009 [facility] [id number] [place] [address]- [address] Jul, Acute midline low back pain without sciatica M54.5 and Obesity (BMI 30.0-34.9) E66.9 [facility] [id number] [place] [address]- 0472 Jul, Chronic seasonal allergic rhinitis due to pollen J30.1 [facility] [id number] [place] [id number] Jun, Dental examination Z01.20 [facility] [id number] [place] [address] Jun, Jaw pain R68.84 [facility] [address] [address]- [address] Jun, Dental examination Z01.20 [facility] [id number] [place] [address] [id number] Jun, Dental examination Z01.20 [facility] [id number] [place] [address]- 47[address] Jun, [facility] [id number] [place] [address]- 65[address] Jun, Allergic reaction, initial encounter T78.40XA [facility] [id number] [place] [address] 25774- 2963 Jun, [facility] [id number] [place] [address]- 2607 Jun, Migraine without aura and without status migrainosus, not intractable G43.009 [facility] [id number] [place] [address]- 47[address] May, [place] [address] [address]- [address] May, Helicobacter pylori (H. pylori) infection A04.8 [place] [id number] [place] [address]83- 94[address] May, Encounter for routine adult health examination with abnormal findings Z00.01 ; Obesity (BMI 30.0-34.9) E66.9 ; Acanthosis nigricans L83 and Dietary counseling Z71.3 [facility] [id number] [place] [address] 94275- 5703 13 Apr, 2017 Acute seasonal allergic rhinitis due to pollen J30.1 and Sore throat J02.9 [place] [address] 8[address]- [address]254 Apr, [facility] [address] [address] Apr, Migraine without aura and without status migrainosus, not intractable G43.009 [facility] [id number] [place] [address]- [address] March, Dental examination Z01.20 [facility] [id number] [place] [address] Feb, Seasonal allergic rhinitis, unspecified allergic rhinitis trigger J30.2 [place] [address] [facility] [address] [id number] [id number] Nov, [facility] [id number] [place] [id number] Oct, Dental examination Z01.20 [facility] [id number] [place] [address] [id number] Oct, Dental examination Z01.20 [facility] [address] [id number] Oct, Dental examination Z01.20 and Encounter for dental examination Z01.20 [facility] [address] [address]- [address] 14 Feb, 2015 [facility] [address] 27[address]- [address] Feb, [place] [address] [address] Sep, [facility] [address] [id number] [place] [address] Sep, [facility] [address] [facility] [id number] [place] [address] Jul, [facility] [address] [facility] [id number] [place] [address] Jul, [facility] [address] [id number] [place] [address]- [address] Jul, [facility] [address] [id number] [place] [address]- 0082 Jun, [facility] [address] [facility] [id number] [place] [address]- 3[address] Jun, [facility] [address] [facility] [id number] [place] [address]- 04[address] Jun, [facility] [address] [facility] [id number] [address] Jun, [facility] [address] [facility] [id number] [address] Jul, [facility] [address] [facility] [id number] [address] Jun, [facility] [address] [facility] [id number] [address] Feb, [facility] [address] [facility] [id number] [address] Sep, [facility] [address] [facility] [id number] [address] Sep, [facility] [address] [facility] [id number] [address] Oct, [facility] [address] [facility] [id number] Oct, IMMUNIZATIONS Vaccine Route Administration Date Status BICILLIN LA/PENICILLIN G BENZATHINE IM Intramuscular Dec 29, 2017 Administered SOCIAL HISTORY Never Assessed REASON FOR VISIT Strep throat -Enrrique PLAN OF CARE Activity Details Follow Up prn Reason: VITAL SIGNS Height 62 in 2017-12-29 Weight 176.2 lbs 2017-12-29 BMI 32.22 kg/m2 2017-12-29 MEDICATIONS Medication Instructions Dosage Frequency Start Date End Date Duration Status Qdseoubahu-ITRQ-Aafvxzts 50-325-40 MG Orally every 4 hrs 1 capsule as needed 4h 08 Apr, 2017 Not-Taking Cetirizine HCl 10 mg Orally Once a day 1 tablet 24h Apr, Jan, Not-Taking Omeprazole 20 mg Orally twice a day 1 capsule 12h May, 30 day(s ) Active Ibuprofen 800 MG Orally Three times a day 1 tablet with food or milk as needed 8h Oct, Jul, 90 days Active Fluticasone Propionate 50 MCG/ACT Nasally Once a day 1 spray in each nostril 24h Apr, Not-Taking RESULTS No Results PROCEDURES Procedure Date Ordered Result Body Site BICILLIN LA/PENICILLIN G BENZATHINE Dec 29, 2017 THER/PROPH/DIAG INJ, SC/IM Dec 29, 2017 INSTRUCTIONS MEDICATIONS ADMINISTERED No Known Medications MEDICAL (GENERAL) HISTORY Type Description Date Medical History Seasonal Allergies Surgical History uterine polyp removal- 12/2017 Hospitalization History Childbirth only
--- OUTSIDE RECORDS SUMMARY | 2018-11-13 10:48 | XMS REPORT ---
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 Name Role Phone LAURA CUELLO Unavailable PROBLEMS Type Condition ICD9-CM Code GVV48-US Code Onset Dates Condition Status SNOMED Code Problem Dysmenorrhea N94.6 Active 763829985 Problem Moderate episode of recurrent major depressive disorder F33.1 Active 548362193 Problem GERD without esophagitis K21.9 Active 903109116 Problem Seasonal allergic rhinitis, unspecified allergic rhinitis trigger J30.2 Active 143797073 Problem Migraine without aura and without status migrainosus, not intractable G43.009 Active 013159909 Problem Obesity (BMI 30.0-34.9) E66.9 Active 814864605738887 Problem Acanthosis nigricans L83 Active 228377454 Problem GERD with esophagitis K21.0 Active 905530203 Problem Mild persistent asthma without complication J45.30 Active 271170588 Problem Anxiety F41.9 Active 75894056 Problem Primary insomnia F51.01 Active 6807742 Problem Asthma due to seasonal allergies J45.909 Active 625857376 Problem Acute bilateral low back pain without sciatica M54.5 Active 955430836 ALLERGIES No Information ENCOUNTERS Encounter Location Date Diagnosis [facility] [id number] [place] [address]64- 9230 Apr, Epigastric abdominal pain R10.13 and Vertigo R42 [facility] [id number] [place] [address] 48662- 3559 Apr, Vertigo R42 [facility] [id number] [place] [address] -5182 Apr, Vertigo R42 [facility] [id number] [place] [address] 57937- 2195 Apr, Epigastric abdominal pain R10.13 and GERD with esophagitis K21.0 [place] [address] 77654- 7485 13 Apr, 2018 Wheezing R06.2 [place] [address] 08745- 4168 12 Apr, 2018 Mild persistent asthma without complication J45.30 and Wheezing R06.2 [place] [address] 45395- 0934 Apr, Migraine without aura and without status migrainosus, not intractable G43.009 [place] [address] 99106- 9128 Apr, [place] [address] 83809- 4987 07 Apr, 2018 Cough R05 and Wheezing R06.2 [place] [address] 19511- 8931 05 Apr, 2018 Persistent cough for 3 weeks or longer R05 [place] [address] 93659- 4053 March, Asthma due to seasonal allergies J45.909 ; Cough R05 and Wheezing R06.2 [place] [address] 22901- 9041 March, Seasonal allergic rhinitis, unspecified allergic rhinitis trigger J30.2 and Asthma due to seasonal allergies J45.909 [place] [address] 69695- 2363 March, Cough R05 ; Chest congestion R09.89 and Sore throat J02.9 [place] [address] 74867- 4022 March, Moderate episode of recurrent major depressive disorder F33.1 ; Migraine without aura and without status migrainosus, not intractable G43.009 ; Primary insomnia F51.01 and Anxiety F41.9 [facility] [id number] [place] [address] 22750 -4877 March, Acute non-recurrent frontal sinusitis J01.10 [facility] [id number] [place] [address] March, [facility] [address] 16869- 3469 March, Right otitis media with effusion H65.91 ; Acute non- recurrent frontal sinusitis J01.10 and Migraine without aura and without status migrainosus, not intractable G43.009 [facility] [address] 82192- 8418 Feb, Left lower quadrant pain R10.32 ; Migraine without aura and without status migrainosus, not intractable G43.009 and Anxiety F41.9 [facility] [address] 07601- 7866 Feb, Oral contraceptive pill surveillance Z30.41 [facility] [address] 10497- 4354 Feb, Acute bilateral low back pain without sciatica M54.5 [facility] [id number] [place] [address] 17181- 3434 Feb, [facility] [id number] [place] [address] 84738- 6220 Feb, Dental examination Z01.20 [facility] [address] [id number] Feb, Dental examination Z01.20 [facility] [id number] [place] [address] 09015- 8040 Feb, Anxiety F41.9 [facility] [id number] [place] [address] 65808- 0941 Feb, Primary insomnia F51.01 and Moderate episode of recurrent major depressive disorder F33.1 [facility] [address] 60315- 3101 Jan, Acute suppurative otitis media of left ear without spontaneous rupture of tympanic membrane, recurrence not specified H66.002 [place] [address] [place] [id number] 3210 Jan, Migraine without aura and without status migrainosus, not intractable G43.009 ; Seasonal allergic rhinitis, unspecified allergic rhinitis trigger J30.2 ; GERD without esophagitis K21.9 ; Current mild episode of major depressive disorder without prior episode F32.0 and Human bite, initial encounter W50.3XXA [place] [address] 77774 8065 Dec, Migraine without aura and without status migrainosus, not intractable G43.009 [place] [address] 44768 8532 Dec, Nausea and vomiting after administration of anesthetic agent T88.59XA [place] [address] 79493- 4200 Dec, [place] [address] 26432- 6333 Dec, Acute tonsillitis, unspecified etiology J03.90 [place] [address] 78919 1491 Nov, Dysmenorrhea N94.6 ; Acute midline low back pain without sciatica M54.5 ; Obesity (BMI 30.0-34.9) E66.9 and High ankle sprain of right lower extremity, initial encounter S93.431A [place] [address] 88563- 4934 Nov, [place] [address] 21126- 6204 Nov, Migraine without aura and without status migrainosus, not intractable G43.009 [place] [address] [place] [address]- [address]30 Oct, Migraine without aura and without status migrainosus, not intractable G43.009 [facility] [id number] [place] [address] 66570 -7882 Oct, Migraine without aura and without status migrainosus, not intractable G43.009 [facility] [id number] [place] [address] 52249- 3018 Oct, [facility] [address] 61710- 9464 Oct, [facility] [address] 33700- 4107 Oct, Acute non-recurrent maxillary sinusitis J01.00 [facility] [address] 76726- 3253 Sep, Left elbow tendonitis M77.8 and Other fatigue R53.83 [facility] [address] [id number] Sep, Dental examination Z01.20 [facility] [address] 09394- 8056 Sep, Sore throat J02.9 ; Other viral agents as the cause of diseases classified elsewhere B97.89 and Acute upper respiratory infection, unspecified J06.9 [facility] [id number] [place] [address] 20787- 7653 Aug, Encounter for immunization Z23 [facility] [id number] [place] [address] 48728- 0928 Aug, Encounter for immunization Z23 [place] [address] 32682- 2258 Aug, Migraine without aura and without status migrainosus, not intractable G43.009 [facility] [address] 38445- 0109 Jul, Acute midline low back pain without sciatica M54.5 and Obesity (BMI 30.0-34.9) E66.9 [facility] [id number] [place] [address] 66440- 6862 Jul, Chronic seasonal allergic rhinitis due to pollen J30.1 [facility] [address] [id number] [place] [address] [id number] Jun, Dental examination Z01.20 [facility] [id number] [place] [address] 38573 -2959 Jun, Jaw pain R68.84 [facility] [address] 48146- 0196 Jun, Dental examination Z01.20 [facility] [id number] [place] [address] [id number] Jun, Dental examination Z01.20 [facility] [address] 37381- 7593 Jun, [facility] [id number] [place] [address] 33340- 6074 Jun, Allergic reaction, initial encounter T78.40XA [place] [address] [place] [address] 27894- 2288 Jun, [place] [address] [place] [address] 44274- 4183 Jun, Migraine without aura and without status migrainosus, not intractable G43.009 [facility] [address] [place] [address] 24381- 9591 May, [place] [address] 79701- 2783 May, Helicobacter pylori (H. pylori) infection A04.8 [place] [id number] [place] [address] 44677- 2006 May, Encounter for routine adult health examination with abnormal findings Z00.01 ; Obesity (BMI 30.0-34.9) E66.9 ; Acanthosis nigricans L83 and Dietary counseling Z71.3 [facility] [address] [place] [address] 75525- 7177 Apr, Acute seasonal allergic rhinitis due to pollen J30.1 and Sore throat J02.9 [facility] [id number] [place] [address] 53890- 6162 Apr, [facility] [address] [place] [address] 54247- 7954 Apr, Migraine without aura and without status migrainosus, not intractable G43.009 [facility] [id number] [place] [address] 39161- 6476 March, Dental examination Z01.20 [facility] [address] [place] [address] 90569 -4186 Feb, Seasonal allergic rhinitis, unspecified allergic rhinitis trigger J30.[address] [id number] [id number] Nov, [facility] [id number] [place] [address] [id number] Oct, Dental examination Z01.20 [facility] [id number] [place] [address] [id number] Oct, Dental examination Z01.20 [facility] [id number] [place] [address] [id number] Oct, Dental examination Z01.20 and Encounter for dental examination Z01.20 [facility] [address] [place] [address] 37512- 9043 Feb, [facility] [id number] [place] [address] 58896- 1912 Feb, [facility] [id number] [place] [address] 79328- 9165 Sep, [facility] [id number] [place] [address] 89548- 5373 Sep, [facility] [id number] [address]- 5003 Jul, [facility] [address] [facility] [id number] 3731 Jul, [facility] [address] [place] [address]- 1285 Jul, [facility] [address] [facility] [id number], [place] [address]- 3389 Jun, [facility] [id number] [address]- 0022 Jun, [facility] [id number] [address]- 8498 Jun, [facility] [address] [place] [address]- 2374 Jun, [facility] [address] [place] [address]- 5654 Jul, [facility] [address] [place] [address]- 5674 Jun, [facility] [address] [place] [address]- 2817 Feb, [facility] [id number] [address]- 4096 Sep, [facility] [id number] [address]- 3574 Sep, [facility] [id number] [address] 4426 Oct, [facility] [address] [place] [address]- 3242 Oct, IMMUNIZATIONS No Known Immunizations SOCIAL HISTORY Never Assessed REASON FOR VISIT PLAN OF CARE VITAL SIGNS MEDICATIONS Medication Instructions Dosage Frequency Start Date End Date Duration Status Ondansetron 4 MG Orally every 8 hrs 1 tablet on the tongue and allow to dissolve 8h Dec, 10 days Active RESULTS No Results PROCEDURES No Known procedures INSTRUCTIONS MEDICATIONS ADMINISTERED No Known Medications MEDICAL (GENERAL) HISTORY Type Description Date Medical History Seasonal Allergies Surgical History uterine polyp removal- 12/2017 Hospitalization History Childbirth only
--- OUTSIDE RECORDS SUMMARY | 2018-11-13 10:49 | XMS REPORT ---
Author Author LAURA CUELLO [facility] Address [address] [place] [address] Care Team Providers Care Brand Marketing Coordinator Name Role Phone LAURA CUELLO Unavailable PROBLEMS Type Condition ICD9-CM Code [id number] Code Onset Dates Condition Status SNOMED Code Problem Obesity (BMI 30.0-34.9) E66.9 Active 133771773052803 Problem Dysmenorrhea N94.6 Active 177169658 Problem Acanthosis nigricans L83 Active 893608562 Problem Seasonal allergic rhinitis, unspecified allergic rhinitis trigger J30.2 Active 190083991 Problem Migraine without aura and without status migrainosus, not intractable G43.009 Active 148675903 Problem Asthma due to seasonal allergies J45.909 Active 193278898 Problem Acute bilateral low back pain without sciatica M54.5 Active 333460515 Problem Moderate episode of recurrent major depressive disorder F33.1 Active 521533429 Problem GERD without esophagitis K21.9 Active 592433200 Problem Anxiety F41.9 Active 76468325 Problem Primary insomnia F51.01 Active 3039811 ALLERGIES No Information ENCOUNTERS Encounter Location Date Diagnosis [facility] [id number] [place] [address]- [address]1 Apr, Persistent cough for 3 weeks or longer R05 [facility] [id number] [place] [address] 26259- 8474 March, Asthma due to seasonal allergies J45.909 ; Cough R05 and Wheezing R06.2 [facility] [id number] [place] [address] 09056- 0340 March, Seasonal allergic rhinitis, unspecified allergic rhinitis trigger J30.2 and Asthma due to seasonal allergies J45.909 [facility] [id number] [place] [address] 58028- 7679 March, Cough R05 ; Chest congestion R09.89 and Sore throat J02.9 [facility] [place] [facility] [address] [address] March, Moderate episode of recurrent major depressive disorder F33.1 ; Migraine without aura and without status migrainosus, not intractable G43.009 ; Primary insomnia F51.01 and Anxiety F41.9 [facility] [address] [address] March, Acute non-recurrent frontal sinusitis J01.10 [facility] [place] [facility] [address] [address]- [address] March, [facility] [place] [facility] [address] [address]- [address]26 March, Right otitis media with effusion H65.91 ; Acute non- recurrent frontal sinusitis J01.10 and Migraine without aura and without status migrainosus, not intractable G43.009 [facility] [place] [facility] [address] [address]- [address] Feb, Left lower quadrant pain R10.32 ; Migraine without aura and without status migrainosus, not intractable G43.009 and Anxiety F41.9 [facility] [place] [facility] [address] [address]- [address] Feb, Oral contraceptive pill surveillance Z30.41 [facility] [address] [address]- [address] Feb, Acute bilateral low back pain without sciatica M54.5 [facility] [place] [facility] [address] [address]- [address] Feb, [facility] [address] [address]- [address] Feb, Dental examination Z01.20 [facility] [address] [id number] Feb, Dental examination Z01.20 [facility] [address] [address]- [address] 10 Feb, 2018 Anxiety F41.9 [place] [id number]- [address]339 Feb, Primary insomnia F51.01 and Moderate episode of recurrent major depressive disorder F33.[address] [address]- [address] Jan, Acute suppurative otitis media of left ear without spontaneous rupture of tympanic membrane, recurrence not specified H66.[address] [address] Jan, Migraine without aura and without status migrainosus, not intractable G43.009 ; Seasonal allergic rhinitis, unspecified allergic rhinitis trigger J30.2 ; GERD without esophagitis K21.9 ; Current mild episode of major depressive disorder without prior episode F32.0 and Human bite, initial encounter W50.3XXA [facility] [address] [address]- [address]79 Dec, Migraine without aura and without status migrainosus, not intractable G43.009 [facility] [address] [address] 4544 Dec, Nausea and vomiting after administration of anesthetic agent T88.59XA [address] [address]- [address]271 Dec, [address] [address]- [address]90 Dec, Acute tonsillitis, unspecified etiology J03.90 [place] [id number] 5129 Nov, Dysmenorrhea N94.6 ; Acute midline low back pain without sciatica M54.5 ; Obesity (BMI 30.0-34.9) E66.9 and High ankle sprain of right lower extremity, initial encounter S93.431A [facility] [place] [facility] [id number] [place] [address] 13686- 1636 Nov, [facility] [place] [facility] [address] 5[address]- [address]1 Nov, Migraine without aura and without status migrainosus, not intractable G43.009 [facility] [place] [facility] [id number] [place] [address] 04223- 2786 Oct, Migraine without aura and without status migrainosus, not intractable G43.009 [facility] [id number] [place] [address] 74[address] -1326 Oct, Migraine without aura and without status migrainosus, not intractable G43.009 [facility] [place] [facility] [id number] [place] [address] 40185- 7230 Oct, [facility] [address] 8[address]89- 6433 Oct, [facility] [place] [facility] [id number] [place] [address] 72259- 0031 Oct, Acute non-recurrent maxillary sinusitis J01.00 [facility] [id number] [place] [address] 28606- 2505 Sep, Left elbow tendonitis M77.8 and Other fatigue R53.83 [facility] [id number] [place] [address] [id number] Sep, Dental examination Z01.20 [facility] [id number] [place] [address] 55785- 4097 Sep, Sore throat J02.9 ; Other viral agents as the cause of diseases classified elsewhere B97.89 and Acute upper respiratory infection, unspecified J06.9 [facility] [id number] [place] [address] 76363- 7550 Aug, Encounter for immunization Z23 [facility] [address] [address]- 3864 Aug, Encounter for immunization Z23 [facility] [place] [facility] [id number] [place] [address] 38800- 7858 Aug, Migraine without aura and without status migrainosus, not intractable G43.009 [facility] [place] [facility] [id number] [place] [address] 03693- 1722 Jul, Acute midline low back pain without sciatica M54.5 and Obesity (BMI 30.0-34.9) E66.9 [facility] [place] [facility] [id number] [place] [address] 78354- 2031 Jul, Chronic seasonal allergic rhinitis due to pollen J30.1 [facility] [address] [id number] Jun, Dental examination Z01.20 [facility] [id number] [place] [address] 28771 -6184 Jun, Jaw pain R68.84 [facility] [place] [facility] [address] 87013- 9742 Jun, Dental examination Z01.20 [facility] [address] [id number] Jun, Dental examination Z01.20 [facility] [place] [facility] [id number] [place] [address] 13396- 4389 Jun, [facility] [place] [facility] [address] 29537- 2197 Jun, Allergic reaction, initial encounter T78.40XA [facility] [place] [facility] [id number] [place] [address] 76815- 1578 Jun, [facility] [place] [facility] [address] 44076- 5314 Jun, Migraine without aura and without status migrainosus, not intractable G43.009 [facility] [place] [facility] [id number] [place] [address] 72978- 7285 May, [facility] [place] [facility] [id number] [place] [address] 91102- 3110 May, Helicobacter pylori (H. pylori) infection A04.8 [facility] [id number] [place] [address] 90159- 2647 11 May, 2017 Encounter for routine adult health examination with abnormal findings Z00.01 ; Obesity (BMI 30.0-34.9) E66.9 ; Acanthosis nigricans L83 and Dietary counseling Z71.3 [facility] [place] [facility] [id number] [place] [address] 04702- 8145 13 Apr, 2017 Acute seasonal allergic rhinitis due to pollen J30.1 and Sore throat J02.9 [place] [id number] [place] [address] 87519- 4453 08 Apr, 2017 [place] [id number] [place] [address] 12854- 3521 Apr, Migraine without aura and without status migrainosus, not intractable G43.009 [address] [place] [address] 57682- 0456 March, Dental examination Z01.20 [facility] [address] [place] [address] 13991 -3182 Feb, Seasonal allergic rhinitis, unspecified allergic rhinitis trigger J30.[address] [id number] [id number] Nov, [facility] [address] [place] [address] [id number] Oct, Dental examination Z01.20 [facility] [address] [place] [address] [id number] Oct, Dental examination Z01.20 [facility] [id number] [place] [address] [id number] Oct, Dental examination Z01.20 and Encounter for dental examination Z01.20 [facility] [facility] [id number] [place] [address] 59877- 4632 14 Feb, 2015 [facility] [place] [facility] [address] [id number] [place] [address]- 7851 Feb, [facility] [place] [facility] [address] [id number] [place] [address]- 1092 Sep, [facility] [place] [facility] [address] [id number] [place] [address]- 6137 Sep, [facility] [place] [facility] [address] [id number] [place] [address]- 4705 05 Jul, 2014 [facility] [place] [facility] [address] [id number] [place] [address]- 7813 Jul, [facility] [place] [facility] [address] [id number] [place] [address]- 4890 Jul, [facility] [place] [facility] [address] [id number] [place] [address]- 3974 Jun, [facility] [place] [facility] [address] [id number] [place] [address]- 8638 Jun, [facility] [place] [facility] [address] [id number] [place] [address]- 4147 Jun, [facility] [place] [facility] [address] [id number] [place] [address]- 5465 Jun, [facility] [place] [facility] [address] [id number] [place] [address]- 1175 Jul, [facility] [place] [facility] [address] [id number] [place] [address]- 7249 Jun, [facility] [place] [facility] [address] [id number] [place] [address]- 3386 Feb, [facility] [place] [facility] [address] [id number] [place] [address]- 6183 Sep, [facility] [place] [facility] [address] [id number] [place] [address]- 1214 Sep, [facility] [place] [facility] [address] [facility] [id number] [place] [address]- 3296 Oct, [facility] [place] [facility] [address] [facility] [id number], [place] [address]- [address]657 Oct, IMMUNIZATIONS Vaccine Route Administration Date Status TORADOL (IM) 60 MG/2ML (UP TO 15 MG) IM Intramuscular Nov 06, 2017 Administered SOCIAL HISTORY Never Assessed REASON FOR VISIT Injection-Enrrique, V/O from Laura Toradol 60mg IM x1 PLAN OF CARE VITAL SIGNS MEDICATIONS No Known Medications RESULTS No Results PROCEDURES Procedure Date Ordered Result Body Site TORADOL (IM) 60 MG/2ML (UP TO 15 MG) Nov 06, 2017 THER/PROPH/DIAG INJ, SC/IM Nov 06, 2017 INSTRUCTIONS MEDICATIONS ADMINISTERED No Known Medications MEDICAL (GENERAL) HISTORY Type Description Date Medical History Seasonal Allergies Surgical History uterine polyp removal- 12/2017 Hospitalization History Childbirth only
--- OUTSIDE RECORDS SUMMARY | 2018-11-13 10:49 | XMS REPORT ---
Author Author LAURA CUELLO Organization [facility] Address [address] [place] [address] Care Team Providers Care Automatic Beading Lathe Operator Name Role Phone LAURA CUELLO Unavailable PROBLEMS Type Condition ICD9-CM Code NMI13-IC Code Onset Dates Condition Status SNOMED Code Problem Obesity (BMI 30.0-34.9) E66.9 Active 494559562298550 Problem Dysmenorrhea N94.6 Active 214080499 Problem Acanthosis nigricans L83 Active 556377967 Problem Seasonal allergic rhinitis, unspecified allergic rhinitis trigger J30.2 Active 227291479 Problem Migraine without aura and without status migrainosus, not intractable G43.009 Active 148762979 Problem Asthma due to seasonal allergies J45.909 Active 617966602 Problem Acute bilateral low back pain without sciatica M54.5 Active 329661079 Problem Moderate episode of recurrent major depressive disorder F33.1 Active 603492883 Problem GERD without esophagitis K21.9 Active 043200855 Problem Anxiety F41.9 Active 43899826 Problem Primary insomnia F51.01 Active 8284615 ALLERGIES No Information ENCOUNTERS Encounter Location Date Diagnosis [place] [id number] [address] March, Asthma due to seasonal allergies J45.909 ; Cough R05 and Wheezing R06.2 [facility] [address] [place] [id number] [place] [address] March, Seasonal allergic rhinitis, unspecified allergic rhinitis trigger J30.2 and Asthma due to seasonal allergies J45.909 [facility] [address] [place] [id number] [place] [address] March, Cough R05 ; Chest congestion R09.89 and Sore throat J02.9 [facility] [address] [place] [address] March, Moderate episode of recurrent major depressive disorder F33.1 ; Migraine without aura and without status migrainosus, not intractable G43.009 ; Primary insomnia F51.01 and Anxiety F41.9 [facility] [address] [place] [id number] [place] [address] March, Acute non-recurrent frontal sinusitis J01.10 [facility] [address] [address] March, [facility] [address] [address] March, Right otitis media with effusion H65.91 ; Acute non- recurrent frontal sinusitis J01.10 and Migraine without aura and without status migrainosus, not intractable G43.009 [facility] [address] [address] Feb, Left lower quadrant pain R10.32 ; Migraine without aura and without status migrainosus, not intractable G43.009 and Anxiety F41.9 [facility] [address] [address] Feb, Oral contraceptive pill surveillance Z30.41 [facility] [address] [address] Feb, Acute bilateral low back pain without sciatica M54.5 [facility] [address] [address] Feb, [facility] [address] [address] Feb, Dental examination Z01.20 [facility] [address] [id number] Feb, Dental examination Z01.20 [facility] [address] [address] Feb, Anxiety F41.9 [place] [address] [place] [id number] [place] [address] Feb, Primary insomnia F51.01 and Moderate episode of recurrent major depressive disorder F33.1 [place] [address] [address] Jan, Acute suppurative otitis media of left ear without spontaneous rupture of tympanic membrane, recurrence not specified H66.002 [place] [address] [address] Jan, Migraine without aura and without status migrainosus, not intractable G43.009 ; Seasonal allergic rhinitis, unspecified allergic rhinitis trigger J30.2 ; GERD without esophagitis K21.9 ; Current mild episode of major depressive disorder without prior episode F32.0 and Human bite, initial encounter W50.3XXA [place] [address] [address] Dec, Migraine without aura and without status migrainosus, not intractable G43.009 [place] [address] [address] Dec, Nausea and vomiting after administration of anesthetic agent T88.59XA [place] [address] [address] Dec, [place] [address] [address] Dec, Acute tonsillitis, unspecified etiology J03.90 [place] [address] [address] Nov, Dysmenorrhea N94.6 ; Acute midline low back pain without sciatica M54.5 ; Obesity (BMI 30.0-34.9) E66.9 and High ankle sprain of right lower extremity, initial encounter S93.431A [place] [address] [address] Nov, [place] [address] [place] [id number] [place] [address] Nov, Migraine without aura and without status migrainosus, not intractable G43.009 [facility] [address] [place] [id number] [place] [address] Oct, Migraine without aura and without status migrainosus, not intractable G43.009 [facility] [address] [place] [id number] [place] [address] Oct, Migraine without aura and without status migrainosus, not intractable G43.009 [facility] [address] [place] [id number] [place] [address] Oct, [facility] [address] [address] Oct, [facility] [address] [address] Oct, Acute non-recurrent maxillary sinusitis J01.00 [facility] [address] [place] [id number] [place] [address] Sep, Left elbow tendonitis M77.8 and Other fatigue R53.83 [facility] [address] [place] [id number] [place] [id number] Sep, Dental examination Z01.20 [place] [address] [place] [id number] [place] [address] Sep, Sore throat J02.9 ; Other viral agents as the cause of diseases classified elsewhere B97.89 and Acute upper respiratory infection, unspecified J06.9 [facility] [address] [place] [id number] [place] [address] Aug, Encounter for immunization Z23 [facility] [address] [address] Aug, Encounter for immunization Z23 [facility] [address] [address] Aug, Migraine without aura and without status migrainosus, not intractable G43.009 [facility] [address] [place] [id number] [place] [address] Jul, Acute midline low back pain without sciatica M54.5 and Obesity (BMI 30.0-34.9) E66.9 [facility] [address] [place] [id number] [place] [address] Jul, Chronic seasonal allergic rhinitis due to pollen J30.1 [facility] [address] [id number] Jun, Dental examination Z01.20 [facility] [address] [address] Jun, Jaw pain R68.84 [facility] [address] [address] Jun, Dental examination Z01.20 [facility] [address] [id number] Jun, Dental examination Z01.20 [facility] [address] [address] Jun, [facility] [address] [place] [id number] [place] [address] Jun, Allergic reaction, initial encounter T78.40XA [facility] [address] [place] [id number] [place] [address] Jun, [facility] [address] [address] Jun, Migraine without aura and without status migrainosus, not intractable G43.009 [facility] [address] [place] [id number] [place] [address]- [address] May, [facility] [address] [place] [id number] [place] [address] May, Helicobacter pylori (H. pylori) infection A04.8 [facility] [address] [address] 11 May, 2017 Encounter for routine adult health examination with abnormal findings Z00.01 ; Obesity (BMI 30.0-34.9) E66.9 ; Acanthosis nigricans L83 and Dietary counseling Z71.3 [facility] [id number] [place] [address]- [address] 13 Apr, 2017 Acute seasonal allergic rhinitis due to pollen J30.1 and Sore throat J02.9 [facility] [address] [place] [id number] [place] [address] 08 Apr, 2017 [facility] [address] [place] [id number] [place] [address] 46753- 4469 Apr, Migraine without aura and without status migrainosus, not intractable G43.009 [facility] [address] [place] [id number] [place] [address] March, Dental examination Z01.20 [facility] [id number] [place] [address] Feb, Seasonal allergic rhinitis, unspecified allergic rhinitis trigger J30.2 [facility] [address] [facility] [address] [id number] [id number] Nov, [facility] [address] [id number] Oct, Dental examination Z01.20 [facility] [address] [place] [id number] [place] [id number] Oct, Dental examination Z01.20 [facility] [address] [place] [id number] [place] [id number] Oct, Dental examination Z01.20 and Encounter for dental examination Z01.20 [facility] [address] [place] [address]- [address] 14 Feb, 2015 [facility] [address] [place] [id number] [place] [address]- [address] Feb, [facility] [place] [facility] [address] [id number] [place] [address] Sep, [facility] [place] [facility] [address] [id number] [place] [address] 2020 Sep, [facility] [place] [facility] [address] [id number] [place] [address] Jul, [facility] [place] [facility] [address] [id number] [place] [address] Jul, [facility] [place] [facility] [address] [id number] [place] [address]- [address] Jul, [facility] [place] [facility] [address] [id number] [place] [address]- [address] Jun, [facility] [place] [facility] [address] [id number] [place] [address]- 9[address] Jun, [facility] [place] [facility] [address] [id number] [place] [address]- [address]265 Jun, [facility] [place] [facility] [address] [id number] [place] [address]- 1491 Jun, [facility] [place] [facility] [address] [id number] [place] [address]- [address] Jul, [facility] [place] [facility] [address] [id number] [place] [address]- 47[address] Jun, [facility] [place] [facility] [address] [id number] [place] [address]- 6[address] Feb, [facility] [place] [facility] [address] [id number] [place] [address]- [address] Sep, [facility] [place] [facility] [address] [id number] [place] [address]- 68[address] Sep, [facility] [place] [facility] [address] [id number] [place] [address]- 94[address] Oct, [facility] [place] [facility] [address] [facility] [id number] [place] [address] 11 Oct, 2010 IMMUNIZATIONS No Known Immunizations SOCIAL HISTORY Never Assessed REASON FOR VISIT med order PLAN OF CARE VITAL SIGNS MEDICATIONS Medication Instructions Dosage Frequency Start Date End Date Duration Status Ciprofloxacin-Dexamethasone 0.3-0.1 % Otic Twice a day 4 drops into affected ear 12h 05 Oct, 2017 7 days Active RESULTS No Results PROCEDURES No Known procedures INSTRUCTIONS MEDICATIONS ADMINISTERED No Known Medications MEDICAL (GENERAL) HISTORY Type Description Date Medical History Seasonal Allergies Surgical History uterine polyp removal- 12/2017 Hospitalization History Childbirth only
--- OUTSIDE RECORDS SUMMARY | 2018-11-13 10:49 | XMS REPORT ---
Author Author CUELLOLAURA Cunha Organization [facility] Address [address] [place] [address] Care Team Providers Care Telephone Sales Representative Name Role Phone LAURA CUELLO Unavailable PROBLEMS Type Condition ICD9-CM Code CLT20-AD Code Onset Dates Condition Status SNOMED Code Problem Obesity (BMI 30.0-34.9) E66.9 Active 697988249869276 Problem Dysmenorrhea N94.6 Active 068403894 Problem Acanthosis nigricans L83 Active 919481285 Problem Seasonal allergic rhinitis, unspecified allergic rhinitis trigger J30.2 Active 885965037 Problem Migraine without aura and without status migrainosus, not intractable G43.009 Active 775337043 Problem Asthma due to seasonal allergies J45.909 Active 594023892 Problem Acute bilateral low back pain without sciatica M54.5 Active 960945100 Problem Moderate episode of recurrent major depressive disorder F33.1 Active 428781820 Problem GERD without esophagitis K21.9 Active 730914325 Problem Anxiety F41.9 Active 29576703 Problem Primary insomnia F51.01 Active 5048085 ALLERGIES Substance Reaction Event Type Date Status Topamax numbness and tingling Drug Allergy Oct, Active ENCOUNTERS Encounter Location Date Diagnosis [facility] [id number] [place] [address]06- 1499 March, Asthma due to seasonal allergies J45.909 ; Cough R05 and Wheezing R06.2 [facility] [id number] [place] [address] 33348- 1741 March, Seasonal allergic rhinitis, unspecified allergic rhinitis trigger J30.2 and Asthma due to seasonal allergies J45.909 [facility] [id number] [place] [address] 64106- 8387 March, Cough R05 ; Chest congestion R09.89 and Sore throat J02.9 [facility] [id number] [place] [address] 72265- 1619 March, Moderate episode of recurrent major depressive disorder F33.1 ; Migraine without aura and without status migrainosus, not intractable G43.009 ; Primary insomnia F51.01 and Anxiety F41.9 [facility] [id number] [place] [address]18 -[address] March, Acute non-recurrent frontal sinusitis J01.10 [facility] [id number] [place] [address] 20693- 7352 March, [place] [address] [address] 6[address] March, Right otitis media with effusion H65.91 ; Acute non- recurrent frontal sinusitis J01.10 and Migraine without aura and without status migrainosus, not intractable G43.009 [facility] [address] 25861- 0942 Feb, Left lower quadrant pain R10.32 ; Migraine without aura and without status migrainosus, not intractable G43.009 and Anxiety F41.9 [facility] [id number] [place] [address] 47638- 3103 Feb, Oral contraceptive pill surveillance Z30.41 [place] [id number] [place] [address] 76364- 0360 Feb, Acute bilateral low back pain without sciatica M54.5 [facility] [id number] [place] [address] 90654- 7516 Feb, [facility] [address] 13275- 8613 Feb, Dental examination Z01.20 [facility] [address] [place] [id number] Feb, Dental examination Z01.20 [facility] [address] 90414- 4885 Feb, Anxiety F41.9 [place] [address] 39763- 6871 Feb, Primary insomnia F51.01 and Moderate episode of recurrent major depressive disorder F33.1 [place] [address] 57510- 2919 Jan, Acute suppurative otitis media of left ear without spontaneous rupture of tympanic membrane, recurrence not specified H66.002 [place] [address] 31821- 4355 Jan, Migraine without aura and without status migrainosus, not intractable G43.009 ; Seasonal allergic rhinitis, unspecified allergic rhinitis trigger J30.2 ; GERD without esophagitis K21.9 ; Current mild episode of major depressive disorder without prior episode F32.0 and Human bite, initial encounter W50.3XXA [place] [address] 09792- 8507 Dec, Migraine without aura and without status migrainosus, not intractable G43.009 [place] [address] 42744- 2064 Dec, Nausea and vomiting after administration of anesthetic agent T88.59XA [place] [address] 14984- 1325 Dec, [place] [address] 89933- 5133 Dec, Acute tonsillitis, unspecified etiology J03.90 [place] [address] 30965- 3790 Nov, Dysmenorrhea N94.6 ; Acute midline low back pain without sciatica M54.5 ; Obesity (BMI 30.0-34.9) E66.9 and High ankle sprain of right lower extremity, initial encounter S93.431A [place] [address] 45559- 3219 Nov, [facility] [address] [place] [address] 89794- 9407 Nov, Migraine without aura and without status migrainosus, not intractable G43.009 [facility] [address] [place] [address] 10776- 9180 Oct, Migraine without aura and without status migrainosus, not intractable G43.009 [facility] [id number] [place] [address] 98089 -9684 Oct, Migraine without aura and without status migrainosus, not intractable G43.009 [facility] [id number] [place] [address] 69776- 2234 Oct, [facility] [id number] [place] [address] 18621- 2534 Oct, [facility] [id number] [place] [address] 53515- 7307 Oct, Acute non-recurrent maxillary sinusitis J01.00 [facility] [id number] [place] [address] 74444- 5515 Sep, Left elbow tendonitis M77.8 and Other fatigue R53.83 [facility] [address] [place] [address] [id number] Sep, Dental examination Z01.20 [facility] [address] [place] [address] 82990- 1302 Sep, Sore throat J02.9 ; Other viral agents as the cause of diseases classified elsewhere B97.89 and Acute upper respiratory infection, unspecified J06.9 [facility] [id number] [place] [address] 89012- 1543 Aug, Encounter for immunization Z23 [facility] [id number] [place] [address] 31957- 1870 Aug, Encounter for immunization Z23 [facility] [id number] [place] [address] 17053- 5304 Aug, Migraine without aura and without status migrainosus, not intractable G43.009 [facility] [address] 23036- 9477 Jul, Acute midline low back pain without sciatica M54.5 and Obesity (BMI 30.0-34.9) E66.9 [facility] [address] 08187- 5978 Jul, Chronic seasonal allergic rhinitis due to pollen J30.1 [facility] [address] [place] [address] [id number] Jun, Dental examination Z01.[address] [facility] [address] 44773 -7500 Jun, Jaw pain R68.84 [facility] [address] 58588- 1153 Jun, Dental examination Z01.20 [facility] [address] [id number] Jun, Dental examination Z01.20 [facility] [address] 18494- 0335 Jun, [facility] [id number] [place] [address] 07224- 5521 Jun, Allergic reaction, initial encounter T78.40XA [facility] [address] 33310- 5239 Jun, [facility] [address] 82005- 5201 Jun, Migraine without aura and without status migrainosus, not intractable G43.009 [facility] [address] 47572- 8475 May, [facility] [address] 71428- 2646 May, Helicobacter pylori (H. pylori) infection A04.8 [place] [id number] [place] [address] 54491- 4034 11 May, 2017 Encounter for routine adult health examination with abnormal findings Z00.01 ; Obesity (BMI 30.0-34.9) E66.9 ; Acanthosis nigricans L83 and Dietary counseling Z71.3 [facility] [address] [place] [address] 83362- 7650 13 Apr, 2017 Acute seasonal allergic rhinitis due to pollen J30.1 and Sore throat J02.[address] [address]76- 9919 Apr, [address] 20044- 5704 Apr, Migraine without aura and without status migrainosus, not intractable G43.009 [place] [id number] [place] [address] 63338- 6585 March, Dental examination Z01.20 [facility] [id number] [place] [address] 68976 -2755 Feb, Seasonal allergic rhinitis, unspecified allergic rhinitis trigger J30.2 [place] [address] [facility] [address] [id number] [id number] Nov, [facility] [id number] [place] [address] [id number] Oct, Dental examination Z01.20 [facility] [id number] [place] [address] [id number] Oct, Dental examination Z01.20 [facility] [address] [id number] Oct, Dental examination Z01.20 and Encounter for dental examination Z01.20 [facility] [id number] [place] [address] 80362- 3975 Feb, [facility] [address] [place] [address] [id number] [place] [address]- 3684 13 Feb, 2015 [facility] [place] [facility] [address] [id number] [place] [address]- 7230 Sep, [facility] [place] [facility] [address] [id number] [place] [address]- 5184 Sep, [facility] [place] [facility] [address] [id number] [place] [address]- 3908 Jul, [facility] [place] [facility] [address] [id number] [place] [address]- 5534 Jul, [facility] [place] [facility] [address] [id number] [place] [address]- 6321 Jul, [facility] [place] [facility] [address] [id number] [place] [address]- 6071 Jun, [facility] [place] [facility] [address] [id number] [place] [address]- 8172 Jun, [facility] [place] [facility] [address] [id number] [place] [address]- 6657 Jun, [facility] [place] [facility] [address] [id number] [place] [address]- 1905 Jun, [facility] [place] [facility] [address] [id number] [place] [address]- 4137 Jul, [facility] [place] [facility] [address] [id number] [place] [address]- 2459 Jun, [facility] [place] [facility] [address] [id number] [place] [address]- 7102 Feb, [facility] [place] [facility] [address] [id number] [place] [address]- 9012 Sep, [facility] [place] [facility] [address] [id number] [place] [address]- 7727 Sep, [facility] [place] [facility] [address] [id number] [place] [address]- 7441 Oct, [facility] [address] [facility] [id number] [place] [address] Oct, IMMUNIZATIONS No Known Immunizations SOCIAL HISTORY Never Assessed REASON FOR VISIT flora servin x3 weeks----[facility]CE[facility]ION PLAN OF CARE Activity Details Follow Up prn Reason: VITAL SIGNS Height 62 in 2017-10-24 Weight 176 lbs 2017-10-24 Temperature 98.4 degrees Fahrenheit 2017-10-24 Heart Rate 90 bpm 2017-10-24 Respiratory Rate 20 2017-10-24 BMI 32.19 kg/m2 2017-10-24 Blood pressure systolic 96 mmHg 2017-10-24 Blood pressure diastolic 64 mmHg 2017-10-24 MEDICATIONS Medication Instructions Dosage Frequency Start Date End Date Duration Status Omeprazole 20 mg Orally twice a day 1 capsule 12h May, 30 day(s ) Active Zithromax 250 MG Orally Once a day 2 tablets on the first day, then 1 tablet daily for 4 days 24h 5 day(s) Not-Taking Cetirizine HCl 10 mg Orally Once a day 1 tablet 24h 13 Apr, 2017 Jan, Not-Taking Qhuhkvopms-VYUK-Zgejaext 50-325-40 MG Orally every 4 hrs 1 capsule as needed 4h 08 Apr, 2017 Active Augmentin 875-125 MG Orally every 12 hrs 1 tablet 12h Oct,Oct 10 day(s) Active Contrave 8-90 MG Orally Twice a day 2 tablets 12h 29 Jul, 2017 Oct, 30 day(s) Not-Taking Fluticasone Propionate 50 MCG/ACT Nasally Once a day 1 spray in each nostril 24h Apr, Not-Taking RESULTS No Results PROCEDURES No Known procedures INSTRUCTIONS MEDICATIONS ADMINISTERED No Known Medications MEDICAL (GENERAL) HISTORY Type Description Date Medical History Seasonal Allergies Surgical History uterine polyp removal- 12/2017 Hospitalization History Childbirth only
[2018-11-13] MEDS ORDERED: SCOPOLAMINE 1.5 MG (TRANSDERM-SCOP) PATCH ONE (10:50)
[2018-11-13] MEDS ORDERED: ONDANSETRON 4 MG/2 ML (SDV) Z0FRAN ONE ×3 (10:50→14:54)
[2018-11-13] MEDS ORDERED: FAMOTIDINE 20MG/2ML IV (PEPCID) ONE (10:50)
--- OUTSIDE RECORDS SUMMARY | 2018-11-13 10:50 | XMS REPORT ---
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 Name Role Phone LAURA CUELLO Unavailable PROBLEMS Type Condition ICD9-CM Code LGE53-WH Code Onset Dates Condition Status SNOMED Code Problem Migraine without aura and without status migrainosus, not intractable G43.009 Active 171471185 Problem Acanthosis nigricans L83 Active 137275200 Problem Obesity (BMI 30.0-34.9) E66.9 Active 390747170022250 Problem Seasonal allergic rhinitis, unspecified allergic rhinitis trigger J30.2 Active 477454394 Problem Acute bilateral low back pain without sciatica M54.5 Active 258592956 Problem Anxiety F41.9 Active 69088120 Problem GERD without esophagitis K21.9 Active 795317447 Problem Dysmenorrhea N94.6 Active 386381056 Problem Primary insomnia F51.01 Active 0758540 Problem Moderate episode of recurrent major depressive disorder F33.1 Active 876114986 ALLERGIES No Known Allergies ENCOUNTERS Encounter Location Date Diagnosis [facility] [id number] [place] [address]- 6497 March, [facility] [id number] [place] [address] 89603- 4738 March, Right otitis media with effusion H65.91 ; Acute non- recurrent frontal sinusitis J01.10 and Migraine without aura and without status migrainosus, not intractable G43.009 [facility] [id number] [place] [address] 70702- 2274 Feb, Left lower quadrant pain R10.32 ; Migraine without aura and without status migrainosus, not intractable G43.009 and Anxiety F41.9 [facility] [id number] [place] [address] 23693- 3887 Feb, Oral contraceptive pill surveillance Z30.41 [place] [id number] [place] [address] 41675- 7851 Feb, Acute bilateral low back pain without sciatica M54.5 [facility] [id number] [place] [address] 40153- 6434 Feb, [place] [address] [address] Feb, Dental examination Z01.20 [facility] [address] [id number] Feb, Dental examination Z01.20 [place] [address] 65343- 4206 Feb, Anxiety F41.9 [place] [address] 65277- 7668 Feb, Primary insomnia F51.01 and Moderate episode of recurrent major depressive disorder F33.1 [place] [address] 50848- 6127 Jan, Acute suppurative otitis media of left ear without spontaneous rupture of tympanic membrane, recurrence not specified H66.002 [place] [id number] [place] [address] 16062- 0234 Jan, Migraine without aura and without status migrainosus, not intractable G43.009 ; Seasonal allergic rhinitis, unspecified allergic rhinitis trigger J30.2 ; GERD without esophagitis K21.9 ; Current mild episode of major depressive disorder without prior episode F32.0 and Human bite, initial encounter W50.3XXA [place] [address] 11801- 4357 Dec, Migraine without aura and without status migrainosus, not intractable G43.009 [place] [address] 71480- 1426 Dec, Nausea and vomiting after administration of anesthetic agent T88.59XA [facility] [id number] [place] [address] 36961- 5419 Dec, [facility] [address] 66457- 2049 Dec, Acute tonsillitis, unspecified etiology J03.90 [place] [address] 48539- 3019 Nov, Dysmenorrhea N94.6 ; Acute midline low back pain without sciatica M54.5 ; Obesity (BMI 30.0-34.9) E66.9 and High ankle sprain of right lower extremity, initial encounter S93.431A [place] [address] 36363- 5799 Nov, [place] [address] 28731- 1958 Nov, Migraine without aura and without status migrainosus, not intractable G43.009 [facility] [id number] [place] [address] 98863- 9448 Oct, Migraine without aura and without status migrainosus, not intractable G43.009 [facility] [id number] [place] [address]26 -[address]18 Oct, Migraine without aura and without status migrainosus, not intractable G43.009 [facility] [id number] [place] [address] 46069- 7987 Oct, [facility] [address] 81049- 5484 Oct, [facility] [address] 70991- 1422 Oct, Acute non-recurrent maxillary sinusitis J01.00 [place] [address] 84097- 3504 Sep, Left elbow tendonitis M77.8 and Other fatigue R53.83 [facility] [id number] [place] [address] [id number] Sep, Dental examination Z01.20 [facility] [address] 37573- 8733 Sep, Sore throat J02.9 ; Other viral agents as the cause of diseases classified elsewhere B97.89 and Acute upper respiratory infection, unspecified J06.9 [facility] [address] 78969- 2623 Aug, Encounter for immunization Z23 [place] [address] [address] 0510 Aug, Encounter for immunization Z23 [place] [address] 21645- 4117 Aug, Migraine without aura and without status migrainosus, not intractable G43.009 [place] [address] 94760- 8758 Jul, Acute midline low back pain without sciatica M54.5 and Obesity (BMI 30.0-34.9) E66.9 [facility] [address] 30971- 3882 Jul, Chronic seasonal allergic rhinitis due to pollen J30.1 [facility] [id number] [place] [address] [id number] Jun, Dental examination Z01.20 [facility] [id number] [place] [address] 62953 -2070 Jun, Jaw pain R68.84 [facility] [address] 92525- 5396 Jun, Dental examination Z01.20 [facility] [id number] [place] [address] [id number] Jun, Dental examination Z01.20 [facility] [address] 03434- 6927 Jun, [place] [id number] [place] [address] 11027- 9460 Jun, Allergic reaction, initial encounter T78.40XA [place] [address] 57101- 2315 Jun, [place] [address] 14981- 4036 Jun, Migraine without aura and without status migrainosus, not intractable G43.009 [place] [address] 93761- 6567 May, [place] [address] 79693- 4835 May, Helicobacter pylori (H. pylori) infection A04.[address] 53363- 6874 May, Encounter for routine adult health examination with abnormal findings Z00.01 ; Obesity (BMI 30.0-34.9) E66.9 ; Acanthosis nigricans L83 and Dietary counseling Z71.3 [place] [address] 22678- 5168 13 Apr, 2017 Acute seasonal allergic rhinitis due to pollen J30.1 and Sore throat J02.9 [place] [address] 21551- 3358 Apr, [place] [address] 83363- 5927 Apr, Migraine without aura and without status migrainosus, not intractable G43.009 [place] [address] 04990- 9593 March, Dental examination Z01.20 [facility] [address] 06209 -[address]252 Feb, Seasonal allergic rhinitis, unspecified allergic rhinitis trigger J30.2 [facility] [place] [id number] [facility] [id number] [id number] Nov, [facility] [address] [place] [id number] Oct, Dental examination Z01.20 [facility] [address] [id number] Oct, Dental examination Z01.20 [facility] [address] [place] [id number] Oct, Dental examination Z01.20 and Encounter for dental examination Z01.20 [facility] [address] [id number] [place] [address] Feb, [facility] [address] [id number] [place] [address]- 0176 Feb, [facility] [address] [id number] [place] [address]- 4310 Sep, [facility] [address] [id number] [place] [address] 5245 Sep, [facility] [address] [id number] [place] [address]- 7[address] Jul, [facility] [address] [facility] [id number] [place] [address]- 65[address] Jul, [facility] [address] [id number] [place] [address]- 2549 Jul, [facility] [address] [id number] [place] [address]- 4280 Jun, [facility] [address] [id number] [place] [address]- 5826 Jun, [facility] [address] [id number] [place] [address]- 7084 Jun, [facility] [address] [id number] [place] [address]- 6529 Jun, [facility] [address] [facility] [id number] [place] [address]- 6068 Jul, [facility] [id number] [address]- 3206 Jun, [facility] [address] [id number] [address]- 6612 Feb, [facility] [address] [address]- 2626 Sep, [facility] [address] [id number] [address]- 7760 Sep, [facility] [address] [address]- 1646 Oct, [facility] [address] [address]- [address] Oct, IMMUNIZATIONS Vaccine Route Administration Date Status DEXAMETHASONE 4MG/ML (PER 1 MG) IM Intramuscular Aug 18, 2017 Administered DEPO MEDROL 40 MG/ML IM Intramuscular Aug 18, 2017 Administered SOCIAL HISTORY Never Assessed REASON FOR VISIT Sore throat PLAN OF CARE Activity Details Follow Up prn Reason: VITAL SIGNS Height 62 in 2017-08-18 Temperature 98.2 degrees Fahrenheit 2017-08-18 Heart Rate 88 bpm 2017-08-18 Respiratory Rate 20 2017-08-18 Blood pressure systolic 118 mmHg 2017-08-18 Blood pressure diastolic 70 mmHg 2017-08-18 MEDICATIONS Medication Instructions Dosage Frequency Start Date End Date Duration Status Fluticasone Propionate 50 MCG/ACT Nasally Once a day 1 spray in each nostril 24h Apr, Active Cetirizine HCl 10 mg Orally Once a day 1 tablet 24h Apr, Jan, Active Topamax 25 MG Orally Twice a day 1 tab daily x 1 week then increase to twice daily 12h Jun, 30 day(s) Active RESULTS No Results PROCEDURES Procedure Date Ordered Result Body Site DEPO MEDROL 40 MG/ML Aug 18, 2017 DEXAMETHASONE 4MG/ML (PER 1 MG) Aug 18, 2017 THER/PROPH/DIAG INJ, SC/IM Aug 18, 2017 INSTRUCTIONS MEDICATIONS ADMINISTERED No Known Medications MEDICAL (GENERAL) HISTORY Type Description Date Medical History Seasonal Allergies Surgical History uterine polyp removal- 12/2017 Hospitalization History Childbirth only
--- OUTSIDE RECORDS SUMMARY | 2018-11-13 10:50 | XMS REPORT ---
Author Author CUELLOLAURA Cunha Organization [facility] Address [address] [place] [address] Care Team Providers Care Director Of Event Marketing Name Role Phone LAURA CUELLO Unavailable PROBLEMS Type Condition ICD9-CM Code OEM58-PJ Code Onset Dates Condition Status SNOMED Code Problem Acanthosis nigricans L83 Active 146372144 Problem GERD without esophagitis K21.9 Active 912541100 Problem Dysmenorrhea N94.6 Active 131833290 Problem Seasonal allergic rhinitis, unspecified allergic rhinitis trigger J30.2 Active 578932195 Problem Migraine without aura and without status migrainosus, not intractable G43.009 Active 067228700 Problem Obesity (BMI 30.0-34.9) E66.9 Active 816282009493831 Problem Mild persistent asthma without complication J45.30 Active 666050227 Problem Asthma due to seasonal allergies J45.909 Active 562057128 Problem Primary insomnia F51.01 Active 1388187 Problem Moderate episode of recurrent major depressive disorder F33.1 Active 698531807 Problem Acute bilateral low back pain without sciatica M54.5 Active 789929731 Problem Anxiety F41.9 Active 60682613 ALLERGIES Substance Reaction Event Type Date Status Topamax numbness and tingling Drug Allergy Oct, Active ENCOUNTERS Encounter Location Date Diagnosis [facility] [id number] [place] [address] 23442- 3173 13 Apr, 2018 Wheezing R06.2 [facility] [address] [id number] [place] [address] 14763- 4296 12 Apr, 2018 Mild persistent asthma without complication J45.30 and Wheezing R06.2 [facility] [id number] [place] [address] 84638- 9715 11 Apr, 2018 Migraine without aura and without status migrainosus, not intractable G43.009 [facility] [id number] [place] [address] 34893- 8695 Apr, [place] [address] 19740- 4748 Apr, Cough R05 and Wheezing R06.2 [place] [address] [id number] [place] [address] 13397- 5314 Apr, Persistent cough for 3 weeks or longer R05 [place] [address] [id number] [place] [address] 97979- 6520 March, Asthma due to seasonal allergies J45.909 ; Cough R05 and Wheezing R06.2 [place] [address] 15773- 0894 March, Seasonal allergic rhinitis, unspecified allergic rhinitis trigger J30.2 and Asthma due to seasonal allergies J45.909 [place] [address] [id number] [place] [address] 03060- 8319 March, Cough R05 ; Chest congestion R09.89 and Sore throat J02.9 [place] [address] [address] [id number] [place] [address] 98699- 6715 March, Moderate episode of recurrent major depressive disorder F33.1 ; Migraine without aura and without status migrainosus, not intractable G43.009 ; Primary insomnia F51.01 and Anxiety F41.9 [facility] [id number] [place] [address] 24038 -1064 March, Acute non-recurrent frontal sinusitis J01.10 [place] [address] [id number] [place] [address] 51579- 0443 March, [place] [address] 59788- 6529 March, Right otitis media with effusion H65.91 ; Acute non- recurrent frontal sinusitis J01.10 and Migraine without aura and without status migrainosus, not intractable G43.009 [place] [address] 24781- 2509 Feb, Left lower quadrant pain R10.32 ; Migraine without aura and without status migrainosus, not intractable G43.009 and Anxiety F41.9 [place] [address] 61372- 4181 Feb, Oral contraceptive pill surveillance Z30.41 [place] [address] 17579- 6121 Feb, Acute bilateral low back pain without sciatica M54.5 [place] [address] 71768- 3043 Feb, [place] [address] 07536- 1144 Feb, Dental examination Z01.20 [facility] [address] [id number] Feb, Dental examination Z01.20 [place] [address] 50789- 0310 Feb, Anxiety F41.9 [place] [address] 15531- 1868 Feb, Primary insomnia F51.01 and Moderate episode of recurrent major depressive disorder F33.1 [place] [address] 51769- 6790 Jan, Acute suppurative otitis media of left ear without spontaneous rupture of tympanic membrane, recurrence not specified H66.002 [place] [address] 53635- 5080 Jan, Migraine without aura and without status migrainosus, not intractable G43.009 ; Seasonal allergic rhinitis, unspecified allergic rhinitis trigger J30.2 ; GERD without esophagitis K21.9 ; Current mild episode of major depressive disorder without prior episode F32.0 and Human bite, initial encounter W50.3XXA [place] [address] [place] [id number]- 2546 Dec, Migraine without aura and without status migrainosus, not intractable G43.009 [facility] [address] 20779- 3849 Dec, Nausea and vomiting after administration of anesthetic agent T88.59XA [place] [address] 71917- 0699 Dec, [place] [address] 40791- 7734 Dec, Acute tonsillitis, unspecified etiology J03.90 [place] [address] 67555- 5037 Nov, Dysmenorrhea N94.6 ; Acute midline low back pain without sciatica M54.5 ; Obesity (BMI 30.0-34.9) E66.9 and High ankle sprain of right lower extremity, initial encounter S93.431A [place] [address] 75288- 4345 Nov, [place] [address] 68631- 6937 Nov, Migraine without aura and without status migrainosus, not intractable G43.009 [facility] [address] 12453- 7267 Oct, Migraine without aura and without status migrainosus, not intractable G43.009 [facility] [id number] [place] [address] 95678 -2800 Oct, Migraine without aura and without status migrainosus, not intractable G43.009 [facility] [address] 76801- 8458 Oct, [facility] [address] 16311- 0977 Oct, [place] [address] 65244- 2888 Oct, Acute non-recurrent maxillary sinusitis J01.00 [facility] [address] 52722- 7054 Sep, Left elbow tendonitis M77.8 and Other fatigue R53.83 [facility] [address] [id number] Sep, Dental examination Z01.20 [facility] [address] 10935- 6065 Sep, Sore throat J02.9 ; Other viral agents as the cause of diseases classified elsewhere B97.89 and Acute upper respiratory infection, unspecified J06.9 [place] [address] 64809- 9446 Aug, Encounter for immunization Z23 [place] [address] 89846- 6885 Aug, Encounter for immunization 23 [place] [address] 48376- 8381 Aug, Migraine without aura and without status migrainosus, not intractable G43.009 [place] [address] 45738- 2819 Jul, Acute midline low back pain without sciatica M54.5 and Obesity (BMI 30.0-34.9) E66.9 [facility] [address] 85985- 1429 Jul, Chronic seasonal allergic rhinitis due to pollen J30.1 [facility] [address] [id number] Jun, Dental examination Z01.20 [facility] [address] 54783 -4649 Jun, Jaw pain R68.84 [facility] [address] 14046- 5196 Jun, Dental examination Z01.20 [facility] [address] [place] [address] [id number] Jun, Dental examination Z01.20 [facility] [address] [place] [address] 15853- 8133 Jun, [facility] [address] [address] [id number] [place] [address] 41359- 4923 Jun, Allergic reaction, initial encounter T78.40XA [place] [address] [address] [id number] [place] [address] 14176- 0111 Jun, [place] [address] [address] [id number] [place] [address] 26499- 5865 Jun, Migraine without aura and without status migrainosus, not intractable G43.009 [place] [address] [address] [id number] [place] [address] 31498- 2007 May, [facility] [id number] [place] [address] 30285- 5717 May, Helicobacter pylori (H. pylori) infection A04.8 [place] [address] [address] [id number] [place] [address] 77045- 9813 May, Encounter for routine adult health examination with abnormal findings Z00.01 ; Obesity (BMI 30.0-34.9) E66.9 ; Acanthosis nigricans L83 and Dietary counseling Z71.3 [place] [address] [address] [id number] [place] [address] 15231- 2139 Apr, Acute seasonal allergic rhinitis due to pollen J30.1 and Sore throat J02.9 [place] [address] [address] [id number] [place] [address] 65311- 4673 Apr, [place] [address] [address] [id number] [place] [address] 17603- 0270 Apr, Migraine without aura and without status migrainosus, not intractable G43.009 [place] [address] [address] March, Dental examination Z01.20 [facility] [address] [address] Feb, Seasonal allergic rhinitis, unspecified allergic rhinitis trigger J30.2 [facility] [address] [id number] [id number] Nov, [facility] [address] [id number] [id number] Oct, Dental examination Z01.20 [facility] [id number] [place] [address] [id number] Oct, Dental examination Z01.20 [facility] [address] [address] [id number] [place] [address] [id number] Oct, Dental examination Z01.20 and Encounter for dental examination Z01.20 [facility] [address] [place] [address] 66205- 1854 Feb, [facility] [id number] [place] [address] 25968- 5325 Feb, [facility] [id number] [place] [address] 39981- 5366 Sep, [facility] [address] [address]- 9124 Sep, [facility] [address] [address]- 1606 Jul, [facility] [id number] [address]- 2549 Jul, [facility] [id number] [place] [address] 25179- 6867 Jul, [facility] [id number] [address]- 7350 Jun, [facility] [id number] [place] [address] 24371- 2546 Jun, [facility] [id number] [address]- 4936 Jun, [facility] [id number] [address]- 6866 Jun, [facility] [address] [place] [address]- 3245 Jul, [facility] [address] [address]- 8930 Jun, [facility] [address] [address]- 3846 Feb, [facility] [address] [address]- 2663 Sep, [facility] [address] [address]- 1787 Sep, [facility] [address] [address]- 9383 Oct, [facility] [id number] [address]- 1305 Oct, IMMUNIZATIONS No Known Immunizations SOCIAL HISTORY Never Assessed REASON FOR VISIT Migraine: ongoing issues, states has sharp pains over top of the head ( posterior region), light exacerbates symptoms. States started getting more severe Friday jose cheung PLAN OF CARE Activity Details Follow Up 3 Months, prn Reason:chm VITAL SIGNS Height 62 in 2017-11-19 Weight 176.2 lbs 2017-11-19 Temperature 97 degrees Fahrenheit 2017-11-19 Heart Rate 80 bpm 2017-11-19 Respiratory Rate 20 2017-11-19 BMI 32.22 kg/m2 2017-11-19 Blood pressure systolic 100 mmHg 2017-11-19 Blood pressure diastolic 56 mmHg 2017-11-19 MEDICATIONS Medication Instructions Dosage Frequency Start Date End Date Duration Status Ciprofloxacin-Dexamethasone 0.3-0.1 % Otic Twice a day 4 drops into affected ear 12h 05 Oct, 2017 7 days Not-Taking Mbuzjgffim-XJMS-Gqbtnhip 50-325-40 MG Orally every 4 hrs 1 capsule as needed 4h 08 Apr, 2017 Active Levonorgestrel-Ethinyl Estrad 0.1-20 MG-MCG Orally Once a day 1 tablet 24h Active Contrave 8-90 MG Orally Twice a day 2 tablets 12h 29 Jul, 2017 Oct, 30 day(s) Not-Taking Omeprazole 20 mg Orally twice a day 1 capsule 12h May, 30 day(s ) Active Fluticasone Propionate 50 MCG/ACT Nasally Once a day 1 spray in each nostril 24h Apr, Not-Taking Ibuprofen 800 MG Orally Three times a day 1 tablet with food or milk as needed 8h Oct, Jul, 90 days Active Zithromax 250 MG Orally Once a day 2 tablets on the first day, then 1 tablet daily for 4 days 24h 5 day(s) Not-Taking Cetirizine HCl 10 mg Orally Once a day 1 tablet 24h Apr, Jan, Not-Taking RESULTS No Results PROCEDURES No Known procedures INSTRUCTIONS MEDICATIONS ADMINISTERED No Known Medications MEDICAL (GENERAL) HISTORY Type Description Date Medical History Seasonal Allergies Surgical History uterine polyp removal- 12/2017 Hospitalization History Childbirth only
--- OUTSIDE RECORDS SUMMARY | 2018-11-13 10:50 | XMS REPORT ---
Author Author LAURA CUELLO [facility] Address [address] [place] [address] Care Team Providers Care Manager Contracting Name Role Phone LAURA CUELLO Unavailable PROBLEMS Type Condition ICD9-CM Code NNG64-CW Code Onset Dates Condition Status SNOMED Code Problem Obesity (BMI 30.0-34.9) E66.9 Active 305366758497897 Problem Dysmenorrhea N94.6 Active 114708981 Problem Acanthosis nigricans L83 Active 569350795 Problem Seasonal allergic rhinitis, unspecified allergic rhinitis trigger J30.2 Active 016624345 Problem Migraine without aura and without status migrainosus, not intractable G43.009 Active 054816636 Problem Asthma due to seasonal allergies J45.909 Active 148663746 Problem Acute bilateral low back pain without sciatica M54.5 Active 355550185 Problem Moderate episode of recurrent major depressive disorder F33.1 Active 005581654 Problem GERD without esophagitis K21.9 Active 360288113 Problem Anxiety F41.9 Active 95555723 Problem Primary insomnia F51.01 Active 5695877 ALLERGIES No Information ENCOUNTERS Encounter Location Date Diagnosis [place] [id number] [place] [address] 25983- 6289 Apr, Persistent cough for 3 weeks or longer R05 [place] [id number] [place] [address] 21364- 9004 March, Asthma due to seasonal allergies J45.909 ; Cough R05 and Wheezing R06.2 [place] [id number] [place] [address] 11931- 2151 March, Seasonal allergic rhinitis, unspecified allergic rhinitis trigger J30.2 and Asthma due to seasonal allergies J45.909 [place] [id number] [place] [address] 55093- 2871 March, Cough R05 ; Chest congestion R09.89 and Sore throat J02.9 [facility] [address] 8[address]69- 9287 March, Moderate episode of recurrent major depressive disorder F33.1 ; Migraine without aura and without status migrainosus, not intractable G43.009 ; Primary insomnia F51.01 and Anxiety F41.9 [facility] [address] 07481 -9750 March, Acute non-recurrent frontal sinusitis J01.10 [facility] [address] 00179- 3797 March, [facility] [address] 65578- 7777 March, Right otitis media with effusion H65.91 ; Acute non- recurrent frontal sinusitis J01.10 and Migraine without aura and without status migrainosus, not intractable G43.009 [facility] [address] 86174- 6565 Feb, Left lower quadrant pain R10.32 ; Migraine without aura and without status migrainosus, not intractable G43.009 and Anxiety F41.9 [facility] [address] 26482- 4878 Feb, Oral contraceptive pill surveillance Z30.41 [place] [address] 26117- 0496 Feb, Acute bilateral low back pain without sciatica M54.5 [facility] [address] 89378- 6121 Feb, [place] [address] 80486- 1277 Feb, Dental examination Z01.20 [facility] [address] [id number] Feb, Dental examination Z01.20 [place] [address] 14688- 2173 10 Feb, 2018 Anxiety F41.9 [place] [id number]- 5704 Feb, Primary insomnia F51.01 and Moderate episode of recurrent major depressive disorder F33.[address] 16811- 9213 Jan, Acute suppurative otitis media of left ear without spontaneous rupture of tympanic membrane, recurrence not specified H66.[address] [address] 9119 Jan, Migraine without aura and without status migrainosus, not intractable G43.009 ; Seasonal allergic rhinitis, unspecified allergic rhinitis trigger J30.2 ; GERD without esophagitis K21.9 ; Current mild episode of major depressive disorder without prior episode F32.0 and Human bite, initial encounter W50.3XXA [place] [address] 02801- 0209 Dec, Migraine without aura and without status migrainosus, not intractable G43.009 [place] [address] 36585 0341 Dec, Nausea and vomiting after administration of anesthetic agent T88.59XA [address] 69364- 5188 Dec, [address] 57934- 2305 Dec, Acute tonsillitis, unspecified etiology J03.90 [place] [id number] 4681 Nov, Dysmenorrhea N94.6 ; Acute midline low back pain without sciatica M54.5 ; Obesity (BMI 30.0-34.9) E66.9 and High ankle sprain of right lower extremity, initial encounter S93.431A [facility] [id number] [place] [address] 45061- 7321 Nov, [facility] [address] 52736- 3169 Nov, Migraine without aura and without status migrainosus, not intractable G43.009 [facility] [id number] [place] [address] 54144- 2490 Oct, Migraine without aura and without status migrainosus, not intractable G43.009 [facility] [id number] [place] [address] 97949 -1074 Oct, Migraine without aura and without status migrainosus, not intractable G43.009 [facility] [id number] [place] [address] 76840- 7120 Oct, [place] [address] 59419- 0622 Oct, [facility] [id number] [place] [address] 21434- 2606 Oct, Acute non-recurrent maxillary sinusitis J01.00 [place] [id number] [place] [address] 86712- 9235 Sep, Left elbow tendonitis M77.8 and Other fatigue R53.83 [facility] [id number] [place] [address] [id number] Sep, Dental examination Z01.20 [place] [id number] [place] [address] 84666- 8460 Sep, Sore throat J02.9 ; Other viral agents as the cause of diseases classified elsewhere B97.89 and Acute upper respiratory infection, unspecified J06.9 [place] [id number] [place] [address] 02834- 6734 Aug, Encounter for immunization Z23 [place] [address] 15620- 1820 Aug, Encounter for immunization Z23 [facility] [id number] [place] [address] 93546- 2624 Aug, Migraine without aura and without status migrainosus, not intractable G43.009 [facility] [id number] [place] [address] 96183- 6516 Jul, Acute midline low back pain without sciatica M54.5 and Obesity (BMI 30.0-34.9) E66.9 [facility] [id number] [place] [address] 20807- 5625 Jul, Chronic seasonal allergic rhinitis due to pollen J30.1 [facility] [address] [id number] Jun, Dental examination Z01.20 [facility] [id number] [place] [address] 38999 -0755 Jun, Jaw pain R68.84 [facility] [address] 53583- 6235 Jun, Dental examination Z01.20 [facility] [address] [id number] Jun, Dental examination Z01.20 [facility] [id number] [place] [address] 38163- 1527 Jun, [facility] [address] 79435- 7238 Jun, Allergic reaction, initial encounter T78.40XA [facility] [id number] [place] [address] 84560- 1895 Jun, [facility] [address] 79006- 4225 Jun, Migraine without aura and without status migrainosus, not intractable G43.009 [facility] [id number] [place] [address] 52452- 6949 May, [facility] [address] [place] [address] 81758- 9505 May, Helicobacter pylori (H. pylori) infection A04.8 [place] [id number] [place] [address] 90218- 0109 11 May, 2017 Encounter for routine adult health examination with abnormal findings Z00.01 ; Obesity (BMI 30.0-34.9) E66.9 ; Acanthosis nigricans L83 and Dietary counseling Z71.3 [facility] [id number] [place] [address] 59876- 6882 13 Apr, 2017 Acute seasonal allergic rhinitis due to pollen J30.1 and Sore throat J02.9 [place] [id number] [place] [address] 78565- 6135 08 Apr, 2017 [place] [id number] [place] [address] 42938- 9347 Apr, Migraine without aura and without status migrainosus, not intractable G43.009 [address] [place] [address] 34780- 3242 March, Dental examination Z01.20 [facility] [address] [place] [address] 17516 -9761 Feb, Seasonal allergic rhinitis, unspecified allergic rhinitis trigger J30.[address] [id number] [id number] Nov, [facility] [address] [place] [address] [id number] Oct, Dental examination Z01.20 [facility] [address] [place] [address] [id number] Oct, Dental examination Z01.20 [facility] [id number] [place] [address] [id number] Oct, Dental examination Z01.20 and Encounter for dental examination Z01.20 [facility] [id number] [place] [address] 30438- 4703 14 Feb, 2015 [facility] [place] [facility] [address] [id number] [place] [address]- 7068 Feb, [facility] [place] [facility] [address] [id number] [place] [address]- 3161 Sep, [facility] [place] [facility] [address] [id number] [place] [address]- 1814 Sep, [facility] [place] [facility] [address] [id number] [place] [address]- 3714 05 Jul, 2014 [facility] [place] [facility] [address] [id number] [place] [address]- 6609 Jul, [facility] [place] [facility] [address] [id number] [place] [address]- 5797 Jul, [facility] [place] [facility] [address] [id number] [place] [address]- 2140 Jun, [facility] [place] [facility] [address] [id number] [place] [address]- 2647 Jun, [facility] [place] [facility] [address] [id number] [place] [address]- 9453 Jun, [facility] [place] [facility] [address] [id number] [place] [address]- 5005 Jun, [facility] [place] [facility] [address] [id number] [place] [address]- 5265 Jul, [facility] [place] [facility] [address] [id number] [place] [address]- 4538 Jun, [facility] [place] [facility] [address] [id number] [place] [address]- 0116 Feb, [facility] [place] [facility] [address] [id number] [place] [address]- 4041 Sep, [facility] [place] [facility] [address] [id number] [place] [address]- 8800 Sep, [facility] [place] [facility] [address] [facility] [id number] [place] [address]- 3149 Oct, [facility] [address] [facility] [id number] [place] [address]- 2546 Oct, IMMUNIZATIONS No Known Immunizations SOCIAL HISTORY Never Assessed REASON FOR VISIT Pain PLAN OF CARE VITAL SIGNS MEDICATIONS No Known Medications RESULTS No Results PROCEDURES No Known procedures INSTRUCTIONS MEDICATIONS ADMINISTERED No Known Medications MEDICAL (GENERAL) HISTORY Type Description Date Medical History Seasonal Allergies Surgical History uterine polyp removal- 12/2017 Hospitalization History Childbirth only
--- OUTSIDE RECORDS SUMMARY | 2018-11-13 10:51 | XMS REPORT ---
Author Author LOBITO MAGALLANES [facility] Address [address] [place] [address] Care Team Providers Care Sanitizer Name Role Phone LOBITO MAGALLANES Unavailable PROBLEMS Type Condition ICD9-CM Code VPY60-PH Code Onset Dates Condition Status SNOMED Code Problem Obesity (BMI 30.0-34.9) E66.9 Active [id number] Problem Dysmenorrhea N94.6 Active 591402077 Problem Acanthosis nigricans L83 Active 272262749 Problem Seasonal allergic rhinitis, unspecified allergic rhinitis trigger J30.2 Active 833771446 Problem Migraine without aura and without status migrainosus, not intractable G43.009 Active 599876167 Problem Acute bilateral low back pain without sciatica M54.5 Active 379968969 Problem Anxiety F41.9 Active 93546785 Problem GERD without esophagitis K21.9 Active 349907574 Problem Current mild episode of major depressive disorder without prior episode F32.0 Active 79211903 Problem Primary insomnia F51.01 Active 2405000 Problem Moderate episode of recurrent major depressive disorder F33.1 Active 172159147 ALLERGIES No Information ENCOUNTERS Encounter Location Date Diagnosis [facility] [address] [place] [address] 12088- 7186 March, [facility] [id number] [place] [address] 23411- 2147 Feb, [facility] [id number] [place] [address] 70968- 2188 Feb, Acute bilateral low back pain without sciatica M54.5 [facility] [id number] [place] [address] 66944- 0319 Feb, [facility] [id number] [place] [address] 48506- 7883 Feb, Dental examination Z01.20 [facility] [id number] [place] [address] [id number] 10 Feb, 2018 Dental examination Z01.20 [facility] [address] 15130- 6198 10 Feb, 2018 Anxiety F41.9 [place] [address] 73966- 9648 Feb, Primary insomnia F51.01 and Moderate episode of recurrent major depressive disorder F33.1 [place] [address] 08297- 6498 Jan, Acute suppurative otitis media of left ear without spontaneous rupture of tympanic membrane, recurrence not specified H66.002 [place] [address] 76089- 5880 Jan, Migraine without aura and without status migrainosus, not intractable G43.009 ; Seasonal allergic rhinitis, unspecified allergic rhinitis trigger J30.2 ; GERD without esophagitis K21.9 ; Current mild episode of major depressive disorder without prior episode F32.0 and Human bite, initial encounter W50.3XXA [place] [address] 87125- 8195 Dec, Migraine without aura and without status migrainosus, not intractable G43.009 [place] [address] 99838- 3685 Dec, Nausea and vomiting after administration of anesthetic agent T88.59XA [place] [address] 19124- 0503 Dec, [place] [address] 83875- 9452 Dec, Acute tonsillitis, unspecified etiology J03.90 [place] [address] 49951- 8394 Nov, Dysmenorrhea N94.6 ; Acute midline low back pain without sciatica M54.5 ; Obesity (BMI 30.0-34.9) E66.9 and High ankle sprain of right lower extremity, initial encounter S93.431A [facility] [address] 48275- 3610 Nov, [facility] [address] 436908- 3799 Nov, Migraine without aura and without status migrainosus, not intractable G43.009 [facility] [id number] [place] [address] 488555- 4803 Oct, Migraine without aura and without status migrainosus, not intractable G43.009 [facility] [id number] [place] [address] 11589 -9416 Oct, Migraine without aura and without status migrainosus, not intractable G43.009 [facility] [address] 36351- 7225 Oct, [facility] [address] 77807- 7627 Oct, [facility] [address] 46007- 1223 Oct, Acute non-recurrent maxillary sinusitis J01.00 [place] [address] 92423- 4229 17 Sep, 2017 Left elbow tendonitis M77.8 and Other fatigue R53.83 [facility] [id number] [place] [address] [id number] Sep, Dental examination Z01.20 [facility] [address] 29764- 5653 Sep, Sore throat J02.9 ; Other viral agents as the cause of diseases classified elsewhere B97.89 and Acute upper respiratory infection, unspecified J06.9 [facility] [address] [place] [address]- 3813 Aug, Encounter for immunization Z23 [facility] [address] 85027- 8452 Aug, Encounter for immunization Z23 [facility] [address] 82596- 6274 Aug, Migraine without aura and without status migrainosus, not intractable G43.009 [facility] [address] 29460- 8407 Jul, Acute midline low back pain without sciatica M54.5 and Obesity (BMI 30.0-34.9) E66.9 [facility] [address] 29936- 2917 Jul, Chronic seasonal allergic rhinitis due to pollen J30.1 [facility] [address] [id number] Jun, Dental examination Z01.20 [facility] [id number] [place] [address] 35765 -5605 Jun, Jaw pain R68.84 [facility] [address] 17793- 5090 Jun, Dental examination Z01.20 [facility] [id number] [place] [address] [id number] Jun, Dental examination Z01.20 [facility] [id number] [place] [address] 52602- 4356 Jun, [facility] [id number] [place] [address] 93771- 3388 Jun, Allergic reaction, initial encounter T78.40XA [facility] [address] 03719- 7220 Jun, [facility] [id number] [place] [address] 80658- 4042 Jun, Migraine without aura and without status migrainosus, not intractable G43.009 [facility] [address] [place] [address] 95270- 4291 May, [facility] [id number] [place] [address] 10983- 6295 14 May, 2017 Helicobacter pylori (H. pylori) infection A04.8 [place] [id number] [place] [address] 52931- 5137 11 May, 2017 Encounter for routine adult health examination with abnormal findings Z00.01 ; Obesity (BMI 30.0-34.9) E66.9 ; Acanthosis nigricans L83 and Dietary counseling Z71.3 [place] [id number] [place] [address] 33544- 4521 13 Apr, 2017 Acute seasonal allergic rhinitis due to pollen J30.1 and Sore throat J02.9 [place] [id number] [place] [address] 70719- 0521 Apr, [place] [id number] [place] [address] 23977- 4207 Apr, Migraine without aura and without status migrainosus, not intractable G43.009 [place] [id number] [place] [address] 49417- 8827 March, Dental examination Z01.20 [facility] [address] [place] [address] 37193 -1795 Feb, Seasonal allergic rhinitis, unspecified allergic rhinitis trigger J30.[address] [place] [id number] [id number] Nov, [facility] [id number] [place] [address] [id number] Oct, Dental examination Z01.20 [facility] [id number] [place] [address] [id number] Oct, Dental examination Z01.20 [facility] [id number] [place] [address] [place] [id number] Oct, 2015 Dental examination Z01.20 and Encounter for dental examination Z01.20 [facility] [address] [id number] [place] [address]- 0493 14 Feb, 2015 [facility] [address] [id number] [place]- 3273 13 Feb, 2015 [facility] [address] [id number] [place] [address]- 0508 Sep, [facility] [address] [id number] [place] [address]- 7413 Sep, [facility] [address] [id number] [place] [address]- 9063 Jul, [facility] [address] [id number] [place] [address]- 7790 Jul, [facility] [address] [id number] [place] [address]- 1631 Jul, [facility] [address] [id number] [place] [address]- 1124 Jun, [facility] [address] [id number] [address]- 4255 Jun, [facility] [address] [id number] [place] [address]- 0345 Jun, [facility] [address] [id number] [place] [address]- 7316 Jun, [facility] [address] [id number] [place] [address]- 2876 Jul, [facility] [address] [id number] [place] [address]- 8088 Jun, [facility] [address] [id number] [place] [address]- 9937 Feb, [facility] [address] [id number] [place] [address]- 5870 Sep, [facility] [address] [facility] [id number] [place] [address]- 2940 Sep, [facility] [address] [facility] [id number] [place] [address]- 4440 Oct, [facility] [address] [facility] [id number] [place] [address]- 1110 Oct, IMMUNIZATIONS No Known Immunizations SOCIAL HISTORY Never Assessed REASON FOR VISIT pa of #12 PLAN OF CARE Activity Details Follow Up sesar Reason:DDS for re-evaluation VITAL SIGNS MEDICATIONS Unknown Medications RESULTS No Results PROCEDURES Procedure Date Ordered Result Body Site INTRAORL-PERIAPICAL 1 FILM [id number] Jul 23, 2017 Billing Notes on claim Jul 23, 2017 [facility] Employee/Board adjustment Jul 23, 2017 INSTRUCTIONS MEDICATIONS ADMINISTERED No Known Medications MEDICAL (GENERAL) HISTORY Type Description Date Medical History Seasonal Allergies Surgical History uterine polyp removal- 12/2017 Hospitalization History Childbirth only
--- OUTSIDE RECORDS SUMMARY | 2018-11-13 10:51 | XMS REPORT ---
Author Author LAURA CUELLO [facility] Address [address] [place] [address] Care Team Providers Care Fisheries Biologist Name Role Phone LAURA CUELLO Unavailable PROBLEMS Type Condition ICD9-CM Code EZI62-EF Code Onset Dates Condition Status SNOMED Code Problem Migraine without aura and without status migrainosus, not intractable G43.009 Active 945785112 Problem Acanthosis nigricans L83 Active 654535260 Problem Obesity (BMI 30.0-34.9) E66.9 Active 386447948044266 Problem Seasonal allergic rhinitis, unspecified allergic rhinitis trigger J30.2 Active 451501334 Problem Acute bilateral low back pain without sciatica M54.5 Active 892747415 Problem Anxiety F41.9 Active 73049682 Problem GERD without esophagitis K21.9 Active 580066210 Problem Dysmenorrhea N94.6 Active 563114063 Problem Primary insomnia F51.01 Active 8453759 Problem Moderate episode of recurrent major depressive disorder F33.1 Active 656963955 ALLERGIES Substance Reaction Event Type Date Status Topamax numbness and tingling Drug Allergy Jul, Active ENCOUNTERS Encounter Location Date Diagnosis [place] [id number] [place] [address] 97729- 4306 March, [place] [address] [place] [id number] [place] [address] 53897- 2984 March, Right otitis media with effusion H65.91 ; Acute non- recurrent frontal sinusitis J01.10 and Migraine without aura and without status migrainosus, not intractable G43.009 [place] [address] [place] [address] 09474- 9179 Feb, Left lower quadrant pain R10.32 ; Migraine without aura and without status migrainosus, not intractable G43.009 and Anxiety F41.9 [place] [address] [place] [id number] [place] [address] 95714- 6987 23 Feb, 2018 Oral contraceptive pill surveillance Z30.41 [place] [address] 27309- 7771 Feb, Acute bilateral low back pain without sciatica M54.5 [place] [address] 33230- 1296 Feb, [place] [address] 61580- 7172 Feb, Dental examination Z01.20 [facility] [address] [place] [id number] Feb, Dental examination Z01.20 [place] [address] 10821- 5539 Feb, Anxiety F41.9 [place] [address] 96911- 2014 Feb, Primary insomnia F51.01 and Moderate episode of recurrent major depressive disorder F33.1 [place] [address] 50027- 8364 Jan, Acute suppurative otitis media of left ear without spontaneous rupture of tympanic membrane, recurrence not specified H66.002 [place] [address] 40494- 7198 Jan, Migraine without aura and without status migrainosus, not intractable G43.009 ; Seasonal allergic rhinitis, unspecified allergic rhinitis trigger J30.2 ; GERD without esophagitis K21.9 ; Current mild episode of major depressive disorder without prior episode F32.0 and Human bite, initial encounter W50.3XXA [place] [address] 59999- 5756 Dec, Migraine without aura and without status migrainosus, not intractable G43.009 [place] [address] 36613- 5567 Dec, Nausea and vomiting after administration of anesthetic agent T88.59XA [place] [address] 85499- 1110 Dec, [place] [address] 86830- 0860 Dec, Acute tonsillitis, unspecified etiology J03.90 [place] [address] 61849- 7320 Nov, Dysmenorrhea N94.6 ; Acute midline low back pain without sciatica M54.5 ; Obesity (BMI 30.0-34.9) E66.9 and High ankle sprain of right lower extremity, initial encounter S93.431A [place] [address] 75977- 6384 Nov, [place] [address] 57089- 0161 Nov, Migraine without aura and without status migrainosus, not intractable G43.009 [place] [address] 43324- 9392 Oct, Migraine without aura and without status migrainosus, not intractable G43.009 [facility] [address] 16167 -1467 Oct, Migraine without aura and without status migrainosus, not intractable G43.009 [facility] [address] 06656- 9620 Oct, [place] [address] 22355- 1921 Oct, [place] [address] 78878- 0936 Oct, Acute non-recurrent maxillary sinusitis J01.00 [place] [address] 20961- 7621 Sep, Left elbow tendonitis M77.8 and Other fatigue R53.83 [facility] [address] [place] [id number] [place] [address] [id number] Sep, Dental examination Z01.20 [facility] [address] 79136- 3066 Sep, Sore throat J02.9 ; Other viral agents as the cause of diseases classified elsewhere B97.89 and Acute upper respiratory infection, unspecified J06.9 [facility] [address] 12011- 0464 Aug, Encounter for immunization Z23 [place] [address] 92945- 5796 Aug, Encounter for immunization 23 [place] [address] 62864- 8064 Aug, Migraine without aura and without status migrainosus, not intractable G43.009 [facility] [address] 04526- 6540 Jul, Acute midline low back pain without sciatica M54.5 and Obesity (BMI 30.0-34.9) E66.9 [facility] [address] [place] [address] [id number] [place] [address] 82765- 6963 Jul, Chronic seasonal allergic rhinitis due to pollen J30.1 [facility] [address] [place] [id number] [place] [address] [id number] Jun, Dental examination Z01.20 [facility] [address] [address] [id number] [place] [address] 75800 -9170 Jun, Jaw pain R68.84 [facility] [address] 23140- 2562 Jun, Dental examination Z01.20 [facility] [address] [id number] Jun, Dental examination Z01.20 [place] [address] [place] [id number] [place] [address] 28661- 1819 Jun, [place] [address] [place] [id number] [place] [address] 95916- 6220 Jun, Allergic reaction, initial encounter T78.40XA [place] [address] 97812- 5907 Jun, [place] [address] 58413- 8656 Jun, Migraine without aura and without status migrainosus, not intractable G43.009 [place] [address] 22843- 1907 May, [place] [address] 59221- 6342 May, Helicobacter pylori (H. pylori) infection A04.8 [place] [address] 51418- 3668 11 May, 2017 Encounter for routine adult health examination with abnormal findings Z00.01 ; Obesity (BMI 30.0-34.9) E66.9 ; Acanthosis nigricans L83 and Dietary counseling Z71.3 [place] [address] [place] [id number] [place] [address] 83012- 1797 13 Apr, 2017 Acute seasonal allergic rhinitis due to pollen J30.1 and Sore throat J02.9 [place] [address] [place] [id number] [place] [address] 10943- 3834 08 Apr, 2017 [place] [address] [place] [id number] [place] [address] 11986- 3377 Apr, Migraine without aura and without status migrainosus, not intractable G43.009 [place] [address] [place] [id number] [place] [address] 87115- 1981 March, Dental examination Z01.20 [facility] [address] [place] [address] [id number] [place] [address] 89966 -4972 Feb, Seasonal allergic rhinitis, unspecified allergic rhinitis trigger J30.[address] [id number] [id number] Nov, [facility] [address] [id number] Oct, Dental examination Z01.20 [facility] [address] [id number] [id number] Oct, Dental examination Z01.20 [facility] [address] [id number] [id number] Oct, Dental examination Z01.20 and Encounter for dental examination Z01.20 [facility] [address] [id number] [address]- 5694 Feb, [facility] [address] [facility] [id number] [address]- 1121 Feb, [facility] [address] [id number] [place] [address]- 6748 Sep, [facility] [address] [id number] [place] [address]- 3345 Sep, [facility] [address] [address]- 3953 Jul, [facility] [address] [id number] [place] [address]- 5412 Jul, [facility] [address] [id number] [place] [address]- 5728 Jul, [facility] [address] [id number] [place] [address]- 8444 Jun, [facility] [address] [facility] [id number] [place] [address]- 9448 Jun, [facility] [address] [facility] [id number] [place] [address]- 4699 Jun, [facility] [address] [facility] [id number] [place] [address]- 2546 Jun, [facility] [address] [place] [id number] [address]- 0776 Jul, [facility] [address] [place] [address] [id number] [address]- 8996 Jun, [facility] [address] [place] [address] [id number] [address]- 8826 Feb, [facility] [address] [address]- 8436 Sep, [facility] [address] [address]- 3506 Sep, [facility] [address] [address]- 1136 Oct, [facility] [address] [place] [address] [id number] [address]- 8766 Oct, IMMUNIZATIONS No Known Immunizations SOCIAL HISTORY Never Assessed REASON FOR VISIT Back pain that started mid back yesterday morning, pt took 800mg ibuprofen- Enrrique PLAN OF CARE Activity Details Follow Up 3 Months, prn Reason: VITAL SIGNS Height 62 in 2017-08-21 Temperature 98.0 degrees Fahrenheit 2017-08-21 Heart Rate 84 bpm 2017-08-21 Respiratory Rate 18 2017-08-21 Blood pressure systolic 120 mmHg 2017-08-21 Blood pressure diastolic 76 mmHg 2017-08-21 MEDICATIONS Medication Instructions Dosage Frequency Start Date End Date Duration Status Omeprazole 20 mg Orally twice a day 1 capsule 12h May, 30 day(s ) Active Contrave 8-90 MG Orally Twice a day 2 tablets 12h 29 Jul, 2017 Oct, 30 day(s) Active RESULTS No Results PROCEDURES No Known procedures INSTRUCTIONS MEDICATIONS ADMINISTERED No Known Medications MEDICAL (GENERAL) HISTORY Type Description Date Medical History Seasonal Allergies Surgical History uterine polyp removal- 12/2017 Hospitalization History Childbirth only
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
--- OUTSIDE RECORDS SUMMARY | 2018-11-13 10:52 | XMS REPORT | Continuity of Care Document ---
Author Author [facility] Address Unknown Phone Unavailable Allergies There is no data. Medications There is no data. Problems Date Dx Coded Attending Type Code Diagnosis Diagnosed By 08/10/2010 V05.3 HEPATITIS B VACCINE 08/10/2010 V06.5 DT, TETANUS- DIPHTHERIA [Td] ,TDAP 08/10/2010 V05.3 HEPATITIS B VACCINE 08/10/2010 V06.5 DT, TETANUS- DIPHTHERIA [Td] ,TDAP 08/10/2010 V05.3 HEPATITIS B VACCINE 08/10/2010 V06.5 DT, TETANUS- DIPHTHERIA [Td] ,TDAP 08/10/2010 V05.3 HEPATITIS B VACCINE 08/10/2010 V06.5 DT, TETANUS- DIPHTHERIA [Td] ,TDAP 08/10/2010 RAJOTTE PORTFOLIO ASSISTANT, ALISTAIR A V05.3 HEPATITIS B VACCINE 08/10/2010 RAJOTTE PORTFOLIO ASSISTANT, ALISTAIR A V06.5 DT, TETANUS-DIPHTHERIA [Td] ,TDAP 08/10/2010 RAJOTTE PORTFOLIO ASSISTANT, ALISTAIR A V05.3 HEPATITIS B VACCINE 08/10/2010 RAJOTTE PORTFOLIO ASSISTANT, ALISTAIR A V06.5 DT, TETANUS-DIPHTHERIA [Td] ,TDAP 08/10/2010 RAJOTTE PORTFOLIO ASSISTANT, ALISTAIR A V05.3 HEPATITIS B VACCINE 08/10/2010 RAJOTTE PORTFOLIO ASSISTANT, ALISTAIR A V06.5 DT, TETANUS-DIPHTHERIA [Td] ,TDAP 11/03/2010 536.8 DYSPEPSIA AND OTHER SPECIFIED DISORDERS OF FUNCTION OF STOMACH 11/03/2010 536.8 DYSPEPSIA AND OTHER SPECIFIED DISORDERS OF FUNCTION OF STOMACH 11/03/2010 536.8 DYSPEPSIA AND OTHER SPECIFIED DISORDERS OF FUNCTION OF STOMACH 11/03/2010 536.8 DYSPEPSIA AND OTHER SPECIFIED DISORDERS OF FUNCTION OF STOMACH 11/03/2010 ELKIN PORTFOLIO ASSISTANT, ALISTAIR A 536.8 DYSPEPSIA AND OTHER SPECIFIED DISORDERS OF FUNCTION OF STOMACH 11/03/2010 RAJOTTE PORTFOLIO ASSISTANT, ALISTAIR A 536.8 DYSPEPSIA AND OTHER SPECIFIED DISORDERS OF FUNCTION OF STOMACH 11/03/2010 RAJOTTE PORTFOLIO ASSISTANT, ALISTAIR A 536.8 DYSPEPSIA AND OTHER SPECIFIED DISORDERS OF FUNCTION OF STOMACH 12/14/2010 373.2 CHALAZION 12/14/2010 373.2 CHALAZION 12/14/2010 373.2 CHALAZION 12/14/2010 373.2 CHALAZION 12/14/2010 RAJOTTE PORTFOLIO ASSISTANT, ALISTAIR A 373.2 CHALAZION 12/14/2010 RAJOTTE PORTFOLIO ASSISTANT, ALISTAIR A 373.2 CHALAZION 12/14/2010 RAJOTTE PORTFOLIO ASSISTANT, ALISTAIR A 373.2 CHALAZION 03/01/2011 465.9 UPPER RESPIRATORY INFECTION 03/01/2011 789.66 ABDOMINAL TENDERNESS EPIGASTRIC 03/01/2011 465.9 UPPER RESPIRATORY INFECTION 03/01/2011 789.66 ABDOMINAL TENDERNESS EPIGASTRIC 03/01/2011 465.9 UPPER RESPIRATORY INFECTION 03/01/2011 789.66 ABDOMINAL TENDERNESS EPIGASTRIC 03/01/2011 465.9 UPPER RESPIRATORY INFECTION 03/01/2011 789.66 ABDOMINAL TENDERNESS EPIGASTRIC 03/01/2011 RAJOTTE PORTFOLIO ASSISTANT, ALISTAIR A 465.9 UPPER RESPIRATORY INFECTION 03/01/2011 RAJOTTE PORTFOLIO ASSISTANT, ALISTAIR A 789.66 ABDOMINAL TENDERNESS EPIGASTRIC 03/01/2011 RAJOTTE PORTFOLIO ASSISTANT, ALISTAIR A 465.9 UPPER RESPIRATORY INFECTION 03/01/2011 RAJOTTE PORTFOLIO ASSISTANT, ALISTAIR A 789.66 ABDOMINAL TENDERNESS EPIGASTRIC 03/01/2011 RAJOTTE PORTFOLIO ASSISTANT, ALISTAIR A 465.9 UPPER RESPIRATORY INFECTION 03/01/2011 RAJOTTE PORTFOLIO ASSISTANT, ALISTAIR A 789.66 ABDOMINAL TENDERNESS EPIGASTRIC 07/31/2011 847.1 SPRAIN THORACIC REGION 07/31/2011 847.1 SPRAIN THORACIC REGION 07/31/2011 847.1 SPRAIN THORACIC REGION 07/31/2011 847.1 SPRAIN THORACIC REGION 07/31/2011 SUZETTEOTTE PORTFOLIO ASSISTANT, ALISTAIR A 847.1 SPRAIN THORACIC REGION 07/31/2011 SUZETTEOTTE PORTFOLIO ASSISTANT, ALISTAIR A 847.1 SPRAIN THORACIC REGION 07/31/2011 SUZETTEOTTE PORTFOLIO ASSISTANT, ALISTAIR A 847.1 SPRAIN THORACIC REGION 10/16/2012 462 PHARYNGITIS 10/16/2012 462 PHARYNGITIS 10/16/2012 462 PHARYNGITIS 10/16/2012 462 PHARYNGITIS 10/16/2012 ELKIN ABRAMS ALISTAIR Nesbitt 462 PHARYNGITIS 10/16/2012 ELKIN ABRAMS ALISTAIR Nesbitt 462 PHARYNGITIS 10/16/2012 ELKIN BANKSArnulfo ALISTAIR Nesbitt 462 PHARYNGITIS 07/23/2013 372.30 CONJUNCTIVITIS UNSPECIFIED 07/23/2013 372.30 CONJUNCTIVITIS UNSPECIFIED 07/23/2013 ELKIN BANKSArnulfo ALISTAIR A 372.30 CONJUNCTIVITIS UNSPECIFIED 07/23/2013 ELKIN ABRAMS ALISTAIR A 372.30 CONJUNCTIVITIS UNSPECIFIED 07/23/2013 ELKIN ABRAMS ALISTAIR A 372.30 CONJUNCTIVITIS UNSPECIFIED 08/11/2013 V04.89 GARDASIL (HPV ) DX 08/11/2013 SUZETTEFRANKShellie PORTFOLIO ASSISTANT, ALISTAIR A V04.89 GARDASIL (HPV) DX 08/11/2013 ELKIN BANKSArnulfo ALISTAIR A V04.89 GARDASIL (HPV) DX 08/11/2013 ELKIN BANKSArnulfo ALISTAIR A V04.89 GARDASIL (HPV) DX 07/14/2014 KYAWShellie PORTFOLIO ASSISTANT, ALISTAIR A V74.1 SCREENING EXAMINATION FOR PULMONARY TUBERCULOSIS 07/14/2014 LEKIN PORTFOLIO ASSISTANT, ALISTAIR A V74.1 SCREENING EXAMINATION FOR PULMONARY TUBERCULOSIS 07/14/2014 ALISTAIR GRANGER APRN V74.1 SCREENING EXAMINATION FOR PULMONARY TUBERCULOSIS 09/28/2014 SUZETTECON PORTFOLIO ASSISTANT, ALISTAIR A V03.89 MENINGOCOCCAL DX Procedures Code Description [place] [id number] STREP A (IN-HOUSE) 10/16/2012 53843 TB TEST INTRADERMAL 07/13/2014 40348 TB TEST INTRADERMAL 07/27/2014 Results Test Result Range CBC With Differential/Platelet - 06/03/17 09:04 WBC 5.7 x10E3/uL 3.4-10.8 RBC 4.88 x10E6/uL 3.77-5.28 Hemoglobin 11.5 g/dL 11.1-15.9 Hematocrit 35.9 % 34.0-46.6 MCV 74 fL 79-97 MCH 23.6 pg 26.6-33.0 MCHC 32.0 g/dL 31.5-35.7 RDW 16.6 % 12.3-15.4 Platelets 293 x10E3/uL 150-379 Neutrophils 54 % Lymphs 38 % Monocytes 6 % Eos 1 % Basos 1 % Neutrophils (Absolute) 3.1 x10E3/uL 1.4-7.0 Lymphs (Absolute) 2.1 x10E3/uL 0.7-3.1 Monocytes(Absolute) 0.3 x10E3/uL 0.1-0.9 Eos (Absolute) 0.1 x10E3/uL 0.0-0.4 Baso (Absolute) 0.0 x10E3/uL 0.0-0.2 Immature Granulocytes 0 % Immature Grans (Abs) 0.0 x10E3/uL 0.0-0.1 Comp. Metabolic Panel (14) - 06/03/17 09:04 Glucose, Serum 82 mg/dL 65-99 BUN 13 mg/dL 6-20 Creatinine, Serum 0.52 mg/dL 0.57-1.00 eGFR If NonAfricn Am 138 mL/min/1.73 >59 eGFR If Africn Am 159 mL/min/1.73 >59 BUN/Creatinine Ratio 25 9-23 Sodium, Serum 141 mmol/L 134-144 Potassium, Serum 4.3 mmol/L 3.5-5.2 Chloride, Serum 102 mmol/L 96-106 Carbon Dioxide, Total 21 mmol/L 18-29 Calcium, Serum 9.2 mg/dL 8.7-10.2 Protein, Total, Serum 7.3 g/dL 6.0-8.5 Albumin, Serum 4.2 g/dL 3.5-5.5 Globulin, Total 3.1 g/dL 1.5-4.5 A/G Ratio 1.4 1.2-2.2 Bilirubin, Total <0.2 mg/dL 0.0-1.2 Alkaline Phosphatase, S 108 IU/L 39-117 AST (SGOT) 14 IU/L 0-40 ALT (SGPT) 10 IU/L 0-32 Lipid Panel - 06/03/17 09:04 Cholesterol, Total 114 mg/dL 100-199 Triglycerides 46 mg/dL 0-149 HDL Cholesterol 41 mg/dL >39 VLDL Cholesterol Ruben 9 mg/dL 5-40 LDL Cholesterol Calc 64 mg/dL 0-99 Hemoglobin A1c - 06/03/17 09:04 Hemoglobin A1c 6.0 % 4.8-5.6 Thyroid Edgerton Profile - 06/03/17 09:04 TSH 2.200 uIU/mL 0.450-4.500 Insulin - 06/03/17 09:04 Insulin 18.6 uIU/mL 2.6-24.9 CBC - 12/02/17 16:50 WHITE BLOOD CELL COUNT 9.3 Thousand/uL 3.8-10.8 RED BLOOD CELL COUNT 4.77 Million/uL 3.80-5.10 HEMOGLOBIN 12.0 g/dL 11.7-15.5 HEMATOCRIT 38.2 % 35.0-45.0 MCV 80.1 fL 80.0-100.0 MCH 25.2 pg 27.0-33.0 MCHC 31.4 g/dL 32.0-36.0 RDW 14.2 % 11.0-15.0 PLATELET COUNT 309 Thousand/uL 140-400 MPV 10.9 fL 7.5-12.5 ABSOLUTE NEUTROPHILS 4957 cells/uL 2734-9116 ABSOLUTE LYMPHOCYTES 3460 cells/uL 850-3900 ABSOLUTE MONOCYTES 567 cells/uL 200-950 ABSOLUTE EOSINOPHILS 242 cells/uL 15-500 ABSOLUTE BASOPHILS 74 cells/uL 0-200 NEUTROPHILS 53.3 % NRG LYMPHOCYTES 37.2 % NRG MONOCYTES 6.1 % NRG EOSINOPHILS 2.6 % NRG BASOPHILS 0.8 % NRG CBC - 05/21/18 08:13 WHITE BLOOD CELL COUNT 6.2 Thousand/uL 3.8-10.8 RED BLOOD CELL COUNT 4.70 Million/uL 3.80-5.10 HEMOGLOBIN 12.3 g/dL 11.7-15.5 HEMATOCRIT 38.5 % 35.0-45.0 MCV 81.9 fL 80.0-100.0 MCH 26.2 pg 27.0-33.0 MCHC 31.9 g/dL 32.0-36.0 RDW 14.4 % 11.0-15.0 PLATELET COUNT 291 Thousand/uL 140-400 MPV 10.2 fL 7.5-12.5 ABSOLUTE NEUTROPHILS 3119 cells/uL 6921-2478 ABSOLUTE LYMPHOCYTES 2437 cells/uL 850-3900 ABSOLUTE MONOCYTES 446 cells/uL 200-950 ABSOLUTE EOSINOPHILS 161 cells/uL 15-500 ABSOLUTE BASOPHILS 37 cells/uL 0-200 NEUTROPHILS 50.3 % NRG LYMPHOCYTES 39.3 % NRG MONOCYTES 7.2 % NRG EOSINOPHILS 2.6 % NRG BASOPHILS 0.6 % NRG STOOL (H PYLORI) AG, EIA - 05/21/18 08:13 HELICOBACTER PYLORI AG, EIA, STOOL SEE NOTE NRG Encounters ACCT No. Visit Date/Time Discharge Status Pt. Type Provider Facility Loc./Unit Complaint [id number] 09/28/2014 14:49:00 09/28/2014 23:59:59 CLS Outpatient ALISTAIR GRANGER APRN [id number] 07/27/2014 13:59:00 07/27/2014 23:59:59 CLS Outpatient KYAWShellie ALISTAIR ABRAMS [id number] 07/14/2014 08:23:00 07/14/2014 23:59:59 CLS Outpatient KYAWShellie ALISTAIR ABRAMS [id number] 10/16/2012 11:38:00 10/16/2012 23:59:59 CLS Outpatient [id number] 08/11/2013 13:42:00 Document Registration [id number] 07/23/2013 12:41:00 Document Registration [id number] 10/16/2012 11:38:00 Document Registration [email or web address] 07/28/2015 07:52:59 ACT Document Registration [id number] 11/04/2018 15:40:00 11/04/2018 23:59:59 CLS Outpatient LAURA CUELLO [facility] [id number] 05/21/2018 08:00:00 Document Registration [id number] 12/02/2017 16:40:00 Document Registration [id number] 06/04/2017 12:09:00 Document Registration
[2018-11-13] MEDS ORDERED: MIDAZOLAM 2 MG/2 ML (VERSED) VIAL ONE (11:28)
[2018-11-13] MEDS ORDERED: proPOfol 200 MG/20 ML (DIPRIVAN) VIAL IV ONE (11:28)
[2018-11-13] MEDS ORDERED: LIDOCAINE PF 2% 5 ML (XYLOCAINE) VIAL ONE (11:28)
[2018-11-13] MEDS ORDERED: fentaNYL INJECTION 100 MCG/2 ML AMP ONE ×2 (11:28→15:45)
[2018-11-13] MEDS ORDERED: DEXAMETHASONE 10 MG/ML (DECADRON) 1 ML VIAL ONE (11:28)
[2018-11-13] MEDS ORDERED: SEVOFLURANE (ULTANE) 15 ML INHAL SOLN ONE ×4 (11:28→15:43)
[2018-11-13] MEDS ORDERED: ROCURONIUM 10 MG/ML 5 ML SYRINGE IV ONE (11:28)
[2018-11-13] MEDS ORDERED: SCOPOLAMINE 1.5 MG (TRANSDERM-SCOP) PATCH TD ONE (11:45)
[2018-11-13] MEDS ORDERED: ONDANSETRON 4 MG/2 ML (SDV) Z0FRAN IVP ONE (11:45)
[2018-11-13] MEDS ORDERED: FAMOTIDINE 20MG/2ML IV (PEPCID) IVP ONE (11:45)
[2018-11-13] MEDS ORDERED: BUP/EPI 0.5% 1:200,000 (SENSORCAINE) 30 ML VIAL ONE (12:21)
[2018-11-13] MEDS ORDERED: oxyCODONE/APAP 5/325MG (PERCOCET 5) TABLET PO PRN (12:30)
[2018-11-13] MEDS ORDERED: KETOROLAC 30 MG/ML VIAL IVP SCH (12:30)
[2018-11-13] MEDS ORDERED: ONDANSETRON 4 MG/2 ML (SDV) Z0FRAN IVP PRN ×2 (12:30→16:45)
[2018-11-13] MEDS ORDERED: PROMETHAZINE INJ 25 MG/ML (PHENERGAN) AMP IM PRN (12:30)
[2018-11-13] MEDS ORDERED: MEPERIDINE (DEMEROL) INJ 100 MG/ML IM PRN (12:30)
[2018-11-13] MEDS ORDERED: OXYC1TAB87 PO (12:32)
[2018-11-13] MEDS ORDERED: DOCU100C37 PO (12:32)
[2018-11-13] MEDS ORDERED: IBUP-1780 PO (12:32)
--- NOTE | 2018-11-13 12:35 | Discharge Instructions ---
Discharge Instructions Discharge Medications New, Converted or Re-Newed RX: RX on Chart Patient Instructions Patient Instructions: As directed Return to The Hospital For: As directed Activity & Diet Activity as Tolerated: Yes Orders-Post D/C & Referrals Follow Up Appt: Return to clinic on Friday, November 16, 2018 at 930 a.m. for staple removal Call to make follow up appt. for patient in 4 weeks. Activity: Rest for 24 hours, than as tolerated. Wound Care: May remove Band-Aid tomorrow. Replace as desired. Keep incisions clean and dry. Wash daily with soap and water. Please call in RX to patient pharmacy. Diet: As tolerated-Clear Liquids only if nauseated. Tomorrow, may shower or tub bathe as desired. No driving for 24 hours, no alcoholic beverages for 24 hours, and nothing per vagina (no tampons, douching, or intercoUrse) for 8 weeks. Patient to return to the clinic as soon as possible for: Temperature greater than 101F, Severe Pain, Foul discharge from incision or vagina, Excessive Bleeding (more than a period). CHANDA HUNTER MD Nov 13, 2018 12:35
--- NOTE | 2018-11-13 14:20 | Progress Note-Pre Operative ---
Pre-Operative Progress Note H&P Reviewed The H&P was reviewed, patient examined and no changes noted. Date Seen by Provider: Nov 13, 2018 Time Seen by Provider: 14:20 Date H&P Reviewed: Nov 13, 2018 Time H&P Reviewed: 14:20 Pre-Operative Diagnosis: CHANDA GUALLPA MD Nov 13, 2018 14:20
--- NOTE | 2018-11-13 14:21 | Progress Note-Post Operative ---
Post-Operative Progess Note Surgeon (s)/Net Developer Architect (s) Surgeon CHANDA HUNTER MD Net Developer Architect: Yudi aVzquez Pre-Operative Diagnosis CPP Post-Operative Diagnosis Same with obvious abnormal appendix and with pathology pending Procedure & Operative Findings Date of Procedure 11/13/18 Procedure Performed/Findings TLH with bilateral salpingectomy and left oophorectomy and destruction of endometriosis and laparoscopic appendectomy Anesthesia Type GETA Estimated Blood Loss Estimated blood loss (mL): Minimal Specimens/Packing Specimens Removed Uterus fallopian tubes left ovary and appendix Packing: CHANDA Anton MD Nov 13, 2018 14:21
[2018-11-13] MEDS ORDERED: morphine INJ 10 MG/ML 1ML (SYR OR VIAL) ONE (14:54)
[2018-11-13] MEDS ORDERED: MEPERIDINE (DEMEROL) INJ 50 MG/ML ONE (14:54)
[2018-11-13] MEDS ORDERED: NEOSTIGMINE 1 MG/ML 5 ML SYRINGE ONE (15:46)
[2018-11-13] MEDS ORDERED: GLYCOPYRROLATE 0.2 MG/ML (ROBINUL) 2 ML VIAL ONE (15:46)
[2018-11-13] MEDS ORDERED: MEPERIDINE (DEMEROL) INJ 50 MG/ML IVP ONE (16:45)
[2018-11-13] MEDS ORDERED: morphine INJ 10 MG/ML 1ML (SYR OR VIAL) IVP ONE (16:45)
[2018-11-13 17:25] VITALS: BP 113/68
[2018-11-13] MEDS ORDERED: CLON0.5T PO (17:25)
[2018-11-13] MEDS ORDERED: MEPERIDINE (DEMEROL) INJ 100 MG/ML ONE (17:27)
[2018-11-13] MEDS ORDERED: PROMETHAZINE INJ 25 MG/ML (PHENERGAN) AMP ONE (17:27)
[2018-11-13] MEDS ORDERED: D5 LR IV SOLUTION 1,000 ML IV SCH (18:45)
[2018-11-13] MEDS ORDERED: clonazePAM 0.5 MG (KlonoPIN) TAB PO NR (18:45)
[2018-11-13 21:00] VITALS: BP 113/62
[2018-11-13] MEDS: KETOROLAC 30 MG/ML VIAL IVP SCH (21:19)
[2018-11-13] MEDS: D5 LR IV SOLUTION 1,000 ML IV SCH (22:46)
[2018-11-14 00:50] VITALS: BP 107/66
--- NOTE | 2018-11-14 03:33 | OPERATIVE REPORT ---
DATE OF SERVICE: 11/13/2018 PREOPERATIVE DIAGNOSIS: Chronic pelvic pain. POSTOPERATIVE DIAGNOSES: Chronic pelvic pain with pathology pending as well as abnormal appendix with pathology pending. OPERATIVE PROCEDURE: Total laparoscopic hysterectomy with bilateral salpingectomy and left oophorectomy, adhesiolysis, destruction of endometriosis implants and laparoscopic appendectomy. OPERATIVE DESCRIPTION: With the patient in supine position under satisfactory general anesthesia, she was prepped and draped in the usual fashion for abdominal and vaginal surgery after being repositioned in the dorsal lithotomy position in the [facility] and properly for total laparoscopic hysterectomy with mechanical assistance. A weighted speculum placed in the posterior fornix of vagina, cervix exposed and grasped with single tooth tenaculum. The uterus was sounded to 9 cm with uterine sound. Cervix was then serially dilated with Sudhakar dilators to accommodate a Mayela II manipulator, which was placed with a 6 x 8 cm uterine probe and a 30 mm colpotomy ring. Suture of #1 Vicryl were placed at 3 and 9 o'clock position to affix the uterus to the manipulator. The patient was then brought in low dorsal lithotomy position. The tenaculum and speculum were removed and a Lopez catheter placed in the urinary bladder. A 12 mm incision was made 4 cm superior to the umbilicus. Veress needle was placed through that incision into the abdominal cavity. Correct placement was confirmed with water drop test. The abdomen was insufflated with 2.4 liters of carbon dioxide. The Veress needle was removed and a 12 mm Optiview laparoscopic port placed. The patient placed in a slight degree of Trendelenburg. The abdominal wall was transilluminated and 8 mm ports were placed at 9 cm lateral to the umbilicus just above the level of the umbilicus on each side. All three incision sites were infiltrated with 0.25% Marcaine with epinephrine prior to the incision and port placement. The patient was placed in complete Trendelenburg allowing the bowel to spill out of the pelvis. The mechanical system was positioned in and docked and I retired to the console. At the console using the vessel sealer on the right and a bipolar fenestrated grasper on the left, the pelvis was first examined. There was extensive endometriosis in the left ovarian fossae and on the left ovary. Both fallopian tubes were somewhat tortuous fibrotic and distended appearing to be developing hydrosalpinges bilaterally. There was some endometriosis implants in the ovarian fossa on the right, fairly minimal compared to the left and in the cul-de-sac. The uterus was quite mottled in appearance consistent with extensive adenomyosis. The laparoscope was rotated. The appendix was lying on the pelvic brim. It was distended, firm and indurated and injected. Decision was made to go ahead with appendectomy concurrent with the balance of the procedure. There were numerous small follicular cysts on the right ovary. There were some adhesions of the sigmoid on the left pelvic brim and left posterior lateral side wall. Those adhesions were taken down and then the procedure was initiated by raising the right fallopian tube off the ovary using the vessel sealer to clamp, cauterize and divide the mesosalpinx over to the utero-ovarian pedicle on the right. Utero-ovarian pedicle was then clamped, cauterized and divided as was the round ligament, the broad ligament, the cardinal ligament on the left. The IP ligament was clamped, cauterized and divided that ring was continued across the mesovarium on to the round ligament and the broad ligament, and finally down on the cardinal ligament allowing for removal of both fallopian tubes and the left ovary eventually with the uterus. The anterior lower uterine segment peritoneum was now exposed and using a monopolar shear and placed the vessel sealer. The anterior lower uterine segment peritoneum was divided. The bladder was carefully dissected down off the lower uterine segment exposing the colpotomy ring under the vaginal wall. Colpotomy incision was made onto the colpotomy ring. At 12 o'clock position it was continued circumferentially until the entire colpotomy ring was exposed allowing for removal of the uterus with the tubes and left ovary still attached out through the vagina. The vaginal cuff was then closed with 2 sutures of V-Loc barbed suture starting from the right angle of the vagina and continuing across to the left angle with one suture taking care to include the uterine artery pedicles in the closure. Both ureters were seemed to peristalse before initiating this procedure and during the procedure performed they were repeatedly visualized and they were visualized again now freely peristalsing away from the areas of dissection and showed no evidence of dilation or insult. With the cuff closed the second suture was used to support the right ovary from the stump of the round ligament on the right keeping out of the pelvis to some degree and then the balance of the suture was used to reapproximate the bladder peritoneum onto the vaginal cuff. The pelvis was now irrigated again and examined for hemostasis. That being complete, the monopolar scissor was replaced on the right and placed through the needle show horse driver and a bipolar fenestrated grasper replaced on the left and then all the endometriosis implants in the ovarian fossa on the left and the cul-de-sac and the right ovarian fossa were touched with the electrocautery to destroy them. The small follicular cyst on the right ovary was fenestrated allowing the fluid to be drained and evacuated out. At this point, both ureters were still seemed to peristalse freely and were not dilated. Attention was now turned to the appendix. It was grasped and elevated. Using the bipolar grasper, to seal the blood vessels in the mesoappendix, the mesoappendix was then divided across to the base of the appendix. At this point, the laparoscopic portion using the mechanized system was terminated in favor of a conventional laparoscopy. The operative instruments were removed as was the mechanical column. Using a 5 mm scope in the right lateral port the stapler and the umbilical port and a grasper in the left lateral port, the appendix was grasped, elevated and the stapler was placed across the base of the appendix and fired. The stump of the appendix was then copiously irrigated and treated with several drops of Betadine solution. The appendix itself was placed in an Endobag and brought out through the umbilical port. With the pathology all dealt with no bleeding, no abnormal pathology remaining, the procedure was terminated. The operative instruments were removed under direct vision as were the ports. The abdomen was evacuated of the insufflating gas in the process of removing the ports. The skin incisions were stapled. The fascia at the supraumbilical incision was closed with [id number] suture of 2-0 Vicryl. A speculum was replaced in the vagina. The vaginal cuff was examined and found to be completely reapproximated and completely hemostatic. Sponge and needle counts were correct on completion of the procedure. Estimated blood loss was minimal. The patient tolerated the procedure well and was uneventfully awakened from her general anesthesia and transferred to the recovery room in stable condition. Job ID: [id number] DocumentID: [id number] Dictated Date: 11/13/2018 15:55:45 Green Chain Puller Date: 11/14/2018 03:33:22 Dictated By: CHANDA HUNTER MD
[2018-11-14 04:26] VITALS: BP 99/58
[2018-11-14] MEDS: D5 LR IV SOLUTION 1,000 ML IV SCH ×2 (04:26→06:40)
[2018-11-14] MEDS: KETOROLAC 30 MG/ML VIAL IVP SCH ×2 (04:26→06:38)
--- NOTE | 2018-11-14 08:07 | Progress Note-Standard ---
Standard Progress Note Progress Notes/Assess & Plan Date Seen by a Provider: Nov 14, 2018 Time Seen by a Provider: 08:06 Progress/Assessment & Plan This patient is without complaint. She is ambulating, voiding, tolerating oral intake well has good pain control. Vital signs are stable patient is afebrile. Vital Signs 11/14/18 11/14/18 04:26 07:15 Temp 98.4 Pulse 80 Resp 18 B/P (MAP) 99/58 (72) Pulse Ox 95 O2 Delivery Room Air Abdomen is benign. Extremities show no clubbing cyanosis. There is no Homans sign. Assessment and plan postoperative day number 1 doing well. Plan is for discharge home with follow-up in clinic Final Diagnosis Chronic pelvic pain/endometriosis CHANDA HUNTER MD Nov 14, 2018 08:07
[2018-11-14] MEDS ORDERED: DOCUSATE SODIUM 100 MG (COLACE) CAP PO SCH (09:00)
[2018-11-14] MEDS ORDERED: ONDANSETRON 8 MG (ZOFRAN) ORAL DISSOLVE TAB PO ONE (09:30)
[2018-11-14 09:40] VITALS: BP 116/76
--- NOTE | 2018-11-14 10:06 | Anesthesia-General Post-Op ---
General Patient Condition Mental Status/LOC: Same as Preop Cardiovascular: Satisfactory Nausea/Vomiting: Absent Respiratory: Satisfactory Pain: Controlled Complications: Absent Post Op Complications Complications None Follow Up Care/Instructions Patient Instructions None needed. Anesthesia/Patient Condition Patient Condition Patient is doing well, no complaints, stable vital signs, no apparent adverse anesthesia problems. No complications reported per nursing. MANGO ABBASI CRNA Nov 14, 2018 10:06
[2018-11-14] MEDS ORDERED: IBUPROFEN 800 MG (MOTRIN) TAB PO SCH (16:00)
== END 2018-11-14 14:31 | disposition home or self-care (01) ==
LOC: SDC 10:23 → WS 17:09 → SDC 11-14 14:31
PROVIDERS: ATTEND Obstetrics & Gynecology
DX: N72 Inflammatory disease of cervix uteri (principal); N83.8 Other noninflammatory disorders of ovary, fallopian tube and broad ligament; N80.1 Endometriosis of ovary; N83.12 Corpus luteum cyst of left ovary; N83.02 Follicular cyst of left ovary; K38.1 Appendicular concretions; N39.0 Urinary tract infection, site not specified; D64.9 Anemia, unspecified; K21.9 Gastro-esophageal reflux disease without esophagitis; G43.909 Migraine, unspecified, not intractable, without status migrainosus; Z79.899 Other long term (current) drug therapy
CPT/HCPCS: 36415; 84703; 86850; 86900; 86901; 88304; 88307; 94664

== ENCOUNTER → 2019-05-28 | Outpatient (CLI) | payer OTHER ==
[~2019-05-28] MED LIST changes: +CLON0.5T PO; +DOCU100C37 PO; +GADOBUTROL 10 MMOL/10 ML (GADAVIST) VIAL IV ONE; +IBUP-1780 PO; +OXYC1TAB87 PO
--- NOTE | 2019-05-28 15:55 | Diagnostic Imaging Report ---
PROCEDURE: MR imaging of the brain with and without contrast. TECHNIQUE: Multiplanar, multisequence MR imaging of the brain was performed with and without contrast. INDICATION: Migraines. Findings: No comparison available. The laughlin-white matter differentiation is normal. The ventricles are normal in size. Basilar cisterns are patent. Normal flow voids are seen in the carotid arteries. There is no acute intracranial hemorrhage. No abnormalities are seen on diffusion-weighted imaging. There is no abnormal contrast enhancement. No mass effect or midline shift. No intra-or extra-axial fluid collections. The dural venous sinuses are normal. Spinal cord signal intensity is normal. There is mucosal thickening and fluid filling the left maxillary sinus and anterior ethmoid air cells on the left. Bone marrow signal in the calvarium is normal. Impression: 1. No acute intracranial abnormality. 2. Left maxillary sinus mucosal thickening and fluid also evolving anterior left ethmoid air cells. Dictated by: Dictated on workstation # [id number]
== END ==
LOC: RAD 14:38
PROVIDERS: ATTEND Family Medicine
DX: F23 Brief psychotic disorder (principal); J34.89 Other specified disorders of nose and nasal sinuses
CPT/HCPCS: 70553

== ENCOUNTER 2019-06-12 08:57 | Emergency (ER) | payer OTHER ==
[~2019-06-12] VITALS: Ht 157.5 cm; Wt 68.0 kg
[~2019-06-12 08:57] MED LIST changes: -GADOBUTROL 10 MMOL/10 ML (GADAVIST) VIAL IV ONE
--- OUTSIDE RECORDS SUMMARY | 2019-06-12 09:02 | XMS REPORT | Continuity of Care Document ---
Author Organization Unknown Address Unknown Allergies There is no data. Medications There is no data. Problems Date Dx Coded Attending Type Code Diagnosis Diagnosed By 08/10/2010 V05.3 HEPATITIS B VACCINE 08/10/2010 V06.5 DT, TETANUS-DIPHTHERIA [Td] ,TDAP 08/10/2010 V05.3 HEPATITIS B VACCINE 08/10/2010 V06.5 DT, TETANUS-DIPHTHERIA [Td] ,TDAP 08/10/2010 V05.3 HEPATITIS B VACCINE 08/10/2010 V06.5 DT, TETANUS-DIPHTHERIA [Td] ,TDAP 08/10/2010 V05.3 HEPATITIS B VACCINE 08/10/2010 V06.5 DT, TETANUS-DIPHTHERIA [Td] ,TDAP 08/10/2010 RAJOTTE BRAN MIXER, ALISTAIR A V05.3 HEPATITIS B VACCINE 08/10/2010 RAJOTTE BRAN MIXER, ALISTAIR A V06.5 DT, TETANUS-DIPHTHERIA [Td] ,TDAP 08/10/2010 SUZETTEOTTE BRAN MIXER, ALISTAIR A V05.3 HEPATITIS B VACCINE 08/10/2010 RAJOTTE BRAN MIXER, ALISTAIR A V06.5 DT, TETANUS-DIPHTHERIA [Td] ,TDAP 08/10/2010 SUZETTEOTTE BRAN MIXER, ALISTAIR A V05.3 HEPATITIS B VACCINE 08/10/2010 RAJOTTE BRAN MIXER, ALISTAIR A V06.5 DT, TETANUS-DIPHTHERIA [Td] ,TDAP 11/03/2010 536.8 DYSPEPSIA AND OTHER SPECIFIED DISORDERS OF FUNCTION OF STOMACH 11/03/2010 536.8 DYSPEPSIA AND OTHER SPECIFIED DISORDERS OF FUNCTION OF STOMACH 11/03/2010 536.8 DYSPEPSIA AND OTHER SPECIFIED DISORDERS OF FUNCTION OF STOMACH 11/03/2010 536.8 DYSPEPSIA AND OTHER SPECIFIED DISORDERS OF FUNCTION OF STOMACH 11/03/2010 KYAWE BRAN MIXER, ALISTAIR A 536.8 DYSPEPSIA AND OTHER SPECIFIED DISORDERS OF FUNCTION OF STOMACH 11/03/2010 RAJOTTE BRAN MIXER, ALISTAIR A 536.8 DYSPEPSIA AND OTHER SPECIFIED DISORDERS OF FUNCTION OF STOMACH 11/03/2010 RAJOTTE BRAN MIXER, ALISTAIR A 536.8 DYSPEPSIA AND OTHER SPECIFIED DISORDERS OF FUNCTION OF STOMACH 12/14/2010 373.2 CHALAZION 12/14/2010 373.2 CHALAZION 12/14/2010 373.2 CHALAZION 12/14/2010 373.2 CHALAZION 12/14/2010 SUZETTEOTTE BRAN MIXER, ALISTAIR A 373.2 CHALAZION 12/14/2010 RAJOTTE BRAN MIXER, ALISTAIR A 373.2 CHALAZION 12/14/2010 RAJOTTE BRAN MIXER, ALISTAIR A 373.2 CHALAZION 03/01/2011 465.9 UPPER RESPIRATORY INFECTION 03/01/2011 789.66 ABDOMINAL TENDERNESS EPIGASTRIC 03/01/2011 465.9 UPPER RESPIRATORY INFECTION 03/01/2011 789.66 ABDOMINAL TENDERNESS EPIGASTRIC 03/01/2011 465.9 UPPER RESPIRATORY INFECTION 03/01/2011 789.66 ABDOMINAL TENDERNESS EPIGASTRIC 03/01/2011 465.9 UPPER RESPIRATORY INFECTION 03/01/2011 789.66 ABDOMINAL TENDERNESS EPIGASTRIC 03/01/2011 RAJOTTE BRAN MIXER, ALISTAIR A 465.9 UPPER RESPIRATORY INFECTION 03/01/2011 RAJOTTE BRAN MIXER, ALISTAIR A 789.66 ABDOMINAL TENDERNESS EPIGASTRIC 03/01/2011 RAJOTTE BRAN MIXER, ALISTAIR A 465.9 UPPER RESPIRATORY INFECTION 03/01/2011 RAJOTTE BRAN MIXER, ALISTAIR A 789.66 ABDOMINAL TENDERNESS EPIGASTRIC 03/01/2011 SUZETTEOTTE BRAN MIXER, ALISTAIR A 465.9 UPPER RESPIRATORY INFECTION 03/01/2011 SUZETTEOTTE BRAN MIXER, ALISTAIR A 789.66 ABDOMINAL TENDERNESS EPIGASTRIC 07/31/2011 847.1 SPRAIN THORACIC REGION 07/31/2011 847.1 SPRAIN THORACIC REGION 07/31/2011 847.1 SPRAIN THORACIC REGION 07/31/2011 847.1 SPRAIN THORACIC REGION 07/31/2011 KYAWE BRAN MIXER ALISTAIR A 847.1 SPRAIN THORACIC REGION 07/31/2011 KYAWE BRAN MIXER, ALISTAIR A 847.1 SPRAIN THORACIC REGION 07/31/2011 KYAWE BRAN MIXER ALISTAIR A 847.1 SPR[place] THORACIC REGION 10/16/2012 462 PHARYNGITIS 10/16/2012 462 PHARYNGITIS 10/16/2012 462 PHARYNGITIS 10/16/2012 462 PHARYNGITIS 10/16/2012 ALISTAIR GRANGER APRN 462 PHARYNGITIS 10/16/2012 ELKIN ABRAMS ALISTAIR Nesbitt 462 PHARYNGITIS 10/16/2012 ELKIN ABRAMS ALISTAIR Nesbitt 462 PHARYNGITIS 07/23/2013 372.30 CONJUNCTIVITIS UNSPECIFIED 07/23/2013 372.30 CONJUNCTIVITIS UNSPECIFIED 07/23/2013 ELKIN ABRAMS ALISTAIR Nesbitt 372.30 CONJUNCTIVITIS UNSPECIFIED 07/23/2013 ELKIN ABRAMS ALISTAIR A 372.30 CONJUNCTIVITIS UNSPECIFIED 07/23/2013 ELKIN ABRAMS ALISTAIR Nesbitt 372.30 CONJUNCTIVITIS UNSPECIFIED 08/11/2013 V04.89 GARDASIL (HPV) DX 08/11/2013 SUZETTEFRANKShellie BRAN MIXER, ALISTAIR A V04.89 GARDASIL (HPV) DX 08/11/2013 ELKIN BANKSArnulfo ALISTAIR A V04.89 GARDASIL (HPV) DX 08/11/2013 ELKIN ABRAMS ALISTAIR A V04.89 GARDASIL (HPV) DX 07/14/2014 ELKIN BRAN MIXER, ALISTAIR A V74.1 SCREENING EXAMINATION FOR PULMONARY TUBERCULOSIS 07/14/2014 KYAWShellie BRAN MIXER, ALISTAIR A V74.1 SCREENING EXAMINATION FOR PULMONARY TUBERCULOSIS 07/14/2014 ELKIN BANKSArnulfo ALISTAIR A V74.1 SCREENING EXAMINATION FOR PULMONARY TUBERCULOSIS 09/28/2014 SUZETTECON BRAN MIXER, ALISTAIR A V03.89 MENINGOCOCCAL DX Procedures Code Description [place] [address] STREP A (IN-HOUSE) 10/16/2012 40731 TB TEST INTRADERMAL 07/13/2014 79989 TB TEST INTRADERMAL 07/27/2014 Results Test Result [...] 09:04 Hemoglobin A1c 6.0 % 4.8-5.6 Thyroid [place] Profile - 06/03/17 09:04 TSH 2.200 uIU/mL 0.450-4.500 Insulin - 06/03/17 09:04 Insulin 18.6 uIU/mL 2.6-24.9 Encounters ACCT No. Visit Date/Time Discharge Status Pt. Type Provider Facility Loc./Unit Complaint [id number] 09/28/2014 14:49:00 09/28/2014 23:59:59 [facility] Outpatient ALISTAIR GRANGER APRN [id number] 07/27/2014 13:59:00 07/27/2014 23:59:59 [facility] Outpatient ALISTAIR GRANGER APRN [id number] 07/14/2014 08:23:00 07/14/2014 23:59:59 [facility] Outpatient ALISTAIR GRANGER APRN [id number] 10/16/2012 11:38:00 10/16/2012 23:59:59 [facility] Outpatient [id number] 08/11/2013 13:42:00 Document Registration [id number] 07/23/2013 12:41:00 Document Registration [id number] 10/16/2012 11:38:00 Document Registration [email or web address] 07/28/2015 07:52:59 [facility] Document Registration [id number] 06/04/2017 12:09:00 Document Registration
[2019-06-12] MEDS ORDERED: NS IV 1000 ML 1,000 ML IV STA (09:10)
[2019-06-12] MEDS ORDERED: KETOROLAC 30 MG/ML VIAL IVP STA (09:10)
[2019-06-12] MEDS ORDERED: ONDANSETRON 4 MG/2 ML (SDV) Z0FRAN IVP ONE (09:15)
--- NOTE | 2019-06-12 09:15 | NUR ---
PT REPORTS SHE IS UNABLE TO PROVIDE URINE SAMPLE AT THIS TIME BUT WILL ATTEMPT LATER.
[2019-06-12 09:24] LABS: BASOPHILS % (AUTO) 0 % (0-10); EOSINOPHILS # (AUTO) 0.1 10^3/uL (0.0-0.3); EOSINOPHILS % (AUTO) 2 % (0-10); HEMATOCRIT 36 % (35-52); HEMOGLOBIN 12.1 G/DL (11.5-16.0); LYMPHOCYTES # (AUTO) 2.8 X 10^3 (1.0-4.0); LYMPHOCYTES % (AUTO) 38 % (12-44); MEAN CORPUSCULAR HEMOGLOBIN 27 PG (25-34); MEAN CORPUSCULAR HGB CONC 33 G/DL (32-36); MEAN CORPUSCULAR VOLUME 82 FL (80-99); MEAN PLATELET VOLUME 9.8 FL (7.4-10.4); MONOCYTES # (AUTO) 0.4 X 10^3 (0.0-1.0); MONOCYTES % (AUTO) 6 % (0-12); NEUTROPHILS % (AUTO) 55 % (42-75); PLATELET COUNT 334 10^3/uL (130-400); RED CELL DISTRIBUTION WIDTH 13.4 % (10.0-14.5); WHITE BLOOD COUNT 7.3 10^3/uL (4.3-11.0)
--- NOTE | 2019-06-12 09:33 | ED Abdominal Pain ---
General Chief Complaint: Abdominal/GI Problems Stated Complaint: R SIDE PAIN Source of Information: Patient Exam Limitations: No Limitations History of Present Illness Date Seen by Provider: Jun 12, 2019 Time Seen by Provider: 09:07 Initial Comments Here with complaint of right sided abdominal pain for the last couple of days but worse today. States it hurts when she moves or walks. It hurts when she bends over. Has had hysterectomy as well as appendectomy. These were related to endometriosis. Does have residual right ovary and is on control for suppression due to endometriosis. Denies vomiting but does have nausea and diarrhea. Did note that it hurt a little with urination today. Timing/Duration: 2-3 Days, Changing Over Time, Getting Worse Severity/Quality: Moderate, Aching Location: RLQ Radiation: No Radiation Activities at Onset: None Modifying Factors: Worsens With Movement; Improves With Resting; Worsens With Urinating Associated Symptoms: No Back Pain, No Chest Pain, No Fever/Chills, No Shortness of Air, No Weakness Allergies and Home Medications Allergies Coded Allergies: topiramate (Verified Adverse Reaction, Unknown, FACE AND HANDS WENT NUMB, 12/26/17) Home Medications Butalb/Acetaminophen/Caffeine 1 Each Tablet, 1 EACH PO Q4H PRN for MIGRAINE, (Reported) Clonazepam 0.5 Mg Tablet, 0.5 MG PO PRN, (Reported) Docusate Sodium 100 Mg Capsule, 100 MG PO BID Prescribed by: CHANDA LEONARD on 11/13/18 1232 Ibuprofen 800 Mg Tablet, 800 MG PO Q6HR Prescribed by: CHANDA LEONARD on 11/13/18 1232 Omeprazole 20 Mg Tablet.dr, 20 MG PO DAILY, (Reported) Oxycodone HCl/Acetaminophen 1 Each Tablet, 1 TAB PO Q4H PRN for PAIN-MODERATE Prescribed by: CHANDA LEONARD on 11/13/18 1232 Patient Home Medication List Home Medication List Reviewed: Yes Review of Systems Review of Systems Constitutional: see HPI; No chills, No fever EENTM: No Symptoms Reported Respiratory: No Symptoms Reported Cardiovascular: No Symptoms Reported Gastrointestinal: See HPI, Abdominal Pain, Diarrhea, Nausea Genitourinary: See HPI; Denies Discharge, Denies Hematuria Musculoskeletal: no symptoms reported All Other Systems Reviewed Negative Unless Noted: Yes Past Woxerli-Jundtr-Wirndc Hx Past Med/Social Hx: Reviewed Nursing Past Med/Soc Hx Patient Social History Alcohol Use: Occasionally Uses Alcohol Beverage of Choice: Wine Recreational Drug Use: No Recent Foreign Travel: No Contact w/Someone Who Travel: No Recent Hopitalizations: No Immunizations Up To Date Tetanus Booster (TDap): Less than 5yrs PED Vaccines UTD: Yes Date of Influenza Vaccine: Aug 26, 2018 Seasonal Allergies Seasonal Allergies: No Past Medical History Surgeries: Yes (dxls) Appendectomy, Hysterectomy, Oophorectomy (left) Respiratory: No Cardiac: No Neurological: Yes Headaches /Migraines Reproductive Disorders: Yes (cpp) Female Reproductive Disorders: Denies Sexually Transmitted Disease: No HIV/AIDS: No Genitourinary: No UTI-Chronic Gastrointestinal: Yes Gastroesophageal Reflux, Ulcer Musculoskeletal: No Endocrine: No HEENT: No Cancer: No Psychosocial: No Integumentary: No Blood Disorders: No Adverse Reaction/Blood Tranf: No Family Medical History Reviewed Nursing Family Hx Family history: Asthma G8 BROTHER, Onset:Childhood No Family History of: Abdominal aortic aneurysm Jackson's disease Alcoholism Aphasia Cancer Cancer of colon Cataract Chest pain Congenital heart disease Congestive heart failure Cystic fibrosis Dementia Dysphagia Family history: Allergy Family history: Alzheimer's disease Family history: Arthritis Family history: Breast disease Family history: Cardiovascular disease Family history: Coronary thrombosis Family history: Diabetes mellitus Family history: Gastrointestinal disease Family history: Glaucoma Family history: Hypertension Family history: Osteoporosis Family history: Thyroid disorder Headache Hearing loss Heart disease Hereditary disease History of - anemia History of - respiratory disease History of drug abuse Human immunodeficiency virus (HIV) seropositivity Hypercholesterolemia Infertile Kidney disease Malignant neoplasm of lung Myocardial infarction Parkinson's disease Prostate cancer Psychotic disorder Seizure disorder Stroke Tuberculosis Visual impairment Physical Exam Vital Signs Vital Signs - First Documented 06/12/19 09:00 Temp 98.6 Pulse 93 Resp 16 B/P (MAP) 122/84 (97) Pulse Ox 98 Capillary Refill : Height/Weight/BMI Height: 5'1.00" Weight: 189lbs. 0.0oz. 85.430905bb; 35.7 BMI Method:Stated General Appearance: WD/WN, no apparent distress HEENT: PERRL/EOMI, pharynx normal Neck: full range of motion, supple Respiratory: lungs clear, normal breath sounds Cardiovascular: regular rate, rhythm, no murmur Gastrointestinal: soft, tenderness (lower quadrant) Extremities: non-tender, normal inspection Back: normal inspection, no CVA tenderness, no vertebral tenderness Neurologic/Psychiatric: alert, oriented x 3 Skin: normal color, warm/dry Progress/Results/Core Measures Results/Orders Lab Results Laboratory Tests Test 06/12/19 09:12 06/12/19 10:07 Range/Units White Blood Count 7.3 4.3-11.0 10^3/uL Red Blood Count 4.41 4.35-5.85 10^6/uL Hemoglobin 12.1 11.5-16.0 G/DL Hematocrit 36 35-52 % Mean Corpuscular Volume 82 80-99 FL Mean Corpuscular Hemoglobin 27 25-34 PG Mean Corpuscular Hemoglobin Concent 33 32-36 G/DL Red Cell Distribution Width 13.4 10.0-14.5 % Platelet Count 334 130-400 10^3/uL Mean Platelet Volume 9.8 7.4-10.4 FL Neutrophils (%) (Auto) 55 42-75 % Lymphocytes (%) (Auto) 38 12-44 % Monocytes (%) (Auto) 6 0-12 % Eosinophils (%) (Auto) 2 0-10 % Basophils (%) (Auto) 0 0-10 % Neutrophils # (Auto) 4.0 1.8-7.8 X 10^3 Lymphocytes # (Auto) 2.8 1.0-4.0 X 10^3 Monocytes # (Auto) 0.4 0.0-1.0 X 10^3 Eosinophils # (Auto) 0.1 0.0-0.3 10^3/uL Basophils # (Auto) 0.0 0.0-0.1 10^3/uL Sodium Level 139 135-145 MMOL/L Potassium Level 4.3 3.6-5.0 MMOL/L Chloride Level 104 98-107 MMOL/L Carbon Dioxide Level 24 21-32 MMOL/L Anion Gap 11 5-14 MMOL/L Blood Urea Nitrogen 13 7-18 MG/DL Creatinine 0.71 0.60-1.30 MG/DL Estimat Glomerular Filtration Rate > 60 BUN/Creatinine Ratio 18 Glucose Level 89 70-105 MG/DL Calcium Level 9.3 8.5-10.1 MG/DL Corrected Calcium 9.6 8.5-10.1 MG/DL Total Bilirubin 0.2 0.1-1.0 MG/DL Aspartate Amino Transf (AST/SGOT) 11 5-34 U/L Alanine Aminotransferase (ALT/SGPT) 11 0-55 U/L Alkaline Phosphatase 82 40-136 U/L C-Reactive Protein High Sensitivity 2.75 H 0.00-0.50 MG/DL Total Protein 7.2 6.4-8.2 GM/DL Albumin 3.6 3.2-4.5 GM/DL Urine Color YELLOW Urine Clarity CLEAR Urine pH 7 5-9 Urine Specific [place] 1.010 L 1.016-1.022 Urine Protein NEGATIVE NEGATIVE Urine Glucose (UA) NEGATIVE NEGATIVE Urine Ketones NEGATIVE NEGATIVE Urine Nitrite NEGATIVE NEGATIVE Urine Bilirubin NEGATIVE NEGATIVE Urine Urobilinogen NORMAL NORMAL MG/DL Urine Leukocyte Esterase 3+ H NEGATIVE Urine RBC (Auto) NEGATIVE NEGATIVE Urine RBC NONE /HPF Urine WBC 10-25 H /HPF Urine Squamous Epithelial Cells 2-5 /HPF Urine Crystals NONE /LPF Urine Bacteria FEW H /HPF Urine Casts NONE /LPF Urine Mucus NEGATIVE /LPF Urine Culture Indicated YES My Orders Orders - MK KING MD Cbc With Automated Diff (06/12/19 09:10) Comprehensive Metabolic Panel (06/12/19 09:10) Hs C Reactive Protein (06/12/19 09:10) Ua Culture If Indicated (06/12/19 09:10) Ondansetron Injection (Zofran Injectio (06/12/19 09:15) Ns Iv 1000 Ml (Sodium Chloride 0.9%) (06/12/19 09:10) Ed Iv/Invasive Line Start (06/12/19 09:10) Ketorolac Injection (Toradol Injection) (06/12/19 09:10) Urine Culture (06/12/19 10:07) Ct Abdomen/Pelvis W (06/12/19 11:08) Iohexol Injection (Omnipaque 350 Mg/Ml 1 (06/12/19 11:30) Received Contrast (Hold Metformin- Contr (06/12/19 11:30) Sodium Chloride Flush (Catheter Flush Sy (06/12/19 11:30) Ns (Ivpb) (Sodium Chloride 0.9% Ivpb Bag (06/12/19 11:30) Medications Given in ED Current Medications Medications Dose Ordered Sig/Caroline Route Start Time Stop Time Status Last Admin Dose Admin Iohexol 100 ml ONCE ONCE IV 06/12/19 11:30 06/12/19 11:31 DC 06/12/19 11:26 85 ML Ondansetron HCl 4 mg ONCE ONCE IVP 06/12/19 09:15 06/12/19 09:16 DC 06/12/19 09:37 4 MG Sodium Chloride 10 ml NEEDED PRN IV 06/12/19 11:30 06/12/19 11:26 10 ML Sodium Chloride 100 ml ONCE ONCE IV 06/12/19 11:30 06/12/19 11:31 DC 06/12/19 11:26 80 ML Vital Signs/I&O 06/12/19 09:00 Temp 98.6 Pulse 93 Resp 16 B/P (MAP) 122/84 (97) Pulse Ox 98 Progress Progress Note : Progress Note Seen and evaluated. IV, labs, UA, normal saline 1 L bolus, Zofran 4 mg IV and Toradol 30 mg IV ordered. Monitor patient. CT abdomen pelvis ordered due to persistence of pain. 1202: No acute findings on CT. Does have urinary tract infection and we will treat that. Patient like to go home. Discharged home with return precautions. Patient verbalize understanding instructions and agreement with plan. Diagnostic Imaging Diagonstic Imaging: CT Plain Films/CT/US/NM/MRI: abdomen, pelvis Comments [facility], [place] NAME: ELISSA COOK [facility] REC#: [id number] PT STATUS: REG ER : 1995 PHYSICIAN: MK KING MD ADMIT DATE: 06/12/19/ER Draft Date of Exam:06/12/19 CT ABDOMEN/PELVIS W PROCEDURE: CT abdomen and pelvis with contrast. TECHNIQUE: Multiple contiguous axial images were obtained through the abdomen and pelvis after administration of intravenous contrast. Auto Exposure Controls were utilized during the CT exam to meet ALARA standards for radiation dose reduction. INDICATION: Abdominal pain, endometriosis, hysterectomy and appendectomy. COMPARISON: 07/27/2015 FINDINGS: The lung bases are clear. The gallbladder, solid organs, vascular structures and bowel are unremarkable. There is no free air or free fluid. The uterus and appendix are surgically absent. There is no inflammatory process or lymphadenopathy. No hernia identified. Distal ureters and urinary bladder are normal. Osseous structures are age-appropriate. IMPRESSION: 1. No acute abnormalities within the abdomen or pelvis. 2. Surgically absent appendix and uterus. 3. No bowel obstruction identified. Dictated on workstation # [id number] Dict: 06/12/19 1136 Trans: 06/12/19 1142 [facility] [id number] Interpreted by: CINDY RUFF Electronically signed by: Departure Impression Primary Impression: Urinary tract infection Qualified Codes: N30.00 - Acute cystitis without hematuria Disposition: HOME, SELF-CARE Condition: Improved Departure-Patient Inst. Decision time for Depature: 12:03 Referrals: GARETT PRESCOTT MD (PCP/Family) Primary Care Physician Patient Instructions: Acute Abdomen (Belly Pain), Adult (DC), Urinary Tract Infection, Adult (DC) Add. Discharge Instructions: All discharge instructions reviewed with patient and/or family. Voiced understanding. Take medications as directed. Drink plenty of fluids. You may take ibuprofen 600 mg every 8 hours as needed for pain. You may also take Tylenol/acetaminophen 1000 mg every 8 hours as needed for pain. Return for worse pain, fever, vomiting, weakness, breathing problems or other concerns as needed. If your culture is positive for a bacteria that is not covered by your antibiotic, you will be called for change of antibiotics. Scripts Cephalexin (Cephalexin) 500 Mg Tablet 500 MG PO BID, #10 TAB 0 Refills Prov: MK KING MD 06/12/19 Copy Copies To 1: GARETT PRESCOTT MD, TIMOTHY D MD Jun 12, 2019 09:33
[2019-06-12 09:45] LABS: ALANINE AMINOTRANSFERASE 11 U/L (0-55); ALBUMIN 3.6 GM/DL (3.2-4.5); ALKALINE PHOSPHATASE 82 U/L (40-136); BILIRUBIN,TOTAL 0.2 MG/DL (0.1-1.0); BUN/CREATININE RATIO 18; CALCIUM 9.3 MG/DL (8.5-10.1); CARBON DIOXIDE 24 MMOL/L (21-32); CHLORIDE 104 MMOL/L (98-107); CREATININE SERUM 0.71 MG/DL (0.60-1.30); GFR ESTIMATED > 60; GLUCOSE 89 MG/DL (70-105); POTASSIUM 4.3 MMOL/L (3.6-5.0); SODIUM 139 MMOL/L (135-145); TOTAL PROTEIN 7.2 GM/DL (6.4-8.2)
[2019-06-12 10:12] LABS: BILIRUBIN,URINE NEGATIVE (NEGATIVE); CLARITY,URINE CLEAR; COLOR,URINE YELLOW; GLUCOSE, URINE (UA) NEGATIVE (NEGATIVE); KETONES,URINE NEGATIVE (NEGATIVE); LEUKOCYTE ESTERASE ,URINE 3+ (NEGATIVE); NITRITE,URINE NEGATIVE (NEGATIVE); PH,URINE 7 (5-9); PROTEIN,URINE NEGATIVE (NEGATIVE); UROBILINOGEN,URINE NORMAL (NORMAL)
[2019-06-12 10:54] LABS: BACTERIA,URINE FEW /HPF
[2019-06-12] MEDS ORDERED: NS 100 ML (IVPB) BAG IV ONE (11:30)
[2019-06-12] MEDS ORDERED: HOLD METFORMIN - RECEIVED CONTRAST 20 ML VIAL IV SCH (11:30)
[2019-06-12] MEDS ORDERED: CATHETER FLUSH 10 ML SYR IV PRN (11:30)
[2019-06-12] MEDS ORDERED: IOHEXOL 350 MG/ML 100 ML (OMNIPAQUE 350) VIAL IV ONE (11:30)
--- NOTE | 2019-06-12 11:43 | Diagnostic Imaging Report ---
PROCEDURE: CT abdomen and pelvis with contrast. TECHNIQUE: Multiple contiguous axial images were obtained through the abdomen and pelvis after administration of intravenous contrast. Auto Exposure Controls were utilized during the CT exam to meet ALARA standards for radiation dose reduction. INDICATION: Abdominal pain, endometriosis, hysterectomy and appendectomy. COMPARISON: 07/27/2015 FINDINGS: The lung bases are clear. The gallbladder, solid organs, vascular structures and bowel are unremarkable. There is no free air or free fluid. The uterus and appendix are surgically absent. There is no inflammatory process or lymphadenopathy. No hernia identified. Distal ureters and urinary bladder are normal. Osseous structures are age-appropriate. IMPRESSION: 1. No acute abnormalities within the abdomen or pelvis. 2. Surgically absent appendix and uterus. 3. No bowel obstruction identified. Dictated by: Dictated on workstation # [id number]
[2019-06-12] MEDS ORDERED: CEPH500T PO (12:05)
[2019-06-12 12:16] VITALS: BP 115/70
== END 2019-06-12 12:16 | disposition home or self-care (01) ==
LOC: EDUNIT# 08:57 → ER 08:59
DX: N39.0 Urinary tract infection, site not specified (principal); G43.909 Migraine, unspecified, not intractable, without status migrainosus; K21.9 Gastro-esophageal reflux disease without esophagitis; Z87.19 Personal history of other diseases of the digestive system; Z88.8 Allergy status to other drugs, medicaments and biological substances; Z90.49 Acquired absence of other specified parts of digestive tract; Z90.710 Acquired absence of both cervix and uterus
CPT/HCPCS: 36415; 74177; 80053; 81000; 85025; 86141; 87088; 96361; 96374; 96375

== ENCOUNTER 2019-06-13 17:44 | Emergency (ER) | payer OTHER ==
[~2019-06-13] VITALS: Ht 154.9 cm; Wt 83.9 kg
[~2019-06-13 17:44] MED LIST changes: +CEPH500T PO
--- OUTSIDE RECORDS SUMMARY | 2019-06-13 17:48 | XMS REPORT | Continuity of Care Document ---
[...] V06.5 DT, TETANUS-DIPHTHERIA [Td] ,TDAP 08/10/2010 RAJOTTE BRINE ROOM LABORER, ALISTAIR A V05.3 HEPATITIS B VACCINE 08/10/2010 RAJOTTE BRINE ROOM LABORER, ALISTAIR A V06.5 DT, TETANUS-DIPHTHERIA [Td] ,TDAP 08/10/2010 SUZETTEOTTE BRINE ROOM LABORER, ALISTAIR A V05.3 HEPATITIS B VACCINE 08/10/2010 RAJOTTE BRINE ROOM LABORER, ALISTAIR A V06.5 DT, TETANUS-DIPHTHERIA [Td] ,TDAP 08/10/2010 SUZETTEOTTE BRINE ROOM LABORER, ALISTAIR A V05.3 HEPATITIS B VACCINE 08/10/2010 RAJOTTE BRINE ROOM LABORER, ALISTAIR A V06.5 DT, TETANUS-DIPHTHERIA [Td] ,TDAP 11/03/2010 536.8 DYSPEPSIA AND OTHER SPECIFIED DISORDERS OF FUNCTION OF STOMACH 11/03/2010 536.8 DYSPEPSIA AND OTHER SPECIFIED DISORDERS OF FUNCTION OF STOMACH 11/03/2010 536.8 DYSPEPSIA AND OTHER SPECIFIED DISORDERS OF FUNCTION OF STOMACH 11/03/2010 536.8 DYSPEPSIA AND OTHER SPECIFIED DISORDERS OF FUNCTION OF STOMACH 11/03/2010 ELKIN BRINE ROOM LABORER, ALISTAIR A 536.8 DYSPEPSIA AND OTHER SPECIFIED DISORDERS OF FUNCTION OF STOMACH 11/03/2010 RAJOTTE BRINE ROOM LABORER, ALISTAIR A 536.8 DYSPEPSIA AND OTHER SPECIFIED DISORDERS OF FUNCTION OF STOMACH 11/03/2010 RAJOTTE BRINE ROOM LABORER, ALISTAIR A 536.8 DYSPEPSIA AND OTHER SPECIFIED DISORDERS OF FUNCTION OF STOMACH 12/14/2010 373.2 CHALAZION 12/14/2010 373.2 CHALAZION 12/14/2010 373.2 CHALAZION 12/14/2010 373.2 CHALAZION 12/14/2010 SUZETTEOTTE BRINE ROOM LABORER, ALISTAIR A 373.2 CHALAZION 12/14/2010 RAJOTTE BRINE ROOM LABORER, ALISTAIR A 373.2 CHALAZION 12/14/2010 RAJOTTE BRINE ROOM LABORER, ALISTAIR A 373.2 CHALAZION 03/01/2011 465.9 UPPER RESPIRATORY INFECTION 03/01/2011 789.66 ABDOMINAL TENDERNESS EPIGASTRIC 03/01/2011 465.9 UPPER RESPIRATORY INFECTION 03/01/2011 789.66 ABDOMINAL TENDERNESS EPIGASTRIC 03/01/2011 465.9 UPPER RESPIRATORY INFECTION 03/01/2011 789.66 ABDOMINAL TENDERNESS EPIGASTRIC 03/01/2011 465.9 UPPER RESPIRATORY INFECTION 03/01/2011 789.66 ABDOMINAL TENDERNESS EPIGASTRIC 03/01/2011 RAJOTTE BRINE ROOM LABORER, ALISTAIR A 465.9 UPPER RESPIRATORY INFECTION 03/01/2011 RAJOTTE BRINE ROOM LABORER, ALISTAIR A 789.66 ABDOMINAL TENDERNESS EPIGASTRIC 03/01/2011 RAJOTTE BRINE ROOM LABORER, ALISTAIR A 465.9 UPPER RESPIRATORY INFECTION 03/01/2011 RAJOTTE BRINE ROOM LABORER, ALISTAIR A 789.66 ABDOMINAL TENDERNESS EPIGASTRIC 03/01/2011 SUZETTEOTTE BRINE ROOM LABORER, ALISTAIR A 465.9 UPPER RESPIRATORY INFECTION 03/01/2011 SUZETTEOTTE BRINE ROOM LABORER, ALISTAIR A 789.66 ABDOMINAL TENDERNESS EPIGASTRIC 07/31/2011 847.1 SPRAIN THORACIC REGION 07/31/2011 847.1 SPR[place] THORACIC REGION 07/31/2011 847.1 SPR[place] THORACIC REGION 07/31/2011 847.1 SPR[place] THORACIC REGION 07/31/2011 KYAWE BRINE ROOM LABORER ALISTAIR A 847.1 [place]ORAC[place] REGION 07/31/2011 KYAWE BRINE ROOM LABORER, ALISTAIR A 847.1 [place]OR[place] REGION 07/31/2011 KYAWE BRINE ROOM LABORER ALISTAIR A 847.1 [place] 10/16/2012 [...] 08/11/2013 V04.89 GARDASIL (HPV) DX 08/11/2013 SUZETTEFRANKShellie BRINE ROOM LABORER, ALISTAIR A V04.89 GARDASIL (HPV) DX 08/11/2013 ELKIN BANKSArnulfo ALISTAIR A V04.89 GARDASIL (HPV) DX 08/11/2013 ELKIN ABRAMS ALISTAIR A V04.89 GARDASIL (HPV) DX 07/14/2014 ELKIN BRINE ROOM LABORER, ALISTAIR A V74.1 SCREENING EXAMINATION FOR PULMONARY TUBERCULOSIS 07/14/2014 KYAWShellie BRINE ROOM LABORER, ALISTAIR A V74.1 SCREENING EXAMINATION FOR PULMONARY TUBERCULOSIS 07/14/2014 ELKIN BANKSArnulfo ALISTAIR A V74.1 SCREENING EXAMINATION FOR PULMONARY TUBERCULOSIS 09/28/2014 SUZETTECON BRINE ROOM LABORER, ALISTAIR A V03.89 MENINGOCOCCAL DX Procedures Code Description [place] [address] STREP A (IN-HOUSE) 10/16/2012 85212 TB TEST INTRADERMAL 07/13/2014 29396 TB TEST INTRADERMAL 07/27/2014 Results Test Result [...] 09:04 Hemoglobin A1c 6.0 % 4.8-5.6 Thyroid [place] Profile - 06/03/17 09:04 TSH 2.200 uIU/mL 0.450-4.500 Insulin - 06/03/17 09:04 Insulin 18.6 uIU/mL 2.6-24.9 Encounters ACCT No. Visit Date/Time Discharge Status Pt. Type Provider Facility Loc./Unit Complaint [id number] 09/28/2014 14:49:00 09/28/2014 23:59:59 [facility] Outpatient ALISTAIR GRANGER APRN [id number] 07/27/2014 13:59:00 07/27/2014 23:59:59 [facility] Outpatient ALISTAIR GRANGER APRN [id number] 07/14/2014 08:23:00 07/14/2014 23:59:59 [facility] Outpatient ALISTAIR GRANGER APRN [id number] 10/16/2012 11:38:00 10/16/2012 23:59:59 [facility] Outpatient [id number] 08/11/2013 13:42:00 Document Registration [id number] 07/23/2013 12:41:00 Document Registration [id number] 10/16/2012 11:38:00 Document Registration [email or web address] 07/28/2015 07:52:59 [facility] Document Registration [id number] 06/04/2017 12:09:00 Document Registration
[2019-06-13] MEDS ORDERED: HYOSCYAMINE 0.125 MG (LEVSIN) TAB PO ONE (18:15)
[2019-06-13] MEDS ORDERED: fentaNYL INJECTION 100 MCG/2 ML AMP IVP ONE ×2 (18:15→19:45)
[2019-06-13] MEDS ORDERED: KETOROLAC 30 MG/ML VIAL IVP ONE (18:15)
--- NOTE | 2019-06-13 18:17 | ED Abdominal Pain ---
General Chief Complaint: Abdominal/GI Problems Stated Complaint: R SIDE PAIN Nursing Triage Note: pt was seen here yesterday and was told she had a UTI. Pt was told to come back if she got worse. Pt states it is much worse today. Pain increases when she walks, eats, stands. Pt also states she is now taking vybrid which is a new medication. pt had two rounds of diarrhea today Sepsis Screen: No Definite Risk Source of Information: Patient Exam Limitations: No Limitations History of Present Illness Date Seen by Provider: Jun 13, 2019 Time Seen by Provider: 18:14 Initial Comments To ER by private vehicle with reports of right mid abdominal pain. She had a sudden sensation as if something "popped" and now the pain radiates around to the right flank. She was seen here for the same yesterday, evaluated with labs and CT, these were unremarkable. She presents today for worsening pain. She has a surgically absent appendix and uterus, she does have her right ovary. Does rick ve her gallbladder. She is nauseous. She also had 2 episodes of diarrhea today Timing/Duration: 2-3 Days, Getting Worse Severity/Quality: Moderate Radiation: No Radiation Activities at Onset: None Associated Symptoms: No Fever/Chills; Nausea/Vomiting Allergies and Home Medications Allergies Coded Allergies: topiramate (Verified Adverse Reaction, Unknown, FACE AND HANDS WENT NUMB, 12/26/17) Home Medications Butalb/Acetaminophen/Caffeine 1 Each Tablet, 1 EACH PO Q4H PRN for MIGRAINE, (Reported) Cephalexin 500 Mg Tablet, 500 MG PO BID Prescribed by: MK KING on 06/12/19 1205 Clonazepam 0.5 Mg Tablet, 0.5 MG PO PRN, (Reported) Docusate Sodium 100 Mg Capsule, 100 MG PO BID Prescribed by: CHANDA LEONARD on 11/13/18 1232 Ibuprofen 800 Mg Tablet, 800 MG PO Q6HR Prescribed by: CHANDA LEONARD on 11/13/18 1232 Omeprazole 20 Mg Tablet.dr, 20 MG PO DAILY, (Reported) Oxycodone HCl/Acetaminophen 1 Each Tablet, 1 TAB PO Q4H PRN for PAIN-MODERATE Prescribed by: CHANDA LEONARD on 11/13/18 1232 Patient Home Medication List Home Medication List Reviewed: Yes Review of Systems Review of Systems Constitutional: see HPI EENTM: No Symptoms Reported Respiratory: No Symptoms Reported Cardiovascular: No Symptoms Reported Gastrointestinal: See HPI, Abdominal Pain, Diarrhea, Nausea Genitourinary: No Symptoms Reported Musculoskeletal: no symptoms reported Skin: no symptoms reported Psychiatric/Neurological: No Symptoms Reported Endocrine: No Symptoms Reported Past Sbsdpzj-Aeanhj-Anwaga Hx Patient Social History Alcohol Beverage of Choice: Wine Recent Foreign Travel: No Contact w/Someone Who Travel: No Recent Infectious Disease Expo: No Recent Hopitalizations: No Immunizations Up To Date Tetanus Booster (TDap): Less than 5yrs PED Vaccines UTD: Yes Date of Influenza Vaccine: Aug 26, 2018 Seasonal Allergies Seasonal Allergies: No Past Medical History Surgeries: Yes (dxls, l oophorectomy) Appendectomy, Hysterectomy, Oophorectomy Respiratory: No Cardiac: No Neurological: Yes Headaches /Migraines Reproductive Disorders: Yes (cpp) Female Reproductive Disorders: Denies Sexually Transmitted Disease: No HIV/AIDS: No Genitourinary: Yes (hx of endometriosis) UTI-Chronic Gastrointestinal: Yes Gastroesophageal Reflux, Ulcer Musculoskeletal: No Endocrine: No HEENT: No Cancer: No Psychosocial: No Integumentary: No Blood Disorders: No Adverse Reaction/Blood Tranf: No Family Medical History Family history: Asthma G8 BROTHER, Onset:Childhood No Family History of: Abdominal aortic aneurysm [place]'s disease Alcoholism Aphasia Cancer Cancer of colon Cataract Chest pain Congenital heart disease Congestive heart failure Cystic fibrosis Dementia Dysphagia Family history: Allergy Family history: Alzheimer's disease Family history: Arthritis Family history: Breast disease Family history: Cardiovascular disease Family history: Coronary thrombosis Family history: Diabetes mellitus Family history: Gastrointestinal disease Family history: Glaucoma Family history: Hypertension Family history: Osteoporosis Family history: Thyroid disorder Headache Hearing loss Heart disease Hereditary disease History of - anemia History of - respiratory disease History of drug abuse Human immunodeficiency virus (HIV) seropositivity Hypercholesterolemia Infertile Kidney disease Malignant neoplasm of lung Myocardial infarction Parkinson's disease Prostate cancer Psychotic disorder Seizure disorder Stroke Tuberculosis Visual impairment Physical Exam Vital Signs Vital Signs - First Documented 06/13/19 18:00 Temp 98.9 Pulse 101 Resp 20 Pulse Ox 99 O2 Delivery Room Air Capillary Refill : Less Than 3 Seconds Height/Weight/BMI Height: 5'1.00" Weight: 185lbs. 0.0oz. [id number]; 35.7 BMI Method:Stated General Appearance: WD/WN, no apparent distress Respiratory: no respiratory distress, no accessory muscle use Gastrointestinal: normal bowel sounds, soft, tenderness (right upper) Extremities: normal range of motion, non-tender Neurologic/Psychiatric: alert, normal mood/affect, oriented x 3 Progress/Results/Core Measures Results/Orders Lab Results Laboratory Tests Test 06/13/19 18:14 Range/Units White Blood Count 7.6 4.3-11.0 10^3/uL Red Blood Count 4.56 4.35-5.85 10^6/uL Hemoglobin 12.4 11.5-16.0 G/DL Hematocrit 38 35-52 % Mean Corpuscular Volume 82 80-99 FL Mean Corpuscular Hemoglobin 27 25-34 PG Mean Corpuscular Hemoglobin Concent 33 32-36 G/DL Red Cell Distribution Width 13.3 10.0-14.5 % Platelet Count 344 130-400 10^3/uL Mean Platelet Volume 9.6 7.4-10.4 FL Neutrophils (%) (Auto) 48 42-75 % Lymphocytes (%) (Auto) 43 12-44 % Monocytes (%) (Auto) 6 0-12 % Eosinophils (%) (Auto) 2 0-10 % Basophils (%) (Auto) 0 0-10 % Neutrophils # (Auto) 3.7 1.8-7.8 X 10^3 Lymphocytes # (Auto) 3.3 1.0-4.0 X 10^3 Monocytes # (Auto) 0.5 0.0-1.0 X 10^3 Eosinophils # (Auto) 0.2 0.0-0.3 10^3/uL Basophils # (Auto) 0.0 0.0-0.1 10^3/uL Sodium Level 139 135-145 MMOL/L Potassium Level 4.1 3.6-5.0 MMOL/L Chloride Level 102 98-107 MMOL/L Carbon Dioxide Level 24 21-32 MMOL/L Anion Gap 13 5-14 MMOL/L Blood Urea Nitrogen 10 7-18 MG/DL Creatinine 0.79 0.60-1.30 MG/DL Estimat Glomerular Filtration Rate > 60 BUN/Creatinine Ratio 13 Glucose Level 86 70-105 MG/DL Calcium Level 9.7 8.5-10.1 MG/DL Corrected Calcium 9.9 8.5-10.1 MG/DL Total Bilirubin 0.1 0.1-1.0 MG/DL Aspartate Amino Transf (AST/SGOT) 9 5-34 U/L Alanine Aminotransferase (ALT/SGPT) 10 0-55 U/L Alkaline Phosphatase 80 40-136 U/L C-Reactive Protein High Sensitivity 2.63 H 0.00-0.50 MG/DL Total Protein 7.5 6.4-8.2 GM/DL Albumin 3.7 3.2-4.5 GM/DL Lipase 39 8-78 U/L My Orders Orders - KELLEE MAGAÑA APRN Cbc With Automated Diff (06/13/19 18:08) Hs C Reactive Protein (06/13/19 18:08) Comprehensive Metabolic Panel (06/13/19 18:08) Ed Iv/Invasive Line Start (06/13/19 18:08) Lipase (06/13/19 18:11) Fentanyl Injection (Sublimaze Injection (06/13/19 18:15) Ketorolac Injection (Toradol Injection) (06/13/19 18:15) Hyoscyamine Sl Tablet (Levsin Sl Tablet) (06/13/19 18:15) Chest Pa/Lat (2 View) (06/13/19 18:39) Medications Given in ED Current Medications Medications Dose Ordered Sig/Caroline Route Start Time Stop Time Status Last Admin Dose Admin Fentanyl Citrate 50 mcg ONCE ONCE IVP 06/13/19 18:15 06/13/19 18:16 DC 06/13/19 18:23 50 MCG Hyoscyamine Sulfate 0.25 mg ONCE ONCE PO 06/13/19 18:15 06/13/19 18:16 DC 06/13/19 18:23 0.25 MG Ketorolac Tromethamine 30 mg ONCE ONCE IVP 06/13/19 18:15 06/13/19 18:16 DC 06/13/19 18:23 30 MG Vital Signs/I&O 06/13/19 18:00 Temp 98.9 Pulse 101 Resp 20 B/P (MAP) Pulse Ox 99 O2 Delivery Room Air Departure Impression Primary Impression: Acute abdominal pain Disposition: 01 HOME, SELF-CARE Condition: Stable Departure-Patient Inst. Decision time for Depature: 18:40 Referrals: GARETT PRESCOTT MD (PCP/Family) Primary Care Physician Patient Instructions: Acute Abdomen (Belly Pain), Adult (DC) Add. Discharge Instructions: 1. Follow-up with your doctor this week to discuss obtaining an ultrasound of the gallbladder. All discharge instructions reviewed with patient and/or family. Voiced understanding. Images Torso/Trunk 1 - Tenderness KELLEE MAGAÑA COAL CUTTER Jun 13, 2019 18:17
[2019-06-13 18:21] LABS: BASOPHILS % (AUTO) 0 % (0-10); EOSINOPHILS # (AUTO) 0.2 10^3/uL (0.0-0.3); EOSINOPHILS % (AUTO) 2 % (0-10); HEMATOCRIT 38 % (35-52); HEMOGLOBIN 12.4 G/DL (11.5-16.0); LYMPHOCYTES # (AUTO) 3.3 X 10^3 (1.0-4.0); LYMPHOCYTES % (AUTO) 43 % (12-44); MEAN CORPUSCULAR HEMOGLOBIN 27 PG (25-34); MEAN CORPUSCULAR HGB CONC 33 G/DL (32-36); MEAN CORPUSCULAR VOLUME 82 FL (80-99); MEAN PLATELET VOLUME 9.6 FL (7.4-10.4); MONOCYTES # (AUTO) 0.5 X 10^3 (0.0-1.0); MONOCYTES % (AUTO) 6 % (0-12); NEUTROPHILS # (AUTO) 3.7 X 10^3 (1.8-7.8); NEUTROPHILS % (AUTO) 48 % (42-75); PLATELET COUNT 344 10^3/uL (130-400); RED CELL DISTRIBUTION WIDTH 13.3 % (10.0-14.5); WHITE BLOOD COUNT 7.6 10^3/uL (4.3-11.0)
[2019-06-13 18:38] LABS: ALANINE AMINOTRANSFERASE 10 U/L (0-55); ALBUMIN 3.7 GM/DL (3.2-4.5); ALKALINE PHOSPHATASE 80 U/L (40-136); BILIRUBIN,TOTAL 0.1 MG/DL (0.1-1.0); BUN/CREATININE RATIO 13; CALCIUM 9.7 MG/DL (8.5-10.1); CARBON DIOXIDE 24 MMOL/L (21-32); CHLORIDE 102 MMOL/L (98-107); CREATININE SERUM 0.79 MG/DL (0.60-1.30); GFR ESTIMATED > 60; GLUCOSE 86 MG/DL (70-105); LIPASE 39 U/L (8-78); POTASSIUM 4.1 MMOL/L (3.6-5.0); SODIUM 139 MMOL/L (135-145); TOTAL PROTEIN 7.5 GM/DL (6.4-8.2)
[2019-06-13] MEDS ORDERED: RX-TRAMADOL 50 MG (ULTRAM) TAB PPK#4 PO STA (19:45)
[2019-06-13 20:15] VITALS: BP 112/75
--- NOTE | 2019-06-13 21:54 | Diagnostic Imaging Report ---
EXAMINATION: Chest, PA and lateral views. INDICATION: Abdominal pain. COMPARISON: None available. FINDINGS: The lungs are clear and the pulmonary vasculature is normal. No pneumothorax or pleural effusion. The cardiomediastinal silhouette is normal. No acute osseous abnormality is appreciated. IMPRESSION: No radiographic evidence of acute chest disease. Dictated by: Dictated on workstation # [id number]
== END 2019-06-13 20:15 | disposition home or self-care (01) ==
LOC: EDUNIT# 17:44 → ER 17:45
DX: R10.11 Right upper quadrant pain (principal); G43.909 Migraine, unspecified, not intractable, without status migrainosus; Z87.440 Personal history of urinary (tract) infections; Z90.49 Acquired absence of other specified parts of digestive tract; Z88.8 Allergy status to other drugs, medicaments and biological substances; Z90.710 Acquired absence of both cervix and uterus
CPT/HCPCS: 36415; 71046; 80053; 83690; 85025; 86141; 96374; 96375; 96376

== ENCOUNTER → 2019-06-14 | Outpatient (CLI) | payer OTHER ==
[~2019-06-14] MED LIST changes: +HYDR-700 PO; +OXYC-464 PO; +VILA40TA PO
--- NOTE | 2019-06-14 09:48 | Diagnostic Imaging Report ---
INDICATION: Right upper quadrant abdominal pain Gallbladder sonography performed in the routine fashion. The liver shows normal echogenicity with no focal discrete lesion. Gallbladder is unremarkable with no stones or wall thickening. The common duct measured 2.7 mm. The pancreas is unremarkable to the extent seen. The right kidney was normal measured 10.5 cm in length. There is no ascites. Sonographic Hudson sign was negative. IMPRESSION: Unremarkable gallbladder sonography. Dictated by: Dictated on workstation # [id number]
== END ==
LOC: RAD 08:54
PROVIDERS: ATTEND Nurse Practitioner Family
DX: R10.11 Right upper quadrant pain (principal)
CPT/HCPCS: 76705

== ENCOUNTER 2019-06-16 07:12 | Day surgery (SDC) | payer OTHER ==
[~2019-06-16] VITALS: Ht 154.9 cm; Wt 83.9 kg
[2019-06-16] VITALS (11 sets, daily range): BP systolic 106–137; BP diastolic 66–84
[~2019-06-16 07:12] MED LIST changes: -HYDR-700 PO; -OXYC-464 PO; -VILA40TA PO
[2019-06-16] MEDS ORDERED: VILA40TA PO (07:55)
[2019-06-16] MEDS ORDERED: HYDR-700 PO (07:55)
[2019-06-16] MEDS ORDERED: GLYCOPYRROLATE 0.2 MG/ML (ROBINUL) 2 ML VIAL ONE (08:03)
[2019-06-16] MEDS ORDERED: SEVOFLURANE (ULTANE) 15 ML INHAL SOLN ONE ×2 (08:03→10:22)
[2019-06-16] MEDS ORDERED: LIDOCAINE PF 2% 5 ML (XYLOCAINE) VIAL ONE (08:03)
[2019-06-16] MEDS ORDERED: ROCURONIUM 10 MG/ML 5 ML SYRINGE IV ONE (08:03)
[2019-06-16] MEDS ORDERED: NEOSTIGMINE 3 MG/3 ML VIAL ONE (08:03)
[2019-06-16] MEDS ORDERED: ONDANSETRON 4 MG/2 ML (SDV) Z0FRAN ONE (08:03)
[2019-06-16] MEDS ORDERED: proPOfol 200 MG/20 ML (DIPRIVAN) VIAL IV ONE (08:03)
[2019-06-16] MEDS ORDERED: DEXAMETHASONE 10 MG/ML (DECADRON) 1 ML VIAL ONE (08:03)
[2019-06-16] MEDS ORDERED: MIDAZOLAM 2 MG/2 ML (VERSED) VIAL ONE (08:04)
[2019-06-16] MEDS ORDERED: fentaNYL INJECTION 100 MCG/2 ML AMP ONE ×2 (08:04→10:42)
--- NOTE | 2019-06-16 08:20 | Progress Note-Pre Operative ---
Pre-Operative Progress Note H&P Reviewed The H&P was reviewed, patient examined and no changes noted. Date Seen by Provider: Jun 16, 2019 Time Seen by Provider: 08:15 Date H&P Reviewed: Jun 16, 2019 Time H&P Reviewed: 08:10 Pre-Operative Diagnosis: Symptomatic Biliary Dyskinesia RAUL WEBBER APRN Jun 16, 2019 08:20
[2019-06-16] MEDS ORDERED: BUP/EPI 0.5% 1:200,000 (MARCAINE) 10ML VIAL IJ ONE (08:21)
[2019-06-16] MEDS ORDERED: OXYC-464 PO (08:22)
--- NOTE | 2019-06-16 08:23 | Discharge Inst-Surgical ---
D/C Lap Instructions-KIDO New, Converted, or Re-Newed RX: RX on Chart Follow Up Appt in 2 weeks Activity as tolerated No driving for 24 hours No driving while on pain medications Incentive Spirometry use every 2 hours while awake Regular Diet Symptoms to Report: Fever over 101 degree F, Nausea/Vomiting Infection Signs and Symptoms to report: Increased redness, Foul odor of wound, Increased drainage Bathing instructions: May shower Operative Area Clean/Dry; Keep incision clean/dry If any problems/questions: Contact your physician or go to Emergency Room RAUL WEBBER APRN Jun 16, 2019 08:23
[2019-06-16] MEDS: LACTATED RINGERS 1,000 ML IV PRN ×2 (08:25→09:58)
[2019-06-16] MEDS ORDERED: ACETAMINOPHEN 325 MG TABLET PO PRN (08:30)
[2019-06-16] MEDS ORDERED: oxyCODONE/APAP 5/325MG (PERCOCET 5) TABLET PO PRN (08:30)
[2019-06-16] MEDS ORDERED: morphine INJ 10 MG/ML 1ML (SYR OR VIAL) IVP PRN (08:30)
[2019-06-16] MEDS ORDERED: ONDANSETRON 4 MG/2 ML (SDV) Z0FRAN IVP PRN ×2 (08:30→10:45)
[2019-06-16] MEDS ORDERED: ceFAZolin 2 GM/50 ML NS 50 ML ONE (09:12)
[2019-06-16] MEDS ORDERED: ceFAZolin 2 GM/NS 50 ML IVPB IV ONE (09:30)
[2019-06-16] MEDS ORDERED: morphine INJ 10 MG/ML 1ML (SYR OR VIAL) ONE (10:13)
[2019-06-16] MEDS ORDERED: morphine INJ 10 MG/ML 1ML (SYR OR VIAL) IVP ONE (10:45)
[2019-06-16] MEDS ORDERED: fentaNYL INJECTION 100 MCG/2 ML AMP IVP ONE (10:45)
[2019-06-16] MEDS ORDERED: MEPERIDINE (DEMEROL) INJ 50 MG/ML IVP ONE (10:45)
--- NOTE | 2019-06-16 10:51 | Progress Note-Post Operative ---
Post-Operative Progess Note Surgeon (s)/Assembly Line Brazer (s) Surgeon FERMIN YEAGER MD Assembly Line Brazer: gosia pedersen LYE BATH OPERATOR Pre-Operative Diagnosis Symptomatic Biliary Dyskinesia Post-Operative Diagnosis same Procedure & Operative Findings Date of Procedure 06/16/19 Procedure Performed/Findings laparoscopic cholecystectomy Anesthesia Type get Estimated Blood Loss Estimated blood loss (mL): minimal Specimens/Packing Specimens Removed gallbladder FERMIN YEAGER MD Jun 16, 2019 10:51
--- NOTE | 2019-06-16 14:08 | OPERATIVE REPORT ---
DATE OF SERVICE: 06/16/2019 PREOPERATIVE DIAGNOSIS: Symptomatic biliary dyskinesia. POSTOPERATIVE DIAGNOSIS: Symptomatic biliary dyskinesia. PROCEDURE: Laparoscopic cholecystectomy. SURGEON: Fermin Yeager MD ISSUE CLERK: Harlan Palmer APRN. ANESTHESIA: General endotracheal. ESTIMATED BLOOD LOSS: Minimal. FINDINGS: Dilated gallbladder, no gallbladder wall thickening. Liver, stomach, small bowel appeared normal. DISPOSITION: The patient tolerated the procedure well. INDICATIONS: The patient is a 23-year-old female who has had pain in the right upper abdominal quadrant on an intermittent basis usually after eating meals. One week ago, she had a very severe episode where the pain was in the right upper abdominal quadrant with radiation towards the back and was associated with nausea. A CT scan was performed, which was normal. She was then seen in the office where an ultrasound was ordered and performed with findings of gallstones. She then underwent a HIDA scan, which did show an ejection fraction of 32%. However, she did have severe reproduction of symptoms upon administration of the Kinevac analogue consistent with a biliary dyskinesia. DESCRIPTION OF PROCEDURE: The patient was brought to the operating room, laid supine on the table. After adequate IV pain and sedative medications and general endotracheal intubation, the abdomen was prepped and draped in standard surgical fashion. A 0.5% Marcaine with epinephrine was used to anesthetize the overlying skin in the left upper abdominal quadrant and a transverse skin incision made using a 15 blade. An 0 silk suture was applied to the medial aspect of the incision for retraction and a Veress needle inserted with a low opening pressure of 0 mmHg. The abdomen was insufflated to 15 mmHg pressure. The Veress needle removed and a 5 mm Xcel trocar placed followed by a 5 mm 45 degree angle laparoscope visualizing the peritoneal cavity. A 4-quadrant abdominal exploration was performed. Stomach omentum, small bowel and liver appeared normal. There was a slightly distended gallbladder, no gallbladder wall thickening. Under direct visualization, we then proceeded to place a supraumbilical 10 mm port after the skin and peritoneal lining were anesthetized using 0.5% Marcaine with epinephrine and a transverse skin incision made using a 15 blade. In a similar manner, a right upper abdominal quadrant 5 mm port was placed. The patient was then placed in reverse Trendelenburg position as well as planed right side up, left side down. The fundus of the gallbladder was then retracted anteriorly and superiorly. The hepatoduodenal ligament was then opened using blunt dissection as well as electrocautery using the hook instrument. We then proceeded the entire critical view of safety was then identified including the triangle of Calot as well as the cystic duct and artery as the only two structures going into the gallbladder as well as the cystic plate behind the proximal gallbladder. A timeout was then taken and the cystic duct and artery were then clipped proximally, distally and cut with EndoShears. The gallbladder was then dissected off the liver bed using cautery on hook instrument with visualization of good hemostasis as well as no leaking ducts of Luschka. The gallbladder was removed through the 10 mm port site using an EndoCatch bag. The gallbladder was examined on the back table with no stones identified, only thick bile. The 10 mm port site fascia and peritoneum were then closed under direct visualization using a Dat-Joreg device and 0 Vicryl suture. The abdomen was desufflated and remaining ports removed. All skin incisions were closed using 4-0 Monocryl running subcuticular sutures. The patient tolerated the procedure well. We will start IV and oral pain medication as well as a clear liquid diet. Once she is tolerating good pain control with oral pain medications and ambulating well we will discharge her home. She will be instructed to do no heavy lifting or exertion for the next two weeks. Job ID: [id number] DocumentID: [id number] Dictated Date: 06/16/2019 11:33:04 Podiatric Medicine Professor Date: 06/16/2019 14:08:18 Dictated By: FERMIN YEAGER MD
== END 2019-06-16 14:05 | disposition home or self-care (01) ==
LOC: SDC 07:12
PROVIDERS: ATTEND Surgery
DX: K81.1 Chronic cholecystitis (principal); K21.9 Gastro-esophageal reflux disease without esophagitis; F41.9 Anxiety disorder, unspecified; N80.9 Endometriosis, unspecified
CPT/HCPCS: 87081; 94664

== ENCOUNTER 2023-09-03 11:41 | Emergency (ER) | payer BC ==
[~2023-09-03] VITALS: Ht 155 cm; Wt 70.0 kg
[~2023-09-03 11:41] MED LIST changes: +ACET-11 PO; -ACET1TAB43 PO; +BUTA-235 PO; -BUTA1TAB9 PO; +CLIN-144 PO; -CLIN300C11 PO; +HYDR-700 PO; -OMEP20CA12 PO; +OMEP20CA18 PO; +OMEP20TA56 PO; -OMEP20TA7 PO; +OXYC1TAB15 PO; +RANI-613 PO; -RANI150T46 PO; -SULF1TAB35 PO; +SULF1TAB38 PO; +VILA40TA PO
[2023-09-03 11:50] VITALS: BP 110/72
[2023-09-03] MEDS ORDERED: NS IV 1000 ML 1,000 ML IV STA (12:05)
--- NOTE | 2023-09-03 12:09 | ED Headache ---
General Chief Complaint: Head/Cervical Problems Stated Complaint: MIGRAINE Nursing Triage Note: PT AMB TO FT1 WITH C/O MIGRAINE ON AND OFF X6 DAYS WITHOUT RELIEF FROM HOME MIGRAINE MEDS Source: patient Exam Limitations: no limitations (STEPHANE PAULINO) History of Present Illness Date Seen by Provider: Sep 03, 2023 Time Seen by Provider: 12:07 Initial Comments Patient is a 27-year-old female who presents to the ED for a migraine. Head pain over the past 6 days. Pain is throughout her head. Described as sharp constant rates 10 out of 10. History of migraines. Denies worst headache of her life. She states this feels very similar to her previous migraines. She reports nausea without vomiting. Photophobia and phonophobia. She does take Nurtec, Fioricet for her migraines but states this has not helped. She states 2 weeks ago she went to the clinic received Toradol injection with very minimal improvement. She denies of any unilateral muscle weakness or sensory changes visual changes, chest pain, shortness of breath, fever, chills, neck pain. History of hysterectomy. She denies the worst headache of her life. Denies of any injuries. No focal neural deficits (STEPHANE PAULINO) Allergies and Home Medications Allergies Coded Allergies: topiramate (Verified Adverse Reaction, Unknown, FACE AND HANDS WENT NUMB, 12/26/17) Patient Home Medication List Home Medication List Reviewed: Yes (STEPHANE PAULINO) Butalb/Acetaminophen/Caffeine (Rzizty-Qrmuurwh-Ziaq 50-325-40) 1 Each Tablet, 1 EACH PO Q4H PRN for MIGRAINE, (Reported) Entered as Reported by: DINH GUSMAN on 12/26/17 1001 Hydroxyzine HCl (Hydroxyzine HCl) 25 Mg Tablet, 25 MG PO, (Reported) Entered as Reported by: GEORGE VILLATORO on 06/16/19 0755 Omeprazole (Omeprazole) 20 Mg Tablet.dr, 20 MG PO DAILY, (Reported) Entered as Reported by: DINH GUSMAN on 12/26/17 1001 Oxycodone HCl/Acetaminophen (Oxycodon-Acetaminophen 7.5-325) 1 Each Tablet, 1-2 EACH PO Q4H PRN for PAIN-MODERATE Prescribed by: RAUL WEBBER on 06/16/19 0822 Vilazodone Hydrochloride (Viibryd) 40 Mg Tablet, 40 MG PO DAILY, (Reported) Entered as Reported by: GEORGE VILLATORO on 06/16/19 0755 Review of Systems Review of Systems Constitutional: No chills, No diaphoresis Eyes: Denies Blurred Vision, Denies Drainage, Denies Decreased Acuity Ears, Nose, Mouth, Throat: denies ear pain, denies ear discharge Respiratory: No cough, No dyspnea on exertion Cardiovascular: No chest pain Gastrointestinal: No abdominal pain, No diarrhea; nausea; No vomiting Genitourinary: No decreased output, No discharge Musculoskeletal: No back pain, No joint pain Skin: No change in color Psychiatric/Neurological: Headache; Denies Numbness, Denies Paresthesia (STEPHANE PAULINO) All Other Systems Reviewed Negative Unless Noted: Yes (STEPHANE PAULINO) Past Nomimbr-Zmojpw-Sgqkmr Hx Patient Social History Tobacco Use?: No Use of E-Cig and/or Vaping dev: No Substance use?: No Alcohol Use?: No Pt feels they are or have been: No (STEPHANE PAULINO) Immunizations Up To Date Tetanus Booster (TDap): Less than 5yrs PED Vaccines UTD: Yes (STEPHANE PAULINO) Seasonal Allergies Seasonal Allergies: No (STEPHANE PAULINO) Past Medical History Surgery/Hospitalization HX: MIGRAINES HYSTO, RUKHSANA, D&C Surgeries: Yes (dxls, l oophorectomy) Appendectomy, Hysterectomy, Oophorectomy Respiratory: No Cardiac: No Neurological: Yes Headaches /Migraines Reproductive Disorders: Yes (cpp) Female Reproductive Disorders: Denies Sexually Transmitted Disease: No HIV/AIDS: No Genitourinary: Yes (hx of endometriosis) UTI-Chronic Gastrointestinal: Yes Gastroesophageal Reflux, Ulcer Musculoskeletal: No Endocrine: No HEENT: No Cancer: No Psychosocial: No Integumentary: No Blood Disorders: No Adverse Reaction/Blood Tranf: No (STEPHANE PAULINO) Family Medical History Family history: Asthma G8 BROTHER, Onset:Childhood No Family History of: Abdominal aortic aneurysm [place]'s disease Alcoholism Aphasia Cancer Cancer of colon Cataract Chest pain Congenital heart disease Congestive heart failure Cystic fibrosis Dementia Dysphagia Family history: Allergy Family history: Alzheimer's disease Family history: Arthritis Family history: Breast disease Family history: Cardiovascular disease Family history: Coronary thrombosis Family history: Diabetes mellitus Family history: Gastrointestinal disease Family history: Glaucoma Family history: Hypertension Family history: Osteoporosis Family history: Thyroid disorder Headache Hearing loss Heart disease Hereditary disease History of - anemia History of - respiratory disease History of drug abuse Human immunodeficiency virus (HIV) seropositivity Hypercholesterolemia Infertile Kidney disease Malignant neoplasm of lung Myocardial infarction Parkinson's disease Prostate cancer Psychotic disorder Seizure disorder Stroke Tuberculosis Visual impairment Physical Exam Vital Signs Vital Signs - First Documented 09/03/23 11:50 Temp 37.0 Pulse 82 Resp 14 B/P (MAP) 110/72 (85) Pulse Ox 99 O2 Delivery Room Air (RADHA NUNEZ MD) Vital Signs Capillary Refill : (STEPHANE PAULINO) Height, Weight, BMI Height: 5'1.00" Weight: 185lbs. 0.0oz. 83.788066aw; 29.00 BMI Method:Stated General Appearance: WD/WN, no apparent distress HEENT: PERRL/EOMI, normal ENT inspection, TMs normal, pharynx normal Neck: non-tender, full range of motion, supple Cardiovascular: regular rate, rhythm, no edema, no gallop, no JVD Respiratory: chest non-tender, lungs clear, normal breath sounds, no respiratory distress, no accessory muscle use Gastrointestinal: normal bowel sounds, non tender, soft, no organomegaly Back: normal inspection, no CVA tenderness, no vertebral tenderness Extremities: normal range of motion, non-tender, normal inspection, no pedal edema Psychiatric: alert, oriented x 3 Crainal Nerves: normal hearing, normal speech, PERRL Coordination/Gait: normal finger to nose, normal gait Motor/Sensory: no motor deficit, no sensory deficit Skin: normal color, warm/dry (STEPHANE PAULINO) Progress/Results/Core Measures Results/Orders Vital Signs/I&O 09/03/23 11:50 Temp 37.0 Pulse 82 Resp 14 B/P (MAP) 110/72 (85) Pulse Ox 99 O2 Delivery Room Air (RADHA NUNEZ MD) Blood Pressure Mean: 85 Departure Communication (PCP) Patient is a 27-year-old female presents ED with a migraine. History of migraines. Does take Fioricet and Nurtec for her migraines. Symptoms over the past 6 days gradual onset with increasing pain. Feels very similar to her other migraines. Denies worst headache of her life. Nausea without vomiting. Photophobia and phonophobia. Neuro exam unremarkable. No strokelike symptoms. No scalp tenderness. No evidence suggesting vasculitis. Vital signs stable. No fever or recent URI. No meningeal signs. She does not appear toxic or septic. Alert and orient x4. GCS of 15. Provided a migraine cocktail with saline, Toradol, Compazine, Decadron and Benadryl. She had significant improvement of her headache. She is requesting to be discharged. Suggest going home and sleep. If any worsening symptoms such as fever, worsening head pain, neck pain, unilateral weakness to return back to ED. Patient agrees with plan of action (STEPHANE PAULINO) Impression Primary Impression: Migraine Disposition: 01 HOME, SELF-CARE Condition: Stable Departure-Patient Inst. Decision time for Depature: 12:53 (STEPHANE PAULINO) Referrals: GARETT PRESCOTT MD (PCP/Family) Primary Care Physician Patient Instructions: Migraines (DC) Add. Discharge Instructions: Continue with your migraine medication. If any worsening symptoms return back to ED All discharge instructions reviewed with patient and/or family. Voiced understanding. Work/School Note: Work Release Form Date Seen in the Emergency Department: Sep 03, 2023 Return to Work: Sep 04, 2023 ATTENDING PHYSICIAN NOTE: I was physically present as attending physician in the emergency department during the care of this patient, but I was not directly involved in the decision making or delivery of care for this patient. (RADHA NUNEZ MD) STEPHANE PAULINO Sep 03, 2023 12:09 RADHA NUNEZ MD Sep 04, 2023 17:23
[2023-09-03] MEDS ORDERED: dexAMETHasone INJ 10 MG/ML 1 ML VIAL IV ONE (12:15)
[2023-09-03] MEDS ORDERED: PROCHLORPERAZINE INJ 10 MG/2ML VIAL IV ONE (12:15)
[2023-09-03] MEDS ORDERED: diphenhydrAMINE INJ 50 MG/ML VIAL IVP ONE (12:15)
[2023-09-03] MEDS ORDERED: KETOROLAC INJ 30 MG/ML VIAL IVP ONE (12:15)
== END 2023-09-03 13:23 | disposition home or self-care (01) ==
LOC: EDUNIT# 11:41 → ER 11:45
DX: G43.909 Migraine, unspecified, not intractable, without status migrainosus (principal)